=== PATIENT | male | born 1955 | race American Indian/Alaskan Native ===

== ENCOUNTER 2019-05-25 10:49 | Inpatient (IN) | payer MEDICARE ==
[2019-05-25] MEDS ORDERED: SODIUM CHLORIDE 0.9% 500 ML 500 ML IV ONE ×2 (11:37→13:24)
[2019-05-25] MEDS ORDERED: MORPHINE 2 MG/1 ML INJ IV ONE (11:40)
[2019-05-25] MEDS ORDERED: ONDANSETRON 4 MG/2 ML INJ IV ONE (11:40)
--- NOTE | 2019-05-25 12:06 | XRay Report ---
CHEST 1 VIEW INDICATION / CLINICAL INFORMATION: hypertension. COMPARISON: None available. FINDINGS: SUPPORT DEVICES: None. HEART / MEDIASTINUM: No significant abnormality. LUNGS / PLEURA: No significant pulmonary or pleural abnormality. No pneumothorax. ADDITIONAL FINDINGS: No significant additional findings. IMPRESSION: 1. No acute findings. Signer Name: Garland Akins MD Signed: 05/25/2019 12:01 PM Workstation Name: [id number]
[2019-05-25 12:38] LABS: Basophils % (Auto) 0.3 % (0.0-1.8); Eosinophils % (Auto) 0.1 % (0.0-4.3); Hematocrit 31.5 % (35.5-45.6); Hemoglobin 10.2 gm/dl (11.8-15.2); Lymphocytes # (Auto) 1.1 K/mm3 (1.2-5.4); Lymphocytes % (Auto) 8.2 % (13.4-35.0); Mean Corpuscular HGB Conc 33 % (32-34); Mean Corpuscular Volume 88 fl (84-94); Monocytes # (Auto) 1.7 K/mm3 (0.0-0.8); Monocytes % (Auto) 12.4 % (0.0-7.3); Red Blood Count 3.59 M/mm3 (3.65-5.03); Red Cell Distribution Width 17.5 % (13.2-15.2)
[2019-05-25 12:49] LABS: INR 1.22 (0.87-1.13)
[2019-05-25 12:50] LABS: Partial Thromboplastin Time 38.9 Sec. (24.2-36.6)
[2019-05-25 13:04] LABS: Creatine Kinase MB 1.4 ng/mL (0.0-4.0)
[2019-05-25 13:05] LABS: Platelet Count 98 K/mm3 (140-440)
[2019-05-25 13:09] LABS: Albumin 3.5 g/dL (3.9-5); Bilirubin,Direct 0.4 mg/dL (0-0.2); Calcium 10.6 mg/dL (8.4-10.2)
[2019-05-25] MEDS ORDERED: DEXTROSE 50% IN WATER (25GM) 50 ML SYRINGE IV ONE (13:25)
[2019-05-25] MEDS ORDERED: INSULIN REGULAR, HUMAN 100 UNITS/1 ML IV ONE (13:25)
[2019-05-25] MEDS ORDERED: SODIUM BICARB 8.4% 50 MEQ/50 ML SYRINGE IV ONE (13:25)
--- NOTE | 2019-05-25 13:44 | Emergency Department Report ---
ED General Adult HPI - General Chief complaint: Pain General Stated complaint: FALL/BODY PAIN Time Seen by Provider: 05/25/19 11:22 Source: patient, EMS Mode of arrival: Stretcher Limitations: Physical Limitation - History of Present Illness Initial comments: This is a 64-year-old man who is giving a confusing history. According to the triage note he was brought in by EMS when he was found on the floor reportedly down for "4 days". However the patient states he lives with his brother and he has not been immobile. He is remarkably coherent and can list all his medicines with accuracy. He states he has a history of osteoarthritis and hypertension. He is on multiple blood pressure medicines for his hypertension. However he is not taking anything specific for his arthritis. He does complain of severe generalized pain mostly involving his joints. He has noted swelling of his hands. He is not incoherent. However either he has some degree of retrograde amnesia or he is just not providing an accurate history. No family member is currently available to provide additional history. -: Gradual Severity scale (0 -10): 0 - Related Data Allergies Allergy/AdvReac Type Severity Reaction Status Date / Time acetaminophen Allergy Unknown Verified 05/25/19 11:33 [From Tylenol-Codeine #3] codeine Allergy Unknown Verified 05/25/19 11:33 [From Tylenol-Codeine #3] tramadol Allergy Unknown Verified 05/25/19 11:33 ED Review of Systems ROS: Stated complaint: FALL/BODY PAIN Other details as noted in HPI Comment: Unobtainable due to pts medical conditions (There is a question about this patient's reliability) Constitutional: denies: chills, fever Eyes: eye discharge. denies: eye pain, vision change ENT: denies: ear pain, throat pain Respiratory: denies: cough, shortness of breath, wheezing Cardiovascular: denies: chest pain, palpitations Endocrine: no symptoms reported Gastrointestinal: diarrhea. denies: abdominal pain, nausea Genitourinary: denies: urgency, dysuria Musculoskeletal: joint swelling, arthralgia. denies: back pain Skin: denies: rash, lesions Neurological: denies: headache, weakness (No focal weakness), paresthesias Psychiatric: denies: anxiety, depression Hematological/Lymphatic: denies: easy bleeding, easy bruising ED Past Medical Hx - Past Medical History Previous Medical History?: Yes Hx Hypertension: Yes Hx Heart Attack/AMI: Yes (2014) Hx Congestive Heart Failure: Yes Hx Renal Disease: Yes - Surgical History Past Surgical History?: Yes Additional Surgical History: R hip replacement 2015, kidney transplant 1983 - Social History Smoking Status: Never Smoker Substance Use Type: None ED Physical Exam - General Limitations: Physical Limitation General appearance: alert, in no apparent distress - Head Head exam: Present: atraumatic, normocephalic - Eye Eye exam: Present: normal appearance. Absent: scleral icterus - ENT ENT exam: Present: mucous membranes dry - Neck Neck exam: Present: normal inspection. Absent: tenderness, meningismus - Respiratory Respiratory exam: Present: normal lung sounds bilaterally. Absent: respiratory distress - Cardiovascular Cardiovascular Exam: Present: regular rate, normal rhythm. Absent: systolic murmur, diastolic murmur, rubs, gallop - GI/Abdominal GI/Abdominal exam: Present: soft, normal bowel sounds. Absent: distended, tenderness, guarding, rebound - Rectal Rectal exam: Present: deferred - Extremities Exam Extremities exam: Present: other (Patient appears to have multiple active joints. L knee has small effusion, ROM painful diffusely) - Back Exam Back exam: Present: other (unable to examine) - Neurological Exam Neurological exam: Present: alert, oriented X3, CN II-XII intact, motor sensory deficit (limited secondary) - Psychiatric Psychiatric exam: Present: normal affect, normal mood - Skin Skin exam: Present: warm, dry, intact, normal color. Absent: rash ED Course Vital Signs 05/25/19 05/25/19 11:08 11:45 Temperature 99.0 F 99.8 F H Pulse Rate 98 H Respiratory 18 Rate Blood Pressure 181/97 O2 Sat by Pulse 96 Oximetry - Reevaluation(s) Reevaluation #1: Patient has been given to 500 cc fluid boluses. Rectal temperature was less magaly n 100. He was somewhat suspected of sepsis. However his lactic acid level was normal. He was suspected of having rhabdomyolysis. However, his CK was normal. I have still awaiting a urinalysis report. The patient was found to be in acute renal failure. He has metabolic acidosis as well as hyperkalemia. He was given a hyperkalemia cocktail. Nephrology was consulted. I have ordered a repeat CK and BMP. He is given 1 dose of ceftriaxone empirically. He is also pending CT of the head abdomen and pelvis for indications of questionable mental status and acute renal failure. 05/25/19 15:01 Reevaluation #2: Case discussed with Dr. Lainez. Patient admitted to the hospital service for further care and evaluation. 05/25/19 15:03 ED Medical Decision Making - Lab Data Result diagrams: 05/25/19 11:59 05/25/19 11:59 Laboratory Results - last 24 hr 05/25/19 05/25/19 05/25/19 11:59 11:59 11:59 WBC 14.0 H RBC 3.59 L Hgb 10.2 L Hct 31.5 L MCV 88 MCH 29 MCHC 33 RDW 17.5 H Plt Count 98 L Lymph % (Auto) 8.2 L [place] % (Auto) 12.4 H Eos % (Auto) 0.1 Baso % (Auto) 0.3 Lymph # 1.1 L [place] # 1.7 H Eos # 0.0 Baso # 0.0 Seg Neutrophils % 79.0 H Seg Neutrophils # 11.1 H PT 15.6 H INR 1.22 H APTT 38.9 H VBG pH Sodium Potassium Chloride Carbon Dioxide Anion Gap BUN Creatinine Estimated GFR BUN/Creatinine Ratio Glucose Lactic Acid 1.40 Calcium Magnesium Total Bilirubin Direct Bilirubin Indirect Bilirubin AST ALT Alkaline Phosphatase Ammonia CK-MB (CK-2) Troponin T NT-Pro-B Natriuret Pep Total Protein Albumin Albumin/Globulin Ratio 05/25/19 05/25/19 05/25/19 11:59 11:59 11:59 WBC RBC Hgb Hct MCV MCH MCHC RDW Plt Count Lymph % (Auto) [place] % (Auto) Eos % (Auto) Baso % (Auto) Lymph # [place] # Eos # Baso # Seg Neutrophils % Seg Neutrophils # PT INR APTT VBG pH 7.407 Sodium 140 Potassium 5.6 H Chloride 106.5 Carbon Dioxide 17 L Anion Gap 22 BUN 52 H Creatinine 2.4 H Estimated GFR 33 BUN/Creatinine Ratio 22 Glucose 226 H Lactic Acid Calcium 10.6 H Magnesium 2.40 H Total Bilirubin 1.10 Direct Bilirubin 0.4 H Indirect Bilirubin 0.7 AST 22 ALT 17 Alkaline Phosphatase 76 Ammonia 29.0 CK-MB (CK-2) 1.4 Troponin T NT-Pro-B Natriuret Pep 5533 H Total Protein 7.6 Albumin 3.5 L Albumin/Globulin Ratio 0.9 05/25/19 11:59 WBC RBC Hgb Hct MCV MCH MCHC RDW Plt Count Lymph % (Auto) [place] % (Auto) Eos % (Auto) Baso % (Auto) Lymph # [place] # Eos # Baso # Seg Neutrophils % Seg Neutrophils # PT INR APTT VBG pH Sodium Potassium Chloride Carbon Dioxide Anion Gap BUN Creatinine Estimated GFR BUN/Creatinine Ratio Glucose Lactic Acid Calcium Magnesium Total Bilirubin Direct Bilirubin Indirect Bilirubin AST ALT Alkaline Phosphatase Ammonia CK-MB (CK-2) Troponin T 0.047 H NT-Pro-B Natriuret Pep Total Protein Albumin Albumin/Globulin Ratio Laboratory Results - last 24 hr 05/25/19 05/25/19 05/25/19 11:59 11:59 11:59 WBC 14.0 H RBC 3.59 L Hgb 10.2 L Hct 31.5 L MCV 88 MCH 29 MCHC 33 RDW 17.5 H Plt Count 98 L Lymph % (Auto) 8.2 L [place] % (Auto) 12.4 H Eos % (Auto) 0.1 Baso % (Auto) 0.3 Lymph # 1.1 L [place] # 1.7 H Eos # 0.0 Baso # 0.0 Seg Neutrophils % 79.0 H Seg Neutrophils # 11.1 H PT 15.6 H INR 1.22 H APTT 38.9 H VBG pH Sodium Potassium Chloride Carbon Dioxide Anion Gap BUN Creatinine Estimated GFR BUN/Creatinine Ratio Glucose Lactic Acid 1.40 Calcium Magnesium Total Bilirubin Direct Bilirubin Indirect Bilirubin AST ALT Alkaline Phosphatase Ammonia CK-MB (CK-2) Troponin T NT-Pro-B Natriuret Pep Total Protein Albumin Albumin/Globulin Ratio 05/25/19 05/25/19 05/25/19 11:59 11:59 11:59 WBC RBC Hgb Hct MCV MCH MCHC RDW Plt Count Lymph % (Auto) [place] % (Auto) Eos % (Auto) Baso % (Auto) Lymph # [place] # Eos # Baso # Seg Neutrophils % Seg Neutrophils # PT INR APTT VBG pH 7.407 Sodium 140 Potassium 5.6 H Chloride 106.5 Carbon Dioxide 17 L Anion Gap 22 BUN 52 H Creatinine 2.4 H Estimated GFR 33 BUN/Creatinine Ratio 22 Glucose 226 H Lactic Acid Calcium 10.6 H Magnesium 2.40 H Total Bilirubin 1.10 Direct Bilirubin 0.4 H Indirect Bilirubin 0.7 AST 22 ALT 17 Alkaline Phosphatase 76 Ammonia 29.0 CK-MB (CK-2) 1.4 Troponin T NT-Pro-B Natriuret Pep 5533 H Total Protein 7.6 Albumin 3.5 L Albumin/Globulin Ratio 0.9 05/25/19 11:59 WBC RBC Hgb Hct MCV MCH MCHC RDW Plt Count Lymph % (Auto) [place] % (Auto) Eos % (Auto) Baso % (Auto) Lymph # [place] # Eos # Baso # Seg Neutrophils % Seg Neutrophils # PT INR APTT VBG pH Sodium Potassium Chloride Carbon Dioxide Anion Gap BUN Creatinine Estimated GFR BUN/Creatinine Ratio Glucose Lactic Acid Calcium Magnesium Total Bilirubin Direct Bilirubin Indirect Bilirubin AST ALT Alkaline Phosphatase Ammonia CK-MB (CK-2) Troponin T 0.047 H NT-Pro-B Natriuret Pep Total Protein Albumin Albumin/Globulin Ratio Laboratory Results - last 24 hr 05/25/19 05/25/19 05/25/19 11:59 11:59 11:59 WBC 14.0 H RBC 3.59 L Hgb 10.2 L Hct 31.5 L MCV 88 MCH 29 MCHC 33 RDW 17.5 H Plt Count 98 L Lymph % (Auto) 8.2 L [place] % (Auto) 12.4 H Eos % (Auto) 0.1 Baso % (Auto) 0.3 Lymph # 1.1 L [place] # 1.7 H Eos # 0.0 Baso # 0.0 Seg Neutrophils % 79.0 H Seg Neutrophils # 11.1 H PT 15.6 H INR 1.22 H APTT 38.9 H VBG pH Sodium Potassium Chloride Carbon Dioxide Anion Gap BUN Creatinine Estimated GFR BUN/Creatinine Ratio Glucose Lactic Acid 1.40 Calcium Magnesium Total Bilirubin Direct Bilirubin Indirect Bilirubin AST ALT Alkaline Phosphatase Ammonia Total Creatine Kinase CK-MB (CK-2) CK-MB (CK-2) Rel Index Troponin T NT-Pro-B Natriuret Pep Total Protein Albumin Albumin/Globulin Ratio 05/25/19 05/25/19 05/25/19 11:59 11:59 11:59 WBC RBC Hgb Hct MCV MCH MCHC RDW Plt Count Lymph % (Auto) [place] % (Auto) Eos % (Auto) Baso % (Auto) Lymph # [place] # Eos # Baso # Seg Neutrophils % Seg Neutrophils # PT INR APTT VBG pH 7.407 Sodium 140 Potassium 5.6 H Chloride 106.5 Carbon Dioxide 17 L Anion Gap 22 BUN 52 H Creatinine 2.4 H Estimated GFR 33 BUN/Creatinine Ratio 22 Glucose 226 H Lactic Acid Calcium 10.6 H Magnesium 2.40 H Total Bilirubin 1.10 Direct Bilirubin 0.4 H Indirect Bilirubin 0.7 AST 22 ALT 17 Alkaline Phosphatase 76 Ammonia 29.0 Total Creatine Kinase 185 H CK-MB (CK-2) 1.4 CK-MB (CK-2) Rel Index 0.7 Troponin T NT-Pro-B Natriuret Pep 5533 H Total Protein 7.6 Albumin 3.5 L Albumin/Globulin Ratio 0.9 05/25/19 11:59 WBC RBC Hgb Hct MCV MCH MCHC RDW Plt Count Lymph % (Auto) [place] % (Auto) Eos % (Auto) Baso % (Auto) Lymph # [place] # Eos # Baso # Seg Neutrophils % Seg Neutrophils # PT INR APTT VBG pH Sodium Potassium Chloride Carbon Dioxide Anion Gap BUN Creatinine Estimated GFR BUN/Creatinine Ratio Glucose Lactic Acid Calcium Magnesium Total Bilirubin Direct Bilirubin Indirect Bilirubin AST ALT Alkaline Phosphatase Ammonia Total Creatine Kinase CK-MB (CK-2) CK-MB (CK-2) Rel Index Troponin T 0.047 H NT-Pro-B Natriuret Pep Total Protein Albumin Albumin/Globulin Ratio Laboratory Results - last 24 hr 05/25/19 05/25/19 05/25/19 11:59 11:59 11:59 WBC 14.0 H RBC 3.59 L Hgb 10.2 L Hct 31.5 L MCV 88 MCH 29 MCHC 33 RDW 17.5 H Plt Count 98 L Lymph % (Auto) 8.2 L [place] % (Auto) 12.4 H Eos % (Auto) 0.1 Baso % (Auto) 0.3 Lymph # 1.1 L [place] # 1.7 H Eos # 0.0 Baso # 0.0 Seg Neutrophils % 79.0 H Seg Neutrophils # 11.1 H PT 15.6 H INR 1.22 H APTT 38.9 H VBG pH Sodium Potassium Chloride Carbon Dioxide Anion Gap BUN Creatinine Estimated GFR BUN/Creatinine Ratio Glucose Lactic Acid 1.40 Calcium Magnesium Total Bilirubin Direct Bilirubin Indirect Bilirubin AST ALT Alkaline Phosphatase Ammonia Total Creatine Kinase CK-MB (CK-2) CK-MB (CK-2) Rel Index Troponin T NT-Pro-B Natriuret Pep Total Protein Albumin Albumin/Globulin Ratio 05/25/19 05/25/19 05/25/19 11:59 11:59 11:59 WBC RBC Hgb Hct MCV MCH MCHC RDW Plt Count Lymph % (Auto) [place] % (Auto) Eos % (Auto) Baso % (Auto) Lymph # [place] # Eos # Baso # Seg Neutrophils % Seg Neutrophils # PT INR APTT VBG pH 7.407 Sodium 140 Potassium 5.6 H Chloride 106.5 Carbon Dioxide 17 L Anion Gap 22 BUN 52 H Creatinine 2.4 H Estimated GFR 33 BUN/Creatinine Ratio 22 Glucose 226 H Lactic Acid Calcium 10.6 H Magnesium 2.40 H Total Bilirubin 1.10 Direct Bilirubin 0.4 H Indirect Bilirubin 0.7 AST 22 ALT 17 Alkaline Phosphatase 76 Ammonia 29.0 Total Creatine Kinase 185 H CK-MB (CK-2) 1.4 CK-MB (CK-2) Rel Index 0.7 Troponin T NT-Pro-B Natriuret Pep 5533 H Total Protein 7.6 Albumin 3.5 L Albumin/Globulin Ratio 0.9 05/25/19 11:59 WBC RBC Hgb Hct MCV MCH MCHC RDW Plt Count Lymph % (Auto) [place] % (Auto) Eos % (Auto) Baso % (Auto) Lymph # [place] # Eos # Baso # Seg Neutrophils % Seg Neutrophils # PT INR APTT VBG pH Sodium Potassium Chloride Carbon Dioxide Anion Gap BUN Creatinine Estimated GFR BUN/Creatinine Ratio Glucose Lactic Acid Calcium Magnesium Total Bilirubin Direct Bilirubin Indirect Bilirubin AST ALT Alkaline Phosphatase Ammonia Total Creatine Kinase CK-MB (CK-2) CK-MB (CK-2) Rel Index Troponin T 0.047 H NT-Pro-B Natriuret Pep Total Protein Albumin Albumin/Globulin Ratio - EKG Data -: EKG Interpreted by Il EKG shows normal: sinus rhythm (96) Rate: normal - EKG Data Interpretation: LVH, other (QS 3 and aVF. No acute ischemic changes. Essentially normal repolarization. Consistent with LVH) - Radiology Data Radiology results: report reviewed (No acute process), image reviewed Critical Care Time: Yes Critical care time in (mins) excluding proc time.: 90 Critical care attestation.: If time is entered above; I have spent that time in minutes in the direct care of this critically ill patient, excluding procedure time. ED Disposition Clinical Impression: Hyperkalemia, Metabolic acidosis, Acute arthritis Acute renal failure Qualifiers: Acute renal failure type: unspecified Qualified Code(s): N17.9 - Acute kidney failure, unspecified Disposition: 09 OP ADMIT IP TO THIS HOSP Is pt being admited?: Yes Does the pt Need Aspirin: Yes Condition: Stable Referrals: PRIMARY CARE, [Primary Care Provider] - 3-5 Days Time of Disposition: 15:04
[2019-05-25] MEDS ORDERED: cefTRIAXone/NS 1 GM/50 ML 1 GM/50 ML BAG IV ONE (14:59)
[2019-05-25] MEDS ORDERED: ASPIRIN 81 MG TAB CHEW PO ONE (15:05)
[2019-05-25 15:26] LABS: Chol/HDL Ratio 3.25 %
--- NOTE | 2019-05-25 15:32 | Cat Scan Report ---
CT HEAD WITHOUT CONTRAST INDICATION / CLINICAL INFORMATION: Altered mental status. TECHNIQUE: Axial imaging performed from the skull apex through the skull base without the use of cont rast. Sagittal and coronal reformatted images. All CT scans at this location are performed using CT dose reduction for ALARA by means of automated exposure control. COMPARISON: None available. FINDINGS: CEREBRAL PARENCHYMA: No significant abnormality. No acute territorial infarct. Minimal nonspecific ch ronic white matter changes are noted. No chronic infarct. HEMORRHAGE: None. EXTRA-AXIAL SPACES: Normal in size and morphology for the patient's age. VENTRICULAR SYSTEM: Normal in size and morphology for the patient's age. MIDLINE SHIFT OR HERNIATION: None. CEREBELLUM / BRAINSTEM: No significant abnormality. CALVARIUM: No significant abnormality. ORBITS: Normal as visualized. PARANASAL SINUSES / MASTOID AIR CELLS: The frontal sinuses are occluded. There is partial opacificati on of the ethmoid air cells. Mucosal thickening and moderate fluid level are noted in the left maxill serjio sinus. Mild mucosal thickening in the right maxillary sinus. The sphenoid sinuses are clear. SOFT TISSUES of HEAD: No significant abnormality. ADDITIONAL FINDINGS: None. IMPRESSION: No acute intracranial abnormality. Minimal nonspecific chronic white matter changes. Pansinusitis as described above. Correlate for acute symptoms. Signer Name: Patel Torres Jr, MD Signed: 05/25/2019 3:28 PM Workstation Name: [id number]
[2019-05-25 15:34] LABS: Bilirubin,Urine NEG (Negative); Blood,Urine SM (Negative); Color,Urine Yellow (Yellow); WBC,Urine < 1.0 /HPF (0.0-6.0)
--- NOTE | 2019-05-25 15:55 | Cat Scan Report ---
CT ABDOMEN AND PELVIS WITHOUT CONTRAST HISTORY: Acute renal failure. Altered mental status. COMPARISON: No relevant comparison imaging. TECHNIQUE: Routine abdominal and pelvic CT exam performed without contrast. Lack of intravenous cont rast limits evaluation of the vascular and solid organs.. All CT scans at this location are performed using CT dose reduction for ALARA by means of automated exposure control. FINDINGS: CT ABDOMEN: Lung Bases: Clear. Liver: Small but otherwise normal. No liver mass. Biliary: Gallbladder is normally distended with a questionable single irregular tiny gallstone in the dependent portion of the gallbladder. Normal bile ducts. No pericholecystic fluid or gallbladder wal l thickening. Spleen: No significant abnormality. Unenlarged. Pancreas: No significant abnormality. Adrenals: No significant abnormality. Kidneys: Atrophic [place] kidneys with nondilated renal collecting systems and ureters. Lymphatics: No lymphadenopathy. Vasculature: Moderate calcification of the abdominal aorta and iliac arteries. Bowel/Peritoneum: Nonobstructive bowel pattern. Diverticulosis without mesocolonic fat stranding. No free air. No free fluid. Normal appendix. CT PELVIC: : A right transplant kidney measures approximately 12 cm in length. Moderate dilatation of the uday l collecting system and proximal ureter. There appears to be a stricture in the ureter on the coronal reformats but the ureter distal to the stricture cannot be followed to the urinary bladder. Urinary bladder is moderately distended and unremarkable. Normal prostate and seminal vesicles. Lymphatics: No lymphadenopathy. Osseous Structures: No aggressive appearing osseous lesions. Additional Findings: A small fat-containing umbilical hernia. IMPRESSION: 1. Right transplant kidney with moderate hydronephrosis and a possible stricture of the ureter just d istal to the UPJ. No urinary calculus or mass identified. 2. A possible single tiny gallstone. 3. Small liver but no other signs to suggest cirrhosis. 4. Mild diverticulosis but no signs of diverticulitis. 5. A small fat-containing umbilical hernia. Signer Name: Best Oliveira MD Signed: 05/25/2019 3:51 PM Workstation Name: [id number]
[2019-05-25 16:02] LABS: Creatine Kinase MB 1.3 ng/mL (0.0-4.0)
[2019-05-25 16:03] LABS: Calcium 10.2 mg/dL (8.4-10.2)
[2019-05-25] MEDS ORDERED: ONDANSETRON 4 MG/2 ML INJ IV PRN ×2 (16:56→21:33)
[2019-05-25] MEDS: HYDROmorphone 1 MG/1 ML INJ IV PRN ×2 (17:09→21:56)
--- NOTE | 2019-05-25 17:18 | Consultation ---
History of Present Illness - Reason for Consult Consult date: 05/25/19 chronic renal failure - History of Present Illness This is a 64-year-old male who presents to the E.R who complains of pain to his back. At present patient can barely speak due to being in pain. Patient reports that he has a kidney doctor name Jose Cortez that is off [facility] and states he has last seen him 2 months ago and has been under his care for 30 plus years per patient. Patient is unable to state what his baseline renal function is as he does not know. Patient's serum creatinine noted to e levated at 2.4. Baseline unknown. Patient has history of renal transplant in 1983 and hypertension. We are being consulted for management of this patient's Chronic kidney disease. Past History Past Medical History: hypertension, other (CKD) Past Surgical History: total hip replacement, Other (renal transplant in 1983) Social history: no significant social history Family history: no significant family history Medications and Allergies Allergies Allergy/AdvReac Type Severity Reaction Status Date / Time acetaminophen Allergy Unknown Verified 05/25/19 11:33 [From Tylenol-Codeine #3] codeine Allergy Unknown Verified 05/25/19 11:33 [From Tylenol-Codeine #3] tramadol Allergy Unknown Verified 05/25/19 11:33 Active Meds: Active Medications Hydromorphone HCl (Dilaudid) 0.5 mg IV Q3H PRN PRN Reason: Pain , Severe (7-10) Last Admin: 05/25/19 17:09 Dose: 0.5 mg Documented by: Ondansetron HCl (Zofran) 4 mg IV Q3H PRN PRN Reason: Nausea Last Admin: 05/25/19 17:09 Dose: 4 mg Documented by: Review of Systems Constitutional: fatigue, no weight loss, no weight gain, no fever, no chills, no sweats Ears, nose, mouth and throat: no ear pain, no ear discharge, no tinnitis, no decreased hearing Cardiovascular: no chest pain, no orthopnea, no palpitations, no rapid/irregular heart beat, no edema Respiratory: no cough, no cough with sputum, no excessive sputum, no hemoptysis, no shortness of breath Gastrointestinal: no abdominal pain, no nausea, no vomiting Genitourinary Male: no dysuria, no hematuria, no flank pain, no discharge, no urinary frequency, no urinary hesitancy Musculoskeletal: arthritis, other (c/o of back pain and hand swelling), no neck stiffness, no neck pain, no shooting arm pain, no arm numbness/tingling, no low back pain Integumentary: no rash, no pruritis, no redness, no sores, no wounds Neurological: no head injury, no transient paralysis, no paralysis, no weakness, no parathesias, no numbness, no tingling, no seizures Psychiatric: no anxiety, no memory loss, no change in sleep habits, no sleep disturbances, no insomnia, no hypersomnia Endocrine: no cold intolerance, no heat intolerance, no polyphagia, no excessive thirst, no polydipsia, no polyuria Exam - Vital Signs Vital signs: Vital Signs Pulse Resp 99 H 10 L 05/25/19 11:03 05/25/19 11:03 - General Appearance General appearance: fatigue, other (in distress from back pain) EENT: ATNC, PERRL, hearing intact, vision intact Neck: Present: neck supple, trachea midline Respiratory: Clear to Ascultation Heart: regular, S1S2 Gastrointestinal: Present: normoactive bowel sounds Integumentary: warm and dry Neurologic: alert and oriented x3 Musculoskeletal: Present: other (No edema to BLE) Results - Lab Results 05/25/19 11:59 05/25/19 15:23 Most recent lab results Calcium 10.2 mg/dL (8.4-10.2) 05/25/19 15:23 Magnesium 2.40 mg/dL (1.7-2.3) H 05/25/19 11:59 Assessment and Plan Chronic Kidney Disease likely secondary to Hypertensive Nephrosclerosis: -Renal labs reviewed. Serum creatinine 2.4. Baseline unknown. -However patient reports being under the care of a Printing Press Operator named Jose Mcneill, likely has CKD -Will obtain renal ultrasound -Will obtain urine lytes -Start hydration with NS@ 50 ml/hr -Renally dose medications -Avoid nephrotoxic agents -Monitor I/O's -Will monitor renal function closely Hypertension: -Resume/reconcile home anti-hypertensive agents -Monitor blood pressures Hyperkalemia: -Received insulin/bicarb/D50 -Monitor potassium levels -BMP in a.m Back Pain: -As per primary
--- NOTE | 2019-05-25 21:28 | History and Physical Report ---
History of Present Illness Date of examination: 05/25/19 Date of admission: 05/25/2019 Chief complaint: Back pain---4 days History of present illness: 64-year-old man was found on the floor reportedly down for "4 days". However the patient states he lives with his brother and he has not been immobile. Complains of pain to his back. At present patient can barely speak due to being in pain. Patient reports that he has a kidney doctor name Jose Cortez that is off [facility] and states he has last seen him 2 months ago and has been under his care for 30 plus years. Patient is unable to state what his baseline renal function is as he does not know. Patient's serum creatinine noted to elevated at 2.4. Baseline unknown. Patient has history of renal transplant in 1983 and hypertension. Patient has high K level ,cr of 2.8 and high BNPhence admission. No specific complaints other than back pain. Past Medical History Previous Medical History?: Yes Hypertension: Yes Heart Attack/AMI: Yes (2013) Congestive Heart Failure: Yes Renal Disease: Yes -Surgical History Past Surgical History?: Yes Additional Surgical History: R hip replacement 2015, kidney transplant 1983 Social History Smoking Status: Never Smoker Substance Use Type: None FH Htn Review of Systems ROS: Stated complaint: FALL/BODY PAIN Other details as noted in HPI Comment: Unobtainable due to pts medical conditions (There is a question about this patient's reliability) Constitutional: denies: chills, fever Eyes: eye discharge. denies: eye pain, vision change ENT: denies: ear pain, throat pain Respiratory: denies: cough, shortness of breath, wheezing Cardiovascular: denies: chest pain, palpitations Endocrine: no symptoms reported Gastrointestinal: diarrhea. denies: abdominal pain, nausea Genitourinary: denies: urgency, dysuria Musculoskeletal: joint swelling, arthralgia. denies: back pain Skin: denies: rash, lesions Neurological: denies: headache, weakness (No focal weakness), paresthesias Psychiatric: denies: anxiety, depression Hematological/Lymphatic: denies: easy bleeding, easy bruising Past History Past Medical History: hypertension, other (CKD) Past Surgical History: total hip replacement, Other (renal transplant in 1983) Social history: no significant social history Family history: no significant family history Medications and Allergies Allergies Allergy/AdvReac Type Severity Reaction Status Date / Time codeine Allergy Unknown Verified 05/25/19 11:33 [From Tylenol-Codeine #3] tramadol Allergy Unknown Verified 05/25/19 11:33 Home Medications Medication Instructions Recorded Confirmed Last Taken Type Furosemide [Lasix TAB] 40 mg PO QDAY 05/25/19 05/25/19 Unknown History Gabapentin [Neurontin] 100 mg PO Q8HR 05/25/19 05/25/19 Unknown History NIFEdipine [Nifedipine ER] 30 mg PO QDAY 05/25/19 05/25/19 Unknown History Prednisone [predniSONE (Marie) ER 5 mg PO QDAY 05/25/19 05/25/19 Unknown History TAB] Rosuvastatin Calcium 20 mg PO QHS 05/25/19 05/25/19 Unknown History Ticagrelor (Nf) [Brilinta (Nf)] 60 mg PO DAILY 05/25/19 05/25/19 Unknown History carvediloL [Coreg] 25 mg PO BID 05/25/19 05/25/19 Unknown History lisinopriL [Zestril TAB] 10 mg PO QDAY 05/25/19 05/25/19 Unknown History Active Meds: Active Medications Hydromorphone HCl (Dilaudid) 0.5 mg IV Q3H PRN PRN Reason: Pain , Severe (7-10) Last Admin: 05/25/19 17:09 Dose: 0.5 mg Documented by: Ondansetron HCl (Zofran) 4 mg IV Q3H PRN PRN Reason: Nausea Last Admin: 05/25/19 17:09 Dose: 4 mg Documented by: Exam - Constitutional Vitals: Temp Pulse Resp BP Pulse Ox 99.8 F H 114 H 14 181/96 93 05/25/19 11:45 05/25/19 19:00 05/25/19 19:00 05/25/19 19:00 05/25/19 19:00 General appearance: Present: no acute distress, well-nourished - EENT Eyes: Present: PERRL ENT: hearing intact, clear oral mucosa - Neck Neck: Present: supple, normal ROM - Respiratory Respiratory effort: normal Respiratory: bilateral: CTA - Cardiovascular Heart rate: 78 Rhythm: regular Heart Sounds: Present: S1 & S2. Absent: rub, click - Extremities Extremities: pulses symmetrical, No edema Peripheral Pulses: within normal limits - Abdominal General gastrointestinal: Present: soft, non-tender, non-distended, normal bowel sounds Male genitourinary: Present: normal - Integumentary Integumentary: Present: clear, warm, dry - Musculoskeletal Musculoskeletal: gait normal, strength equal bilaterally - Psychiatric Psychiatric: appropriate mood/affect, intact judgment & insight - Neurologic Neurologic: CNII-XII intact, moves all extremities Results - Labs CBC & Chem 7: 05/26/19 05:34 05/26/19 05:34 Labs: Laboratory Last Values WBC 14.0 K/mm3 (4.5-11.0) H 05/25/19 11:59 RBC 3.59 M/mm3 (3.65-5.03) L 05/25/19 11:59 Hgb 10.2 gm/dl (11.8-15.2) L 05/25/19 11:59 Hct 31.5 % (35.5-45.6) L 05/25/19 11:59 MCV 88 fl (84-94) 05/25/19 11:59 MCH 29 pg (28-32) 05/25/19 11:59 MCHC 33 % (32-34) 05/25/19 11:59 RDW 17.5 % (13.2-15.2) H 05/25/19 11:59 Plt Count 98 K/mm3 (140-440) L 05/25/19 11:59 Lymph % (Auto) 8.2 % (13.4-35.0) L 05/25/19 11:59 [place] % (Auto) 12.4 % (0.0-7.3) H 05/25/19 11:59 Eos % (Auto) 0.1 % (0.0-4.3) 05/25/19 11:59 Baso % (Auto) 0.3 % (0.0-1.8) 05/25/19 11:59 Lymph # 1.1 K/mm3 (1.2-5.4) L 05/25/19 11:59 [place] # 1.7 K/mm3 (0.0-0.8) H 05/25/19 11:59 Eos # 0.0 K/mm3 (0.0-0.4) 05/25/19 11:59 Baso # 0.0 K/mm3 (0.0-0.1) 05/25/19 11:59 Seg Neutrophils % 79.0 % (40.0-70.0) H 05/25/19 11:59 Seg Neutrophils # 11.1 K/mm3 (1.8-7.7) H 05/25/19 11:59 PT 15.6 Sec. (12.2-14.9) H 05/25/19 11:59 INR 1.22 (0.87-1.13) H 05/25/19 11:59 APTT 38.9 Sec. (24.2-36.6) H 05/25/19 11:59 VBG pH 7.407 (7.320-7.420) 05/25/19 11:59 Sodium 143 mmol/L (137-145) 05/25/19 15:23 Potassium 5.3 mmol/L (3.6-5.0) H 05/25/19 15:23 Chloride 107.6 mmol/L (98-107) H 05/25/19 15:23 Carbon Dioxide 22 mmol/L (22-30) 05/25/19 15:23 Anion Gap 19 mmol/L 05/25/19 15:23 BUN 50 mg/dL (9-20) H 05/25/19 15:23 Creatinine 2.4 mg/dL (0.8-1.5) H 05/25/19 15:23 Estimated GFR 33 ml/min 05/25/19 15:23 BUN/Creatinine Ratio 21 % 05/25/19 15:23 Glucose 167 mg/dL (75-100) H 05/25/19 15:23 Lactic Acid 1.90 mmol/L (0.7-2.0) 05/25/19 15:23 Calcium 10.2 mg/dL (8.4-10.2) 05/25/19 15:23 Magnesium 2.40 mg/dL (1.7-2.3) H 05/25/19 11:59 Total Bilirubin 1.10 mg/dL (0.1-1.2) 05/25/19 11:59 Direct Bilirubin 0.4 mg/dL (0-0.2) H 05/25/19 11:59 Indirect Bilirubin 0.7 mg/dL 05/25/19 11:59 AST 22 units/L (5-40) 05/25/19 11:59 ALT 17 units/L (7-56) 05/25/19 11:59 Alkaline Phosphatase 76 units/L (35-129) 05/25/19 11:59 Ammonia 29.0 umol/L (25-60) 05/25/19 11:59 Total Creatine Kinase 160 units/L (55-170) 05/25/19 15:23 CK-MB (CK-2) 1.3 ng/mL (0.0-4.0) 05/25/19 15:23 CK-MB (CK-2) Rel Index 0.8 (0-4) 05/25/19 15:23 Troponin T 0.047 ng/mL (0.00-0.029) H 05/25/19 11:59 NT-Pro-B Natriuret Pep 5533 pg/mL (0-900) H 05/25/19 11:59 Total Protein 7.6 g/dL (6.3-8.2) 05/25/19 11:59 Albumin 3.5 g/dL (3.9-5) L 05/25/19 11:59 Albumin/Globulin Ratio 0.9 % 05/25/19 11:59 Triglycerides 96 mg/dL (2-149) 05/25/19 11:59 Cholesterol 166 mg/dL (50-199) 05/25/19 11:59 LDL Cholesterol Direct 106 mg/dL (50-130) 05/25/19 11:59 HDL Cholesterol 51 mg/dL (40-59) 05/25/19 11:59 Cholesterol/HDL Ratio 3.25 % 05/25/19 11:59 Urine Color Yellow (Yellow) 05/25/19 15:07 Urine Turbidity Clear (Clear) 05/25/19 15:07 Urine pH 6.0 (5.0-7.0) 05/25/19 15:07 Ur Specific [place] 1.013 (1.003-1.030) 05/25/19 15:07 Urine Protein 100 mg/dl mg/dL (Negative) 05/25/19 15:07 Urine Glucose (UA) 50 mg/dL (Negative) 05/25/19 15:07 Urine Ketones Neg mg/dL (Negative) 05/25/19 15:07 Urine Blood Sm (Negative) 05/25/19 15:07 Urine Nitrite Neg (Negative) 05/25/19 15:07 Urine Bilirubin Neg (Negative) 05/25/19 15:07 Urine Urobilinogen 2.0 mg/dL (<2.0) 05/25/19 15:07 Ur Leukocyte Esterase Neg (Negative) 05/25/19 15:07 Urine WBC (Auto) < 1.0 /HPF (0.0-6.0) 05/25/19 15:07 Urine RBC (Auto) 5.0 /HPF (0.0-6.0) 05/25/19 15:07 U Epithel Cells (Auto) < 1.0 /HPF (0-13.0) 05/25/19 15:07 Short CBC 05/25/19 05/26/19 Range/Units 11:59 05:34 WBC 14.0 H 14.3 H (4.5-11.0) K/mm3 Hgb 10.2 L 10.2 L (11.8-15.2) gm/dl Hct 31.5 L 31.4 L (35.5-45.6) % Plt Count 98 L 103 L (140-440) K/mm3 BMP 05/25/19 05/25/19 05/26/19 11:59 15:23 05:34 Sodium 140 143 144 Potassium 5.6 H 5.3 H 6.0 H Chloride 106.5 107.6 H 107.8 H Carbon Dioxide 17 L 22 21 L BUN 52 H 50 H 49 H Creatinine 2.4 H 2.4 H 2.7 H Glucose 226 H 167 H 172 H Calcium 10.6 H 10.2 10.3 H Cardiac Enzymes 05/25/19 05/25/19 05/25/19 Range/Units 11:59 11:59 15:23 Total Creatine Kinase 185 H 160 (55-170) units/L CK-MB (CK-2) 1.4 1.3 (0.0-4.0) ng/mL Troponin T 0.047 H (0.00-0.029) ng/mL Liver Function 05/25/19 Range/Units 11:59 Total Bilirubin 1.10 (0.1-1.2) mg/dL Direct Bilirubin 0.4 H (0-0.2) mg/dL AST 22 (5-40) units/L ALT 17 (7-56) units/L Alkaline Phosphatase 76 (35-129) units/L Albumin 3.5 L (3.9-5) g/dL Urine 05/25/19 Range/Units 15:07 Urine Color Yellow (Yellow) Urine pH 6.0 (5.0-7.0) Ur Specific [place] 1.013 (1.003-1.030) Urine Protein 100 mg/dl (Negative) mg/dL Urine Glucose (UA) 50 (Negative) mg/dL Assessment and Plan Advance Directives: Yes (Fc) VTE prophylaxis?: Chemical Plan of care discussed with patient/family: Yes - Patient Problems (1) Hyperkalemia Current Visit: Yes Status: Acute Plan to address problem: Treated in ED Recheck K level (2) CONSTANTINO (acute kidney injury) Current Visit: Yes Status: Acute Plan to address problem: Gentle hydration given his chf May have underlying CKD Hx of renal transplant in 1983 (3) CHF (congestive heart failure) Current Visit: Yes Status: Chronic Qualifiers: Heart failure type: combined systolic and diastolic Plan to address problem: Check ECHO for EF Cardiology consult (4) T2DM (type 2 diabetes mellitus) Current Visit: Yes Status: Chronic Qualifiers: Diabetes mellitus ad terminal makeup operator insulin use: unspecified halfway insulin use status Plan to address problem: Cverage forr now Check A1c (5) DVT prophylaxis Current Visit: Yes Status: Acute Plan to address problem: On Heparin and GI prophylaxis
[2019-05-25] MEDS ORDERED: TICAGRELOR 60 MG PO SCH (21:30)
[2019-05-25] MEDS ORDERED: oxyCODONE /ACETAMINOPHEN 5-325MG TAB PO PRN (21:33)
[2019-05-25] MEDS ORDERED: hydrALAZINE 20 MG/1 ML INJ IV PRN ×2 (22:14→22:20)
[2019-05-25] MEDS ORDERED: SODIUM POLYSTYRENE 15 GM/60 ML ORAL LIQD PO ONE (22:15)
[2019-05-25] MEDS: carvediloL 25 MG TAB PO SCH (22:47)
[2019-05-25] MEDS: HEPARIN 5,000 UNIT/1 ML VIAL SUB-Q SCH (22:48)
[2019-05-25] MEDS: GABAPENTIN 100 MG CAP PO SCH (22:48)
[2019-05-25] MEDS: SODIUM CHLORIDE 0.45% 1000 ML 1,000 ML IV SCH (22:57)
[2019-05-25] MEDS ORDERED: SODIUM POLYSTYRENE 15 GM/60 ML ORAL LIQD ONE (23:06)
[2019-05-26 06:02] LABS: Basophils % (Auto) 0.2 % (0.0-1.8); Eosinophils % (Auto) 0.1 % (0.0-4.3); Hematocrit 31.4 % (35.5-45.6); Hemoglobin 10.2 gm/dl (11.8-15.2); Lymphocytes # (Auto) 1.2 K/mm3 (1.2-5.4); Lymphocytes % (Auto) 8.3 % (13.4-35.0); Mean Corpuscular HGB Conc 33 % (32-34); Mean Corpuscular Volume 88 fl (84-94); Monocytes # (Auto) 1.6 K/mm3 (0.0-0.8); Monocytes % (Auto) 11.1 % (0.0-7.3); Platelet Count 103 K/mm3 (140-440); Red Blood Count 3.56 M/mm3 (3.65-5.03); Red Cell Distribution Width 17.6 % (13.2-15.2)
[2019-05-26 06:23] LABS: Calcium 10.3 mg/dL (8.4-10.2)
[2019-05-26] MEDS ORDERED: CALCIUM CHLORIDE 1,000 MG/10 ML SYRINGE IV ONE (06:34)
[2019-05-26] MEDS ORDERED: SODIUM POLYSTYRENE 15 GM/60 ML ORAL LIQD PO ONE (06:37)
[2019-05-26] MEDS ORDERED: CALCIUM CHLORIDE 1,000 MG in SODIUM CHLORIDE 0.9% 100 ML IV ONE (07:00)
[2019-05-26] MEDS ORDERED: SODIUM BICARB 8.4% 50 MEQ/50 ML SYRINGE IV ONE (07:00)
--- NOTE | 2019-05-26 10:41 | Progress Note ---
Assessment and Plan Assessment and plan: -- Hyperkalemia Current Visit: Yes Status: Acute Received calcium chloride, Kayexalate Recheck K level, Nephrology following --CONSTANTINO (acute kidney injury) Current Visit: Yes Status: Acute Gentle hydration given his chf May have underlying CKD Hx of renal transplant in 1983 -- CHF (congestive heart failure) Current Visit: Yes Status: Chronic Check ECHO for EF,Cardiology consult if needed --Left upper extremity swelling: Patient has IV access on that arm Elevate the limb, pain medications Venous Doppler to rule out DVT -- T2DM (type 2 diabetes mellitus) Current Visit: Yes Status: Chronic Accu-Chek sliding scale coverage ADA diet Insulin as needed, Hb A1c 6.5 --DVT prophylaxis Current Visit: Yes Status: Acute On Heparin and GI prophylaxis Consults and recommendations noted and appreciated Monitor closely and adjust management as indicated Plan of care reviewed with the patient and his nurse History Interval history: I have seen and evaluated the patient at bedside this morning Patient's chart medications and other records reviewed Admitted with acute on chronic kidney disease, hyper kalemia Patient's potassium is 6 today Received calcium chloride Kayexalate Evaluated by nephrology Vital signs reviewed Hospitalist Physical - Constitutional Vitals: Temp Pulse Resp BP Pulse Ox 99.3 F 113 H 18 162/99 94 05/26/19 07:53 05/26/19 07:53 05/26/19 07:53 05/26/19 07:53 05/26/19 07:53 General appearance: Present: no acute distress, well-nourished - EENT Eyes: Present: PERRL, EOM intact - Neck Neck: Present: supple, normal ROM - Respiratory Respiratory effort: normal Respiratory: bilateral: diminished, negative: rales, rhonchi, wheezing - Cardiovascular Rhythm: regular Heart Sounds: Present: S1 & S2 - Extremities Extremities: no ischemia, No edema - Abdominal General gastrointestinal: soft, non-tender, non-distended, normal bowel sounds - Integumentary Integumentary: Present: clear, warm - Psychiatric Psychiatric: appropriate mood/affect, cooperative - Neurologic Neurologic: CNII-XII intact, moves all extremities Results - Labs CBC & Chem 7: 05/26/19 05:34 05/26/19 05:34 Labs: Laboratory Last Values WBC 14.3 K/mm3 (4.5-11.0) H 05/26/19 05:34 RBC 3.56 M/mm3 (3.65-5.03) L 05/26/19 05:34 Hgb 10.2 gm/dl (11.8-15.2) L 05/26/19 05:34 Hct 31.4 % (35.5-45.6) L 05/26/19 05:34 MCV 88 fl (84-94) 05/26/19 05:34 MCH 29 pg (28-32) 05/26/19 05:34 MCHC 33 % (32-34) 05/26/19 05:34 RDW 17.6 % (13.2-15.2) H 05/26/19 05:34 Plt Count 103 K/mm3 (140-440) L 05/26/19 05:34 Lymph % (Auto) 8.3 % (13.4-35.0) L 05/26/19 05:34 [place] % (Auto) 11.1 % (0.0-7.3) H 05/26/19 05:34 Eos % (Auto) 0.1 % (0.0-4.3) 05/26/19 05:34 Baso % (Auto) 0.2 % (0.0-1.8) 05/26/19 05:34 Lymph # 1.2 K/mm3 (1.2-5.4) 05/26/19 05:34 [place] # 1.6 K/mm3 (0.0-0.8) H 05/26/19 05:34 Eos # 0.0 K/mm3 (0.0-0.4) 05/26/19 05:34 Baso # 0.0 K/mm3 (0.0-0.1) 05/26/19 05:34 Seg Neutrophils % 80.3 % (40.0-70.0) H 05/26/19 05:34 Seg Neutrophils # 11.4 K/mm3 (1.8-7.7) H 05/26/19 05:34 PT 15.6 Sec. (12.2-14.9) H 05/25/19 11:59 INR 1.22 (0.87-1.13) H 05/25/19 11:59 APTT 38.9 Sec. (24.2-36.6) H 05/25/19 11:59 VBG pH 7.407 (7.320-7.420) 05/25/19 11:59 Sodium 144 mmol/L (137-145) 05/26/19 05:34 Potassium 6.0 mmol/L (3.6-5.0) H 05/26/19 05:34 Chloride 107.8 mmol/L (98-107) H 05/26/19 05:34 Carbon Dioxide 21 mmol/L (22-30) L 05/26/19 05:34 Anion Gap 21 mmol/L 05/26/19 05:34 BUN 49 mg/dL (9-20) H 05/26/19 05:34 Creatinine 2.7 mg/dL (0.8-1.5) H 05/26/19 05:34 Estimated GFR 29 ml/min 05/26/19 05:34 BUN/Creatinine Ratio 18 % 05/26/19 05:34 Glucose 172 mg/dL (75-100) H 05/26/19 05:34 Hemoglobin A1c 6.5 % (4-6) H 05/25/19 11:59 Lactic Acid 1.90 mmol/L (0.7-2.0) 05/25/19 15:23 Calcium 10.3 mg/dL (8.4-10.2) H 05/26/19 05:34 Phosphorus 4.30 mg/dL (2.5-4.5) 05/26/19 05:34 Magnesium 2.40 mg/dL (1.7-2.3) H 05/25/19 11:59 Total Bilirubin 1.10 mg/dL (0.1-1.2) 05/25/19 11:59 Direct Bilirubin 0.4 mg/dL (0-0.2) H 05/25/19 11:59 Indirect Bilirubin 0.7 mg/dL 05/25/19 11:59 AST 22 units/L (5-40) 05/25/19 11:59 ALT 17 units/L (7-56) 05/25/19 11:59 Alkaline Phosphatase 76 units/L (35-129) 05/25/19 11:59 Ammonia 29.0 umol/L (25-60) 05/25/19 11:59 Total Creatine Kinase 160 units/L (55-170) 05/25/19 15:23 CK-MB (CK-2) 1.3 ng/mL (0.0-4.0) 05/25/19 15:23 CK-MB (CK-2) Rel Index 0.8 (0-4) 05/25/19 15:23 Troponin T 0.047 ng/mL (0.00-0.029) H 05/25/19 11:59 NT-Pro-B Natriuret Pep 5533 pg/mL (0-900) H 05/25/19 11:59 Total Protein 7.6 g/dL (6.3-8.2) 05/25/19 11:59 Albumin 3.5 g/dL (3.9-5) L 05/25/19 11:59 Albumin/Globulin Ratio 0.9 % 05/25/19 11:59 Triglycerides 96 mg/dL (2-149) 05/25/19 11:59 Cholesterol 166 mg/dL (50-199) 05/25/19 11:59 LDL Cholesterol Direct 106 mg/dL (50-130) 05/25/19 11:59 HDL Cholesterol 51 mg/dL (40-59) 05/25/19 11:59 Cholesterol/HDL Ratio 3.25 % 05/25/19 11:59 Urine Color Yellow (Yellow) 05/25/19 15:07 Urine Turbidity Clear (Clear) 05/25/19 15:07 Urine pH 6.0 (5.0-7.0) 05/25/19 15:07 Ur Specific [place] 1.013 (1.003-1.030) 05/25/19 15:07 Urine Protein 100 mg/dl mg/dL (Negative) 05/25/19 15:07 Urine Glucose (UA) 50 mg/dL (Negative) 05/25/19 15:07 Urine Ketones Neg mg/dL (Negative) 05/25/19 15:07 Urine Blood Sm (Negative) 05/25/19 15:07 Urine Nitrite Neg (Negative) 05/25/19 15:07 Urine Bilirubin Neg (Negative) 05/25/19 15:07 Urine Urobilinogen 2.0 mg/dL (<2.0) 05/25/19 15:07 Ur Leukocyte Esterase Neg (Negative) 05/25/19 15:07 Urine WBC (Auto) < 1.0 /HPF (0.0-6.0) 05/25/19 15:07 Urine RBC (Auto) 5.0 /HPF (0.0-6.0) 05/25/19 15:07 U Epithel Cells (Auto) < 1.0 /HPF (0-13.0) 05/25/19 15:07 Active Medications - Current Medications Current Medications: Generic Name Dose Route Start Last Admin Trade Name Freq PRN Reason Stop Dose Admin Acetaminophen 650 mg 05/25/19 21:33 Tylenol PO Q4H PRN Pain MILD(1-3)/Fever >100.5/SKINNER Atorvastatin Calcium 40 mg 05/25/19 22:00 05/25/19 22:48 Lipitor PO 40 mg QHS SHEBA Administration Carvedilol 25 mg 05/25/19 22:00 05/25/19 22:47 Coreg PO 25 mg BID SHEBA Administration Gabapentin 100 mg 05/25/19 22:00 05/25/19 22:48 Gabapentin PO 100 mg Q8HR SHEBA Administration Heparin Sodium (Porcine) 5,000 unit 05/25/19 22:00 05/25/19 22:48 Heparin SUB-Q 5,000 unit Q12HR SHEBA Administration Hydralazine HCl 5 mg 05/25/19 22:20 05/25/19 22:58 Apresoline IV 5 mg Q6H PRN Administration Hypertension Hydromorphone HCl 0.5 mg 05/25/19 16:55 05/25/19 21:56 Dilaudid IV 0.5 mg Q3H PRN Administration Pain , Severe (7-10) Sodium Chloride 1,000 mls @ 100 mls/hr 05/25/19 22:00 05/25/19 22:57 Nacl 0.45% 1000 Ml IV 100 mls/hr DIRECT SHEBA Administration Miscellaneous Medication 60 mg 05/25/19 21:30 Ticagrelor (Nf) PO DAILY [facility] Nifedipine 60 mg 05/26/19 08:00 Procardia Xl PO QDAY@0800 [facility] Ondansetron HCl 4 mg 05/25/19 21:33 Zofran IV Q8H PRN Nausea And Vomiting Oxycodone/Acetaminophen 1 tab 05/25/19 21:33 Percocet 5/325 PO Q6H PRN Pain, Moderate (4-6) Sodium Chloride 10 ml 05/25/19 22:00 03/11/20 09:32 Sodium Chloride Flush Syringe 10 Ml IV Not Given BID SHEBA Sodium Chloride 10 ml 05/25/19 21:33 Sodium Chloride Flush Syringe 10 Ml IV PRN PRN LINE FLUSH
--- NOTE | 2019-05-26 11:25 | Consultation ---
History of Present Illness Consult date: 05/26/19 Consult reason: congestive heart failure History of present illness: This is a 64-year old male who was brought in by EMS after he was found on the floor with reports of being down for 4 days. Patient denies loss of consciousness. He denies chest pain, palpitations and unusual shortness of breath. Patient states he laid on the floor due to back pain. He has noted swelling and of his right upper extremity with limited ROM. Extremity is also p ainful and hot to touch. Patient was febrile overnight. Labs shows multiple metabolic abnormalities including a WBC of 14.3. Potassium at 6.0 with a creatinine of 2.7. There was also a BNP of 5533. Chest x-ray documents no evidence of interstitial edema. Head CT scan reports no acute intracranial ab normalities. 12 lead EKG is sinus rhythm with LVH. A cardiac consultation has been requested for CHF evaluation. Patient is a poor historian. Home medications list he is taking Brilinta but reasons are unclear. Patient denies recent ischemic cardiac evaluation and workup. Past History Past Medical History: hypertension, other (CKD) Past Surgical History: total hip replacement, Other (renal transplant in 1983) Social history: no significant social history Family history: no significant family history Medications and Allergies Allergies Allergy/AdvReac Type Severity Reaction Status Date / Time codeine Allergy Unknown Verified 05/25/19 11:33 [From Tylenol-Codeine #3] tramadol Allergy Unknown Verified 05/25/19 11:33 Home Medications Medication Instructions Recorded Confirmed Last Taken Type Furosemide [Lasix TAB] 40 mg PO QDAY 05/25/19 05/25/19 Unknown History Gabapentin [Neurontin] 100 mg PO Q8HR 05/25/19 05/25/19 Unknown History NIFEdipine [Nifedipine ER] 30 mg PO QDAY 05/25/19 05/25/19 Unknown History Prednisone [predniSONE (Marie) ER 5 mg PO QDAY 05/25/19 05/25/19 Unknown History TAB] Rosuvastatin Calcium 20 mg PO QHS 05/25/19 05/25/19 Unknown History Ticagrelor (Nf) [Brilinta (Nf)] 60 mg PO DAILY 05/25/19 05/25/19 Unknown History carvediloL [Coreg] 25 mg PO BID 05/25/19 05/25/19 Unknown History lisinopriL [Zestril TAB] 10 mg PO QDAY 05/25/19 05/25/19 Unknown History Active Meds: Active Medications Acetaminophen (Tylenol) 650 mg PO Q4H PRN PRN Reason: Pain MILD(1-3)/Fever >100.5/SKINNER Atorvastatin Calcium (Lipitor) 40 mg PO QHS [facility] Last Admin: 05/25/19 22:48 Dose: 40 mg Documented by: Carvedilol (Coreg) 25 mg PO BID [facility] Last Admin: 05/25/19 22:47 Dose: 25 mg Documented by: Gabapentin (Gabapentin) 100 mg PO Q8HR [facility] Last Admin: 05/25/19 22:48 Dose: 100 mg Documented by: Heparin Sodium (Porcine) (Heparin) 5,000 unit SUB-Q Q12HR [facility] Last Admin: 05/25/19 22:48 Dose: 5,000 unit Documented by: Hydralazine HCl (Apresoline) 5 mg IV Q6H PRN PRN Reason: Hypertension Last Admin: 05/25/19 22:58 Dose: 5 mg Documented by: Hydromorphone HCl (Dilaudid) 0.5 mg IV Q3H PRN PRN Reason: Pain , Severe (7-10) Last Admin: 05/25/19 21:56 Dose: 0.5 mg Documented by: Sodium Chloride (Nacl 0.45% 1000 Ml) 1,000 mls @ 100 mls/hr IV DIRECT [facility] Last Admin: 05/25/19 22:57 Dose: 100 mls/hr Documented by: Miscellaneous Medication (Ticagrelor (Nf)) 60 mg PO DAILY [facility] Nifedipine (Procardia Xl) 60 mg PO QDAY@0800 [facility] Ondansetron HCl (Zofran) 4 mg IV Q8H PRN PRN Reason: Nausea And Vomiting Oxycodone/Acetaminophen (Percocet 5/325) 1 tab PO Q6H PRN PRN Reason: Pain, Moderate (4-6) Sodium Chloride (Sodium Chloride Flush Syringe 10 Ml) 10 ml IV BID [facility] Last Admin: 05/26/19 09:32 Dose: Not Given Documented by: Sodium Chloride (Sodium Chloride Flush Syringe 10 Ml) 10 ml IV PRN PRN PRN Reason: LINE FLUSH Physical Examination Vital Signs Pulse Resp 99 H 10 L 05/25/19 11:03 05/25/19 11:03 General appearance: no acute distress HEENT: Positive: PERRL Neck: Positive: trachea midline Cardiac: Positive: Reg Rate and Rhythm Lungs: Positive: Decreased Breath Sounds Extremities: Absent: edema Results 05/26/19 05:34 05/26/19 05:34 Cardiac Enzymes 05/25/19 05/25/19 Range/Units 11:59 15:23 AST 22 (5-40) units/L CK-MB (CK-2) 1.4 1.3 (0.0-4.0) ng/mL Coagulation 05/25/19 Range/Units 11:59 PT 15.6 H (12.2-14.9) Sec. INR 1.22 H (0.87-1.13) APTT 38.9 H (24.2-36.6) Sec. Lipids 05/25/19 Range/Units 11:59 Triglycerides 96 (2-149) mg/dL Cholesterol 166 (50-199) mg/dL HDL Cholesterol 51 (40-59) mg/dL Cholesterol/HDL Ratio 3.25 % CBC 05/25/19 05/26/19 Range/Units 11:59 05:34 WBC 14.0 H 14.3 H (4.5-11.0) K/mm3 RBC 3.59 L 3.56 L (3.65-5.03) M/mm3 Hgb 10.2 L 10.2 L (11.8-15.2) gm/dl Hct 31.5 L 31.4 L (35.5-45.6) % Plt Count 98 L 103 L (140-440) K/mm3 Lymph # 1.1 L 1.2 (1.2-5.4) K/mm3 [place] # 1.7 H 1.6 H (0.0-0.8) K/mm3 Eos # 0.0 0.0 (0.0-0.4) K/mm3 Baso # 0.0 0.0 (0.0-0.1) K/mm3 Comprehensive Metabolic Panel 05/25/19 05/25/19 05/26/19 Range/Units 11:59 15:23 05:34 Sodium 140 143 144 (137-145) mmol/L Potassium 5.6 H 5.3 H 6.0 H (3.6-5.0) mmol/L Chloride 106.5 107.6 H 107.8 H (98-107) mmol/L Carbon Dioxide 17 L 22 21 L (22-30) mmol/L BUN 52 H 50 H 49 H (9-20) mg/dL Creatinine 2.4 H 2.4 H 2.7 H (0.8-1.5) mg/dL Glucose 226 H 167 H 172 H (75-100) mg/dL Calcium 10.6 H 10.2 10.3 H (8.4-10.2) mg/dL Direct Bilirubin 0.4 H (0-0.2) mg/dL Indirect Bilirubin 0.7 mg/dL AST 22 (5-40) units/L ALT 17 (7-56) units/L Alkaline Phosphatase 76 (35-129) units/L Total Protein 7.6 (6.3-8.2) g/dL Albumin 3.5 L (3.9-5) g/dL Assessment and Plan Sepsis RUE pain, edema and limited ROM Acute renal failure with hyperkalemia Thrombocytopenia Hypertension We will get an echocardiogram for LVEF assessment.
[2019-05-26] MEDS: GABAPENTIN 100 MG CAP PO SCH ×3 (11:55→21:38)
[2019-05-26] MEDS: HYDROmorphone 1 MG/1 ML INJ IV PRN ×2 (11:59→15:34)
[2019-05-26] MEDS: carvediloL 25 MG TAB PO SCH ×2 (11:59→21:38)
[2019-05-26] MEDS: NIFEdipine XL 60 MG TAB PO SCH (11:59)
[2019-05-26] MEDS: HEPARIN 5,000 UNIT/1 ML VIAL SUB-Q SCH ×2 (11:59→21:38)
--- NOTE | 2019-05-26 13:52 | Ultrasound Report ---
ULTRASOUND RENAL INDICATION / CLINICAL INFORMATION: renal failure. Patient with right lower quadrant renal transplant COMPARISON: CT abdomen/pelvis from yesterday FINDINGS: RIGHT KIDNEY: Length = 5.2 cm. [normal > 9 cm] - Parenchymal Thickness = 0.7 cm. [normal > 1.5 cm] - Echogenicity: Increased - Hydronephrosis: None. - Cyst or mass: No significant abnormality. - Stones: None seen. LEFT KIDNEY: Not well seen on this exam. RENAL TRANSPLANT: Right lower quadrant transplant measuring 12.5 cm in length with cortical thickness of 1.7 cm. There is mild hydronephrosis and a couple simple cysts, the largest of which measures 1.6 cm in the upper pole. URINARY BLADDER: Mildly distended with apparent diverticulum right of midline. FREE FLUID: None. ADDITIONAL FINDINGS: None. IMPRESSION: 1. Right lower quadrant renal transplant with mild hydronephrosis. 2. Simple renal cysts and the transplant. 3. Atrophic appearance of the right kidney which is also diffusely echogenic. Left kidney not well se en on this exam but appeared similarly atrophic on the previous CT exam. Signer Name: Art Bales MD Signed: 05/26/2019 1:48 PM Workstation Name: [id number]
--- NOTE | 2019-05-26 15:32 | Progress Note ---
Assessment and Plan Acute Kidney Injury possibly due to prerenal/ATN on underlying Chronic Kidney Disease likely secondary to Hypertensive Nephrosclerosis: -Renal labs reviewed, SCr level increased to 2.7 today, yesterday's SCr level was 2.4 -On 0.45% NS infusion at 100 ml/hr -Pt followed by Dr Garcia (men's swim coach) as outpatient for CKD -Urine studies pending -Holding home lisinopril and lasix for now -Renally dose medications -Esquivel Catheter: No -Renal plan d/w Dr Elias Hypertension: -Adjusting BP regimen, added nifedipine -Monitor blood pressures Hyperkalemia: -S/p kayexalate, sodium bicarbonate, calcium gluconate -Repeat K+ level at 1700 -Adjusted cardiac diet to also reflect renal diet with low potassium Back Pain: -As per primary Subjective Date of service: 05/26/19 Interval history: Pt seen in bed, c/o left arm pain, tech at bedside performing venous doppler, no acute distress, no family at bedside Objective - Vital Signs Vital signs: Vital Signs - 12hr 05/26/19 05/26/19 05/26/19 04:30 07:53 11:00 Temperature 98.4 F 99.3 F Pulse Rate 115 H 113 H 113 H Respiratory 18 18 Rate Blood Pressure 108/77 162/99 O2 Sat by Pulse 96 94 Oximetry - General Appearance General appearance: well-developed EENT: ATNC Neck: no JVD Respiratory: Present: Decreased Breath Sounds Cardiology: tachycardia, S1S2 Gastrointestinal: normoactive bowel sounds, no tenderness Integumentary: warm and dry Neurologic: alert and oriented x3 Musculoskeletal: other (no edema to BLE) Psychiatric: cooperative - Lab 05/26/19 05:34 05/26/19 05:34 Most recent lab results Calcium 10.3 mg/dL (8.4-10.2) H 05/26/19 05:34 Phosphorus 4.30 mg/dL (2.5-4.5) 05/26/19 05:34 Magnesium 2.40 mg/dL (1.7-2.3) H 05/25/19 11:59 Medications & Allergies - Medications Allergies/Adverse Reactions: Allergies codeine [From Tylenol-Codeine #3] Allergy (Verified 05/25/19 11:33) Unknown tramadol Allergy (Verified 05/25/19 11:33) Unknown Home Medications: Home Medications Medication Instructions Recorded Confirmed Last Taken Type Furosemide [Lasix TAB] 40 mg PO QDAY 05/25/19 05/25/19 Unknown History Gabapentin [Neurontin] 100 mg PO Q8HR 05/25/19 05/25/19 Unknown History NIFEdipine [Nifedipine ER] 30 mg PO QDAY 05/25/19 05/25/19 Unknown History Prednisone [predniSONE (Marie) ER 5 mg PO QDAY 05/25/19 05/25/19 Unknown History TAB] Rosuvastatin Calcium 20 mg PO QHS 05/25/19 05/25/19 Unknown History Ticagrelor (Nf) [Brilinta (Nf)] 60 mg PO DAILY 05/25/19 05/25/19 Unknown History carvediloL [Coreg] 25 mg PO BID 05/25/19 05/25/19 Unknown History lisinopriL [Zestril TAB] 10 mg PO QDAY 05/25/19 05/25/19 Unknown History Active Medications: Generic Name Dose Route Start Last Admin Trade Name Freq PRN Reason Stop Dose Admin Acetaminophen 650 mg 05/25/19 21:33 Tylenol PO Q4H PRN Pain MILD(1-3)/Fever >100.5/SKINNER Atorvastatin Calcium 40 mg 05/25/19 22:00 05/25/19 22:48 Lipitor PO 40 mg QHS SHEBA Administration Carvedilol 25 mg 05/25/19 22:00 05/26/19 11:59 Coreg PO 25 mg BID SHEBA Administration Doxazosin Mesylate 2 mg 05/26/19 14:00 Cardura PO BID SHEBA Gabapentin 100 mg 05/25/19 22:00 05/26/19 11:55 Gabapentin PO Not Given Q8HR [facility] Heparin Sodium (Porcine) 5,000 unit 05/25/19 22:00 05/26/19 11:59 Heparin SUB-Q 5,000 unit Q12HR SHEBA Administration Hydralazine HCl 5 mg 05/25/19 22:20 05/25/19 22:58 Apresoline IV 5 mg Q6H PRN Administration Hypertension Hydromorphone HCl 0.5 mg 05/25/19 16:55 05/26/19 11:59 Dilaudid IV 0.5 mg Q3H PRN Administration Pain , Severe (7-10) Sodium Chloride 1,000 mls @ 100 mls/hr 05/25/19 22:00 05/25/19 22:57 Nacl 0.45% 1000 Ml IV 100 mls/hr DIRECT SHEBA Administration Miscellaneous Medication 60 mg 05/25/19 21:30 Ticagrelor (Nf) PO DAILY [facility] Nifedipine 60 mg 05/26/19 08:00 05/26/19 11:59 Procardia Xl PO 60 mg QDAY@0800 SHEBA Administration Ondansetron HCl 4 mg 05/25/19 21:33 Zofran IV Q8H PRN Nausea And Vomiting Oxycodone/Acetaminophen 1 tab 05/25/19 21:33 Percocet 5/325 PO Q6H PRN Pain, Moderate (4-6) Sodium Chloride 10 ml 05/25/19 22:00 05/26/19 09:32 Sodium Chloride Flush Syringe 10 Ml IV Not Given BID SHEBA Sodium Chloride 10 ml 05/25/19 21:33 Sodium Chloride Flush Syringe 10 Ml IV PRN PRN LINE FLUSH
--- NOTE | 2019-05-26 17:16 | Vascular Lab Report ---
VL venous duplex UE LT INDICATION / CLINICAL INFORMATION: swelling and pain r/o DVT. COMPARISON: None available. FINDINGS: No evidence of deep vein thrombosis IMPRESSION: 1. Negative exam. Signer Name: Mo Abel MD Signed: 05/26/2019 5:12 PM Workstation Name: [id number]
[2019-05-26] MEDS: ACETAMINOPHEN 325 MG TAB PO PRN (19:30)
[2019-05-26] MEDS: SODIUM CHLORIDE 0.45% 1000 ML 1,000 ML IV SCH (19:31)
[2019-05-26 20:07] LABS: Creatinine,Urine 103.7 mg/dL (0.1-20.0)
[2019-05-26 20:22] LABS: Protein/Creatinine Ratio,Urine 2.05
[2019-05-26] MEDS: DOXAZOSIN 1 MG TAB PO SCH (21:38)
[2019-05-27 06:45] LABS: Hemoglobin 8.6 gm/dl (11.8-15.2); Mean Corpuscular HGB Conc 32 % (32-34); Mean Corpuscular Volume 88 fl (84-94); Red Blood Count 3.06 M/mm3 (3.65-5.03); Red Cell Distribution Width 17.8 % (13.2-15.2)
[2019-05-27 06:48] LABS: Platelet Count 95 K/mm3 (140-440)
[2019-05-27 07:00] LABS: Calcium 9.9 mg/dL (8.4-10.2)
[2019-05-27] MEDS: GABAPENTIN 100 MG CAP PO SCH ×3 (07:32→21:31)
[2019-05-27] MEDS: ACETAMINOPHEN 325 MG TAB PO PRN (07:32)
[2019-05-27] MEDS: NIFEdipine XL 60 MG TAB PO SCH (07:32)
[2019-05-27] MEDS: DOXAZOSIN 1 MG TAB PO SCH ×3 (07:35→21:31)
[2019-05-27] MEDS: SODIUM CHLORIDE 0.45% 1000 ML 1,000 ML IV SCH (10:09)
--- NOTE | 2019-05-27 10:12 | Progress Note ---
Assessment and Plan Assessment and plan: --Febrile illness: T-max 103 F Patient has history of renal transplant Follow cultures, empiric antibiotics Vanco/cefepime ID consult if needed -- Hyperkalemia Current Visit: Yes Status: Acute Corrected, closely monitor electrolytes. nephrology following --History of renal transplant; Many years ago, management per nephrology --CONSTANTINO (acute kidney injury) Current Visit: Yes Status: Acute Worsening renal function , continue gentle hydration . Management per nephrology Hx of renal transplant in 1983 --Acute on chronic systolic CHF (congestive heart failure) Current Visit: Yes Status: Chronic EF 15 to 20%, diuretics, beta-blockers, hold JAREK inhibitors Due to acute kidney injury, Cardiology following --Left upper extremity swelling: Patient has IV access on that arm Elevate the limb, pain medications Venous Doppler negative for DVT --History of total hip replacement: Physical therapy occupational therapy -- T2DM (type 2 diabetes mellitus) Current Visit: Yes Status: Chronic Accu-Chek sliding scale coverage ADA diet. Insulin as needed, Hb A1c 6.5 --DVT prophylaxis Current Visit: Yes Status: Acute On Heparin and GI prophylaxis Consults and recommendations noted and appreciated Monitor closely and adjust management as indicated Plan of care reviewed with the patient and his nurse We will try to contact family and get more medical history History Interval history: I have seen the patient at the bedside and examined Patient's chart, medications and medical records reviewed Patient's left upper extremity swelling significantly improved Complains of generalized body pains Febrile with T-max of 103 F Alert awake oriented Vital signs reviewed Hospitalist Physical - Constitutional Vitals: Temp Pulse Resp BP Pulse Ox 98.6 F 89 24 94/57 93 05/27/19 04:21 05/27/19 08:51 05/27/19 08:51 05/27/19 08:51 05/27/19 08:51 General appearance: Present: no acute distress, well-nourished - EENT Eyes: Present: PERRL, EOM intact - Neck Neck: Present: supple, normal ROM - Respiratory Respiratory effort: normal Respiratory: bilateral: diminished, negative: rales, rhonchi, wheezing - Cardiovascular Rhythm: regular Heart Sounds: Present: S1 & S2 - Extremities Extremities: no ischemia, No edema - Abdominal General gastrointestinal: soft, non-tender, non-distended, normal bowel sounds - Integumentary Integumentary: Present: clear, warm - Psychiatric Psychiatric: appropriate mood/affect, cooperative - Neurologic Neurologic: moves all extremities Results - Labs CBC & Chem 7: 05/27/19 05:35 05/27/19 05:35 Labs: Laboratory Last Values WBC 12.0 K/mm3 (4.5-11.0) H 05/27/19 05:35 RBC 3.06 M/mm3 (3.65-5.03) L 05/27/19 05:35 Hgb 8.6 gm/dl (11.8-15.2) L 05/27/19 05:35 Hct 27.0 % (35.5-45.6) L 05/27/19 05:35 MCV 88 fl (84-94) 05/27/19 05:35 MCH 28 pg (28-32) 05/27/19 05:35 MCHC 32 % (32-34) 05/27/19 05:35 RDW 17.8 % (13.2-15.2) H 05/27/19 05:35 Plt Count 95 K/mm3 (140-440) L 05/27/19 05:35 Lymph % (Auto) 8.3 % (13.4-35.0) L 05/26/19 05:34 [place] % (Auto) 11.1 % (0.0-7.3) H 05/26/19 05:34 Eos % (Auto) 0.1 % (0.0-4.3) 05/26/19 05:34 Baso % (Auto) 0.2 % (0.0-1.8) 05/26/19 05:34 Lymph # 1.2 K/mm3 (1.2-5.4) 05/26/19 05:34 [place] # 1.6 K/mm3 (0.0-0.8) H 05/26/19 05:34 Eos # 0.0 K/mm3 (0.0-0.4) 05/26/19 05:34 Baso # 0.0 K/mm3 (0.0-0.1) 05/26/19 05:34 Seg Neutrophils % 80.3 % (40.0-70.0) H 05/26/19 05:34 Seg Neutrophils # 11.4 K/mm3 (1.8-7.7) H 05/26/19 05:34 PT 15.6 Sec. (12.2-14.9) H 05/25/19 11:59 INR 1.22 (0.87-1.13) H 05/25/19 11:59 APTT 38.9 Sec. (24.2-36.6) H 05/25/19 11:59 VBG pH 7.407 (7.320-7.420) 05/25/19 11:59 Sodium 143 mmol/L (137-145) 05/27/19 05:35 Potassium 4.6 mmol/L (3.6-5.0) 05/27/19 05:35 Chloride 106.2 mmol/L (98-107) 05/27/19 05:35 Carbon Dioxide 22 mmol/L (22-30) 05/27/19 05:35 Anion Gap 19 mmol/L 05/27/19 05:35 BUN 54 mg/dL (9-20) H 05/27/19 05:35 Creatinine 3.4 mg/dL (0.8-1.5) H 05/27/19 05:35 Estimated GFR 22 ml/min 05/27/19 05:35 BUN/Creatinine Ratio 16 % 05/27/19 05:35 Glucose 179 mg/dL (75-100) H 05/27/19 05:35 Hemoglobin A1c 6.5 % (4-6) H 05/25/19 11:59 Lactic Acid 1.90 mmol/L (0.7-2.0) 05/25/19 15:23 Calcium 9.9 mg/dL (8.4-10.2) 05/27/19 05:35 Phosphorus 4.30 mg/dL (2.5-4.5) 05/27/19 05:35 Magnesium 2.30 mg/dL (1.7-2.3) 05/27/19 05:35 Total Bilirubin 1.10 mg/dL (0.1-1.2) 05/25/19 11:59 Direct Bilirubin 0.4 mg/dL (0-0.2) H 05/25/19 11:59 Indirect Bilirubin 0.7 mg/dL 05/25/19 11:59 AST 22 units/L (5-40) 05/25/19 11:59 ALT 17 units/L (7-56) 05/25/19 11:59 Alkaline Phosphatase 76 units/L (35-129) 05/25/19 11:59 Ammonia 29.0 umol/L (25-60) 05/25/19 11:59 Total Creatine Kinase 160 units/L (55-170) 05/25/19 15:23 CK-MB (CK-2) 1.3 ng/mL (0.0-4.0) 05/25/19 15:23 CK-MB (CK-2) Rel Index 0.8 (0-4) 05/25/19 15:23 Troponin T 0.047 ng/mL (0.00-0.029) H 05/25/19 11:59 NT-Pro-B Natriuret Pep 5533 pg/mL (0-900) H 05/25/19 11:59 Total Protein 7.6 g/dL (6.3-8.2) 05/25/19 11:59 Albumin 3.5 g/dL (3.9-5) L 05/25/19 11:59 Albumin/Globulin Ratio 0.9 % 05/25/19 11:59 Triglycerides 96 mg/dL (2-149) 05/25/19 11:59 Cholesterol 166 mg/dL (50-199) 05/25/19 11:59 LDL Cholesterol Direct 106 mg/dL (50-130) 05/25/19 11:59 HDL Cholesterol 51 mg/dL (40-59) 05/25/19 11:59 Cholesterol/HDL Ratio 3.25 % 05/25/19 11:59 Urine Color Yellow (Yellow) 05/25/19 15:07 Urine Turbidity Clear (Clear) 05/25/19 15:07 Urine pH 6.0 (5.0-7.0) 05/25/19 15:07 Ur Specific [place] 1.013 (1.003-1.030) 05/25/19 15:07 Urine Protein 100 mg/dl mg/dL (Negative) 05/25/19 15:07 Urine Glucose (UA) 50 mg/dL (Negative) 05/25/19 15:07 Urine Ketones Neg mg/dL (Negative) 05/25/19 15:07 Urine Blood Sm (Negative) 05/25/19 15:07 Urine Nitrite Neg (Negative) 05/25/19 15:07 Urine Bilirubin Neg (Negative) 05/25/19 15:07 Urine Urobilinogen 2.0 mg/dL (<2.0) 05/25/19 15:07 Ur Leukocyte Esterase Neg (Negative) 05/25/19 15:07 Urine WBC (Auto) < 1.0 /HPF (0.0-6.0) 05/25/19 15:07 Urine RBC (Auto) 5.0 /HPF (0.0-6.0) 05/25/19 15:07 U Epithel Cells (Auto) < 1.0 /HPF (0-13.0) 05/25/19 15:07 Urine Creatinine 103.7 mg/dL (0.1-20.0) H 05/26/19 Unknown Protein/Creatinin Ratio 2.05 05/26/19 Unknown Urine Sodium 73 mmol/L 05/26/19 Unknown Urine Total Protein 213 mg/dL (5-11.8) H 05/26/19 Unknown Esquivel/IV: Voiding Method Condom Catheter IV Catheter Type [Left Forearm INT / Saline Lock ] Active Medications - Current Medications Current Medications: Generic Name Dose Route Start Last Admin Trade Name Freq PRN Reason Stop Dose Admin Acetaminophen 650 mg 05/25/19 21:33 05/27/19 07:32 Tylenol PO 650 mg Q4H PRN Administration Pain MILD(1-3)/Fever >100.5/SKINNER Atorvastatin Calcium 40 mg 05/25/19 22:00 05/26/19 21:38 Lipitor PO 40 mg QHS SHEBA Administration Carvedilol 25 mg 05/25/19 22:00 05/26/19 21:38 Coreg PO 25 mg BID SHEBA Administration Doxazosin Mesylate 2 mg 05/26/19 17:00 05/27/19 07:35 Cardura PO Not Given BID SHEBA Gabapentin 100 mg 05/25/19 22:00 05/27/19 07:32 Gabapentin PO 100 mg Q8HR SHEBA Administration Heparin Sodium (Porcine) 5,000 unit 05/25/19 22:00 05/26/19 21:38 Heparin SUB-Q 5,000 unit Q12HR SHEBA Administration Hydralazine HCl 5 mg 05/25/19 22:20 05/25/19 22:58 Apresoline IV 5 mg Q6H PRN Administration Hypertension Hydromorphone HCl 0.5 mg 05/25/19 16:55 05/26/19 15:34 Dilaudid IV 0.5 mg Q3H PRN Administration Pain , Severe (7-10) Sodium Chloride 1,000 mls @ 100 mls/hr 05/25/19 22:00 05/27/19 10:09 Nacl 0.45% 1000 Ml IV 100 mls/hr DIRECT SHEBA Administration Miscellaneous Medication 60 mg 05/25/19 21:30 Ticagrelor (Nf) PO DAILY SHEBA Nifedipine 60 mg 05/26/19 08:00 05/27/19 07:32 Procardia Xl PO 60 mg QDAY@0800 SHEBA Administration Ondansetron HCl 4 mg 05/25/19 21:33 Zofran IV Q8H PRN Nausea And Vomiting Oxycodone/Acetaminophen 1 tab 05/25/19 21:33 05/26/19 19:31 Percocet 5/325 PO 1 tab Q6H PRN Administration Pain, Moderate (4-6) Sodium Chloride 10 ml 05/25/19 22:00 05/27/19 10:10 Sodium Chloride Flush Syringe 10 Ml IV 10 ml BID SHEBA Administration Sodium Chloride 10 ml 05/25/19 21:33 Sodium Chloride Flush Syringe 10 Ml IV PRN PRN LINE FLUSH
[2019-05-27] MEDS: HEPARIN 5,000 UNIT/1 ML VIAL SUB-Q SCH ×2 (10:15→21:31)
[2019-05-27] MEDS: carvediloL 25 MG TAB PO SCH ×2 (10:16→21:31)
--- NOTE | 2019-05-27 10:44 | Progress Note ---
Assessment and Plan Chronic Kidney Disease likely secondary to Hypertensive Nephrosclerosis: -Renal labs reviewed. Serum creatinine 3.4 today, yesterday's was 2.7. Baseline unknown. -He is a renal transplant patient. Had renal transplant at [place] in 1983. Has not followed-up with [facility] in several years. -Patient reports being under the care of a Instructional Services Librarian named Dr. Garcia, plans to f/u with him outpatiently -On 0.45% NS infusion at 100 ml/hr, EF is 15-20%, will decrease fluids to 50 ml/hr and monitor volume status -Renal ultrasound-Right renal transplant with mild hydronephrosis -Urine lytes reviewed -Renally dose medications -Avoid nephrotoxic agents -Monitor I/O's -Patient can be discharged from nephrology standpoint to f/u with his outpatient damage adjuster Dr. Garcia and patient will likely need to re-establish care with [facility] transplant center which his outpatient damage adjuster can arrange. Hypertension: -Controlled -Monitor blood pressures Hyperkalemia, Resolved: -S/P insulin/bicarb/D50 -Monitor potassium levels -BMP in a.m Back Pain: -As per primary Subjective Date of service: 05/27/19 Principal diagnosis: CKD Interval history: Patient seen lying in bed. Patient is very sleepy. Wakes up briefly then drifts off to sleep. Advised patient that his renal function has worsened. Asked patient where he received his renal transplant and he said at [facility] but that he has not gone to [facility] in years. States he will f/u with his outpatient Instructional Services Librarian Dr. Garcia when he gets discharged. Objective - Vital Signs Vital signs: Vital Signs - 12hr 05/26/19 05/27/19 05/27/19 23:37 04:21 04:25 Temperature 99.7 F H 98.6 F Pulse Rate 108 H 98 H 97 H Respiratory 16 18 Rate Blood Pressure 100/65 118/58 O2 Sat by Pulse 92 94 91 Oximetry 05/27/19 05/27/19 05/27/19 08:32 08:51 10:13 Temperature Pulse Rate 89 88 Respiratory 20 24 Rate Blood Pressure 94/57 94/58 O2 Sat by Pulse 93 Oximetry 05/27/19 10:16 Temperature Pulse Rate 88 Respiratory Rate Blood Pressure 94/58 O2 Sat by Pulse Oximetry - General Appearance General appearance: well-developed, fatigue EENT: ATNC, PERRL, hearing intact Neck: no JVD, supple Respiratory: Present: Decreased Breath Sounds Cardiology: S1S2 Gastrointestinal: normoactive bowel sounds Integumentary: warm and dry Neurologic: other (Sleepy) Musculoskeletal: other (No edema) - Lab 05/27/19 05:35 05/27/19 05:35 Most recent lab results Calcium 9.9 mg/dL (8.4-10.2) 05/27/19 05:35 Phosphorus 4.30 mg/dL (2.5-4.5) 05/27/19 05:35 Magnesium 2.30 mg/dL (1.7-2.3) 05/27/19 05:35 Urine Creatinine 103.7 mg/dL (0.1-20.0) H 05/26/19 Unknown Urine Sodium 73 mmol/L 05/26/19 Unknown Urine Total Protein 213 mg/dL (5-11.8) H 05/26/19 Unknown Medications & Allergies - Medications Allergies/Adverse Reactions: Allergies codeine [From Tylenol-Codeine #3] Allergy (Verified 05/25/19 11:33) Unknown tramadol Allergy (Verified 05/25/19 11:33) Unknown Home Medications: Home Medications Medication Instructions Recorded Confirmed Last Taken Type Furosemide [Lasix TAB] 40 mg PO QDAY 05/25/19 05/25/19 Unknown History Gabapentin [Neurontin] 100 mg PO Q8HR 05/25/19 05/25/19 Unknown History NIFEdipine [Nifedipine ER] 30 mg PO QDAY 05/25/19 05/25/19 Unknown History Prednisone [predniSONE (Marie) ER 5 mg PO QDAY 05/25/19 05/25/19 Unknown History TAB] Rosuvastatin Calcium 20 mg PO QHS 05/25/19 05/25/19 Unknown History Ticagrelor (Nf) [Brilinta (Nf)] 60 mg PO DAILY 05/25/19 05/25/19 Unknown History carvediloL [Coreg] 25 mg PO BID 05/25/19 05/25/19 Unknown History lisinopriL [Zestril TAB] 10 mg PO QDAY 05/25/19 05/25/19 Unknown History Active Medications: Generic Name Dose Route Start Last Admin Trade Name Freq PRN Reason Stop Dose Admin Acetaminophen 650 mg 05/25/19 21:33 05/27/19 07:32 Tylenol PO 650 mg Q4H PRN Administration Pain MILD(1-3)/Fever >100.5/SKINNER Atorvastatin Calcium 40 mg 05/25/19 22:00 05/26/19 21:38 Lipitor PO 40 mg QHS SHEBA Administration Carvedilol 25 mg 05/25/19 22:00 05/27/19 10:16 Coreg PO Not Given BID [facility] Doxazosin Mesylate 2 mg 05/26/19 17:00 05/27/19 10:13 Cardura PO Not Given BID [facility] Gabapentin 100 mg 05/25/19 22:00 05/27/19 07:32 Gabapentin PO 100 mg Q8HR SHEBA Administration Heparin Sodium (Porcine) 5,000 unit 05/25/19 22:00 05/27/19 10:15 Heparin SUB-Q 5,000 unit Q12HR SHEBA Administration Hydralazine HCl 5 mg 05/25/19 22:20 05/25/19 22:58 Apresoline IV 5 mg Q6H PRN Administration Hypertension Hydromorphone HCl 0.5 mg 05/25/19 16:55 05/26/19 15:34 Dilaudid IV 0.5 mg Q3H PRN Administration Pain , Severe (7-10) Sodium Chloride 1,000 mls @ 100 mls/hr 05/25/19 22:00 05/27/19 10:09 Nacl 0.45% 1000 Ml IV 100 mls/hr DIRECT SHEBA Administration Miscellaneous Medication 60 mg 05/25/19 21:30 Ticagrelor (Nf) PO DAILY [facility] Nifedipine 60 mg 05/26/19 08:00 05/27/19 07:32 Procardia Xl PO 60 mg QDAY@0800 SHEBA Administration Ondansetron HCl 4 mg 05/25/19 21:33 Zofran IV Q8H PRN Nausea And Vomiting Oxycodone/Acetaminophen 1 tab 05/25/19 21:33 05/26/19 19:31 Percocet 5/325 PO 1 tab Q6H PRN Administration Pain, Moderate (4-6) Sodium Chloride 10 ml 05/25/19 22:00 05/27/19 10:10 Sodium Chloride Flush Syringe 10 Ml IV 10 ml BID SHEBA Administration Sodium Chloride 10 ml 03/10/20 21:33 Sodium Chloride Flush Syringe 10 Ml IV PRN PRN LINE FLUSH
--- NOTE | 2019-05-27 10:48 | Progress Note ---
Assessment and Plan Dilated cardiomyopathy, uncertain duration an echo this admission reveals 4 chamber dilated cardiomyopathy with a decrease systolic function, EF 15-20%. no evidence of decompensation Sepsis Altered mental status RUE pain and edema RUE doppler negative for DVT Acute on chronic renal failure Anemia Thrombocytopenia Hypertension On Brilinta for unclear reasons Recommendations: Obtain patient's medical records to confirm the indication for Brilinta and review of prior cardiac workup. Subjective Date of service: 05/27/19 Interval history: Patient is resting in bed comfortably. Complains of generalized pain, requesting pain medications. He denies chest pain and shortness of breath. Blood pressure 94/58. Objective Vital Signs Temp Pulse Resp BP Pulse Ox 05/27/19 10:16 88 94/58 05/27/19 10:13 88 94/58 05/27/19 08:51 89 24 94/57 93 05/27/19 08:32 20 05/27/19 04:25 97 H 91 05/27/19 04:21 98.6 F 98 H 18 118/58 94 05/26/19 23:37 99.7 F H 108 H 16 100/65 92 05/26/19 22:00 106 H 05/26/19 21:02 99.8 F H 05/26/19 19:23 103.1 F H 120 H 18 131/76 86 05/26/19 17:25 124 H 05/26/19 11:00 113 H - Physical Examination General: No Apparent Distress HEENT: Positive: PERRL Neck: Positive: trachea midline Cardiac: Positive: Reg Rate and Rhythm Lungs: Positive: Decreased Breath Sounds Extremities: Absent: edema - Labs and Meds CBC 05/27/19 Range/Units 05:35 WBC 12.0 H (4.5-11.0) K/mm3 RBC 3.06 L (3.65-5.03) M/mm3 Hgb 8.6 L (11.8-15.2) gm/dl Hct 27.0 L (35.5-45.6) % Plt Count 95 L (140-440) K/mm3 Comprehensive Metabolic Panel 05/26/19 05/27/19 Range/Units 17:36 05:35 Sodium 143 (137-145) mmol/L Potassium 4.6 D 4.6 (3.6-5.0) mmol/L Chloride 106.2 (98-107) mmol/L Carbon Dioxide 22 (22-30) mmol/L BUN 54 H (9-20) mg/dL Creatinine 3.4 H (0.8-1.5) mg/dL Glucose 179 H (75-100) mg/dL Calcium 9.9 (8.4-10.2) mg/dL
[2019-05-27] MEDS ORDERED: VANCOMYCIN/NS 1 GM/250 ML 1 GM/250 ML BAG IV ONE (13:55)
[2019-05-27] MEDS: CEFEPIME/NS 2 GM/100 ML 2 GM/100 ML BAG IV SCH ×2 (15:00→21:30)
[2019-05-28] MEDS: CEFEPIME/NS 2 GM/100 ML 2 GM/100 ML BAG IV SCH (05:49)
[2019-05-28] MEDS: GABAPENTIN 100 MG CAP PO SCH ×3 (05:49→23:45)
[2019-05-28] MEDS: SODIUM CHLORIDE 0.45% 1000 ML 1,000 ML IV SCH (05:54)
[2019-05-28 07:16] LABS: Hemoglobin 7.8 gm/dl (11.8-15.2); Mean Corpuscular HGB Conc 32 % (32-34); Mean Corpuscular Volume 88 fl (84-94); Platelet Count 101 K/mm3 (140-440); Red Blood Count 2.74 M/mm3 (3.65-5.03); Red Cell Distribution Width 17.2 % (13.2-15.2)
[2019-05-28 07:31] LABS: Calcium 9.3 mg/dL (8.4-10.2)
--- NOTE | 2019-05-28 09:00 | Progress Note ---
Assessment and Plan Dilated cardiomyopathy, uncertain duration an echo this admission reveals 4 chamber dilated cardiomyopathy with a decrease systolic function, EF 15-20%. no evidence of decompensation family reports that he has had a long history of "heart problems". On Brilinta for unclear reasons Sepsis Altered mental status RUE pain and inflammation RUE doppler negative for DVT Acute on chronic renal failure Anemia Thrombocytopenia Hypertension Recommendations: Obtain patient's medical records to confirm the indication for Brilinta and revi ew of prior cardiac workup Medical therapy for systolic dysfunction. Subjective Date of service: 05/28/19 Principal diagnosis: CKD Interval history: Patient is resting in bed comfortably. No cardiac complaints. No events on telemetry. Awaiting cardiac records for review. Objective Vital Signs Temp Pulse Pulse Resp Resp BP Pulse Ox 05/28/19 04:15 98.3 F 94 H 18 105/63 94 05/27/19 23:24 98.4 F 95 H 18 107/65 86 05/27/19 22:20 95 H 20 92 05/27/19 21:31 102 H 125/72 05/27/19 21:10 101 H 05/27/19 21:00 18 05/27/19 20:01 98.2 F 102 H 18 125/72 87 05/27/19 17:25 101 H 18 110/66 96 05/27/19 11:00 98.5 F 87 20 106/67 98 05/27/19 10:16 88 94/58 05/27/19 10:13 88 94/58 05/27/19 10:00 102 H - Physical Examination General: No Apparent Distress HEENT: Positive: PERRL Neck: Positive: trachea midline Cardiac: Positive: Reg Rate and Rhythm Lungs: Positive: Decreased Breath Sounds Extremities: Absent: edema - Labs and Meds CBC 05/28/19 Range/Units 06:42 WBC 11.4 H (4.5-11.0) K/mm3 RBC 2.74 L (3.65-5.03) M/mm3 Hgb 7.8 L (11.8-15.2) gm/dl Hct 24.0 L (35.5-45.6) % Plt Count 101 L (140-440) K/mm3 Comprehensive Metabolic Panel 05/28/19 Range/Units 06:42 Sodium 140 (137-145) mmol/L Potassium 4.4 (3.6-5.0) mmol/L Chloride 106.6 (98-107) mmol/L Carbon Dioxide 16 L (22-30) mmol/L BUN 73 H (9-20) mg/dL Creatinine 4.8 H (0.8-1.5) mg/dL Glucose 153 H (75-100) mg/dL Calcium 9.3 (8.4-10.2) mg/dL
[2019-05-28] MEDS: carvediloL 25 MG TAB PO SCH ×2 (09:48→22:15)
[2019-05-28] MEDS: NIFEdipine XL 60 MG TAB PO SCH (09:48)
[2019-05-28] MEDS: DOXAZOSIN 1 MG TAB PO SCH (09:48)
[2019-05-28] MEDS: ACETAMINOPHEN 325 MG TAB PO PRN (09:54)
[2019-05-28] MEDS: HEPARIN 5,000 UNIT/1 ML VIAL SUB-Q SCH ×2 (09:54→23:46)
--- NOTE | 2019-05-28 10:34 | Progress Note ---
Assessment and Plan Assessment and plan: --Febrile illness: Immunocompromised patient Current Visit: Yes Status: Acute T-max 101 F, Patient already started on cefepime, received 1 dose of Vanco yesterday Patient has history of renal transplant Follow cultures, ID consulted --Acute pansinusitis; on's CT head: Continue current antibiotics, ID following. Consider MRI brain, follow cultures -- Hyperkalemia Current Visit: Yes Status: Acute . Corrected, closely monitor electrolytes. nephrology following --History of renal transplant; Current Visit: Yes Status: Chronic Many years ago, management per nephrology Worsening renal function, nephrology planning To transfer the patient to transplant /tertiary center --CONSTANTINO (acute kidney injury) Current Visit: Yes Status: Acute Vasomotor nephropathy ,worsening renal function , Management per nephrology Hx of renal transplant in 1983 --Acute on chronic systolic CHF (congestive heart failure) Current Visit: Yes Status: Chronic EF 15 to 20%, diuretics, beta-blockers, hold JAREK inhibitors. Due to acute kidney injury, Cardiology following, --Severe cardiomyopathy; EF 15 to 20% on dobutamine drip, management per cardiology --Left upper extremity swelling: Resolved Patient has IV access on that arm Elevate the limb, pain medications Venous Doppler negative for DVT --History of total hip replacement: Physical therapy occupational therapy -- T2DM (type 2 diabetes mellitus) Current Visit: Yes Status: Chronic Accu-Chek sliding scale coverage ADA diet. Insulin as needed, Hb A1c 6.5 --DVT prophylaxis Current Visit: Yes Status: Acute On Heparin and GI prophylaxis Monitor closely and adjust management as needed Plan of care reviewed with the patient and his nurse Patient is critically ill, nephrology planning to transfer to transplant/ tertiary care center We will try to contact family and get more medical history History Interval history: Patient spiked fever again today 101 F Already on cefepime received 1 dose of Vanco Cultures negative to date We will send new set of cultures Patient is in mild distress, febrile Vital signs noted Hospitalist Physical - Constitutional Vitals: Temp Pulse Resp BP Pulse Ox 101.8 F H 94 H 18 97/55 100 05/28/19 08:38 05/28/19 09:48 05/28/19 08:38 05/28/19 09:48 05/28/19 08:38 General appearance: Present: no acute distress, well-nourished - EENT Eyes: Present: PERRL, EOM intact - Neck Neck: Present: supple, normal ROM - Respiratory Respiratory effort: normal Respiratory: bilateral: diminished, rales, rhonchi, wheezing - Cardiovascular Rhythm: regular Heart Sounds: Present: S1 & S2 - Extremities Extremities: no ischemia, pulses intact - Abdominal General gastrointestinal: soft, non-tender, non-distended, normal bowel sounds - Integumentary Integumentary: Present: clear, warm - Psychiatric Psychiatric: appropriate mood/affect, other (Confused) - Neurologic Neurologic: moves all extremities, other (Altered) Results - Labs CBC & Chem 7: 05/29/19 05:30 05/29/19 05:30 Labs: Laboratory Last Values WBC 11.4 K/mm3 (4.5-11.0) H 05/28/19 06:42 RBC 2.74 M/mm3 (3.65-5.03) L 05/28/19 06:42 Hgb 7.8 gm/dl (11.8-15.2) L 05/28/19 06:42 Hct 24.0 % (35.5-45.6) L 05/28/19 06:42 MCV 88 fl (84-94) 05/28/19 06:42 MCH 28 pg (28-32) 05/28/19 06:42 MCHC 32 % (32-34) 05/28/19 06:42 RDW 17.2 % (13.2-15.2) H 05/28/19 06:42 Plt Count 101 K/mm3 (140-440) L 05/28/19 06:42 Lymph % (Auto) 8.3 % (13.4-35.0) L 05/26/19 05:34 [place] % (Auto) 11.1 % (0.0-7.3) H 05/26/19 05:34 Eos % (Auto) 0.1 % (0.0-4.3) 05/26/19 05:34 Baso % (Auto) 0.2 % (0.0-1.8) 05/26/19 05:34 Lymph # 1.2 K/mm3 (1.2-5.4) 05/26/19 05:34 [place] # 1.6 K/mm3 (0.0-0.8) H 05/26/19 05:34 Eos # 0.0 K/mm3 (0.0-0.4) 05/26/19 05:34 Baso # 0.0 K/mm3 (0.0-0.1) 05/26/19 05:34 Seg Neutrophils % 80.3 % (40.0-70.0) H 05/26/19 05:34 Seg Neutrophils # 11.4 K/mm3 (1.8-7.7) H 05/26/19 05:34 PT 15.6 Sec. (12.2-14.9) H 05/25/19 11:59 INR 1.22 (0.87-1.13) H 05/25/19 11:59 APTT 38.9 Sec. (24.2-36.6) H 05/25/19 11:59 VBG pH 7.407 (7.320-7.420) 05/25/19 11:59 Sodium 140 mmol/L (137-145) 05/28/19 06:42 Potassium 4.4 mmol/L (3.6-5.0) 05/28/19 06:42 Chloride 106.6 mmol/L (98-107) 05/28/19 06:42 Carbon Dioxide 16 mmol/L (22-30) L 05/28/19 06:42 Anion Gap 22 mmol/L 05/28/19 06:42 BUN 73 mg/dL (9-20) H 05/28/19 06:42 Creatinine 4.8 mg/dL (0.8-1.5) H 05/28/19 06:42 Estimated GFR 15 ml/min 05/28/19 06:42 BUN/Creatinine Ratio 15 % 05/28/19 06:42 Glucose 153 mg/dL (75-100) H 05/28/19 06:42 Hemoglobin A1c 6.5 % (4-6) H 05/25/19 11:59 Lactic Acid 1.90 mmol/L (0.7-2.0) 05/25/19 15:23 Calcium 9.3 mg/dL (8.4-10.2) 05/28/19 06:42 Phosphorus 4.60 mg/dL (2.5-4.5) H 05/28/19 06:42 Magnesium 2.30 mg/dL (1.7-2.3) 05/27/19 05:35 Total Bilirubin 1.10 mg/dL (0.1-1.2) 05/25/19 11:59 Direct Bilirubin 0.4 mg/dL (0-0.2) H 05/25/19 11:59 Indirect Bilirubin 0.7 mg/dL 05/25/19 11:59 AST 22 units/L (5-40) 05/25/19 11:59 ALT 17 units/L (7-56) 05/25/19 11:59 Alkaline Phosphatase 76 units/L (35-129) 05/25/19 11:59 Ammonia 29.0 umol/L (25-60) 05/25/19 11:59 Total Creatine Kinase 160 units/L (55-170) 05/25/19 15:23 CK-MB (CK-2) 1.3 ng/mL (0.0-4.0) 05/25/19 15:23 CK-MB (CK-2) Rel Index 0.8 (0-4) 05/25/19 15:23 Troponin T 0.047 ng/mL (0.00-0.029) H 05/25/19 11:59 NT-Pro-B Natriuret Pep 5533 pg/mL (0-900) H 05/25/19 11:59 Total Protein 7.6 g/dL (6.3-8.2) 05/25/19 11:59 Albumin 3.5 g/dL (3.9-5) L 05/25/19 11:59 Albumin/Globulin Ratio 0.9 % 05/25/19 11:59 Triglycerides 96 mg/dL (2-149) 05/25/19 11:59 Cholesterol 166 mg/dL (50-199) 05/25/19 11:59 LDL Cholesterol Direct 106 mg/dL (50-130) 05/25/19 11:59 HDL Cholesterol 51 mg/dL (40-59) 05/25/19 11:59 Cholesterol/HDL Ratio 3.25 % 05/25/19 11:59 Urine Color Yellow (Yellow) 05/25/19 15:07 Urine Turbidity Clear (Clear) 05/25/19 15:07 Urine pH 6.0 (5.0-7.0) 05/25/19 15:07 Ur Specific [place] 1.013 (1.003-1.030) 05/25/19 15:07 Urine Protein 100 mg/dl mg/dL (Negative) 05/25/19 15:07 Urine Glucose (UA) 50 mg/dL (Negative) 05/25/19 15:07 Urine Ketones Neg mg/dL (Negative) 05/25/19 15:07 Urine Blood Sm (Negative) 05/25/19 15:07 Urine Nitrite Neg (Negative) 05/25/19 15:07 Urine Bilirubin Neg (Negative) 05/25/19 15:07 Urine Urobilinogen 2.0 mg/dL (<2.0) 05/25/19 15:07 Ur Leukocyte Esterase Neg (Negative) 05/25/19 15:07 Urine WBC (Auto) < 1.0 /HPF (0.0-6.0) 05/25/19 15:07 Urine RBC (Auto) 5.0 /HPF (0.0-6.0) 05/25/19 15:07 U Epithel Cells (Auto) < 1.0 /HPF (0-13.0) 05/25/19 15:07 Urine Creatinine 103.7 mg/dL (0.1-20.0) H 05/26/19 Unknown Protein/Creatinin Ratio 2.05 05/26/19 Unknown Urine Sodium 73 mmol/L 05/26/19 Unknown Urine Total Protein 213 mg/dL (5-11.8) H 05/26/19 Unknown Esquivel/IV: Voiding Method Condom Catheter IV Catheter Type [Left Forearm INT / Saline Lock ] Active Medications - Current Medications Current Medications: Generic Name Dose Route Start Last Admin Trade Name Freq PRN Reason Stop Dose Admin Acetaminophen 650 mg 05/25/19 21:33 05/28/19 09:54 Tylenol PO 650 mg Q4H PRN Administration Pain MILD(1-3)/Fever >100.5/SKINNER Atorvastatin Calcium 40 mg 05/25/19 22:00 05/27/19 21:31 Lipitor PO 40 mg QHS SHEBA Administration Carvedilol 25 mg 05/25/19 22:00 05/28/19 09:48 Coreg PO Not Given BID SHEBA Doxazosin Mesylate 1 mg 05/27/19 22:00 05/28/19 09:48 Cardura PO Not Given BID SHEBA Gabapentin 100 mg 05/25/19 22:00 05/28/19 05:49 Gabapentin PO 100 mg Q8HR SHEBA Administration Heparin Sodium (Porcine) 5,000 unit 05/25/19 22:00 05/28/19 09:54 Heparin SUB-Q 5,000 unit Q12HR SHEBA Administration Hydralazine HCl 5 mg 05/25/19 22:20 05/25/19 22:58 Apresoline IV 5 mg Q6H PRN Administration Hypertension Hydromorphone HCl 0.5 mg 05/25/19 16:55 05/26/19 15:34 Dilaudid IV 0.5 mg Q3H PRN Administration Pain , Severe (7-10) Sodium Chloride 1,000 mls @ 50 mls/hr 05/25/19 22:00 05/28/19 05:54 Nacl 0.45% 1000 Ml IV 100 mls/hr DIRECT SHEBA Administration Cefepime HCl 2 gm in 100 mls @ 200 mls/hr 05/29/19 10:00 Cefepime/Ns 2 Gm/100 Ml IV Q24HR [facility] Protocol Miscellaneous Medication 60 mg 05/25/19 21:30 Ticagrelor (Nf) PO DAILY [facility] Nifedipine 60 mg 05/26/19 08:00 05/28/19 09:48 Procardia Xl PO Not Given QDAY@0800 [facility] Ondansetron HCl 4 mg 05/25/19 21:33 Zofran IV Q8H PRN Nausea And Vomiting Oxycodone/Acetaminophen 1 tab 05/25/19 21:33 05/26/19 19:31 Percocet 5/325 PO 1 tab Q6H PRN Administration Pain, Moderate (4-6) Sodium Chloride 10 ml 05/25/19 22:00 05/27/19 21:32 Sodium Chloride Flush Syringe 10 Ml IV 10 ml BID SHEBA Administration Sodium Chloride 10 ml 05/25/19 21:33 Sodium Chloride Flush Syringe 10 Ml IV PRN PRN LINE FLUSH
--- NOTE | 2019-05-28 12:20 | XRay Report ---
CHEST 1 VIEW 05/28/2019 10:51 AM INDICATION / CLINICAL INFORMATION: fever. COMPARISON: One view of the chest from 05/25/2019. FINDINGS: SUPPORT DEVICES: None. HEART / MEDIASTINUM: Stable. LUNGS / PLEURA: The right hemidiaphragm is elevated with probable right basilar atelectasis. A retroc ardiac opacity of uncertain significance is noted. The upper lungs are clear. No significant pleural effusion. No pneumothorax. ADDITIONAL FINDINGS: No significant additional findings. IMPRESSION: 1. Retrocardiac opacity could represent atelectasis or pneumonia. 2. Mild right basilar atelectasis. Signer Name: Arias Balderas MD Signed: 05/28/2019 12:15 PM Workstation Name: [id number]
[2019-05-28] MEDS: DOBUTamine/D5W 500 MG/250 ML 500 MG/250 ML BAG IV SCH (14:00)
--- NOTE | 2019-05-28 14:07 | Discharge Summary ---
Providers - Providers Date of Admission: 05/25/19 21:33 Date of discharge: 05/28/19 Attending physician: YUMI GALINDO 05/25/19 14:56 Consult to Physician [CONS] Stat Comment: Consulting Provider: TEODORA CAMPOS Physician Instructions: Reason For Exam: ARF hyperkalemia 05/25/19 21:44 Consult to Physician [CONS] Routine Comment: Consulting Provider: TEODORA CAMPOS Physician Instructions: Reason For Exam: CONSTANTINO 05/25/19 21:46 Consult to Physician [CONS] Routine Comment: Consulting Provider: VERONIQUE GARCIA Physician Instructions: Reason For Exam: chf 05/27/19 13:35 Occupational Therapy Evaluate and Treat [CONS] Routine Comment: Reason For Exam: History of hip surgery/unable to walk 05/28/19 10:17 Consult to Physician [CONS] Routine Comment: Consulting Provider: LAKSHMI BURNETT Physician Instructions: Reason For Exam: Febrile illness/history of renal transplant 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
--- NOTE | 2019-05-28 16:08 | Progress Note ---
Assessment and Plan Acute on Chronic Kidney Disease likely secondary to Hypertensive Nephrosclerosis: Renal transplant: -Renal labs reviewed. Serum creatinine 4.8 today, yesterday's was 3.4. Baseline unknown. -Patient had renal transplant at [facility] in 1983. Has not followed-up with [facility] in several years. -Patient reports being under the care of a Lining Repairer named Dr. Diego Garcia -Renal ultrasound-Right renal transplant with mild hydronephrosis- Consulted Urology Dr. Reynaga -Given worsening renal function, discussed with patient and niece that patient may need to be transferred to [facility] transplant as if he is undergoing rejection he will need to treated there, we have consulted Urology for their input on this patient's mild hydronephrosis shown on renal ultrasound and we will await there evaluation and proceed from there -Spoke to Dr. Gonzalez who states Urology contacted him regarding this patient and Dr. Gonzalez has recommended for this patient to be transferred to [facility] -Contact Dr. Garcia's office at [phone] and obtained medical records, review of records showed patient's BUN was 63 and serum creatinine was 2.43 on 01/11/2019. Records also show that patient was on Lasix 40 mg daily for edema and was on Ibuprofen 800 mg po daily and Prednisone 5 mg po daily -On 0.45% NS infusion at 50 ml/hr, monitor volume status -LVEF is 15-20%. On Dobutamine drip. Cardiology onboard. -Urine lytes reviewed -Renally dose medications -Avoid nephrotoxic agents -Monitor I/O's -Monitor renal function closely Hypertension: -Controlled -Monitor blood pressures Hyperkalemia, Resolved: -S/P insulin/bicarb/D50 -Monitor potassium levels -BMP in a.m Back Pain: -As per primary Anemia: -Check iron levels -May need Epogen Subjective Date of service: 05/28/19 Principal diagnosis: CKD Interval history: Patient on droplet precautions. Has fever of 101. Spoke with patient's niece who states she is the next of kin. Updated her on plan of care. Objective - Vital Signs Vital signs: Vital Signs - 12hr 05/28/19 05/28/19 05/28/19 04:15 08:38 09:48 Temperature 98.3 F 101.8 F H Pulse Rate 94 H 94 H 94 H Pulse Rate [ From Monitor] Respiratory 18 18 Rate Blood Pressure 105/63 97/55 97/55 O2 Sat by Pulse 94 100 Oximetry 05/28/19 10:00 Temperature Pulse Rate 95 H Pulse Rate [ 94 H From Monitor] Respiratory 18 Rate Blood Pressure O2 Sat by Pulse 100 Oximetry - General Appearance General appearance: chronically ill, fatigue EENT: ATNC, PERRL Neck: no JVD, supple Respiratory: Present: Decreased Breath Sounds Cardiology: S1S2 Gastrointestinal: normoactive bowel sounds Integumentary: warm and dry Neurologic: other (Confused) Musculoskeletal: joint swelling - Lab 05/28/19 06:42 05/28/19 06:42 Most recent lab results Calcium 9.3 mg/dL (8.4-10.2) 05/28/19 06:42 Phosphorus 4.60 mg/dL (2.5-4.5) H 05/28/19 06:42 Magnesium 2.30 mg/dL (1.7-2.3) 05/27/19 05:35 Urine Creatinine 103.7 mg/dL (0.1-20.0) H 05/26/19 Unknown Urine Sodium 73 mmol/L 05/26/19 Unknown Urine Total Protein 213 mg/dL (5-11.8) H 05/26/19 Unknown Medications & Allergies - Medications Allergies/Adverse Reactions: Allergies codeine [From Tylenol-Codeine #3] Allergy (Verified 05/25/19 11:33) Unknown tramadol Allergy (Verified 05/25/19 11:33) Unknown Home Medications: Home Medications Medication Instructions Recorded Confirmed Last Taken Type Furosemide [Lasix TAB] 40 mg PO QDAY 05/25/19 05/25/19 Unknown History Gabapentin [Neurontin] 100 mg PO Q8HR 05/25/19 05/25/19 Unknown History NIFEdipine [Nifedipine ER] 30 mg PO QDAY 05/25/19 05/25/19 Unknown History Prednisone [predniSONE (Marie) ER 5 mg PO QDAY 05/25/19 05/25/19 Unknown History TAB] Rosuvastatin Calcium 20 mg PO QHS 05/25/19 05/25/19 Unknown History Ticagrelor (Nf) [Brilinta (Nf)] 60 mg PO DAILY 05/25/19 05/25/19 Unknown History carvediloL [Coreg] 25 mg PO BID 05/25/19 05/25/19 Unknown History lisinopriL [Zestril TAB] 10 mg PO QDAY 05/25/19 05/25/19 Unknown History Active Medications: Generic Name Dose Route Start Last Admin Trade Name Freq PRN Reason Stop Dose Admin Acetaminophen 650 mg 05/25/19 21:33 05/28/19 09:54 Tylenol PO 650 mg Q4H PRN Administration Pain MILD(1-3)/Fever >100.5/SKINNER Aspirin 81 mg 05/29/19 10:00 Halfprin Ec PO QDAY SHEBA Atorvastatin Calcium 40 mg 05/25/19 22:00 05/27/19 21:31 Lipitor PO 40 mg QHS SHEBA Administration Carvedilol 6.25 mg 05/28/19 11:47 Coreg PO BID SHEBA Gabapentin 100 mg 05/25/19 22:00 05/28/19 14:01 Gabapentin PO 100 mg Q8HR SHEBA Administration Heparin Sodium (Porcine) 5,000 unit 05/25/19 22:00 05/28/19 09:54 Heparin SUB-Q 5,000 unit Q12HR SHEBA Administration Hydralazine HCl 5 mg 05/25/19 22:20 05/25/19 22:58 Apresoline IV 5 mg Q6H PRN Administration Hypertension Hydromorphone HCl 0.5 mg 05/25/19 16:55 05/26/19 15:34 Dilaudid IV 0.5 mg Q3H PRN Administration Pain , Severe (7-10) Sodium Chloride 1,000 mls @ 50 mls/hr 05/25/19 22:00 05/28/19 05:54 Nacl 0.45% 1000 Ml IV 100 mls/hr DIRECT SHEBA Administration Cefepime HCl 2 gm in 100 mls @ 200 mls/hr 05/29/19 10:00 Cefepime/Ns 2 Gm/100 Ml IV Q24HR [facility] Protocol Dobutamine HCl/Dextrose 500 mg in 250 mls @ 8.37 mls/hr 05/28/19 12:00 05/28/19 14:00 Dobutrex Drip 500mg/D5w 250ml IV 3 mcg/kg/min DIRECT SHEBA 8.37 mls/hr Administration Protocol 3 MCG/KG/MIN Nifedipine 60 mg 05/26/19 08:00 05/28/19 09:48 Procardia Xl PO Not Given QDAY@0800 [facility] Ondansetron HCl 4 mg 05/25/19 21:33 Zofran IV Q8H PRN Nausea And Vomiting Oxycodone/Acetaminophen 1 tab 05/25/19 21:33 05/26/19 19:31 Percocet 5/325 PO 1 tab Q6H PRN Administration Pain, Moderate (4-6) Pantoprazole Sodium 40 mg 05/29/19 10:00 Protonix PO QDAY SHEBA Sodium Chloride 10 ml 05/25/19 22:00 05/28/19 10:00 Sodium Chloride Flush Syringe 10 Ml IV 10 ml BID SHEBA Administration Sodium Chloride 10 ml 05/25/19 21:33 Sodium Chloride Flush Syringe 10 Ml IV PRN PRN LINE FLUSH
--- NOTE | 2019-05-28 16:26 | Event Note ---
Date: 05/28/19 Contacted about patient with fever, hydronephrosis and low EF with transplant kidney. Recommend transfer to transplant center ([facility]) to be evaluated for transplant kidney percutaneous nephrostomy tube. This should be done in a tertiary care center. This was discussed with Dr. Reynaga, Dr. Finn and Dr. Elias who all agree with the plan of tertiary care transfer.
--- NOTE | 2019-05-28 17:38 | Consultation ---
History of Present Illness - Reason for Consult Consult date: 05/28/19 Fever, renal transplant patient Requesting physician: YUMI GALINDO - History of Present Illness The patient is a 64-year-old male with hypertension, renal transplant, CKD, current immunosuppression is unclear, patient is a poor historian, states he takes prednisone. He was admitted to the hospital on 05/25/2019 after he was found down on the floor. Upon admission, he was found to have CONSTANTINO, hyperkalemia. He also had some low-grade temperatures. Then on 05/26/2019, had a fever spike of 103.1 F, and another 1 this morning, hence infectious diseases was consulted. Patient has had confusion along with progressive renal failure. CT abdomen and pelvis without contrast showed right transplanted kidney with evidence of moderate hydronephrosis. There was mild diverticulosis with no evidence of diverticulitis. Lower lung bases without any evidence of pneumonia. Review of Systems: Limited due to altered mental status. Past History Past Medical History: hypertension, other (CKD) Past Surgical History: total hip replacement, Other (renal transplant in 1983) Social history: no significant social history Family history: no significant family history Medications and Allergies Allergies Allergy/AdvReac Type Severity Reaction Status Date / Time codeine Allergy Unknown Verified 05/25/19 11:33 [From Tylenol-Codeine #3] tramadol Allergy Unknown Verified 05/25/19 11:33 Home Medications Medication Instructions Recorded Confirmed Last Taken Type Furosemide [Lasix TAB] 40 mg PO QDAY 05/25/19 05/25/19 Unknown History Gabapentin [Neurontin] 100 mg PO Q8HR 05/25/19 05/25/19 Unknown History NIFEdipine [Nifedipine ER] 30 mg PO QDAY 05/25/19 05/25/19 Unknown History Prednisone [predniSONE (Marie) ER 5 mg PO QDAY 05/25/19 05/25/19 Unknown History TAB] Rosuvastatin Calcium 20 mg PO QHS 05/25/19 05/25/19 Unknown History Ticagrelor (Nf) [Brilinta (Nf)] 60 mg PO DAILY 05/25/19 05/25/19 Unknown History carvediloL [Coreg] 25 mg PO BID 05/25/19 05/25/19 Unknown History lisinopriL [Zestril TAB] 10 mg PO QDAY 05/25/19 05/25/19 Unknown History Active Meds: Active Medications Acetaminophen (Tylenol) 650 mg PO Q4H PRN PRN Reason: Pain MILD(1-3)/Fever >100.5/SKINNER Last Admin: 05/28/19 09:54 Dose: 650 mg Documented by: Aspirin (Halfprin Ec) 81 mg PO QDAY [facility] Atorvastatin Calcium (Lipitor) 40 mg PO QHS [facility] Last Admin: 05/27/19 21:31 Dose: 40 mg Documented by: Carvedilol (Coreg) 6.25 mg PO BID [facility] Gabapentin (Gabapentin) 100 mg PO Q8HR [facility] Last Admin: 05/28/19 14:01 Dose: 100 mg Documented by: Heparin Sodium (Porcine) (Heparin) 5,000 unit SUB-Q Q12HR [facility] Last Admin: 05/28/19 09:54 Dose: 5,000 unit Documented by: Hydralazine HCl (Apresoline) 5 mg IV Q6H PRN PRN Reason: Hypertension Last Admin: 05/25/19 22:58 Dose: 5 mg Documented by: Hydromorphone HCl (Dilaudid) 0.5 mg IV Q3H PRN PRN Reason: Pain , Severe (7-10) Last Admin: 05/26/19 15:34 Dose: 0.5 mg Documented by: Sodium Chloride (Nacl 0.45% 1000 Ml) 1,000 mls @ 50 mls/hr IV DIRECT SHEBA Last Admin: 05/28/19 05:54 Dose: 100 mls/hr Documented by: Dobutamine HCl/Dextrose (Dobutrex Drip 500mg/D5w 250ml) 500 mg in 250 mls @ 8.37 mls/hr IV DIRECT SHEBA; Protocol Last Admin: 05/28/19 14:00 Dose: 3 mcg/kg/min, 8.37 mls/hr Documented by: Cefepime HCl (Cefepime/Ns 1 Gm/100 Ml) 1 gm in 100 mls @ 200 mls/hr IV Q24H [facility]; Protocol Nifedipine (Procardia Xl) 60 mg PO QDAY@0800 [facility] Last Admin: 05/28/19 09:48 Dose: Not Given Documented by: Ondansetron HCl (Zofran) 4 mg IV Q8H PRN PRN Reason: Nausea And Vomiting Oxycodone/Acetaminophen (Percocet 5/325) 1 tab PO Q6H PRN PRN Reason: Pain, Moderate (4-6) Last Admin: 05/26/19 19:31 Dose: 1 tab Documented by: Pantoprazole Sodium (Protonix) 40 mg PO QDAY [facility] Sodium Chloride (Sodium Chloride Flush Syringe 10 Ml) 10 ml IV BID [facility] Last Admin: 05/28/19 10:00 Dose: 10 ml Documented by: Sodium Chloride (Sodium Chloride Flush Syringe 10 Ml) 10 ml IV PRN PRN PRN Reason: LINE FLUSH Physical Examination - Physical Exam Narrative exam: Physical Exam: Constitutional: Drowsy, easily awakened, cooperative. No acute distress Head, Ears, Nose: Normocephalic, atraumatic. External ears, nose normal Eyes: Conjunctivae/corneas clear. No icterus. No ptosis. Neck: Supple, no meningeal signs Cardiovascular: S1, S2 normal. Respiratory: Good air entry, clear to auscultation bilaterally GI: Soft, non-tender; bowel sounds normal. No peritoneal signs Musculoskeletal: No pedal edema, no cyanosis. Skin: No rash or abscess Hem/Lymphatic: No palpable cervical or supraclavicular nodes. No lymphangitis Psych: No agitation Neurological: Drowsy, easily awakened but examination limited - Constitutional Vitals: Vital Signs Temp Pulse Resp BP Pulse Ox 101.8 F H 94 H 18 97/55 100 05/28/19 08:38 05/28/19 10:00 05/28/19 10:00 05/28/19 09:48 05/28/19 10:00 Temperature -Last 24 Hours Temperature 101.8 F Temperature 98.3 F Temperature 98.4 F Temperature 98.2 F Results - Labs CBC & Chem 7: 05/28/19 06:42 05/28/19 06:42 Labs: Abnormal lab results 05/28/19 05/28/19 Range/Units 06:42 06:42 WBC 11.4 H (4.5-11.0) K/mm3 RBC 2.74 L (3.65-5.03) M/mm3 Hgb 7.8 L (11.8-15.2) gm/dl Hct 24.0 L (35.5-45.6) % RDW 17.2 H (13.2-15.2) % Plt Count 101 L (140-440) K/mm3 Carbon Dioxide 16 L (22-30) mmol/L BUN 73 H (9-20) mg/dL Creatinine 4.8 H (0.8-1.5) mg/dL Glucose 153 H (75-100) mg/dL Phosphorus 4.60 H (2.5-4.5) mg/dL - Imaging and Cardiology Chest x-ray: report reviewed, image reviewed (no pneumonia) CT Scan - head: report reviewed, image reviewed (pansinusitis) Assessment and Plan Cultures: 05/25/2019 blood culture: No growth 05/28/2019 blood culture: In process A/P: 64-year-old male with hypertension, renal transplant, CKD, current immunosuppression is unclear, patient is a poor historian, states he takes prednisone admitted on 05/25/2019 after he was found lying down: #Possible sepsis: Leucocytosis on admission. Etiology unclear. UA benign. Chest x-ray on admission did not reveal pneumonia. CT abdomen pelvis showed moderate hydronephrosis of the transplant graft. Lower lung cuts did not reveal evidence of pneumonia. CT head did show evidence of pansinusitis. #Acute renal failure on CKD: Renally dose antibiotics. creatinine worsening. #Immunocompromised host, renal transplant: Current immunosuppression unclear, it appears patient is only on prednisone. #Acute encephalopathy: Multifactorial. Has evidence of pansinusitis on CT, recommend MRI brain without contrast. Recs: Decreased cefepime dose to 1 g every 24 hours (can cause neurotoxicity) added Flagyl Urgent MRI brain ordered Follow-up blood cultures No evidence of pneumonia, droplet and contact isolation and not needed Patient awaiting possible transfer to tertiary care center d/w Dr. Aakash Alonso MD, FACP [facility] C: [phone] O: [phone] F: [phone]
[2019-05-29] MEDS: metroNIDAZOLE/NS 500 MG/100 ML 500 MG/100 ML BAG IV SCH ×4 (00:11→18:34)
[2019-05-29] MEDS: CEFEPIME/NS 1 GM/100 ML 1 GM/100 ML BAG IV SCH ×2 (06:05→06:06)
[2019-05-29] MEDS: GABAPENTIN 100 MG CAP PO SCH ×3 (06:05→22:00)
[2019-05-29 06:30] LABS: Hematocrit 25.3 % (35.5-45.6); Hemoglobin 8.2 gm/dl (11.8-15.2); Mean Corpuscular HGB Conc 32 % (32-34); Mean Corpuscular Volume 88 fl (84-94); Platelet Count 133 K/mm3 (140-440); Red Blood Count 2.86 M/mm3 (3.65-5.03); Red Cell Distribution Width 17.1 % (13.2-15.2)
[2019-05-29 06:50] LABS: Iron 12 ug/dL (49-181); Total Iron Binding Capacity 120 mcg/dL (250-450)
[2019-05-29] MEDS: NIFEdipine XL 60 MG TAB PO SCH (08:58)
[2019-05-29] MEDS ORDERED: SODIUM BICARBONATE 150 MEQ in DEXTROSE 5% IN WATER 1,000 ML IV SCH (09:00)
--- NOTE | 2019-05-29 09:06 | Progress Note ---
Assessment and Plan Acute on Chronic Kidney Disease likely secondary to Hypertensive Nephrosclerosis: Renal transplant: -Cr cint to rise with rising BUN and worsening metabolic acidosis -Patient had renal transplant at [place] in 1983. Has not followed-up with [facility] in several years. -urology and IR service are unable to correct kidney graft hydronephrosis and recommended transfer to a transplant center - I contacted [facility] transfer center and provided my and the patient info, according to transfer person she will call the hospital floor and collect necessary info and then call me back - vascular surgery consult was placed for vascath placement, will likely need dialysis in the next 24 hours but can be held if transfer to [place] can be done soon, I discussed the case with Dr Villalba, likely will plan for vascath soon - will switch IVF to sodium bicarb gtt -Renally dose medications -Avoid nephrotoxic agents -Monitor I/O's -Monitor renal function closely Hyperkalemia, Resolved: -S/P insulin/bicarb/D50 -Monitor potassium levels -BMP in a.m Back Pain: -As per primary Lucio Garcia MD [phone] Subjective Date of service: 05/29/19 Principal diagnosis: CKD Interval history: patient only answers simple questions, no family at bedside Objective - Vital Signs Vital signs: Vital Signs - 12hr 05/28/19 05/28/19 05/28/19 21:31 22:00 22:15 Temperature Pulse Rate 91 H 89 Pulse Rate [ Apical] Respiratory Rate Respiratory 18 Rate [ Generalized] Blood Pressure 84/55 O2 Sat by Pulse Oximetry 05/28/19 05/29/19 05/29/19 22:25 00:22 01:13 Temperature 122.0 F H 97.8 F Pulse Rate 85 Pulse Rate [ 89 Apical] Respiratory 20 32 H Rate Respiratory Rate [ Generalized] Blood Pressure 93/56 O2 Sat by Pulse 92 86 Oximetry 05/29/19 05/29/19 05/29/19 05:10 07:32 08:29 Temperature 97.4 F L 98.2 F Pulse Rate 77 Pulse Rate [ 89 Apical] Respiratory 18 18 20 Rate Respiratory Rate [ Generalized] Blood Pressure 95/55 88/53 O2 Sat by Pulse 83 L 92 Oximetry - General Appearance General appearance: well-developed, well-nourished, obese EENT: ATNC, PERRL, mucous membranes moist Neck: no JVD, no carotid bruit Respiratory: Present: Clear to Ascultation Cardiology: regular, S1S2 Gastrointestinal: normoactive bowel sounds, no tenderness, no distended Integumentary: no rash, warm and dry Neurologic: other (follows simple commands) Musculoskeletal: other (answers simple questions) - Lab 05/29/19 05:30 05/29/19 05:30 Most recent lab results Calcium 10.0 mg/dL (8.4-10.2) 05/29/19 05:30 Phosphorus 4.60 mg/dL (2.5-4.5) H 05/28/19 06:42 Magnesium 2.30 mg/dL (1.7-2.3) 05/27/19 05:35 Urine Creatinine 103.7 mg/dL (0.1-20.0) H 05/26/19 Unknown Urine Sodium 73 mmol/L 05/26/19 Unknown Urine Total Protein 213 mg/dL (5-11.8) H 05/26/19 Unknown Medications & Allergies - Medications Allergies/Adverse Reactions: Allergies codeine [From Tylenol-Codeine #3] Allergy (Verified 05/25/19 11:33) Unknown tramadol Allergy (Verified 05/25/19 11:33) Unknown Home Medications: Home Medications Medication Instructions Recorded Confirmed Last Taken Type Furosemide [Lasix TAB] 40 mg PO QDAY 05/25/19 05/25/19 Unknown History Gabapentin [Neurontin] 100 mg PO Q8HR 05/25/19 05/25/19 Unknown History NIFEdipine [Nifedipine ER] 30 mg PO QDAY 05/25/19 05/25/19 Unknown History Prednisone [predniSONE (Marie) ER 5 mg PO QDAY 05/25/19 05/25/19 Unknown History TAB] Rosuvastatin Calcium 20 mg PO QHS 05/25/19 05/25/19 Unknown History Ticagrelor (Nf) [Brilinta (Nf)] 60 mg PO DAILY 05/25/19 05/25/19 Unknown History carvediloL [Coreg] 25 mg PO BID 05/25/19 05/25/19 Unknown History lisinopriL [Zestril TAB] 10 mg PO QDAY 05/25/19 05/25/19 Unknown History Active Medications: Generic Name Dose Route Start Last Admin Trade Name Freq PRN Reason Stop Dose Admin Acetaminophen 650 mg 05/25/19 21:33 05/28/19 09:54 Tylenol PO 650 mg Q4H PRN Administration Pain MILD(1-3)/Fever >100.5/SKINNER Aspirin 81 mg 05/29/19 10:00 Halfprin Ec PO QDAY [facility] Atorvastatin Calcium 40 mg 05/25/19 22:00 05/28/19 23:45 Lipitor PO 40 mg QHS SHEBA Administration Carvedilol 6.25 mg 05/28/19 11:47 05/28/19 22:15 Coreg PO Not Given BID SHEBA Gabapentin 100 mg 05/25/19 22:00 05/29/19 06:05 Gabapentin PO 100 mg Q8HR SHEBA Administration Heparin Sodium (Porcine) 5,000 unit 05/25/19 22:00 05/28/19 23:46 Heparin SUB-Q 5,000 unit Q12HR SHE[facility] Administration Hydralazine HCl 5 mg 05/25/19 22:20 05/25/19 22:58 Apresoline IV 5 mg Q6H PRN Administration Hypertension Hydromorphone HCl 0.5 mg 05/25/19 16:55 05/26/19 15:34 Dilaudid IV 0.5 mg Q3H PRN Administration Pain , Severe (7-10) Dobutamine HCl/Dextrose 500 mg in 250 mls @ 8.37 mls/hr 05/28/19 12:00 05/28/19 14:00 Dobutrex Drip 500mg/D5w 250ml IV 3 mcg/kg/min DIRECT SHEBA 8.37 mls/hr Administration Protocol 3 MCG/KG/MIN Cefepime HCl 1 gm in 100 mls @ 200 mls/hr 05/28/19 06:00 05/29/19 06:06 Cefepime/Ns 1 Gm/100 Ml IV 200 mls/hr Q24H [facility] Administration Protocol Metronidazole 500 mg in 100 mls @ 100 mls/hr 05/28/19 18:00 05/29/19 06:05 Flagyl 500 Mg/100 Ml IV 100 mls/hr Q8H [facility] Administration Protocol Sodium Bicarbonate 150 meq/ 1,150 mls @ 75 mls/hr 05/29/19 09:00 Dextrose IV DIRECT SHEBA Nifedipine 60 mg 05/26/19 08:00 05/29/19 08:58 Procardia Xl PO Not Given QDAY@0800 [facility] Ondansetron HCl 4 mg 05/25/19 21:33 Zofran IV Q8H PRN Nausea And Vomiting Oxycodone/Acetaminophen 1 tab 05/25/19 21:33 05/26/19 19:31 Percocet 5/325 PO 1 tab Q6H PRN Administration Pain, Moderate (4-6) Pantoprazole Sodium 40 mg 05/29/19 10:00 Protonix PO QDAY SHE[facility] Sodium Chloride 10 ml 05/25/19 22:00 05/29/19 00:12 Sodium Chloride Flush Syringe 10 Ml IV 10 ml BID SHE[facility] Administration Sodium Chloride 10 ml 05/25/19 21:33 Sodium Chloride Flush Syringe 10 Ml IV PRN PRN LINE FLUSH
[2019-05-29] MEDS: carvediloL 25 MG TAB PO SCH ×2 (09:22→22:00)
[2019-05-29] MEDS: PANTOPRAZOLE 40 MG TAB PO SCH (09:23)
[2019-05-29] MEDS: HEPARIN 5,000 UNIT/1 ML VIAL SUB-Q SCH ×2 (09:23→21:28)
[2019-05-29] MEDS: ASPIRIN EC 81 MG TAB PO SCH (09:23)
[2019-05-29] MEDS ORDERED: CEFEPIME/NS 2 GM/100 ML 2 GM/100 ML BAG IV SCH (10:00)
[2019-05-29] MEDS ORDERED: MIDAZOLAM 2 MG/2 ML INJ ONE (10:10)
[2019-05-29] MEDS ORDERED: fentaNYL 100 MCG/2 ML INJ ONE (10:10)
[2019-05-29] MEDS ORDERED: SODIUM CHLORIDE 0.9% 250ML 250 ML ONE (10:11)
[2019-05-29] MEDS ORDERED: HEPARIN/NS 5000 UNIT/500ML 500 ML IR ONE (10:11)
[2019-05-29] MEDS ORDERED: LIDOCAINE (2%) 20 MG/1 ML VIAL 20 ML MDV INFILTRATI ONE (10:12)
--- NOTE | 2019-05-29 10:29 | Progress Note ---
Assessment and Plan Patient is awaiting transfer to [place] for hydronephrosis and his transplant kidney. His renal function continues to worsen however and now is has resulted and altered mental status as well as electrolyte imbalances. The patient will need to have placement of a Vas-Cath for urgent hemodialysis today. He will be brought to the [facility] for placement of the Vas-Cath. Patient will still need to be transferred to [place] as soon as possible so that the hydronephrosis in his transplant kidney can be corrected in conjunction with transplant surgery so that the kidney function may be preserved. Subjective Date of service: 05/29/19 Principal diagnosis: CKD Interval history: Patient with renal transplant and hydronephrosis with worsening acute renal failure. The patient is alert but not oriented. Objective - Constitutional Vitals: Vital Signs - 12hr 05/29/19 05/29/19 05/29/19 00:22 01:13 05:10 Temperature 122.0 F H 97.8 F 97.4 F L Pulse Rate 85 77 Pulse Rate [ Apical] Respiratory 32 H 18 Rate Blood Pressure 93/56 95/55 O2 Sat by Pulse 86 83 L Oximetry 05/29/19 05/29/19 05/29/19 07:32 08:29 09:22 Temperature 98.2 F Pulse Rate 89 Pulse Rate [ 89 Apical] Respiratory 18 20 Rate Blood Pressure 88/53 88/53 O2 Sat by Pulse 92 Oximetry General appearance: Present: no acute distress - EENT Eyes: EOM intact ENT: hearing intact - Neck Neck: supple, normal ROM - Respiratory Respiratory effort: normal - Gastrointestinal General gastrointestinal: Present: deferred Rectal Exam: deferred - Genitourinary Male genitourinary: deferred - Integumentary Integumentary: clear, warm - Psychiatric Psychiatric: cooperative - Labs CBC & Chem 7: 05/29/19 05:30 05/29/19 05:30 Labs: Abnormal lab results 05/29/19 05/29/19 05/29/19 Range/Units 05:30 05:30 05:30 RBC 2.86 L (3.65-5.03) M/mm3 Hgb 8.2 L (11.8-15.2) gm/dl Hct 25.3 L (35.5-45.6) % RDW 17.1 H (13.2-15.2) % Plt Count 133 L (140-440) K/mm3 Sodium 132 L D (137-145) mmol/L Chloride 96.9 L (98-107) mmol/L Carbon Dioxide 15 L (22-30) mmol/L BUN 91 H (9-20) mg/dL Creatinine 6.8 H (0.8-1.5) mg/dL Glucose 176 H (75-100) mg/dL Iron 12 L (49-181) ug/dL TIBC 120 L (250-450) mcg/dL Ferritin (13.0-400.0) ng/mL 05/29/19 Range/Units 05:30 RBC (3.65-5.03) M/mm3 Hgb (11.8-15.2) gm/dl Hct (35.5-45.6) % RDW (13.2-15.2) % Plt Count (140-440) K/mm3 Sodium (137-145) mmol/L Chloride (98-107) mmol/L Carbon Dioxide (22-30) mmol/L BUN (9-20) mg/dL Creatinine (0.8-1.5) mg/dL Glucose (75-100) mg/dL Iron (49-181) ug/dL TIBC (250-450) mcg/dL Ferritin 1177.0 H (13.0-400.0) ng/mL Medications & Allergies - Medications Allergies/Adverse Reactions: Allergies codeine [From Tylenol-Codeine #3] Allergy (Verified 05/25/19 11:33) Unknown tramadol Allergy (Verified 05/25/19 11:33) Unknown Home Medications: Home Medications Medication Instructions Recorded Confirmed Last Taken Type Furosemide [Lasix TAB] 40 mg PO QDAY 05/25/19 05/25/19 Unknown History Gabapentin [Neurontin] 100 mg PO Q8HR 05/25/19 05/25/19 Unknown History NIFEdipine [Nifedipine ER] 30 mg PO QDAY 05/25/19 05/25/19 Unknown History Prednisone [predniSONE (Marie) ER 5 mg PO QDAY 05/25/19 05/25/19 Unknown History TAB] Rosuvastatin Calcium 20 mg PO QHS 05/25/19 05/25/19 Unknown History Ticagrelor (Nf) [Brilinta (Nf)] 60 mg PO DAILY 05/25/19 05/25/19 Unknown History carvediloL [Coreg] 25 mg PO BID 05/25/19 05/25/19 Unknown History lisinopriL [Zestril TAB] 10 mg PO QDAY 05/25/19 05/25/19 Unknown History Active Medications: Generic Name Dose Route Start Last Admin Trade Name Freq PRN Reason Stop Dose Admin Acetaminophen 650 mg 05/25/19 21:33 05/28/19 09:54 Tylenol PO 650 mg Q4H PRN Administration Pain MILD(1-3)/Fever >100.5/SKINNER Aspirin 81 mg 05/29/19 10:00 05/29/19 09:23 Halfprin Ec PO 81 mg QDAY [facility] Administration Atorvastatin Calcium 40 mg 05/25/19 22:00 05/28/19 23:45 Lipitor PO 40 mg QHS [facility] Administration Carvedilol 6.25 mg 05/28/19 11:47 05/29/19 09:22 Coreg PO Not Given BID SHEBA Gabapentin 100 mg 05/25/19 22:00 05/29/19 06:05 Gabapentin PO 100 mg Q8HR [facility] Administration Heparin Sodium (Porcine) 5,000 unit 05/25/19 22:00 05/29/19 09:23 Heparin SUB-Q 5,000 unit Q12HR [facility] Administration Hydralazine HCl 5 mg 05/25/19 22:20 05/25/19 22:58 Apresoline IV 5 mg Q6H PRN Administration Hypertension Hydromorphone HCl 0.5 mg 05/25/19 16:55 05/26/19 15:34 Dilaudid IV 0.5 mg Q3H PRN Administration Pain , Severe (7-10) Dobutamine HCl/Dextrose 500 mg in 250 mls @ 8.37 mls/hr 05/28/19 12:00 05/28/19 14:00 Dobutrex Drip 500mg/D5w 250ml IV 3 mcg/kg/min DIRECT SHE[facility] 8.37 mls/hr Administration Protocol 3 MCG/KG/MIN Cefepime HCl 1 gm in 100 mls @ 200 mls/hr 05/28/19 06:00 05/29/19 06:06 Cefepime/Ns 1 Gm/100 Ml IV 200 mls/hr Q24H [facility] Administration Protocol Metronidazole 500 mg in 100 mls @ 100 mls/hr 05/28/19 18:00 05/29/19 09:22 Flagyl 500 Mg/100 Ml IV 100 mls/hr Q8H [facility] Administration Protocol Sodium Bicarbonate 150 meq/ 1,150 mls @ 75 mls/hr 05/29/19 09:00 Dextrose IV DIRECT SHE[facility] Nifedipine 60 mg 05/26/19 08:00 05/29/19 08:58 Procardia Xl PO Not Given QDAY@0800 [facility] Ondansetron HCl 4 mg 05/25/19 21:33 Zofran IV Q8H PRN Nausea And Vomiting Oxycodone/Acetaminophen 1 tab 05/25/19 21:33 05/26/19 19:31 Percocet 5/325 PO 1 tab Q6H PRN Administration Pain, Moderate (4-6) Pantoprazole Sodium 40 mg 05/29/19 10:00 05/29/19 09:23 Protonix PO 40 mg QDAY [facility] Administration Sodium Chloride 10 ml 05/25/19 22:00 05/29/19 09:23 Sodium Chloride Flush Syringe 10 Ml IV 10 ml BID SHE[facility] Administration Sodium Chloride 10 ml 05/25/19 21:33 Sodium Chloride Flush Syringe 10 Ml IV PRN PRN LINE FLUSH
[2019-05-29] MEDS ORDERED: SODIUM CHLORIDE 0.9% 100 ML IV PRN (10:38)
[2019-05-29] MEDS: HEPARIN 10,000 UNITS/10 ML VIAL ONE ×2 (11:04→11:05)
--- NOTE | 2019-05-29 11:19 | Progress Note ---
Assessment and Plan Assessment and plan: --CONSTANTINO (acute kidney injury)/worsening renal function Current Visit: Yes Status: Acute Vasomotor nephropathy ,worsening renal function , Creatinine 6.8, bicarb 15 Nephrology recommend Vas-Cath placement Followed by hemodialysis today --History of renal transplant; 1983 Current Visit: Yes Status: Chronic Many years ago, management per nephrology Worsening renal function, nephrology planning To transfer the patient to [place] [facility] [place] Transfer process initiated --Hydronephrosis on CT Urology and IR consulted As patient is immunocompromised, renal transplant patient Recommend transfer to tertiary care center, [facility] Transfer initiated, awaiting callback --Febrile illness: Immunocompromised patient Current Visit: Yes Status: Acute On IV antibiotics cefepime, Follow cultures, ID following, --Pneumonia; on chest x-ray continue current antibiotics, follow cultures. --Acute pansinusitis; on's CT head: Continue current antibiotics, ID following. Consider MRI brain, follow cultures -- Hyperkalemia Current Visit: Yes Status: Acute . Corrected, closely monitor electrolytes. --Acute on chronic systolic CHF (congestive heart failure) Current Visit: Yes Status: Chronic EF 15 to 20%, diuretics, beta-blockers, hold JAREK inhibitors. Due to acute kidney injury, Cardiology following, --Severe cardiomyopathy; EF 15 to 20%/hypotension on dobutamine drip, management per cardiology --Left upper extremity swelling: Resolved Patient had IV access on that arm Venous Doppler negative for DVT --History of total hip replacement: Physical therapy occupational therapy -- T2DM (type 2 diabetes mellitus) Current Visit: Yes Status: Chronic Accu-Chek sliding scale coverage ADA diet. Insulin as needed, Hb A1c 6.5 --DVT prophylaxis Current Visit: Yes Status: Acute On Heparin Patient is critically ill Monitor closely and adjust management as needed Plan of care reviewed with the patient's nurse Patient is critically ill, nephrology planning to transfer to transplant/ tertiary care center We will try to contact family and get more medical history Critical care time 35 minutes History Interval history: Transfer process initiated, waiting for callback from transfer center [place]. Patient seen and examined at bedside this morning Patient's chart, medications and consultants recommendations reviewed Patient looks chronically and critically ill Responding to simple questions Hypotensive on dobutamine drip Vital signs reviewed Nephrology scheduled for Vas-Cath placement And hemodialysis today Hospitalist Physical - Constitutional Vitals: Temp Pulse Resp BP Pulse Ox 98.2 F 89 20 88/53 92 05/29/19 07:32 05/29/19 09:22 05/29/19 08:29 05/29/19 09:22 05/29/19 08:29 General appearance: Present: mild distress, well-nourished, other (Responding to simple questions, ) - EENT Eyes: Present: PERRL, EOM intact - Neck Neck: Present: supple, normal ROM - Respiratory Respiratory effort: normal Respiratory: bilateral: diminished, rhonchi, negative: rales, wheezing - Cardiovascular Rhythm: regular Heart Sounds: Present: S1 & S2 - Extremities Extremities: no ischemia, No edema - Abdominal General gastrointestinal: soft, non-tender, non-distended, normal bowel sounds - Integumentary Integumentary: Present: clear, warm - Psychiatric Psychiatric: cooperative, other (Minimally communicative) - Neurologic Neurologic: other (Lethargy, responds to simple questions) Results - Labs CBC & Chem 7: 05/29/19 05:30 05/29/19 05:30 Labs: Laboratory Last Values WBC 7.0 K/mm3 (4.5-11.0) 05/29/19 05:30 RBC 2.86 M/mm3 (3.65-5.03) L 05/29/19 05:30 Hgb 8.2 gm/dl (11.8-15.2) L 05/29/19 05:30 Hct 25.3 % (35.5-45.6) L 05/29/19 05:30 MCV 88 fl (84-94) 05/29/19 05:30 MCH 29 pg (28-32) 05/29/19 05:30 MCHC 32 % (32-34) 05/29/19 05:30 RDW 17.1 % (13.2-15.2) H 05/29/19 05:30 Plt Count 133 K/mm3 (140-440) L 05/29/19 05:30 Lymph % (Auto) 8.3 % (13.4-35.0) L 05/26/19 05:34 Casey % (Auto) 11.1 % (0.0-7.3) H 05/26/19 05:34 Eos % (Auto) 0.1 % (0.0-4.3) 05/26/19 05:34 Baso % (Auto) 0.2 % (0.0-1.8) 05/26/19 05:34 Lymph # 1.2 K/mm3 (1.2-5.4) 05/26/19 05:34 Casey # 1.6 K/mm3 (0.0-0.8) H 05/26/19 05:34 Eos # 0.0 K/mm3 (0.0-0.4) 05/26/19 05:34 Baso # 0.0 K/mm3 (0.0-0.1) 05/26/19 05:34 Seg Neutrophils % 80.3 % (40.0-70.0) H 05/26/19 05:34 Seg Neutrophils # 11.4 K/mm3 (1.8-7.7) H 05/26/19 05:34 PT 15.6 Sec. (12.2-14.9) H 05/25/19 11:59 INR 1.22 (0.87-1.13) H 05/25/19 11:59 APTT 38.9 Sec. (24.2-36.6) H 05/25/19 11:59 VBG pH 7.407 (7.320-7.420) 05/25/19 11:59 Sodium 132 mmol/L (137-145) L D 05/29/19 05:30 Potassium 4.6 mmol/L (3.6-5.0) 05/29/19 05:30 Chloride 96.9 mmol/L (98-107) L 05/29/19 05:30 Carbon Dioxide 15 mmol/L (22-30) L 05/29/19 05:30 Anion Gap 25 mmol/L 05/29/19 05:30 BUN 91 mg/dL (9-20) H 05/29/19 05:30 Creatinine 6.8 mg/dL (0.8-1.5) H 05/29/19 05:30 Estimated GFR 10 ml/min 05/29/19 05:30 BUN/Creatinine Ratio 13 % 05/29/19 05:30 Glucose 176 mg/dL (75-100) H 05/29/19 05:30 Hemoglobin A1c 6.5 % (4-6) H 05/25/19 11:59 Lactic Acid 1.90 mmol/L (0.7-2.0) 05/25/19 15:23 Calcium 10.0 mg/dL (8.4-10.2) 05/29/19 05:30 Phosphorus 4.60 mg/dL (2.5-4.5) H 05/28/19 06:42 Magnesium 2.30 mg/dL (1.7-2.3) 05/27/19 05:35 Iron 12 ug/dL (49-181) L 05/29/19 05:30 TIBC 120 mcg/dL (250-450) L 05/29/19 05:30 Ferritin 1177.0 ng/mL (13.0-400.0) H 05/29/19 05:30 Total Bilirubin 1.10 mg/dL (0.1-1.2) 05/25/19 11:59 Direct Bilirubin 0.4 mg/dL (0-0.2) H 05/25/19 11:59 Indirect Bilirubin 0.7 mg/dL 05/25/19 11:59 AST 22 units/L (5-40) 05/25/19 11:59 ALT 17 units/L (7-56) 05/25/19 11:59 Alkaline Phosphatase 76 units/L (35-129) 05/25/19 11:59 Ammonia 29.0 umol/L (25-60) 05/25/19 11:59 Total Creatine Kinase 160 units/L (55-170) 05/25/19 15:23 CK-MB (CK-2) 1.3 ng/mL (0.0-4.0) 05/25/19 15:23 CK-MB (CK-2) Rel Index 0.8 (0-4) 05/25/19 15:23 Troponin T 0.047 ng/mL (0.00-0.029) H 05/25/19 11:59 NT-Pro-B Natriuret Pep 5533 pg/mL (0-900) H 05/25/19 11:59 Total Protein 7.6 g/dL (6.3-8.2) 05/25/19 11:59 Albumin 3.5 g/dL (3.9-5) L 05/25/19 11:59 Albumin/Globulin Ratio 0.9 % 05/25/19 11:59 Triglycerides 96 mg/dL (2-149) 05/25/19 11:59 Cholesterol 166 mg/dL (50-199) 05/25/19 11:59 LDL Cholesterol Direct 106 mg/dL (50-130) 05/25/19 11:59 HDL Cholesterol 51 mg/dL (40-59) 05/25/19 11:59 Cholesterol/HDL Ratio 3.25 % 05/25/19 11:59 Urine Color Yellow (Yellow) 05/25/19 15:07 Urine Turbidity Clear (Clear) 05/25/19 15:07 Urine pH 6.0 (5.0-7.0) 05/25/19 15:07 Ur Specific Rush 1.013 (1.003-1.030) 05/25/19 15:07 Urine Protein 100 mg/dl mg/dL (Negative) 05/25/19 15:07 Urine Glucose (UA) 50 mg/dL (Negative) 05/25/19 15:07 Urine Ketones Neg mg/dL (Negative) 05/25/19 15:07 Urine Blood Sm (Negative) 05/25/19 15:07 Urine Nitrite Neg (Negative) 05/25/19 15:07 Urine Bilirubin Neg (Negative) 05/25/19 15:07 Urine Urobilinogen 2.0 mg/dL (<2.0) 05/25/19 15:07 Ur Leukocyte Esterase Neg (Negative) 05/25/19 15:07 Urine WBC (Auto) < 1.0 /HPF (0.0-6.0) 05/25/19 15:07 Urine RBC (Auto) 5.0 /HPF (0.0-6.0) 05/25/19 15:07 U Epithel Cells (Auto) < 1.0 /HPF (0-13.0) 05/25/19 15:07 Urine Creatinine 103.7 mg/dL (0.1-20.0) H 05/26/19 Unknown Protein/Creatinin Ratio 2.05 05/26/19 Unknown Urine Sodium 73 mmol/L 05/26/19 Unknown Urine Total Protein 213 mg/dL (5-11.8) H 05/26/19 Unknown Esquivel/IV: Voiding Method Condom Catheter IV Catheter Type [Left Forearm INT / Saline Lock ] Active Medications - Current Medications Current Medications: Generic Name Dose Route Start Last Admin Trade Name Freq PRN Reason Stop Dose Admin Acetaminophen 650 mg 05/25/19 21:33 05/28/19 09:54 Tylenol PO 650 mg Q4H PRN Administration Pain MILD(1-3)/Fever >100.5/SKINNER Aspirin 81 mg 05/29/19 10:00 05/29/19 09:23 Halfprin Ec PO 81 mg QDAY SHEBA Administration Atorvastatin Calcium 40 mg 05/25/19 22:00 05/28/19 23:45 Lipitor PO 40 mg QHS SHEBA Administration Carvedilol 6.25 mg 05/28/19 11:47 05/29/19 09:22 Coreg PO Not Given BID SHEBA Gabapentin 100 mg 05/25/19 22:00 05/29/19 06:05 Gabapentin PO 100 mg Q8HR SHEBA Administration Heparin Sodium (Porcine) 5,000 unit 05/25/19 22:00 05/29/19 09:23 Heparin SUB-Q 5,000 unit Q12HR SHEBA Administration Hydralazine HCl 5 mg 05/25/19 22:20 05/25/19 22:58 Apresoline IV 5 mg Q6H PRN Administration Hypertension Hydromorphone HCl 0.5 mg 05/25/19 16:55 05/26/19 15:34 Dilaudid IV 0.5 mg Q3H PRN Administration Pain , Severe (7-10) Dobutamine HCl/Dextrose 500 mg in 250 mls @ 8.37 mls/hr 05/28/19 12:00 05/28/19 14:00 Dobutrex Drip 500mg/D5w 250ml IV 3 mcg/kg/min DIRECT SHEBA 8.37 mls/hr Administration Protocol 3 MCG/KG/MIN Cefepime HCl 1 gm in 100 mls @ 200 mls/hr 05/28/19 06:00 05/29/19 06:06 Cefepime/Ns 1 Gm/100 Ml IV 200 mls/hr Q24H SHEBA Administration Protocol Metronidazole 500 mg in 100 mls @ 100 mls/hr 05/28/19 18:00 05/29/19 09:22 Flagyl 500 Mg/100 Ml IV 100 mls/hr Q8H SHEBA Administration Protocol Sodium Bicarbonate 150 meq/ 1,150 mls @ 75 mls/hr 05/29/19 09:00 Dextrose IV DIRECT SHEBA Sodium Chloride 100 mls @ 999 mls/hr 05/29/19 10:38 Nacl 0.9% IV THOMPSON PRN Hypotension Nifedipine 60 mg 05/26/19 08:00 05/29/19 08:58 Procardia Xl PO Not Given QDAY@0800 SHEBA Ondansetron HCl 4 mg 05/25/19 21:33 Zofran IV Q8H PRN Nausea And Vomiting Oxycodone/Acetaminophen 1 tab 05/25/19 21:33 05/26/19 19:31 Percocet 5/325 PO 1 tab Q6H PRN Administration Pain, Moderate (4-6) Pantoprazole Sodium 40 mg 05/29/19 10:00 05/29/19 09:23 Protonix PO 40 mg QDAY SHEBA Administration Sodium Chloride 10 ml 05/25/19 22:00 05/29/19 09:23 Sodium Chloride Flush Syringe 10 Ml IV 10 ml BID SHEBA Administration Sodium Chloride 10 ml 05/25/19 21:33 Sodium Chloride Flush Syringe 10 Ml IV PRN PRN LINE FLUSH
--- NOTE | 2019-05-29 11:20 | Event Note ---
Date: 05/29/19 Nephrology, IR and urology recommended to transfer the patient to [facility] Transfer process initiated, waiting for call back from the transfer center and the supervisor polishing For possible admission to [place] ICU .
--- NOTE | 2019-05-29 11:20 | Operative Report ---
Operative Report Operative Report: Exam: Ultrasound of fluoroscopic guided placement of Vas-Cath Clinical indication: Patient with a history of a transplanted kidney on the right, worsening renal function secondary to hydronephrosis. Patient awaiting transfer to a tertiary care facility. Need for emergent dialysis Date: 05/29/2019 Procedure: Following an explanation of the risks, benefits and alternatives; written informed consent was obtained from the patient's next of kin. The patient was brought to the angiographic suite and placed in supine position on the examination table. Initial evaluation of his left groin demonstrated a patent left common femoral vein. The patient's left groin was prepped and draped in the usual sterile fashion. 1% lidocaine was used for anesthesia. Under ultrasound guidance, the left common femoral vein was cannulated with a 7 cm 18-gauge needle. A 0.035 guidewire was advanced centrally. The needle was removed and with the aid of a 4 [place] Island[place] vertebral catheter, the guidewire was manipulated into the IVC just proximal to the right atrium. The vertebral catheter was removed. Following serial dilation over the guidewire under fluoroscopy, a 30 cm dialysis catheter was advanced over the guidewire under fluoroscopy into the mid IVC. All ports returned nonpulsatile blood. The dialysis ports were flushed and locked with appropriate volumes of heparin. The pigtail port was flushed and locked with sterile saline. The catheter was securely fastened to the skin surface using 2-0 Ethilon suture and a sterile dressing applied. The patient tolerated the procedure well. There were no immediate postprocedure complications. Sedation was not utilized secondary to patient's altered mental status. Continuous cardiopulmonary monitoring was utilized. Impression: Ultrasound of fluoroscopic guided placement of Vas-Cath via the left common femoral vein.
--- NOTE | 2019-05-29 12:00 | Progress Note ---
Assessment and Plan - Patient Problems (1) Acute on chronic systolic (congestive) heart failure Current Visit: Yes Status: Acute Plan to address problem: Continue GDMT, and dobutamine infusion. Subjective Date of service: 05/29/19 Principal diagnosis: CKD Interval history: Patient underwent vascath placement, and is now in hemodialysis. No cardiac complaints, otherwise looks comfortable. Objective Vital Signs Temp Pulse Pulse Resp Resp BP Pulse Ox 05/29/19 09:22 89 88/53 05/29/19 08:29 89 20 92 05/29/19 07:32 98.2 F 18 88/53 05/29/19 05:10 97.4 F L 77 18 95/55 83 L 05/29/19 01:13 97.8 F 05/29/19 00:22 122.0 F H 85 32 H 93/56 86 05/28/19 22:25 89 20 92 05/28/19 22:15 89 84/55 05/28/19 22:00 18 05/28/19 21:31 91 H 05/28/19 20:22 98.1 F 89 24 84/55 87 05/28/19 17:42 98.2 F 85 18 82/54 100 - Physical Examination General: No Apparent Distress HEENT: Positive: PERRL Neck: Positive: trachea midline Cardiac: Positive: Reg Rate and Rhythm Lungs: Positive: Decreased Breath Sounds Neuro: Positive: Weakness Abdomen: Positive: Soft Skin: Positive: Clear Extremities: Absent: edema - Labs and Meds CBC 05/29/19 Range/Units 05:30 WBC 7.0 (4.5-11.0) K/mm3 RBC 2.86 L (3.65-5.03) M/mm3 Hgb 8.2 L (11.8-15.2) gm/dl Hct 25.3 L (35.5-45.6) % Plt Count 133 L (140-440) K/mm3 Comprehensive Metabolic Panel 05/29/19 Range/Units 05:30 Sodium 132 L D (137-145) mmol/L Potassium 4.6 (3.6-5.0) mmol/L Chloride 96.9 L (98-107) mmol/L Carbon Dioxide 15 L (22-30) mmol/L BUN 91 H (9-20) mg/dL Creatinine 6.8 H (0.8-1.5) mg/dL Glucose 176 H (75-100) mg/dL Calcium 10.0 (8.4-10.2) mg/dL
--- NOTE | 2019-05-29 12:30 | Event Note ---
Date: 05/29/[address] Pederson transplant liquor gallery operator in [place], he stated the patient needs to be accepted in the ICU because he was on Dobutamine drip and ICU team needs to accpet him and he will follow as a analysis consultant, I called hospitalist and update her with my conversation with Dr Pederson, transfer center nurse stated credit operations processor will be calling hospitalist to accept the patient
--- NOTE | 2019-05-29 12:44 | Event Note ---
Date: 05/29/19 [place] transfer center called back, I discussed patient's case and reasons for transfer in detail With the transfer center nurse Ms. Field and casino host Dr. Carrero. The casino host recommended Admission to ICU and right now no ICU beds available Patient is accepted for transfer pending availability of [place] ICU beds. The above information was conveyed to the nurse, lining parts sewer and IR
[2019-05-29 13:00] LABS: Hepatitis B Surface Antigen Non-Reactive (Negative); Hepatitis C Virus Antibody Non-Reactive (NonReactive)
[2019-05-29] MEDS: DOBUTamine/D5W 500 MG/250 ML 500 MG/250 ML BAG IV SCH (17:15)
[2019-05-29] MEDS ORDERED: ALBUTEROL 2.5 MG/3 ML NEBU IH ONE (17:15)
--- NOTE | 2019-05-29 17:41 | Event Note ---
Date: 05/29/19 Patient is lethargic, hypotensive on dobutamine drip Has labored breathing, O2 sats within normal limits Stat ABG, discussed with critical care Dr. Chapa For transfer to ICU for close observation I discussed with patient's nurse, ICU charge nurse [Earlier this morning patient was accepted for [place] ICU transfer pending availability of [place] ICU beds]
[2019-05-29 19:33] LABS: ABG Base Excess 2.6 mmol/L (-2.0-3.0); ABG HCO3 24.6 mmol/L (20.0-26.0); ABG Methemoglobin 0.5 % (0.0-1.5); ABG Oxygen Saturation 95.1 % (95.0-99.0); ABG PCO2 29.6 mm Hg; ABG PH 7.538 pH Units (7.350-7.450); ABG PO2 70.1 mm Hg (80.0-90.0)
[2019-05-29] MEDS: INSULIN LISPRO 100 UNIT/ML SUB-Q SCH (19:49)
[2019-05-29] MEDS ORDERED: niCARdipine 50 MG in SODIUM CHLORIDE 0.9% 250ML 230 ML IV SCH (20:10)
[2019-05-29] MEDS: hydrALAZINE 20 MG/1 ML INJ IV PRN ×2 (20:20→21:20)
[2019-05-30] MEDS: HYDROmorphone 1 MG/1 ML INJ IV PRN ×2 (00:22→18:08)
[2019-05-30] MEDS: INSULIN LISPRO 100 UNIT/ML SUB-Q SCH ×4 (00:23→17:57)
[2019-05-30] MEDS: metroNIDAZOLE/NS 500 MG/100 ML 500 MG/100 ML BAG IV SCH ×3 (01:47→17:37)
[2019-05-30] MEDS ORDERED: AMIODARONE 900 MG in DEXTROSE 5% IN WATER 482 ML IV SCH (04:48)
[2019-05-30] MEDS: CEFEPIME/NS 1 GM/100 ML 1 GM/100 ML BAG IV SCH (05:05)
[2019-05-30] MEDS: GABAPENTIN 100 MG CAP PO SCH ×3 (05:23→21:21)
[2019-05-30 06:38] LABS: Basophils % (Auto) 0.2 % (0.0-1.8); Eosinophils # (Auto) 0.1 K/mm3 (0.0-0.4); Eosinophils % (Auto) 2.1 % (0.0-4.3); Hematocrit 23.2 % (35.5-45.6); Hemoglobin 7.8 gm/dl (11.8-15.2); Lymphocytes # (Auto) 0.6 K/mm3 (1.2-5.4); Lymphocytes % (Auto) 8.4 % (13.4-35.0); Mean Corpuscular HGB Conc 34 % (32-34); Mean Corpuscular Volume 86 fl (84-94); Monocytes # (Auto) 0.9 K/mm3 (0.0-0.8); Monocytes % (Auto) 13.8 % (0.0-7.3); Platelet Count 155 K/mm3 (140-440); Red Blood Count 2.69 M/mm3 (3.65-5.03); Red Cell Distribution Width 17.2 % (13.2-15.2)
[2019-05-30 06:53] LABS: Calcium 9.3 mg/dL (8.4-10.2)
[2019-05-30 06:54] LABS: Albumin 2.2 g/dL (3.9-5); Bilirubin,Direct 0.3 mg/dL (0-0.2)
--- NOTE | 2019-05-30 08:44 | Progress Note ---
Assessment and Plan Assessment and plan: --Acute hypoxic respiratory failure; requiring BiPAP, symptoms slightly improved Duo nebs, supportive care --Hypotension; patient on dobutamine, Levophed as needed --CONSTANTINO (acute kidney injury)/worsening renal function Current Visit: Yes Status: Acute Nephrology initiated hemodialysis yesterday HD as needed --History of renal transplant; 1983 Current Visit: Yes Status: Chronic Many years ago, management per nephrology Nephrology, IR, urology recommended transfer to [facility] has accepted transfer to ICU 05/29/19 pending availability of [facility] ICU beds We will continue to follow --Hydronephrosis on CT Urology and IR consulted As patient is immunocompromised, with h/o renal transplant patient Recommend transfer to tertiary care center, [facility] Accepted transfer, pending availability of [facility] ICU beds --Sepsis/ immunocompromised patient Current Visit: Yes Status: Acute Fever , leukocytosis , tachycardia , worsening renal function pneumonia , on IV antibiotics cefepime, cultures negative to date, ID following, --Pneumonia; on chest x-ray continue current antibiotics, follow cultures. --Acute pansinusitis; on's CT head: Continue current antibiotics, ID following. Consider MRI brain, follow cultures -- Hyperkalemia Current Visit: Yes Status: Acute . Resolved, on hemodialysis --Acute on chronic systolic CHF (congestive heart failure) Current Visit: Yes Status: Chronic EF 15 to 20%, diuretics, beta-blockers, hold JAREK inhibitors due to CONSTANTINO Dobutamine, Cardiology following, --Severe cardiomyopathy; EF 15 to 20%/hypotension on dobutamine drip, management per cardiology --Left upper extremity swelling: Resolved Venous Doppler negative for DVT --History of total hip replacement: Physical therapy occupational therapy -- T2DM (type 2 diabetes mellitus) Current Visit: Yes Status: Chronic Accu-Chek sliding scale coverage ADA diet. Insulin as needed, Hb A1c 6.5 --DVT prophylaxis Current Visit: Yes Status: Acute On Heparin Patient is critically ill, prognosis Monitor closely and adjust management as needed Plan of care reviewed with the patient's nurse Transfer to [facility] initiated, was accepted for ICU admission pending ICU bed availability Critical care time 40 minutes History Interval history: I examined the patient at bedside in ICU this morning Overnight events, patient's chart, medications reviewed Patient was in severe respiratory distress and tachypnea last night Requiring BiPAP, patient is on dobutamine drip Blood pressures in the lower range Patient is alert and awake responding appropriately Vital signs noted Hospitalist Physical - Constitutional Vitals: Temp Pulse Resp BP Pulse Ox 97.4 F L 95 H 25 H 86/55 96 05/30/19 04:01 05/30/19 06:00 05/30/19 06:00 05/30/19 06:00 05/30/19 06:00 General appearance: Present: mild distress, well-nourished, other (Responding to simple questions, ) - EENT Eyes: Present: PERRL. Absent: scleral icterus - Neck Neck: Present: supple, normal ROM - Respiratory Respiratory effort: normal Respiratory: bilateral: diminished, rales, negative: rhonchi, wheezing - Cardiovascular Rhythm: regular Heart Sounds: Present: S1 & S2 - Extremities Extremities: no ischemia, No edema - Abdominal General gastrointestinal: soft, non-tender, non-distended - Integumentary Integumentary: Present: clear, warm - Psychiatric Psychiatric: appropriate mood/affect, cooperative - Neurologic Neurologic: CNII-XII intact, focal deficits Results - Labs CBC & Chem 7: 05/30/19 05:24 05/30/19 05:24 Labs: Laboratory Last Values WBC 6.9 K/mm3 (4.5-11.0) 05/30/19 05:24 RBC 2.69 M/mm3 (3.65-5.03) L 05/30/19 05:24 Hgb 7.8 gm/dl (11.8-15.2) L 05/30/19 05:24 Hct 23.2 % (35.5-45.6) L 05/30/19 05:24 MCV 86 fl (84-94) 05/30/19 05:24 MCH 29 pg (28-32) 05/30/19 05:24 MCHC 34 % (32-34) 05/30/19 05:24 RDW 17.2 % (13.2-15.2) H 05/30/19 05:24 Plt Count 155 K/mm3 (140-440) 05/30/19 05:24 Lymph % (Auto) 8.4 % (13.4-35.0) L 05/30/19 05:24 [place] % (Auto) 13.8 % (0.0-7.3) H 05/30/19 05:24 Eos % (Auto) 2.1 % (0.0-4.3) 05/30/19 05:24 Baso % (Auto) 0.2 % (0.0-1.8) 05/30/19 05:24 Lymph # 0.6 K/mm3 (1.2-5.4) L 05/30/19 05:24 [place] # 0.9 K/mm3 (0.0-0.8) H 05/30/19 05:24 Eos # 0.1 K/mm3 (0.0-0.4) 05/30/19 05:24 Baso # 0.0 K/mm3 (0.0-0.1) 05/30/19 05:24 Seg Neutrophils % 75.5 % (40.0-70.0) H 05/30/19 05:24 Seg Neutrophils # 5.2 K/mm3 (1.8-7.7) 05/30/19 05:24 PT 15.6 Sec. (12.2-14.9) H 05/25/19 11:59 INR 1.22 (0.87-1.13) H 05/25/19 11:59 APTT 38.9 Sec. (24.2-36.6) H 05/25/19 11:59 ABG pH 7.538 pH Units (7.350-7.450) H 05/29/19 19:14 ABG pCO2 29.6 mm Hg 05/29/19 19:14 ABG pO2 70.1 mm Hg (80.0-90.0) L 05/29/19 19:14 ABG HCO3 24.6 mmol/L (20.0-26.0) 05/29/19 19:14 ABG O2 Saturation 95.1 % (95.0-99.0) 05/29/19 19:14 ABG O2 Content 15.7 (0.0-44) 05/29/19 19:14 ABG Base Excess 2.6 mmol/L (-2.0-3.0) 05/29/19 19:14 ABG Hemoglobin 11.8 gm/dl (14.0-18.0) L 05/29/19 19:14 ABG Carboxyhemoglobin 0.5 % (0.0-5.0) 05/29/19 19:14 ABG Methemoglobin 0.5 % (0.0-1.5) 05/29/19 19:14 VBG pH 7.407 (7.320-7.420) 05/25/19 11:59 Oxyhemoglobin 94.1 % (95.0-99.0) L 05/29/19 19:14 FiO2 60 % 05/29/19 19:14 Sodium 134 mmol/L (137-145) L 05/30/19 05:24 Potassium 3.9 mmol/L (3.6-5.0) 05/30/19 05:24 Chloride 91.4 mmol/L (98-107) L 05/30/19 05:24 Carbon Dioxide 25 mmol/L (22-30) D 05/30/19 05:24 Anion Gap 22 mmol/L 05/30/19 05:24 BUN 51 mg/dL (9-20) H 05/30/19 05:24 Creatinine 4.3 mg/dL (0.8-1.5) H 05/30/19 05:24 Estimated GFR 17 ml/min 05/30/19 05:24 BUN/Creatinine Ratio 12 % 05/30/19 05:24 Glucose 180 mg/dL (75-100) H 05/30/19 05:24 POC Glucose 203 (70-105) H 05/30/19 05:24 Hemoglobin A1c 6.5 % (4-6) H 05/25/19 11:59 Lactic Acid 1.90 mmol/L (0.7-2.0) 05/25/19 15:23 Calcium 9.3 mg/dL (8.4-10.2) 05/30/19 05:24 Phosphorus 4.60 mg/dL (2.5-4.5) H 05/28/19 06:42 Magnesium 1.80 mg/dL (1.7-2.3) 05/30/19 05:24 Iron 12 ug/dL (49-181) L 05/29/19 05:30 TIBC 120 mcg/dL (250-450) L 05/29/19 05:30 Ferritin 1177.0 ng/mL (13.0-400.0) H 05/29/19 05:30 Total Bilirubin 0.50 mg/dL (0.1-1.2) 05/30/19 05:24 Direct Bilirubin 0.3 mg/dL (0-0.2) H 05/30/19 05:24 Indirect Bilirubin 0.2 mg/dL 05/30/19 05:24 AST 42 units/L (5-40) H 05/30/19 05:24 ALT 22 units/L (7-56) 05/30/19 05:24 Alkaline Phosphatase 96 units/L (35-129) 05/30/19 05:24 Ammonia 29.0 umol/L (25-60) 05/25/19 11:59 Total Creatine Kinase 160 units/L (55-170) 05/25/19 15:23 CK-MB (CK-2) 1.3 ng/mL (0.0-4.0) 05/25/19 15:23 CK-MB (CK-2) Rel Index 0.8 (0-4) 05/25/19 15:23 Troponin T 0.047 ng/mL (0.00-0.029) H 05/25/19 11:59 NT-Pro-B Natriuret Pep 5533 pg/mL (0-900) H 05/25/19 11:59 Total Protein 6.1 g/dL (6.3-8.2) L 05/30/19 05:24 Albumin 2.2 g/dL (3.9-5) L 05/30/19 05:24 Albumin/Globulin Ratio 0.6 % 05/30/19 05:24 Triglycerides 96 mg/dL (2-149) 05/25/19 11:59 Cholesterol 166 mg/dL (50-199) 05/25/19 11:59 LDL Cholesterol Direct 106 mg/dL (50-130) 05/25/19 11:59 HDL Cholesterol 51 mg/dL (40-59) 05/25/19 11:59 Cholesterol/HDL Ratio 3.25 % 05/25/19 11:59 Urine Color Yellow (Yellow) 05/25/19 15:07 Urine Turbidity Clear (Clear) 05/25/19 15:07 Urine pH 6.0 (5.0-7.0) 05/25/19 15:07 Ur Specific [place] 1.013 (1.003-1.030) 05/25/19 15:07 Urine Protein 100 mg/dl mg/dL (Negative) 05/25/19 15:07 Urine Glucose (UA) 50 mg/dL (Negative) 05/25/19 15:07 Urine Ketones Neg mg/dL (Negative) 05/25/19 15:07 Urine Blood Sm (Negative) 05/25/19 15:07 Urine Nitrite Neg (Negative) 05/25/19 15:07 Urine Bilirubin Neg (Negative) 05/25/19 15:07 Urine Urobilinogen 2.0 mg/dL (<2.0) 05/25/19 15:07 Ur Leukocyte Esterase Neg (Negative) 05/25/19 15:07 Urine WBC (Auto) < 1.0 /HPF (0.0-6.0) 05/25/19 15:07 Urine RBC (Auto) 5.0 /HPF (0.0-6.0) 05/25/19 15:07 U Epithel Cells (Auto) < 1.0 /HPF (0-13.0) 05/25/19 15:07 Urine Creatinine 103.7 mg/dL (0.1-20.0) H 05/26/19 Unknown Protein/Creatinin Ratio 2.05 05/26/19 Unknown Urine Sodium 73 mmol/L 05/26/19 Unknown Urine Total Protein 213 mg/dL (5-11.8) H 05/26/19 Unknown Hepatitis A IgM Ab Non-reactive (NonReactive) 05/29/19 05:58 Hep Bs Antigen Non-reactive (Negative) 05/29/19 05:58 Hep B Core IgM Ab Non-reactive (NonReactive) 05/29/19 05:58 Hepatitis C Antibody Non-reactive (NonReactive) 05/29/19 05:58 Influenza A (Rapid) Negative (Negative) 05/29/19 18:30 Influenza B (Rapid) Negative (Negative) 05/29/19 18:30 Esquivel/IV: Voiding Method Condom Catheter IV Catheter Type [Left Femoral INT / Saline Lock ] IV Catheter Type [Left Forearm INT / Saline Lock ] Active Medications - Current Medications Current Medications: Generic Name Dose Route Start Last Admin Trade Name Freq PRN Reason Stop Dose Admin Acetaminophen 650 mg 05/25/19 21:33 05/28/19 09:54 Tylenol PO 650 mg Q4H PRN Administration Pain MILD(1-3)/Fever >100.5/SKINNER Aspirin 81 mg 05/29/19 10:00 05/29/19 09:23 Halfprin Ec PO 81 mg QDAY SHEBA Administration Atorvastatin Calcium 40 mg 05/25/19 22:00 05/29/19 22:00 Lipitor PO Not Given QHS SHEBA Carvedilol 6.25 mg 05/28/19 11:47 05/29/19 22:00 Coreg PO Not Given BID SHEBA Gabapentin 100 mg 05/25/19 22:00 05/30/19 05:23 Gabapentin PO Not Given Q8HR SHEBA Heparin Sodium (Porcine) 5,000 unit 05/25/19 22:00 05/29/19 21:28 Heparin SUB-Q 5,000 unit Q12HR SHEBA Administration Hydralazine HCl 5 mg 05/25/19 22:20 05/25/19 22:58 Apresoline IV 5 mg Q6H PRN Administration Hypertension Hydromorphone HCl 0.5 mg 05/25/19 16:55 05/30/19 00:22 Dilaudid IV 0.5 mg Q3H PRN Administration Pain , Severe (7-10) Dobutamine HCl/Dextrose 500 mg in 250 mls @ 8.37 mls/hr 05/28/19 12:00 17:15 Dobutrex Drip 500mg/D5w 250ml IV 3 mcg/kg/min DIRECT SHEBA 8.37 mls/hr Administration Protocol 3 MCG/KG/MIN Cefepime HCl 1 gm in 100 mls @ 200 mls/hr 05/28/19 06:00 05/30/19 05:05 Cefepime/Ns 1 Gm/100 Ml IV 200 mls/hr Q24H SHEBA Administration Protocol Metronidazole 500 mg in 100 mls @ 100 mls/hr 05/28/19 18:00 05/30/19 01:47 Flagyl 500 Mg/100 Ml IV 100 mls/hr Q8H SHEBA Administration Protocol Sodium Bicarbonate 150 meq/ 1,150 mls @ 75 mls/hr 05/29/19 09:00 05/29/19 19:39 Dextrose IV 75 mls/hr DIRECT SHEBA Administration Sodium Chloride 100 mls @ 999 mls/hr 05/29/19 10:38 Nacl 0.9% IV THOMPSON PRN Hypotension Norepinephrine 4 mg in 250 mls @ 7.5 mls/hr 05/29/19 20:00 Levophed Drip 4 Mg/Ns 250 Ml IV TITR SHEBA Protocol 2 MCG/MIN Nicardipine HCl 50 mg/ Sodium 250 mls @ 25 mls/hr 05/29/19 20:10 05/30/19 00:50 Chloride IV 0 mg/hr TITR SHEBA 0 mls/hr Titration Protocol 5 MG/HR Amiodarone HCl 900 mg/ 500 mls @ 16.667 mls/hr 05/30/19 04:48 05/30/19 05:21 Dextrose IV 0.5 mg/min DIRECT SHEBA 16.667 mls/hr Administration Protocol 0.5 MG/MIN Insulin Human Lispro 0 unit 05/29/19 18:30 05/30/19 00:23 Humalog SUB-Q 2 unit Q6HR SHEBA Administration Protocol Nifedipine 60 mg 05/26/19 08:00 05/29/19 08:58 Procardia Xl PO Not Given QDAY@0800 SHEBA Ondansetron HCl 4 mg 05/25/19 21:33 Zofran IV Q8H PRN Nausea And Vomiting Oxycodone/Acetaminophen 1 tab 05/25/19 21:33 05/26/19 19:31 Percocet 5/325 PO 1 tab Q6H PRN Administration Pain, Moderate (4-6) Pantoprazole Sodium 40 mg 05/29/19 10:00 05/29/19 09:23 Protonix PO 40 mg QDAY SHEBA Administration Sodium Chloride 10 ml 05/25/19 22:00 05/29/19 21:26 Sodium Chloride Flush Syringe 10 Ml IV 10 ml BID SHEBA Administration Sodium Chloride 10 ml 05/25/19 21:33 05/30/19 00:24 Sodium Chloride Flush Syringe 10 Ml IV 10 ml PRN PRN Administration LINE FLUSH
[2019-05-30] MEDS: NIFEdipine XL 60 MG TAB PO SCH (08:55)
--- NOTE | 2019-05-30 09:17 | Progress Note ---
Assessment and Plan Acute on Chronic Kidney Disease likely secondary to Hypertensive Nephrosclerosis: Renal transplant: -s/p vascath placement and first HD yesterday - HD again today for clearance and gentle volume remova with sodium modeling, high Ca bath decreased temp to improve hemodynamic stability -Patient had renal transplant at [facility] in 1983. Has not followed-up with [facility] in several years. -urology and IR service are unable to correct kidney graft hydronephrosis and recommended transfer to a transplant center, he is accepted in [facility] ICU but awaiting bed availability - will d/c bicsarb drip - will d/c nifedipine -Renally dose medications -Avoid nephrotoxic agents -Monitor I/O's -Monitor renal function closely Heart Failure - cardiology following - on dobutamine drip Hyperkalemia, Resolved: -S/P insulin/bicarb/D50 -Monitor potassium levels -BMP in a.m Back Pain: -As per primary Lucio Garcia MD [phone] Subjective Date of service: 05/30/19 Principal diagnosis: CKD Interval history: patient was transferred to ICU for worsening SOB and hypotension, no family at bedside Objective - Vital Signs Vital signs: Vital Signs - 12hr 05/29/19 05/29/19 05/29/19 21:20 21:30 21:40 Temperature Pulse Rate 104 H 103 H 103 H Pulse Rate [ Apical] Pulse Rate [ From Monitor] Respiratory 35 H 36 H 34 H Rate Respiratory Rate [ Generalized] Blood Pressure 225/199 225/199 169/143 O2 Sat by Pulse 99 99 99 Oximetry 05/29/19 05/29/19 05/29/19 21:50 21:54 21:58 Temperature Pulse Rate 105 H 103 H 106 H Pulse Rate [ Apical] Pulse Rate [ From Monitor] Respiratory 35 H 33 H 33 H Rate Respiratory Rate [ Generalized] Blood Pressure 83/51 126/104 81/59 O2 Sat by Pulse 99 99 98 Oximetry 05/29/19 05/29/19 05/29/19 22:00 22:10 22:20 Temperature Pulse Rate 103 H 107 H 104 H Pulse Rate [ 108 H 108 H Apical] Pulse Rate [ 108 H 108 H From Monitor] Respiratory 33 H 32 H 31 H Rate Respiratory 34 H Rate [ Generalized] Blood Pressure 131/106 81/59 94/44 O2 Sat by Pulse 99 98 99 Oximetry 05/29/19 05/29/19 05/29/19 22:30 22:40 22:50 Temperature Pulse Rate 106 H 106 H 106 H Pulse Rate [ Apical] Pulse Rate [ From Monitor] Respiratory 33 H 32 H 32 H Rate Respiratory Rate [ Generalized] Blood Pressure 88/44 88/58 93/57 O2 Sat by Pulse 99 99 99 Oximetry 05/29/19 05/29/19 05/29/19 23:00 23:10 23:20 Temperature Pulse Rate 103 H 98 H 101 H Pulse Rate [ 104 H Apical] Pulse Rate [ 104 H From Monitor] Respiratory 19 26 H 30 H Rate Respiratory Rate [ Generalized] Blood Pressure 74/55 86/48 86/48 O2 Sat by Pulse 100 99 99 Oximetry 05/29/19 05/29/19 05/29/19 23:26 23:30 23:40 Temperature 99.6 F Pulse Rate 104 H 101 H Pulse Rate [ Apical] Pulse Rate [ From Monitor] Respiratory 31 H 27 H Rate Respiratory Rate [ Generalized] Blood Pressure 86/48 166/148 O2 Sat by Pulse 98 100 Oximetry 05/29/19 05/30/19 05/30/19 23:50 00:00 00:10 Temperature Pulse Rate 101 H 99 H 100 H Pulse Rate [ Apical] Pulse Rate [ From Monitor] Respiratory 28 H 25 H 26 H Rate Respiratory Rate [ Generalized] Blood Pressure 166/148 166/148 166/148 O2 Sat by Pulse 99 97 97 Oximetry 05/30/19 05/30/19 05/30/19 00:20 00:30 00:40 Temperature Pulse Rate 100 H 98 H 96 H Pulse Rate [ Apical] Pulse Rate [ From Monitor] Respiratory 27 H 22 20 Rate Respiratory Rate [ Generalized] Blood Pressure 108/68 72/43 72/43 O2 Sat by Pulse 97 97 97 Oximetry 05/30/19 05/30/19 05/30/19 00:50 00:52 01:00 Temperature Pulse Rate 99 H 99 H Pulse Rate [ Apical] Pulse Rate [ From Monitor] Respiratory 25 H 20 21 Rate Respiratory Rate [ Generalized] Blood Pressure 67/29 119/56 O2 Sat by Pulse 96 100 Oximetry 05/30/19 05/30/19 05/30/19 01:10 01:15 01:20 Temperature Pulse Rate 93 H 104 H 96 H Pulse Rate [ 108 H Apical] Pulse Rate [ 108 H From Monitor] Respiratory 20 21 20 Rate Respiratory Rate [ Generalized] Blood Pressure 119/56 119/56 O2 Sat by Pulse 100 99 99 Oximetry 05/30/19 05/30/19 05/30/19 01:28 01:30 01:40 Temperature Pulse Rate 92 H 89 100 H Pulse Rate [ Apical] Pulse Rate [ From Monitor] Respiratory 22 19 19 Rate Respiratory Rate [ Generalized] Blood Pressure 119/56 86/47 86/47 O2 Sat by Pulse 100 100 100 Oximetry 05/30/19 05/30/19 05/30/19 01:50 02:00 02:10 Temperature Pulse Rate 75 86 94 H Pulse Rate [ Apical] Pulse Rate [ From Monitor] Respiratory 18 19 25 H Rate Respiratory Rate [ Generalized] Blood Pressure 86/47 82/45 86/57 O2 Sat by Pulse 100 100 98 Oximetry 05/30/19 05/30/19 05/30/19 02:20 02:30 02:40 Temperature Pulse Rate 98 H 98 H 86 Pulse Rate [ Apical] Pulse Rate [ From Monitor] Respiratory 18 30 H 17 Rate Respiratory Rate [ Generalized] Blood Pressure 86/47 87/60 87/60 O2 Sat by Pulse 99 98 99 Oximetry 05/30/19 05/30/19 05/30/19 02:50 03:00 03:10 Temperature Pulse Rate 91 H 101 H 98 H Pulse Rate [ Apical] Pulse Rate [ From Monitor] Respiratory 18 22 25 H Rate Respiratory Rate [ Generalized] Blood Pressure 87/60 78/53 78/53 O2 Sat by Pulse 98 99 99 Oximetry 05/30/19 05/30/19 05/30/19 03:20 03:30 03:40 Temperature Pulse Rate 98 H 87 91 H Pulse Rate [ Apical] Pulse Rate [ From Monitor] Respiratory 20 24 19 Rate Respiratory Rate [ Generalized] Blood Pressure 85/61 85/61 86/45 O2 Sat by Pulse 99 98 98 Oximetry 05/30/19 05/30/19 05/30/19 03:50 04:00 04:01 Temperature 97.4 F L Pulse Rate 90 85 Pulse Rate [ Apical] Pulse Rate [ From Monitor] Respiratory 25 H 25 H Rate Respiratory Rate [ Generalized] Blood Pressure 86/45 84/57 O2 Sat by Pulse 98 98 Oximetry 05/30/19 05/30/19 05/30/19 04:10 04:20 04:30 Temperature Pulse Rate 97 H 91 H 85 Pulse Rate [ Apical] Pulse Rate [ From Monitor] Respiratory 25 H 24 18 Rate Respiratory Rate [ Generalized] Blood Pressure 84/57 86/45 90/55 O2 Sat by Pulse 98 98 99 Oximetry 05/30/19 05/30/19 05/30/19 04:40 04:50 05:00 Temperature Pulse Rate 99 H 93 H 110 H Pulse Rate [ Apical] Pulse Rate [ From Monitor] Respiratory 22 22 24 Rate Respiratory Rate [ Generalized] Blood Pressure 90/55 90/55 86/62 O2 Sat by Pulse 98 98 98 Oximetry 05/30/19 05/30/19 05/30/19 05:05 05:10 05:20 Temperature Pulse Rate 105 H 90 101 H Pulse Rate [ Apical] Pulse Rate [ From Monitor] Respiratory 24 22 26 H Rate Respiratory Rate [ Generalized] Blood Pressure 86/62 86/62 90/55 O2 Sat by Pulse 98 98 98 Oximetry 05/30/19 05/30/19 05/30/19 05:30 05:40 05:50 Temperature Pulse Rate 101 H 96 H 90 Pulse Rate [ Apical] Pulse Rate [ From Monitor] Respiratory 23 24 26 H Rate Respiratory Rate [ Generalized] Blood Pressure 92/54 92/54 101/51 O2 Sat by Pulse 98 97 97 Oximetry 05/30/19 05/30/19 05/30/19 06:00 06:10 06:20 Temperature Pulse Rate 95 H 108 H 102 H Pulse Rate [ Apical] Pulse Rate [ From Monitor] Respiratory 25 H 24 24 Rate Respiratory Rate [ Generalized] Blood Pressure 86/55 86/55 88/57 O2 Sat by Pulse 96 96 97 Oximetry 05/30/19 05/30/19 05/30/19 06:30 06:40 06:50 Temperature Pulse Rate 105 H 96 H 96 H Pulse Rate [ Apical] Pulse Rate [ From Monitor] Respiratory 22 21 22 Rate Respiratory Rate [ Generalized] Blood Pressure 102/51 102/51 99/54 O2 Sat by Pulse 97 98 97 Oximetry 05/30/19 05/30/19 05/30/19 07:00 07:10 07:20 Temperature Pulse Rate 99 H 86 104 H Pulse Rate [ Apical] Pulse Rate [ From Monitor] Respiratory 21 23 23 Rate Respiratory Rate [ Generalized] Blood Pressure 96/45 96/45 79/52 O2 Sat by Pulse 96 96 97 Oximetry 05/30/19 05/30/19 05/30/19 07:30 07:40 07:50 Temperature Pulse Rate 86 98 H 95 H Pulse Rate [ Apical] Pulse Rate [ From Monitor] Respiratory 22 22 20 Rate Respiratory Rate [ Generalized] Blood Pressure 87/55 87/55 87/55 O2 Sat by Pulse 97 98 96 Oximetry 05/30/19 05/30/19 05/30/19 08:00 08:10 08:20 Temperature Pulse Rate 80 90 79 Pulse Rate [ Apical] Pulse Rate [ From Monitor] Respiratory 20 21 20 Rate Respiratory Rate [ Generalized] Blood Pressure 91/54 91/54 91/54 O2 Sat by Pulse 97 96 98 Oximetry 05/30/19 05/30/19 05/30/19 08:30 08:40 08:41 Temperature Pulse Rate 85 86 97 H Pulse Rate [ Apical] Pulse Rate [ From Monitor] Respiratory 21 26 H 20 Rate Respiratory Rate [ Generalized] Blood Pressure 91/56 91/56 88/51 O2 Sat by Pulse 97 98 97 Oximetry 05/30/19 08:50 Temperature Pulse Rate 93 H Pulse Rate [ Apical] Pulse Rate [ From Monitor] Respiratory 21 Rate Respiratory Rate [ Generalized] Blood Pressure 88/51 O2 Sat by Pulse 97 Oximetry - General Appearance General appearance: well-developed, well-nourished, moderate distress EENT: ATNC, PERRL, mucous membranes moist Neck: no JVD, no carotid bruit Respiratory: Present: Decreased Breath Sounds Cardiology: regular, S1S2 Gastrointestinal: normoactive bowel sounds, no absent bowel sounds, no tenderness Integumentary: no rash, warm and dry Neurologic: other (follows simple commands) Musculoskeletal: other (trace edema in BLE) Psychiatric: other (answers simple questions) - Lab 05/30/19 05:24 05/30/19 05:24 Most recent lab results ABG pH 7.538 pH Units (7.350-7.450) H 05/29/19 19:14 ABG pCO2 29.6 mm Hg 05/29/19 19:14 ABG pO2 70.1 mm Hg (80.0-90.0) L 05/29/19 19:14 ABG HCO3 24.6 mmol/L (20.0-26.0) 05/29/19 19:14 ABG O2 Saturation 95.1 % (95.0-99.0) 05/29/19 19:14 Calcium 9.3 mg/dL (8.4-10.2) 05/30/19 05:24 Phosphorus 4.60 mg/dL (2.5-4.5) H 05/28/19 06:42 Magnesium 1.80 mg/dL (1.7-2.3) 05/30/19 05:24 Urine Creatinine 103.7 mg/dL (0.1-20.0) H 05/26/19 Unknown Urine Sodium 73 mmol/L 05/26/19 Unknown Urine Total Protein 213 mg/dL (5-11.8) H 05/26/19 Unknown Medications & Allergies - Medications Allergies/Adverse Reactions: Allergies codeine [From Tylenol-Codeine #3] Allergy (Verified 05/25/19 11:33) Unknown tramadol Allergy (Verified 05/25/19 11:33) Unknown Home Medications: Home Medications Medication Instructions Recorded Confirmed Last Taken Type Furosemide [Lasix TAB] 40 mg PO QDAY 05/25/19 05/25/19 Unknown History Gabapentin [Neurontin] 100 mg PO Q8HR 05/25/19 05/25/19 Unknown History NIFEdipine [Nifedipine ER] 30 mg PO QDAY 05/25/19 05/25/19 Unknown History Prednisone [predniSONE (Marie) ER 5 mg PO QDAY 05/25/19 05/25/19 Unknown History TAB] Rosuvastatin Calcium 20 mg PO QHS 05/25/19 05/25/19 Unknown History Ticagrelor (Nf) [Brilinta (Nf)] 60 mg PO DAILY 05/25/19 05/25/19 Unknown History carvediloL [Coreg] 25 mg PO BID 05/25/19 05/25/19 Unknown History lisinopriL [Zestril TAB] 10 mg PO QDAY 05/25/19 05/25/19 Unknown History Active Medications: Generic Name Dose Route Start Last Admin Trade Name Freq PRN Reason Stop Dose Admin Acetaminophen 650 mg 05/25/19 21:33 05/28/19 09:54 Tylenol PO 650 mg Q4H PRN Administration Pain MILD(1-3)/Fever >100.5/SKINNER Aspirin 81 mg 05/29/19 10:00 05/29/19 09:23 Halfprin Ec PO 81 mg QDAY SHEBA Administration Atorvastatin Calcium 40 mg 05/25/19 22:00 05/29/19 22:00 Lipitor PO Not Given QHS SHEBA Carvedilol 6.25 mg 05/28/19 11:47 05/29/19 22:00 Coreg PO Not Given BID [facility] Gabapentin 100 mg 05/25/19 22:00 05/30/19 05:23 Gabapentin PO Not Given Q8HR [facility] Heparin Sodium (Porcine) 5,000 unit 05/25/19 22:00 05/29/19 21:28 Heparin SUB-Q 5,000 unit Q12HR SHEBA Administration Hydralazine HCl 5 mg 05/25/19 22:20 05/25/19 22:58 Apresoline IV 5 mg Q6H PRN Administration Hypertension Hydromorphone HCl 0.5 mg 05/25/19 16:55 05/30/19 00:22 Dilaudid IV 0.5 mg Q3H PRN Administration Pain , Severe (7-10) Dobutamine HCl/Dextrose 500 mg in 250 mls @ 8.37 mls/hr 05/28/19 12:00 05/29/19 17:15 Dobutrex Drip 500mg/D5w 250ml IV 3 mcg/kg/min DIRECT SHEBA 8.37 mls/hr Administration Protocol 3 MCG/KG/MIN Cefepime HCl 1 gm in 100 mls @ 200 mls/hr 05/28/19 06:00 05/30/19 05:05 Cefepime/Ns 1 Gm/100 Ml IV 200 mls/hr Q24H SHEBA Administration Protocol Metronidazole 500 mg in 100 mls @ 100 mls/hr 05/28/19 18:00 05/30/19 01:47 Flagyl 500 Mg/100 Ml IV 100 mls/hr Q8H SHEBA Administration Protocol Sodium Bicarbonate 150 meq/ 1,150 mls @ 75 mls/hr 05/29/19 09:00 05/29/19 19:39 Dextrose IV 75 mls/hr DIRECT SHEBA Administration Sodium Chloride 100 mls @ 999 mls/hr 05/29/19 10:38 Nacl 0.9% IV THOMPSON PRN Hypotension Norepinephrine 4 mg in 250 mls @ 7.5 mls/hr 05/29/19 20:00 Levophed Drip 4 Mg/Ns 250 Ml IV TITR SHEBA Protocol 2 MCG/MIN Nicardipine HCl 50 mg/ Sodium 250 mls @ 25 mls/hr 05/29/19 20:10 05/30/19 00:50 Chloride IV 0 mg/hr TITR SHEBA 0 mls/hr Titration Protocol 5 MG/HR Amiodarone HCl 900 mg/ 500 mls @ 16.667 mls/hr 05/30/19 04:48 05/30/19 05:21 Dextrose IV 0.5 mg/min DIRECT SHEBA 16.667 mls/hr Administration Protocol 0.5 MG/MIN Insulin Human Lispro 0 unit 05/29/19 18:30 05/30/19 08:55 Humalog SUB-Q Not Given Q6HR [facility] Protocol Nifedipine 60 mg 05/26/19 08:00 05/30/19 08:55 Procardia Xl PO Not Given QDAY@0800 [facility] Ondansetron HCl 4 mg 05/25/19 21:33 Zofran IV Q8H PRN Nausea And Vomiting Oxycodone/Acetaminophen 1 tab 05/25/19 21:33 05/26/19 19:31 Percocet 5/325 PO 1 tab Q6H PRN Administration Pain, Moderate (4-6) Pantoprazole Sodium 40 mg 05/29/19 10:00 05/29/19 09:23 Protonix PO 40 mg QDAY SHEBA Administration Sodium Chloride 10 ml 05/25/19 22:00 05/29/19 21:26 Sodium Chloride Flush Syringe 10 Ml IV 10 ml BID SHEBA Administration Sodium Chloride 10 ml 05/25/19 21:33 05/30/19 00:24 Sodium Chloride Flush Syringe 10 Ml IV 10 ml PRN PRN Administration LINE FLUSH
[2019-05-30] MEDS: ASPIRIN EC 81 MG TAB PO SCH (10:12)
[2019-05-30] MEDS: ALBUTEROL 2.5 MG/3 ML NEBU IH SCH ×4 (10:12→19:30)
[2019-05-30] MEDS: HEPARIN 5,000 UNIT/1 ML VIAL SUB-Q SCH ×2 (10:12→21:23)
[2019-05-30] MEDS: PANTOPRAZOLE 40 MG TAB PO SCH (10:12)
[2019-05-30] MEDS: carvediloL 25 MG TAB PO SCH ×3 (10:27→21:23)
--- NOTE | 2019-05-30 11:01 | Consultation ---
History of Present Illness Consult date: 05/30/19 Requesting physician: YUMI GALINDO Reason for consult: other (respiratory distress) History of present illness: 64 y/o male with prior history of renal transplant admitted to the ICU from the floor with tachypnea and respiratory distress. Patient has been in the hospital for several days now. He has a history of renal transplant and CHF. Was on the tele floor on dobutamine and was being transferred to [facility]. They have no beds currently. Patient developed respiratory distress that required bipap therapy briefly. Patient has now been transferred to the ICU for further monitoring. Past History Past Medical History: hypertension, other (CKD, CHF, Afib) Past Surgical History: total hip replacement, Other (renal transplant in 1983) Social history: no significant social history Family history: no significant family history Medications and Allergies Allergies Allergy/AdvReac Type Severity Reaction Status Date / Time codeine Allergy Unknown Verified 05/25/19 11:33 [From Tylenol-Codeine #3] tramadol Allergy Unknown Verified 05/25/19 11:33 Home Medications Medication Instructions Recorded Confirmed Last Taken Type Furosemide [Lasix TAB] 40 mg PO QDAY 05/25/19 05/25/19 Unknown History Gabapentin [Neurontin] 100 mg PO Q8HR 05/25/19 05/25/19 Unknown History NIFEdipine [Nifedipine ER] 30 mg PO QDAY 05/25/19 05/25/19 Unknown History Prednisone [predniSONE (Marie) ER 5 mg PO QDAY 05/25/19 05/25/19 Unknown History TAB] Rosuvastatin Calcium 20 mg PO QHS 05/25/19 05/25/19 Unknown History Ticagrelor (Nf) [Brilinta (Nf)] 60 mg PO DAILY 05/25/19 05/25/19 Unknown History carvediloL [Coreg] 25 mg PO BID 05/25/19 05/25/19 Unknown History lisinopriL [Zestril TAB] 10 mg PO QDAY 05/25/19 05/25/19 Unknown History Active Meds: Active Medications Acetaminophen (Tylenol) 650 mg PO Q4H PRN PRN Reason: Pain MILD(1-3)/Fever >100.5/SKINNER Last Admin: 05/28/19 09:54 Dose: 650 mg Documented by: Albuterol (Proventil) 2.5 mg IH TIDRT [facility] Last Admin: 05/30/19 10:12 Dose: 2.5 mg Documented by: Aspirin (Halfprin Ec) 81 mg PO QDAY [facility] Last Admin: 05/30/19 10:12 Dose: 81 mg Documented by: Atorvastatin Calcium (Lipitor) 40 mg PO QHS [facility] Last Admin: 05/29/19 22:00 Dose: Not Given Documented by: Carvedilol (Coreg) 6.25 mg PO BID [facility] Last Admin: 05/29/19 22:00 Dose: Not Given Documented by: Gabapentin (Gabapentin) 100 mg PO Q8HR [facility] Last Admin: 05/30/19 05:23 Dose: Not Given Documented by: Heparin Sodium (Porcine) (Heparin) 5,000 unit SUB-Q Q12HR [facility] Last Admin: 05/30/19 10:12 Dose: 5,000 unit Documented by: Hydralazine HCl (Apresoline) 5 mg IV Q6H PRN PRN Reason: Hypertension Last Admin: 05/25/19 22:58 Dose: 5 mg Documented by: Hydromorphone HCl (Dilaudid) 0.5 mg IV Q3H PRN PRN Reason: Pain , Severe (7-10) Last Admin: 05/30/19 00:22 Dose: 0.5 mg Documented by: Dobutamine HCl/Dextrose (Dobutrex Drip 500mg/D5w 250ml) 500 mg in 250 mls @ 8.37 mls/hr IV DIRECT SHEBA; Protocol Last Admin: 05/29/19 17:15 Dose: 3 mcg/kg/min, 8.37 mls/hr Documented by: Cefepime HCl (Cefepime/Ns 1 Gm/100 Ml) 1 gm in 100 mls @ 200 mls/hr IV Q24H SHEBA; Protocol Last Admin: 05/30/19 05:05 Dose: 200 mls/hr Documented by: Metronidazole (Flagyl 500 Mg/100 Ml) 500 mg in 100 mls @ 100 mls/hr IV Q8H SHEBA; Protocol Last Admin: 05/30/19 10:46 Dose: 100 mls/hr Documented by: Sodium Chloride (Nacl 0.9%) 100 mls @ 999 mls/hr IV THOMPSON PRN PRN Reason: Hypotension Norepinephrine (Levophed Drip 4 Mg/Ns 250 Ml) 4 mg in 250 mls @ 7.5 mls/hr IV TITR SHEBA; Protocol Nicardipine HCl 50 mg/ Sodium (Chloride) 250 mls @ 25 mls/hr IV TITR SHEBA; Protocol Last Titration: 05/30/19 00:50 Dose: 0 mg/hr, 0 mls/hr Documented by: Amiodarone HCl 900 mg/ (Dextrose) 500 mls @ 16.667 mls/hr IV DIRECT SHEBA; Protocol Last Admin: 05/30/19 05:21 Dose: 0.5 mg/min, 16.667 mls/hr Documented by: Insulin Human Lispro (Humalog) 0 unit SUB-Q Q6HR SHEBA; Protocol Last Admin: 05/30/19 08:55 Dose: Not Given Documented by: Ondansetron HCl (Zofran) 4 mg IV Q8H PRN PRN Reason: Nausea And Vomiting Oxycodone/Acetaminophen (Percocet 5/325) 1 tab PO Q6H PRN PRN Reason: Pain, Moderate (4-6) Last Admin: 05/26/19 19:31 Dose: 1 tab Documented by: Pantoprazole Sodium (Protonix) 40 mg PO QDAY [facility] Last Admin: 05/30/19 10:12 Dose: 40 mg Documented by: Sodium Chloride (Sodium Chloride Flush Syringe 10 Ml) 10 ml IV BID [facility] Last Admin: 05/30/19 10:46 Dose: 10 ml Documented by: Sodium Chloride (Sodium Chloride Flush Syringe 10 Ml) 10 ml IV PRN PRN PRN Reason: LINE FLUSH Last Admin: 05/30/19 00:24 Dose: 10 ml Documented by: Review of Systems All systems: negative Physical Examination Vital signs: Vital Signs Pulse Resp 99 H 10 L 05/25/19 11:03 05/25/19 11:03 Results - Laboratory Findings CBC and BMP: 05/30/19 05:24 05/30/19 05:24 ABG ABG pH 7.538 pH Units (7.350-7.450) H 05/29/19 19:14 ABG pCO2 29.6 mm Hg 05/29/19 19:14 ABG pO2 70.1 mm Hg (80.0-90.0) L 05/29/19 19:14 ABG O2 Saturation 95.1 % (95.0-99.0) 05/29/19 19:14 PT/INR, D-dimer PT 15.6 Sec. (12.2-14.9) H 05/25/19 11:59 INR 1.22 (0.87-1.13) H 05/25/19 11:59 Abnormal lab findings: Abnormal Labs 05/25/19 05/25/19 05/25/19 11:59 11:59 11:59 WBC 14.0 H RBC 3.59 L Hgb 10.2 L Hct 31.5 L RDW 17.5 H Plt Count 98 L Lymph % (Auto) 8.2 L [place] % (Auto) 12.4 H Lymph # 1.1 L [place] # 1.7 H Seg Neutrophils % 79.0 H Seg Neutrophils # 11.1 H PT 15.6 H INR 1.22 H APTT 38.9 H ABG pH ABG pO2 ABG Hemoglobin Oxyhemoglobin Sodium Potassium 5.6 H Chloride Carbon Dioxide 17 L BUN 52 H Creatinine 2.4 H Glucose 226 H POC Glucose Hemoglobin A1c Calcium 10.6 H Phosphorus Magnesium 2.40 H Iron TIBC Ferritin Direct Bilirubin 0.4 H AST Total Creatine Kinase 185 H Troponin T NT-Pro-B Natriuret Pep 5533 H Total Protein Albumin 3.5 L Urine Creatinine Urine Total Protein 05/25/19 05/25/19 05/25/19 11:59 11:59 15:23 WBC RBC Hgb Hct RDW Plt Count Lymph % (Auto) [place] % (Auto) Lymph # [place] # Seg Neutrophils % Seg Neutrophils # PT INR APTT ABG pH ABG pO2 ABG Hemoglobin Oxyhemoglobin Sodium Potassium 5.3 H Chloride 107.6 H Carbon Dioxide BUN 50 H Creatinine 2.4 H Glucose 167 H POC Glucose Hemoglobin A1c 6.5 H Calcium Phosphorus Magnesium Iron TIBC Ferritin Direct Bilirubin AST Total Creatine Kinase Troponin T 0.047 H NT-Pro-B Natriuret Pep Total Protein Albumin Urine Creatinine Urine Total Protein 05/26/19 05/26/19 05/26/19 05:34 05:34 Unknown WBC 14.3 H RBC 3.56 L Hgb 10.2 L Hct 31.4 L RDW 17.6 H Plt Count 103 L Lymph % (Auto) 8.3 L [place] % (Auto) 11.1 H Lymph # [place] # 1.6 H Seg Neutrophils % 80.3 H Seg Neutrophils # 11.4 H PT INR APTT ABG pH ABG pO2 ABG Hemoglobin Oxyhemoglobin Sodium Potassium 6.0 H Chloride 107.8 H Carbon Dioxide 21 L BUN 49 H Creatinine 2.7 H Glucose 172 H POC Glucose Hemoglobin A1c Calcium 10.3 H Phosphorus Magnesium Iron TIBC Ferritin Direct Bilirubin AST Total Creatine Kinase Troponin T NT-Pro-B Natriuret Pep Total Protein Albumin Urine Creatinine 103.7 H Urine Total Protein 213 H 05/27/19 05/27/19 05/28/19 05:35 05:35 06:42 WBC 12.0 H 11.4 H RBC 3.06 L 2.74 L Hgb 8.6 L 7.8 L Hct 27.0 L 24.0 L RDW 17.8 H 17.2 H Plt Count 95 L 101 L Lymph % (Auto) [place] % (Auto) Lymph # [place] # Seg Neutrophils % Seg Neutrophils # PT INR APTT ABG pH ABG pO2 ABG Hemoglobin Oxyhemoglobin Sodium Potassium Chloride Carbon Dioxide BUN 54 H Creatinine 3.4 H Glucose 179 H POC Glucose Hemoglobin A1c Calcium Phosphorus Magnesium Iron TIBC Ferritin Direct Bilirubin AST Total Creatine Kinase Troponin T NT-Pro-B Natriuret Pep Total Protein Albumin Urine Creatinine Urine Total Protein 05/28/19 05/29/19 05/29/19 06:42 05:30 05:30 WBC RBC 2.86 L Hgb 8.2 L Hct 25.3 L RDW 17.1 H Plt Count 133 L Lymph % (Auto) [place] % (Auto) Lymph # [place] # Seg Neutrophils % Seg Neutrophils # PT INR APTT ABG pH ABG pO2 ABG Hemoglobin Oxyhemoglobin Sodium 132 L D Potassium Chloride 96.9 L Carbon Dioxide 16 L 15 L BUN 73 H 91 H Creatinine 4.8 H 6.8 H Glucose 153 H 176 H POC Glucose Hemoglobin A1c Calcium Phosphorus 4.60 H Magnesium Iron TIBC Ferritin Direct Bilirubin AST Total Creatine Kinase Troponin T NT-Pro-B Natriuret Pep Total Protein Albumin Urine Creatinine Urine Total Protein 05/29/19 05/29/19 05/29/19 05:30 05:30 17:24 WBC RBC Hgb Hct RDW Plt Count Lymph % (Auto) [place] % (Auto) Lymph # [place] # Seg Neutrophils % Seg Neutrophils # PT INR APTT ABG pH ABG pO2 ABG Hemoglobin Oxyhemoglobin Sodium Potassium Chloride Carbon Dioxide BUN Creatinine Glucose POC Glucose 219 H Hemoglobin A1c Calcium Phosphorus Magnesium Iron 12 L TIBC 120 L Ferritin 1177.0 H Direct Bilirubin AST Total Creatine Kinase Troponin T NT-Pro-B Natriuret Pep Total Protein Albumin Urine Creatinine Urine Total Protein 05/29/19 05/29/19 05/30/19 18:56 19:14 00:03 WBC RBC Hgb Hct RDW Plt Count Lymph % (Auto) [place] % (Auto) Lymph # [place] # Seg Neutrophils % Seg Neutrophils # PT INR APTT ABG pH 7.538 H ABG pO2 70.1 L ABG Hemoglobin 11.8 L Oxyhemoglobin 94.1 L Sodium Potassium Chloride Carbon Dioxide BUN Creatinine Glucose POC Glucose 176 H 199 H Hemoglobin A1c Calcium Phosphorus Magnesium Iron TIBC Ferritin Direct Bilirubin AST Total Creatine Kinase Troponin T NT-Pro-B Natriuret Pep Total Protein Albumin Urine Creatinine Urine Total Protein 05/30/19 05/30/19 05/30/19 05:24 05:24 05:24 WBC RBC 2.69 L Hgb 7.8 L Hct 23.2 L RDW 17.2 H Plt Count Lymph % (Auto) 8.4 L [place] % (Auto) 13.8 H Lymph # 0.6 L [place] # 0.9 H Seg Neutrophils % 75.5 H Seg Neutrophils # PT INR APTT ABG pH ABG pO2 ABG Hemoglobin Oxyhemoglobin Sodium 134 L Potassium Chloride 91.4 L Carbon Dioxide BUN 51 H Creatinine 4.3 H Glucose 180 H POC Glucose Hemoglobin A1c Calcium Phosphorus Magnesium Iron TIBC Ferritin Direct Bilirubin 0.3 H AST 42 H Total Creatine Kinase Troponin T NT-Pro-B Natriuret Pep Total Protein 6.1 L Albumin 2.2 L Urine Creatinine Urine Total Protein 05/30/19 05:24 WBC RBC Hgb Hct RDW Plt Count Lymph % (Auto) [place] % (Auto) Lymph # [place] # Seg Neutrophils % Seg Neutrophils # PT INR APTT ABG pH ABG pO2 ABG Hemoglobin Oxyhemoglobin Sodium Potassium Chloride Carbon Dioxide BUN Creatinine Glucose POC Glucose 203 H Hemoglobin A1c Calcium Phosphorus Magnesium Iron TIBC Ferritin Direct Bilirubin AST Total Creatine Kinase Troponin T NT-Pro-B Natriuret Pep Total Protein Albumin Urine Creatinine Urine Total Protein Assessment and Plan 64 y/o male with acute respiratory failure secondary to CHF and worsening renal failure. 1. Follow up cards recs, continue dobutamine and amio 2. Follow up renal recs, currently off bicarb and not restarting 3. Pulm escamilla, will use BIPAP therapy PRN 4. Await transfer to [facility] 5. Guarded prognosis. CCT 31 minutes.
[2019-05-30] MEDS: NORepinephrine/NS 4 MG-250 ML 4 MG/250 ML BAG IV SCH (11:41)
[2019-05-30] MEDS ORDERED: SODIUM CHLORIDE 0.9% 1000 ML 2,000 ML ONE (13:12)
--- NOTE | 2019-05-30 14:00 | Progress Note ---
Assessment and Plan - Patient Problems (1) Acute on chronic systolic (congestive) heart failure Current Visit: Yes Status: Acute Plan to address problem: Discontinue dobutamine infusion due to persistent low blood pressures. Continue supportive therapies including dialysis. Subjective Date of service: 05/30/19 Principal diagnosis: CKD Interval history: Patient is comfortable, in the ICU, currently undergoing his second dialysis session. Notably, his blood pressure has been, necessitating the use of low dose levo fed. He is still maintained on intravenous dobutamine at 3 mcg. Objective Vital Signs Temp Pulse Pulse Pulse Pulse Resp Resp 05/30/19 13:30 109 H 26 H 05/30/19 13:20 116 H 31 H 05/30/19 13:15 111 H 05/30/19 13:10 104 H 21 05/30/19 13:00 119 H 33 H 05/30/19 12:50 120 H 29 H 05/30/19 12:40 105 H 33 H 05/30/19 12:30 123 H 29 H 05/30/19 12:20 104 H 22 05/30/19 12:15 106 H 05/30/19 12:10 111 H 25 H 05/30/19 12:00 98.5 F 84 105 H 105 H 27 H 05/30/19 11:50 105 H 25 H 05/30/19 11:45 110 H 05/30/19 11:40 106 H 23 05/30/19 11:30 98 H 24 05/30/19 11:20 89 21 05/30/19 11:15 94 H 05/30/19 11:10 100 H 19 05/30/19 11:00 97.7 F 102 H 23 05/30/19 10:50 93 H 20 05/30/19 10:40 98 H 28 H 05/30/19 10:30 96 H 29 H 05/30/19 10:27 104 H 05/30/19 10:20 92 H 24 05/30/19 10:12 100 H 22 05/30/19 10:10 94 H 15 05/30/19 10:06 05/30/19 10:00 109 H 19 05/30/19 09:50 97 H 26 H 05/30/19 09:40 84 19 05/30/19 09:30 82 22 05/30/19 09:20 88 25 H 05/30/19 09:10 85 18 05/30/19 09:00 94 H 20 05/30/19 08:50 93 H 21 05/30/19 08:41 97 H 20 05/30/19 08:40 86 26 H 05/30/19 08:30 85 21 05/30/19 08:25 88 05/30/19 08:20 79 20 05/30/19 08:10 90 21 05/30/19 08:00 80 88 88 20 05/30/19 07:50 95 H 20 05/30/19 07:40 98 H 22 05/30/19 07:30 86 22 05/30/19 07:20 104 H 23 05/30/19 07:10 86 23 05/30/19 07:00 99 H 21 05/30/19 06:50 96 H 22 05/30/19 06:40 96 H 21 05/30/19 06:30 105 H 22 05/30/19 06:20 102 H 24 05/30/19 06:10 108 H 24 05/30/19 06:00 95 H 25 H 05/30/19 05:50 90 26 H 05/30/19 05:40 96 H 24 05/30/19 05:30 101 H 23 05/30/19 05:20 101 H 26 H 05/30/19 05:10 90 22 05/30/19 05:05 105 H 24 05/30/19 05:00 110 H 24 05/30/19 04:50 93 H 22 05/30/19 04:40 99 H 22 05/30/19 04:30 85 18 05/30/19 04:20 91 H 24 05/30/19 04:10 97 H 25 H 05/30/19 04:01 97.4 F L 05/30/19 04:00 85 25 H 05/30/19 03:50 90 25 H 05/30/19 03:40 91 H 19 05/30/19 03:30 87 24 05/30/19 03:20 98 H 20 05/30/19 03:10 98 H 25 H 05/30/19 03:00 101 H 22 05/30/19 02:50 91 H 18 05/30/19 02:40 86 17 05/30/19 02:30 98 H 30 H 05/30/19 02:20 98 H 18 05/30/19 02:10 94 H 25 H 05/30/19 02:00 86 19 05/30/19 01:50 75 18 05/30/19 01:40 100 H 19 05/30/19 01:30 89 19 05/30/19 01:28 92 H 22 05/30/19 01:20 96 H 20 05/30/19 01:15 104 H 108 H 108 H 21 05/30/19 01:10 93 H 20 05/30/19 01:00 99 H 21 05/30/19 00:52 20 05/30/19 00:50 99 H 25 H 05/30/19 00:40 96 H 20 05/30/19 00:30 98 H 22 05/30/19 00:20 100 H 27 H 05/30/19 00:10 100 H 26 H 05/30/19 00:00 99 H 25 H 05/29/19 23:50 101 H 28 H 05/29/19 23:40 101 H 27 H 05/29/19 23:30 104 H 31 H 05/29/19 23:26 99.6 F 05/29/19 23:20 101 H 104 H 104 H 30 H 05/29/19 23:10 98 H 26 H 05/29/19 23:00 103 H 19 05/29/19 22:50 106 H 32 H 05/29/19 22:40 106 H 32 H 05/29/19 22:30 106 H 33 H 05/29/19 22:20 104 H 108 H 108 H 31 H 05/29/19 22:10 107 H 108 H 108 H 32 H 05/29/19 22:00 103 H 33 H 05/29/19 21:58 106 H 33 H 05/29/19 21:54 103 H 33 H 05/29/19 21:50 105 H 35 H 05/29/19 21:40 103 H 34 H 05/29/19 21:30 103 H 36 H 05/29/19 21:20 104 H 35 H 05/29/19 21:10 104 H 33 H 05/29/19 21:00 103 H 35 H 05/29/19 20:50 104 H 34 H 05/29/19 20:40 99 H 29 H 05/29/19 20:30 97 H 28 H 05/29/19 20:20 94 H 31 H 05/29/19 20:10 98 H 31 H 05/29/19 20:00 99 F 126 H 26 H 05/29/19 19:50 96 H 18 05/29/19 19:45 109 H 109 H 35 H 05/29/19 19:40 97 H 19 05/29/19 19:30 108 H 36 H 05/29/19 19:20 99 H 25 H 05/29/19 19:10 97 H 22 05/29/19 19:00 103 H 32 H 05/29/19 18:50 101 H 33 H 05/29/19 18:42 90 27 H 05/29/19 18:40 98 H 35 H 05/29/19 18:30 101 H 37 H 05/29/19 18:20 103 H 42 H 05/29/19 18:10 104 H 41 H 05/29/19 18:04 109 H 39 H 05/29/19 17:16 102 H 05/29/19 15:15 97.8 F 65 16 05/29/19 15:00 100 H 05/29/19 14:45 79 05/29/19 14:30 98 H 05/29/19 14:15 55 L 05/29/19 14:00 69 Resp BP Pulse Ox Pulse Ox Pulse Ox 05/30/19 13:30 82/47 92 05/30/19 13:20 89/56 91 05/30/19 13:15 89/56 05/30/19 13:10 83/61 91 05/30/19 13:00 83/61 89 05/30/19 12:50 83/55 90 05/30/19 12:40 93/49 92 05/30/19 12:30 93/49 93 05/30/19 12:20 95/56 95 05/30/19 12:15 95/56 05/30/19 12:10 86/47 96 05/30/19 12:00 86/47 94 05/30/19 11:50 77/46 96 05/30/19 11:45 77/46 05/30/19 11:40 83/48 94 05/30/19 11:30 93/48 95 05/30/19 11:20 74/47 94 05/30/19 11:15 74/47 05/30/19 11:10 86/48 94 05/30/19 11:00 77/61 94 05/30/19 10:50 87/43 95 05/30/19 10:40 86/48 95 05/30/19 10:30 96/56 93 05/30/19 10:27 96/56 05/30/19 10:20 96/56 94 05/30/19 10:12 05/30/19 10:10 96/54 92 05/30/19 10:06 92 05/30/19 10:00 80/59 90 05/30/19 09:50 80/59 92 05/30/19 09:40 87/51 96 05/30/19 09:30 89/53 95 05/30/19 09:20 89/53 95 05/30/19 09:10 97/52 95 05/30/19 09:00 97/52 96 05/30/19 08:50 88/51 97 05/30/19 08:41 88/51 97 05/30/19 08:40 91/56 98 05/30/19 08:30 91/56 97 05/30/19 08:25 05/30/19 08:20 91/54 98 05/30/19 08:10 91/54 96 05/30/19 08:00 91/54 97 05/30/19 07:50 87/55 96 05/30/19 07:40 87/55 98 05/30/19 07:30 87/55 97 05/30/19 07:20 79/52 97 05/30/19 07:10 96/45 96 05/30/19 07:00 96/45 96 05/30/19 06:50 99/54 97 05/30/19 06:40 102/51 98 05/30/19 06:30 102/51 97 05/30/19 06:20 88/57 97 05/30/19 06:10 86/55 96 05/30/19 06:00 86/55 96 05/30/19 05:50 101/51 97 05/30/19 05:40 92/54 97 05/30/19 05:30 92/54 98 05/30/19 05:20 90/55 98 05/30/19 05:10 86/62 98 05/30/19 05:05 86/62 98 05/30/19 05:00 86/62 98 05/30/19 04:50 90/55 98 05/30/19 04:40 90/55 98 05/30/19 04:30 90/55 99 05/30/19 04:20 86/45 98 05/30/19 04:10 84/57 98 05/30/19 04:01 05/30/19 04:00 84/57 98 05/30/19 03:50 86/45 98 05/30/19 03:40 86/45 98 05/30/19 03:30 85/61 98 05/30/19 03:20 85/61 99 05/30/19 03:10 78/53 99 05/30/19 03:00 78/53 99 05/30/19 02:50 87/60 98 05/30/19 02:40 87/60 99 05/30/19 02:30 87/60 98 05/30/19 02:20 86/47 99 05/30/19 02:10 86/57 98 05/30/19 02:00 82/45 100 05/30/19 01:50 86/47 100 05/30/19 01:40 86/47 100 05/30/19 01:30 86/47 100 05/30/19 01:28 119/56 100 05/30/19 01:20 119/56 99 05/30/19 01:15 99 05/30/19 01:10 119/56 100 05/30/19 01:00 119/56 100 05/30/19 00:52 05/30/19 00:50 67/29 96 05/30/19 00:40 72/43 97 05/30/19 00:30 72/43 97 05/30/19 00:20 108/68 97 05/30/19 00:10 166/148 97 05/30/19 00:00 166/148 97 05/29/19 23:50 166/148 99 05/29/19 23:40 166/148 100 05/29/19 23:30 86/48 98 05/29/19 23:26 05/29/19 23:20 86/48 99 05/29/19 23:10 86/48 99 05/29/19 23:00 74/55 100 05/29/19 22:50 93/57 99 05/29/19 22:40 88/58 99 05/29/19 22:30 88/44 99 05/29/19 22:20 94/44 99 05/29/19 22:10 34 H 81/59 98 05/29/19 22:00 131/106 99 05/29/19 21:58 81/59 98 05/29/19 21:54 126/104 99 05/29/19 21:50 83/51 99 05/29/19 21:40 169/143 99 05/29/19 21:30 225/199 99 05/29/19 21:20 225/199 99 05/29/19 21:10 223/197 99 05/29/19 21:00 99 05/29/19 20:50 99 05/29/19 20:40 246/191 100 05/29/19 20:30 245/200 97 05/29/19 20:20 245/200 96 05/29/19 20:10 155/133 05/29/19 20:00 155/133 91 05/29/19 19:50 155/133 91 05/29/19 19:45 79 L 05/29/19 19:40 155/133 75 L 05/29/19 19:30 163/126 77 L 05/29/19 19:20 227/192 05/29/19 19:10 227/192 93 05/29/19 19:00 112/74 93 05/29/19 18:50 112/74 99 05/29/19 18:42 94 05/29/19 18:40 112/74 92 05/29/19 18:30 112/74 86 05/29/19 18:20 112/74 88 05/29/19 18:10 112/74 93 05/29/19 18:04 05/29/19 17:16 112/63 83 L 05/29/19 15:15 94/64 93 93 05/29/19 15:00 101/67 05/29/19 14:45 113/60 05/29/19 14:30 109/90 05/29/19 14:15 85/81 05/29/19 14:00 82/58 - Physical Examination General: No Apparent Distress HEENT: Positive: PERRL Neck: Positive: trachea midline Cardiac: Positive: Reg Rate and Rhythm Lungs: Positive: Decreased Breath Sounds Neuro: Positive: Weakness Abdomen: Positive: Soft Skin: Positive: Clear Extremities: Absent: edema - Labs and Meds Cardiac Enzymes 05/30/19 Range/Units 05:24 AST 42 H (5-40) units/L CBC 05/30/19 Range/Units 05:24 WBC 6.9 (4.5-11.0) K/mm3 RBC 2.69 L (3.65-5.03) M/mm3 Hgb 7.8 L (11.8-15.2) gm/dl Hct 23.2 L (35.5-45.6) % Plt Count 155 (140-440) K/mm3 Lymph # 0.6 L (1.2-5.4) K/mm3 [place] # 0.9 H (0.0-0.8) K/mm3 Eos # 0.1 (0.0-0.4) K/mm3 Baso # 0.0 (0.0-0.1) K/mm3 Comprehensive Metabolic Panel 05/30/19 05/30/19 Range/Units 05:24 05:24 Sodium 134 L (137-145) mmol/L Potassium 3.9 (3.6-5.0) mmol/L Chloride 91.4 L (98-107) mmol/L Carbon Dioxide 25 D (22-30) mmol/L BUN 51 H (9-20) mg/dL Creatinine 4.3 H (0.8-1.5) mg/dL Glucose 180 H (75-100) mg/dL Calcium 9.3 (8.4-10.2) mg/dL Direct Bilirubin 0.3 H (0-0.2) mg/dL Indirect Bilirubin 0.2 mg/dL AST 42 H (5-40) units/L ALT 22 (7-56) units/L Alkaline Phosphatase 96 (35-129) units/L Total Protein 6.1 L (6.3-8.2) g/dL Albumin 2.2 L (3.9-5) g/dL
[2019-05-31] MEDS: INSULIN LISPRO 100 UNIT/ML SUB-Q SCH ×4 (00:01→19:19)
[2019-05-31] MEDS: metroNIDAZOLE/NS 500 MG/100 ML 500 MG/100 ML BAG IV SCH ×3 (01:33→19:20)
[2019-05-31] MEDS: HYDROmorphone 1 MG/1 ML INJ IV PRN (03:40)
[2019-05-31] MEDS ORDERED: ACETAMINOPHEN 650 MG RECT SUPP PR PRN (04:40)
[2019-05-31] MEDS: GABAPENTIN 100 MG CAP PO SCH ×3 (05:05→21:41)
[2019-05-31] MEDS: CEFEPIME/NS 1 GM/100 ML 1 GM/100 ML BAG IV SCH (05:23)
[2019-05-31 05:55] LABS: Hematocrit 24.6 % (35.5-45.6); Hemoglobin 8.1 gm/dl (11.8-15.2); Mean Corpuscular HGB Conc 33 % (32-34); Mean Corpuscular Volume 87 fl (84-94); Platelet Count 228 K/mm3 (140-440); Red Blood Count 2.84 M/mm3 (3.65-5.03); Red Cell Distribution Width 17.4 % (13.2-15.2)
[2019-05-31 06:18] LABS: Calcium 9.6 mg/dL (8.4-10.2)
[2019-05-31] MEDS: NORepinephrine/NS 4 MG-250 ML 4 MG/250 ML BAG IV SCH ×4 (07:25→19:35)
[2019-05-31] MEDS: ALBUTEROL 2.5 MG/3 ML NEBU IH SCH ×3 (09:50→20:45)
--- NOTE | 2019-05-31 10:05 | Progress Note ---
Assessment and Plan 64 y/o male with acute respiratory failure secondary to CHF and worsening renal failure. 1. Follow up cards recs. They have discontinued quite a bit of therapy. 2. Follow up renal recs, currently off bicarb and not restarting. Had some HD yesterday unsure if they will do again today. 3. Pulm escamilla, will use BIPAP therapy PRN 4. Await transfer to [facility] 5. Guarded prognosis. CCT 31 minutes. Subjective Date of service: 05/31/19 Principal diagnosis: CKD Interval history: No acute events. Cardiology has stopped dobutamine. patient now on levophed alone with maps in the high 50's low 60's. Objective Vital Signs - 12hr 05/30/19 05/30/19 05/30/19 22:10 22:20 22:30 Temperature Pulse Rate 107 H 105 H 107 H Pulse Rate [ Apical] Pulse Rate [ From Monitor] Pulse Rate [ Right Dorsalis Pedis] Respiratory 34 H 36 H 33 H Rate Blood Pressure 76/47 79/49 87/54 O2 Sat by Pulse Oximetry 05/30/19 05/30/19 05/30/19 22:40 22:50 23:00 Temperature Pulse Rate 105 H 107 H 104 H Pulse Rate [ Apical] Pulse Rate [ From Monitor] Pulse Rate [ Right Dorsalis Pedis] Respiratory 34 H 41 H 34 H Rate Blood Pressure 87/54 83/51 86/53 O2 Sat by Pulse Oximetry 05/30/19 05/30/19 05/30/19 23:10 23:20 23:30 Temperature Pulse Rate 102 H 105 H 107 H Pulse Rate [ Apical] Pulse Rate [ From Monitor] Pulse Rate [ Right Dorsalis Pedis] Respiratory 29 H 43 H 34 H Rate Blood Pressure 86/53 88/61 84/54 O2 Sat by Pulse Oximetry 05/30/19 05/30/19 05/30/19 23:40 23:50 23:58 Temperature Pulse Rate 107 H 109 H 107 H Pulse Rate [ Apical] Pulse Rate [ From Monitor] Pulse Rate [ Right Dorsalis Pedis] Respiratory 36 H 36 H 35 H Rate Blood Pressure 84/54 86/53 86/53 O2 Sat by Pulse 96 97 Oximetry 05/31/19 05/31/19 05/31/19 00:00 00:02 00:10 Temperature 99.8 F H 99.6 F Pulse Rate 108 H 113 H Pulse Rate [ 103 H Apical] Pulse Rate [ 103 H From Monitor] Pulse Rate [ 103 H Right Dorsalis Pedis] Respiratory 42 H 33 H Rate Blood Pressure 88/55 76/48 O2 Sat by Pulse 96 95 Oximetry 05/31/19 05/31/19 05/31/19 00:20 00:30 00:40 Temperature Pulse Rate 108 H 115 H 111 H Pulse Rate [ Apical] Pulse Rate [ From Monitor] Pulse Rate [ Right Dorsalis Pedis] Respiratory 34 H 41 H 34 H Rate Blood Pressure 76/48 76/48 78/45 O2 Sat by Pulse 93 96 96 Oximetry 05/31/19 05/31/19 05/31/19 00:50 01:00 01:10 Temperature Pulse Rate 106 H 107 H 105 H Pulse Rate [ Apical] Pulse Rate [ From Monitor] Pulse Rate [ Right Dorsalis Pedis] Respiratory 38 H 33 H 43 H Rate Blood Pressure 76/44 79/49 79/49 O2 Sat by Pulse 96 96 97 Oximetry 05/31/19 05/31/19 05/31/19 01:20 01:30 01:40 Temperature Pulse Rate 103 H 103 H 105 H Pulse Rate [ Apical] Pulse Rate [ From Monitor] Pulse Rate [ Right Dorsalis Pedis] Respiratory 33 H 36 H 36 H Rate Blood Pressure 79/52 85/52 85/52 O2 Sat by Pulse 98 98 98 Oximetry 05/31/19 05/31/19 05/31/19 01:50 02:00 02:10 Temperature Pulse Rate 106 H 104 H 105 H Pulse Rate [ Apical] Pulse Rate [ From Monitor] Pulse Rate [ Right Dorsalis Pedis] Respiratory 36 H 34 H 36 H Rate Blood Pressure 94/52 79/52 79/52 O2 Sat by Pulse 97 98 97 Oximetry 05/31/19 05/31/19 05/31/19 02:20 02:30 02:40 Temperature Pulse Rate 107 H 105 H 106 H Pulse Rate [ Apical] Pulse Rate [ From Monitor] Pulse Rate [ Right Dorsalis Pedis] Respiratory 39 H 32 H 36 H Rate Blood Pressure 85/52 83/49 83/49 O2 Sat by Pulse 99 99 96 Oximetry 05/31/19 05/31/19 05/31/19 02:50 03:00 03:10 Temperature Pulse Rate 106 H 108 H 105 H Pulse Rate [ Apical] Pulse Rate [ From Monitor] Pulse Rate [ Right Dorsalis Pedis] Respiratory 34 H 39 H 35 H Rate Blood Pressure 90/56 88/52 88/52 O2 Sat by Pulse 99 97 98 Oximetry 05/31/19 05/31/19 05/31/19 03:20 03:30 03:40 Temperature Pulse Rate 107 H 107 H 109 H Pulse Rate [ Apical] Pulse Rate [ From Monitor] Pulse Rate [ Right Dorsalis Pedis] Respiratory 40 H 40 H 37 H Rate Blood Pressure 89/50 84/53 84/53 O2 Sat by Pulse 98 97 95 Oximetry 05/31/19 05/31/19 05/31/19 03:50 04:00 04:10 Temperature 101.8 F H Pulse Rate 107 H 107 H 113 H Pulse Rate [ 103 H Apical] Pulse Rate [ 103 H From Monitor] Pulse Rate [ 104 H Right Dorsalis Pedis] Respiratory 35 H 31 H 40 H Rate Blood Pressure 78/54 85/46 85/46 O2 Sat by Pulse 94 98 90 Oximetry 05/31/19 05/31/19 05/31/19 04:20 04:30 04:40 Temperature Pulse Rate 109 H 107 H 111 H Pulse Rate [ Apical] Pulse Rate [ From Monitor] Pulse Rate [ Right Dorsalis Pedis] Respiratory 40 H 30 H 34 H Rate Blood Pressure 90/50 83/51 83/51 O2 Sat by Pulse 94 97 92 Oximetry 05/31/19 05/31/19 05/31/19 04:50 05:00 05:10 Temperature 102.0 F H Pulse Rate 110 H 109 H 109 H Pulse Rate [ Apical] Pulse Rate [ From Monitor] Pulse Rate [ Right Dorsalis Pedis] Respiratory 39 H 34 H 37 H Rate Blood Pressure 83/51 88/60 88/60 O2 Sat by Pulse 93 92 96 Oximetry 05/31/19 05/31/19 05/31/19 05:20 05:30 05:40 Temperature Pulse Rate 99 H 107 H 108 H Pulse Rate [ Apical] Pulse Rate [ From Monitor] Pulse Rate [ Right Dorsalis Pedis] Respiratory 36 H 36 H 38 H Rate Blood Pressure 85/52 84/54 84/54 O2 Sat by Pulse 98 96 96 Oximetry 05/31/19 05/31/19 05/31/19 05:50 06:00 06:10 Temperature Pulse Rate 106 H 107 H 105 H Pulse Rate [ Apical] Pulse Rate [ From Monitor] Pulse Rate [ Right Dorsalis Pedis] Respiratory 35 H 38 H 37 H Rate Blood Pressure 78/52 93/51 93/51 O2 Sat by Pulse 97 95 96 Oximetry 05/31/19 05/31/19 05/31/19 06:20 06:30 06:40 Temperature Pulse Rate 107 H 109 H 106 H Pulse Rate [ Apical] Pulse Rate [ From Monitor] Pulse Rate [ Right Dorsalis Pedis] Respiratory 37 H 42 H 34 H Rate Blood Pressure 90/50 75/48 75/48 O2 Sat by Pulse 96 94 98 Oximetry 05/31/19 05/31/19 05/31/19 06:50 07:00 07:10 Temperature Pulse Rate 106 H 105 H 101 H Pulse Rate [ Apical] Pulse Rate [ From Monitor] Pulse Rate [ Right Dorsalis Pedis] Respiratory 36 H 38 H 25 H Rate Blood Pressure 75/45 84/50 84/50 O2 Sat by Pulse 98 96 96 Oximetry 05/31/19 05/31/19 05/31/19 07:20 07:30 07:40 Temperature Pulse Rate 104 H 103 H 99 H Pulse Rate [ Apical] Pulse Rate [ From Monitor] Pulse Rate [ Right Dorsalis Pedis] Respiratory 36 H 31 H 29 H Rate Blood Pressure 75/46 75/46 85/50 O2 Sat by Pulse 96 95 95 Oximetry 05/31/19 05/31/19 05/31/19 07:50 08:00 08:10 Temperature Pulse Rate 101 H 99 H 101 H Pulse Rate [ Apical] Pulse Rate [ From Monitor] Pulse Rate [ Right Dorsalis Pedis] Respiratory 31 H 29 H 32 H Rate Blood Pressure 83/52 81/48 81/48 O2 Sat by Pulse 94 96 96 Oximetry 05/31/19 05/31/19 05/31/19 08:20 08:30 08:40 Temperature Pulse Rate 103 H 101 H 100 H Pulse Rate [ Apical] Pulse Rate [ From Monitor] Pulse Rate [ Right Dorsalis Pedis] Respiratory 27 H 14 20 Rate Blood Pressure 83/52 79/49 79/49 O2 Sat by Pulse 96 97 96 Oximetry 05/31/19 05/31/19 05/31/19 08:50 09:00 09:10 Temperature Pulse Rate 101 H 101 H 102 H Pulse Rate [ Apical] Pulse Rate [ From Monitor] Pulse Rate [ Right Dorsalis Pedis] Respiratory 17 13 19 Rate Blood Pressure 90/54 80/54 80/54 O2 Sat by Pulse 95 95 96 Oximetry 05/31/19 09:20 Temperature Pulse Rate 105 H Pulse Rate [ Apical] Pulse Rate [ From Monitor] Pulse Rate [ Right Dorsalis Pedis] Respiratory 13 Rate Blood Pressure 88/54 O2 Sat by Pulse 95 Oximetry CBC and BMP: 05/31/19 05:00 05/31/19 05:00 ABG, PT/INR, D-dimer: ABG ABG pH 7.538 pH Units (7.350-7.450) H 05/29/19 19:14 ABG pCO2 29.6 mm Hg 05/29/19 19:14 ABG pO2 70.1 mm Hg (80.0-90.0) L 05/29/19 19:14 ABG O2 Saturation 95.1 % (95.0-99.0) 05/29/19 19:14 PT/INR, D-dimer PT 15.6 Sec. (12.2-14.9) H 05/25/19 11:59 INR 1.22 (0.87-1.13) H 05/25/19 11:59 Abnormal lab findings: Abnormal Labs 05/25/19 05/25/19 05/25/19 11:59 11:59 11:59 WBC 14.0 H RBC 3.59 L Hgb 10.2 L Hct 31.5 L RDW 17.5 H Plt Count 98 L Lymph % (Auto) 8.2 L Turner % (Auto) 12.4 H Lymph # 1.1 L Turner # 1.7 H Seg Neutrophils % 79.0 H Seg Neutrophils # 11.1 H PT 15.6 H INR 1.22 H APTT 38.9 H ABG pH ABG pO2 ABG Hemoglobin Oxyhemoglobin Sodium Potassium 5.6 H Chloride Carbon Dioxide 17 L BUN 52 H Creatinine 2.4 H Glucose 226 H POC Glucose Hemoglobin A1c Calcium 10.6 H Phosphorus Magnesium 2.40 H Iron TIBC Ferritin Direct Bilirubin 0.4 H AST Total Creatine Kinase 185 H Troponin T NT-Pro-B Natriuret Pep 5533 H Total Protein Albumin 3.5 L Urine Creatinine Urine Total Protein 05/25/19 05/25/19 05/25/19 11:59 11:59 15:23 WBC RBC Hgb Hct RDW Plt Count Lymph % (Auto) Turner % (Auto) Lymph # Turner # Seg Neutrophils % Seg Neutrophils # PT INR APTT ABG pH ABG pO2 ABG Hemoglobin Oxyhemoglobin Sodium Potassium 5.3 H Chloride 107.6 H Carbon Dioxide BUN 50 H Creatinine 2.4 H Glucose 167 H POC Glucose Hemoglobin A1c 6.5 H Calcium Phosphorus Magnesium Iron TIBC Ferritin Direct Bilirubin AST Total Creatine Kinase Troponin T 0.047 H NT-Pro-B Natriuret Pep Total Protein Albumin Urine Creatinine Urine Total Protein 05/26/19 05/26/19 05/26/19 05:34 05:34 Unknown WBC 14.3 H RBC 3.56 L Hgb 10.2 L Hct 31.4 L RDW 17.6 H Plt Count 103 L Lymph % (Auto) 8.3 L Turner % (Auto) 11.1 H Lymph # Turner # 1.6 H Seg Neutrophils % 80.3 H Seg Neutrophils # 11.4 H PT INR APTT ABG pH ABG pO2 ABG Hemoglobin Oxyhemoglobin Sodium Potassium 6.0 H Chloride 107.8 H Carbon Dioxide 21 L BUN 49 H Creatinine 2.7 H Glucose 172 H POC Glucose Hemoglobin A1c Calcium 10.3 H Phosphorus Magnesium Iron TIBC Ferritin Direct Bilirubin AST Total Creatine Kinase Troponin T NT-Pro-B Natriuret Pep Total Protein Albumin Urine Creatinine 103.7 H Urine Total Protein 213 H 05/27/19 05/27/19 05/28/19 05:35 05:35 06:42 WBC 12.0 H 11.4 H RBC 3.06 L 2.74 L Hgb 8.6 L 7.8 L Hct 27.0 L 24.0 L RDW 17.8 H 17.2 H Plt Count 95 L 101 L Lymph % (Auto) Turner % (Auto) Lymph # Turner # Seg Neutrophils % Seg Neutrophils # PT INR APTT ABG pH ABG pO2 ABG Hemoglobin Oxyhemoglobin Sodium Potassium Chloride Carbon Dioxide BUN 54 H Creatinine 3.4 H Glucose 179 H POC Glucose Hemoglobin A1c Calcium Phosphorus Magnesium Iron TIBC Ferritin Direct Bilirubin AST Total Creatine Kinase Troponin T NT-Pro-B Natriuret Pep Total Protein Albumin Urine Creatinine Urine Total Protein 05/28/19 05/29/19 05/29/19 06:42 05:30 05:30 WBC RBC 2.86 L Hgb 8.2 L Hct 25.3 L RDW 17.1 H Plt Count 133 L Lymph % (Auto) Turner % (Auto) Lymph # Turner # Seg Neutrophils % Seg Neutrophils # PT INR APTT ABG pH ABG pO2 ABG Hemoglobin Oxyhemoglobin Sodium 132 L D Potassium Chloride 96.9 L Carbon Dioxide 16 L 15 L BUN 73 H 91 H Creatinine 4.8 H 6.8 H Glucose 153 H 176 H POC Glucose Hemoglobin A1c Calcium Phosphorus 4.60 H Magnesium Iron TIBC Ferritin Direct Bilirubin AST Total Creatine Kinase Troponin T NT-Pro-B Natriuret Pep Total Protein Albumin Urine Creatinine Urine Total Protein 05/29/19 05/29/19 05/29/19 05:30 05:30 17:24 WBC RBC Hgb Hct RDW Plt Count Lymph % (Auto) Turner % (Auto) Lymph # Turner # Seg Neutrophils % Seg Neutrophils # PT INR APTT ABG pH ABG pO2 ABG Hemoglobin Oxyhemoglobin Sodium Potassium Chloride Carbon Dioxide BUN Creatinine Glucose POC Glucose 219 H Hemoglobin A1c Calcium Phosphorus Magnesium Iron 12 L TIBC 120 L Ferritin 1177.0 H Direct Bilirubin AST Total Creatine Kinase Troponin T NT-Pro-B Natriuret Pep Total Protein Albumin Urine Creatinine Urine Total Protein 05/29/19 05/29/19 05/30/19 18:56 19:14 00:03 WBC RBC Hgb Hct RDW Plt Count Lymph % (Auto) Turner % (Auto) Lymph # Turner # Seg Neutrophils % Seg Neutrophils # PT INR APTT ABG pH 7.538 H ABG pO2 70.1 L ABG Hemoglobin 11.8 L Oxyhemoglobin 94.1 L Sodium Potassium Chloride Carbon Dioxide BUN Creatinine Glucose POC Glucose 176 H 199 H Hemoglobin A1c Calcium Phosphorus Magnesium Iron TIBC Ferritin Direct Bilirubin AST Total Creatine Kinase Troponin T NT-Pro-B Natriuret Pep Total Protein Albumin Urine Creatinine Urine Total Protein 05/30/19 05/30/19 05/30/19 05:24 05:24 05:24 WBC RBC 2.69 L Hgb 7.8 L Hct 23.2 L RDW 17.2 H Plt Count Lymph % (Auto) 8.4 L Turner % (Auto) 13.8 H Lymph # 0.6 L Turner # 0.9 H Seg Neutrophils % 75.5 H Seg Neutrophils # PT INR APTT ABG pH ABG pO2 ABG Hemoglobin Oxyhemoglobin Sodium 134 L Potassium Chloride 91.4 L Carbon Dioxide BUN 51 H Creatinine 4.3 H Glucose 180 H POC Glucose Hemoglobin A1c Calcium Phosphorus Magnesium Iron TIBC Ferritin Direct Bilirubin 0.3 H AST 42 H Total Creatine Kinase Troponin T NT-Pro-B Natriuret Pep Total Protein 6.1 L Albumin 2.2 L Urine Creatinine Urine Total Protein 05/30/19 05/30/19 05/30/19 05:24 12:41 18:04 WBC RBC Hgb Hct RDW Plt Count Lymph % (Auto) Turner % (Auto) Lymph # Turner # Seg Neutrophils % Seg Neutrophils # PT INR APTT ABG pH ABG pO2 ABG Hemoglobin Oxyhemoglobin Sodium Potassium Chloride Carbon Dioxide BUN Creatinine Glucose POC Glucose 203 H 187 H 173 H Hemoglobin A1c Calcium Phosphorus Magnesium Iron TIBC Ferritin Direct Bilirubin AST Total Creatine Kinase Troponin T NT-Pro-B Natriuret Pep Total Protein Albumin Urine Creatinine Urine Total Protein 05/30/19 05/31/19 05/31/19 23:58 05:00 05:00 WBC 12.3 H RBC 2.84 L Hgb 8.1 L Hct 24.6 L RDW 17.4 H Plt Count Lymph % (Auto) Turner % (Auto) Lymph # Turner # Seg Neutrophils % Seg Neutrophils # PT INR APTT ABG pH ABG pO2 ABG Hemoglobin Oxyhemoglobin Sodium Potassium Chloride 94.0 L Carbon Dioxide BUN 33 H Creatinine 3.8 H Glucose 112 H POC Glucose 185 H Hemoglobin A1c Calcium Phosphorus Magnesium Iron TIBC Ferritin Direct Bilirubin AST Total Creatine Kinase Troponin T NT-Pro-B Natriuret Pep Total Protein Albumin Urine Creatinine Urine Total Protein 05/31/19 06:13 WBC RBC Hgb Hct RDW Plt Count Lymph % (Auto) Turner % (Auto) Lymph # Turner # Seg Neutrophils % Seg Neutrophils # PT INR APTT ABG pH ABG pO2 ABG Hemoglobin Oxyhemoglobin Sodium Potassium Chloride Carbon Dioxide BUN Creatinine Glucose POC Glucose 115 H Hemoglobin A1c Calcium Phosphorus Magnesium Iron TIBC Ferritin Direct Bilirubin AST Total Creatine Kinase Troponin T NT-Pro-B Natriuret Pep Total Protein Albumin Urine Creatinine Urine Total Protein
--- NOTE | 2019-05-31 11:42 | Progress Note ---
Assessment and Plan Hx Ischemic cardiomyopathy an echo this admission reveals 4 chamber dilated cardiomyopathy with a decrease systolic function, EF 15-20%. no evidence of decompensation follows with [facility] in [place] Hx of RI/CAD s/p PCI of the first obtuse marginal in 2013 brilinta discontinued no evidence of ischemia by MPI 06/2015 Sepsis Altered mental status RUE pain and inflammation RUE doppler negative for DVT Chronic renal failure s/p remote renal transplant -initiated on dialysis Anemia Thrombocytopenia Hypertension Supportive cardiac management. Subjective Date of service: 05/31/19 Principal diagnosis: CKD Interval history: Awaits transfer to [place]. On pressors for support. Objective Vital Signs Temp Pulse Pulse Pulse Pulse Pulse Resp 05/31/19 09:20 105 H 13 05/31/19 09:10 102 H 19 05/31/19 09:00 101 H 13 05/31/19 08:50 101 H 17 05/31/19 08:40 100 H 20 05/31/19 08:30 101 H 14 05/31/19 08:20 103 H 27 H 05/31/19 08:10 101 H 32 H 05/31/19 08:00 99.7 F H 99 H 29 H 05/31/19 07:50 101 H 31 H 05/31/19 07:40 99 H 29 H 05/31/19 07:30 103 H 31 H 05/31/19 07:20 104 H 36 H 05/31/19 07:10 101 H 25 H 05/31/19 07:00 105 H 38 H 05/31/19 06:50 106 H 36 H 05/31/19 06:40 106 H 34 H 05/31/19 06:30 109 H 42 H 05/31/19 06:20 107 H 37 H 05/31/19 06:10 105 H 37 H 05/31/19 06:00 107 H 38 H 05/31/19 05:50 106 H 35 H 05/31/19 05:40 108 H 38 H 05/31/19 05:30 107 H 36 H 05/31/19 05:20 99 H 36 H 05/31/19 05:10 109 H 37 H 05/31/19 05:00 109 H 34 H 05/31/19 04:50 102.0 F H 110 H 39 H 05/31/19 04:40 111 H 34 H 05/31/19 04:30 107 H 30 H 05/31/19 04:20 109 H 40 H 05/31/19 04:10 113 H 40 H 05/31/19 04:00 101.8 F H 107 H 103 H 103 H 104 H 31 H 05/31/19 03:50 107 H 35 H 05/31/19 03:40 109 H 37 H 05/31/19 03:30 107 H 40 H 05/31/19 03:20 107 H 40 H 05/31/19 03:10 105 H 35 H 05/31/19 03:00 108 H 39 H 05/31/19 02:50 106 H 34 H 05/31/19 02:40 106 H 36 H 05/31/19 02:30 105 H 32 H 05/31/19 02:20 107 H 39 H 05/31/19 02:10 105 H 36 H 05/31/19 02:00 104 H 34 H 05/31/19 01:50 106 H 36 H 05/31/19 01:40 105 H 36 H 05/31/19 01:30 103 H 36 H 05/31/19 01:20 103 H 33 H 05/31/19 01:10 105 H 43 H 05/31/19 01:00 107 H 33 H 05/31/19 00:50 106 H 38 H 05/31/19 00:40 111 H 34 H 05/31/19 00:30 115 H 41 H 05/31/19 00:20 108 H 34 H 05/31/19 00:10 113 H 33 H 05/31/19 00:02 99.6 F 05/31/19 00:00 99.8 F H 108 H 103 H 103 H 103 H 42 H 05/30/19 23:58 107 H 35 H 05/30/19 23:50 109 H 36 H 05/30/19 23:40 107 H 36 H 05/30/19 23:30 107 H 34 H 05/30/19 23:20 105 H 43 H 05/30/19 23:10 102 H 29 H 05/30/19 23:00 104 H 34 H 05/30/19 22:50 107 H 41 H 05/30/19 22:40 105 H 34 H 05/30/19 22:30 107 H 33 H 05/30/19 22:20 105 H 36 H 05/30/19 22:10 107 H 34 H 05/30/19 22:00 105 H 37 H 05/30/19 21:50 115 H 41 H 05/30/19 21:40 110 H 32 H 05/30/19 21:30 108 H 26 H 05/30/19 21:23 109 H 05/30/19 21:20 112 H 29 H 05/30/19 21:10 103 H 29 H 05/30/19 21:00 107 H 33 H 05/30/19 20:50 111 H 38 H 05/30/19 20:40 107 H 28 H 05/30/19 20:30 107 H 33 H 05/30/19 20:20 112 H 31 H 05/30/19 20:10 112 H 35 H 05/30/19 20:00 99.4 F 108 H 108 H 108 H 108 H 33 H 05/30/19 19:50 111 H 28 H 05/30/19 19:47 99.4 F 05/30/19 19:40 108 H 41 H 05/30/19 19:30 108 H 105 H 31 H 05/30/19 19:28 05/30/19 19:20 110 H 39 H 05/30/19 19:10 105 H 24 05/30/19 19:00 106 H 26 H 05/30/19 18:50 106 H 30 H 05/30/19 18:40 106 H 34 H 05/30/19 18:30 105 H 26 H 05/30/19 18:20 103 H 33 H 05/30/19 18:10 106 H 35 H 05/30/19 18:08 33 H 05/30/19 18:00 107 H 33 H 05/30/19 17:50 105 H 32 H 05/30/19 17:40 102 H 34 H 05/30/19 17:30 107 H 34 H 05/30/19 17:20 106 H 26 H 05/30/19 17:10 92 H 30 H 05/30/19 17:00 117 H 30 H 05/30/19 16:50 109 H 22 05/30/19 16:40 108 H 28 H 05/30/19 16:30 109 H 30 H 05/30/19 16:20 110 H 39 H 05/30/19 16:10 100 H 31 H 05/30/19 16:00 98 F 110 H 93 H 93 H 23 05/30/19 15:50 101 H 28 H 05/30/19 15:40 110 H 20 05/30/19 15:30 123 H 27 H 05/30/19 15:20 124 H 21 05/30/19 15:10 115 H 28 H 05/30/19 15:00 106 H 35 H 05/30/19 14:50 113 H 21 05/30/19 14:40 113 H 22 05/30/19 14:30 101 H 29 H 05/30/19 14:20 100 H 27 H 05/30/19 14:19 98.2 F 109 H 33 H 05/30/19 14:10 115 H 25 H 05/30/19 14:02 113 H 05/30/19 14:00 117 H 36 H 05/30/19 13:50 110 H 30 H 05/30/19 13:45 105 H 05/30/19 13:40 117 H 33 H 05/30/19 13:30 109 H 26 H 05/30/19 13:20 116 H 31 H 05/30/19 13:15 111 H 05/30/19 13:10 104 H 21 05/30/19 13:00 119 H 33 H 05/30/19 12:50 120 H 29 H 05/30/19 12:40 105 H 33 H 05/30/19 12:30 123 H 29 H 05/30/19 12:20 104 H 22 05/30/19 12:15 106 H 05/30/19 12:10 111 H 25 H 05/30/19 12:00 98.5 F 84 105 H 105 H 27 H 05/30/19 11:50 105 H 25 H 05/30/19 11:45 110 H 05/30/19 11:40 106 H 23 Resp BP Pulse Ox 05/31/19 09:20 88/54 95 05/31/19 09:10 80/54 96 05/31/19 09:00 80/54 95 05/31/19 08:50 90/54 95 05/31/19 08:40 79/49 96 05/31/19 08:30 79/49 97 05/31/19 08:20 83/52 96 05/31/19 08:10 81/48 96 05/31/19 08:00 81/48 96 05/31/19 07:50 83/52 94 05/31/19 07:40 85/50 95 05/31/19 07:30 75/46 95 05/31/19 07:20 75/46 96 05/31/19 07:10 84/50 96 05/31/19 07:00 84/50 96 05/31/19 06:50 75/45 98 05/31/19 06:40 75/48 98 05/31/19 06:30 75/48 94 05/31/19 06:20 90/50 96 05/31/19 06:10 93/51 96 05/31/19 06:00 93/51 95 05/31/19 05:50 78/52 97 05/31/19 05:40 84/54 96 05/31/19 05:30 84/54 96 05/31/19 05:20 85/52 98 05/31/19 05:10 88/60 96 05/31/19 05:00 88/60 92 05/31/19 04:50 83/51 93 05/31/19 04:40 83/51 92 05/31/19 04:30 83/51 97 05/31/19 04:20 90/50 94 05/31/19 04:10 85/46 90 05/31/19 04:00 85/46 98 05/31/19 03:50 78/54 94 05/31/19 03:40 84/53 95 05/31/19 03:30 84/53 97 05/31/19 03:20 89/50 98 05/31/19 03:10 88/52 98 05/31/19 03:00 88/52 97 05/31/19 02:50 90/56 99 05/31/19 02:40 83/49 96 05/31/19 02:30 83/49 99 05/31/19 02:20 85/52 99 05/31/19 02:10 79/52 97 05/31/19 02:00 79/52 98 05/31/19 01:50 94/52 97 05/31/19 01:40 85/52 98 05/31/19 01:30 85/52 98 05/31/19 01:20 79/52 98 05/31/19 01:10 79/49 97 05/31/19 01:00 79/49 96 05/31/19 00:50 76/44 96 05/31/19 00:40 78/45 96 05/31/19 00:30 76/48 96 05/31/19 00:20 76/48 93 05/31/19 00:10 76/48 95 05/31/19 00:02 05/31/19 00:00 88/55 96 05/30/19 23:58 86/53 97 05/30/19 23:50 86/53 96 05/30/19 23:40 84/54 05/30/19 23:30 84/54 05/30/19 23:20 88/61 05/30/19 23:10 86/53 05/30/19 23:00 86/53 05/30/19 22:50 83/51 05/30/19 22:40 87/54 05/30/19 22:30 87/54 05/30/19 22:20 79/49 05/30/19 22:10 76/47 05/30/19 22:00 76/47 05/30/19 21:50 88/53 05/30/19 21:40 87/57 96 05/30/19 21:30 89/55 94 05/30/19 21:23 91/55 05/30/19 21:20 91/55 93 05/30/19 21:10 87/57 95 05/30/19 21:00 87/57 94 05/30/19 20:50 94/57 87 05/30/19 20:40 90/60 96 05/30/19 20:30 84/58 94 05/30/19 20:20 90/60 90 05/30/19 20:10 95/55 95 05/30/19 20:00 95/55 97 05/30/19 19:50 96/57 96 05/30/19 19:47 05/30/19 19:40 98/56 97 05/30/19 19:30 20 98/56 95 05/30/19 19:28 95 05/30/19 19:20 108/61 95 05/30/19 19:10 100/62 96 05/30/19 19:00 100/62 95 05/30/19 18:50 92/57 96 05/30/19 18:40 105/56 95 03/15/20 18:30 96/56 95 1520 18:20 96/56 95 20 18:10 108/83 93 05/30/19 18:08 05/30/19 18:00 110/57 94 20 17:50 110/57 94 1520 17:40 112/62 95 1520 17:30 112/62 96 1520 17:20 100/52 94 05/30/19 17:10 79/52 95 05/30/19 17:00 89/62 95 1520 16:50 95/50 95 20 16:40 79/52 96 20 16:30 79/52 95 05/30/19 16:20 104/55 91 05/30/19 16:10 94/50 96 20 16:00 94/50 94 20 15:50 92/58 91 20 15:40 87/58 93 20 15:30 87/58 94 05/30/19 15:20 90/59 92 20 15:10 85/54 92 05/30/19 15:00 100/46 94 05/30/19 14:50 100/46 94 05/30/19 14:40 95/55 94 05/30/19 14:30 95/55 93 20 14:20 97/54 95 05/30/19 14:19 97/54 20 14:10 94/54 97 05/30/19 14:02 20 05/30/19 14:00 94/54 92 05/30/19 13:50 86/53 93 20 13:45 86/53 20 13:40 82/47 93 1520 13:30 82/47 92 20 13:20 89/56 91 20 13:15 89/56 20 13:10 83/61 91 1520 13:00 83/61 89 1520 12:50 83/55 90 1520 12:40 93/49 92 20 12:30 93/49 93 05/30/19 12:20 95/56 95 05/30/19 12:15 05/30/19 12:10 86/47 96 05/30/19 12:00 86/47 94 05/30/19 11:50 77/46 96 05/30/19 11:45 77/46 05/30/19 11:40 83/48 94 - Physical Examination General: No Apparent Distress HEENT: Positive: PERRL Neck: Positive: trachea midline Cardiac: Positive: irregularly irregular Lungs: Positive: Decreased Breath Sounds Extremities: Absent: edema - Labs and Meds CBC 05/31/19 Range/Units 05:00 WBC 12.3 H (4.5-11.0) K/mm3 RBC 2.84 L (3.65-5.03) M/mm3 Hgb 8.1 L (11.8-15.2) gm/dl Hct 24.6 L (35.5-45.6) % Plt Count 228 (140-440) K/mm3 Comprehensive Metabolic Panel 05/31/19 Range/Units 05:00 Sodium 139 (137-145) mmol/L Potassium 3.6 (3.6-5.0) mmol/L Chloride 94.0 L (98-107) mmol/L Carbon Dioxide 26 (22-30) mmol/L BUN 33 H (9-20) mg/dL Creatinine 3.8 H (0.8-1.5) mg/dL Glucose 112 H (75-100) mg/dL Calcium 9.6 (8.4-10.2) mg/dL
[2019-05-31] MEDS: PANTOPRAZOLE 40 MG TAB PO SCH (11:51)
[2019-05-31] MEDS: HEPARIN 5,000 UNIT/1 ML VIAL SUB-Q SCH ×2 (11:51→21:41)
[2019-05-31] MEDS: ASPIRIN EC 81 MG TAB PO SCH (12:04)
[2019-05-31] MEDS: carvediloL 6.25 MG TAB PO SCH ×2 (12:04→22:05)
--- NOTE | 2019-05-31 16:29 | Progress Note ---
Assessment and Plan Acute on Chronic Kidney Disease likely secondary to Hypertensive Nephrosclerosis: Renal transplant: -Patient was initiated on hemodialysis on 05/29/19 for worsening renal failure -Patient was also dialyzed on 05/30/19 and is scheduled to be dialyzed today -Patient had renal transplant at [facility] in 1983. Has not followed-up with [facility] in several years. -Renal ultrasound-Right renal transplant with mild hydronephrosis- Consulted Urology Dr. Reynaga -We have consulted Urology for their input on this patient's hydronephrosis shown on renal ultrasound, both Urology and IR are unable to correct kidney graft hydronephrosis and recommended transfer to [facility] transplant center -Patient accepted to be transferred to [facility] but no bed is currently available -Transfer to [facility] once a bed becomes available -Will ocntinue to monitor renal function and assess dialysis needs daily Hx Hypertension: Now Hypotensive -On Levophed -Monitor blood pressures Hyperkalemia, Resolved: -S/P insulin/bicarb/D50 -Monitor potassium levels -BMP in a.m Back Pain: -As per primary Anemia: -May need Epogen Heart Failure: -S/P dobutamine drip -Cardiology onboard Subjective Date of service: 05/31/19 Principal diagnosis: CKD Interval history: Patient seen lying in bed. Completed HD. Nurse at bedside. Objective - Vital Signs Vital signs: Vital Signs - 12hr 05/31/19 05/31/19 05/31/19 04:30 04:40 04:50 Temperature 102.0 F H Pulse Rate 107 H 111 H 110 H Pulse Rate [ Apical] Pulse Rate [ From Monitor] Pulse Rate [ Right Dorsalis Pedis] Respiratory 30 H 34 H 39 H Rate Blood Pressure 83/51 83/51 83/51 O2 Sat by Pulse 97 92 93 Oximetry O2 Sat by Pulse Oximetry [ Anterior Bilateral] O2 Sat by Pulse Oximetry [ Bilateral Throughout] 05/31/19 05/31/19 05/31/19 05:00 05:10 05:20 Temperature Pulse Rate 109 H 109 H 99 H Pulse Rate [ Apical] Pulse Rate [ From Monitor] Pulse Rate [ Right Dorsalis Pedis] Respiratory 34 H 37 H 36 H Rate Blood Pressure 88/60 88/60 85/52 O2 Sat by Pulse 92 96 98 Oximetry O2 Sat by Pulse Oximetry [ Anterior Bilateral] O2 Sat by Pulse Oximetry [ Bilateral Throughout] 05/31/19 05/31/19 05/31/19 05:30 05:40 05:50 Temperature Pulse Rate 107 H 108 H 106 H Pulse Rate [ Apical] Pulse Rate [ From Monitor] Pulse Rate [ Right Dorsalis Pedis] Respiratory 36 H 38 H 35 H Rate Blood Pressure 84/54 84/54 78/52 O2 Sat by Pulse 96 96 97 Oximetry O2 Sat by Pulse Oximetry [ Anterior Bilateral] O2 Sat by Pulse Oximetry [ Bilateral Throughout] 05/31/19 05/31/19 05/31/19 06:00 06:10 06:20 Temperature Pulse Rate 107 H 105 H 107 H Pulse Rate [ Apical] Pulse Rate [ From Monitor] Pulse Rate [ Right Dorsalis Pedis] Respiratory 38 H 37 H 37 H Rate Blood Pressure 93/51 93/51 90/50 O2 Sat by Pulse 95 96 96 Oximetry O2 Sat by Pulse Oximetry [ Anterior Bilateral] O2 Sat by Pulse Oximetry [ Bilateral Throughout] 05/31/19 05/31/19 05/31/19 06:30 06:40 06:50 Temperature Pulse Rate 109 H 106 H 106 H Pulse Rate [ Apical] Pulse Rate [ From Monitor] Pulse Rate [ Right Dorsalis Pedis] Respiratory 42 H 34 H 36 H Rate Blood Pressure 75/48 75/48 75/45 O2 Sat by Pulse 94 98 98 Oximetry O2 Sat by Pulse Oximetry [ Anterior Bilateral] O2 Sat by Pulse Oximetry [ Bilateral Throughout] 05/31/19 05/31/19 05/31/19 07:00 07:10 07:20 Temperature Pulse Rate 105 H 101 H 104 H Pulse Rate [ Apical] Pulse Rate [ From Monitor] Pulse Rate [ Right Dorsalis Pedis] Respiratory 38 H 25 H 36 H Rate Blood Pressure 84/50 84/50 75/46 O2 Sat by Pulse 96 96 96 Oximetry O2 Sat by Pulse Oximetry [ Anterior Bilateral] O2 Sat by Pulse Oximetry [ Bilateral Throughout] 05/31/19 05/31/19 05/31/19 07:30 07:40 07:50 Temperature Pulse Rate 103 H 99 H 101 H Pulse Rate [ Apical] Pulse Rate [ From Monitor] Pulse Rate [ Right Dorsalis Pedis] Respiratory 31 H 29 H 31 H Rate Blood Pressure 75/46 85/50 83/52 O2 Sat by Pulse 95 95 94 Oximetry O2 Sat by Pulse Oximetry [ Anterior Bilateral] O2 Sat by Pulse Oximetry [ Bilateral Throughout] 05/31/19 05/31/19 05/31/19 08:00 08:10 08:20 Temperature 99.7 F H Pulse Rate 99 H 101 H 103 H Pulse Rate [ 99 H Apical] Pulse Rate [ 99 H From Monitor] Pulse Rate [ 99 H Right Dorsalis Pedis] Respiratory 29 H 32 H 27 H Rate Blood Pressure 81/48 81/48 83/52 O2 Sat by Pulse 96 96 96 Oximetry O2 Sat by Pulse Oximetry [ Anterior Bilateral] O2 Sat by Pulse Oximetry [ Bilateral Throughout] 05/31/19 05/31/19 05/31/19 08:30 08:40 08:50 Temperature Pulse Rate 101 H 100 H 101 H Pulse Rate [ Apical] Pulse Rate [ From Monitor] Pulse Rate [ Right Dorsalis Pedis] Respiratory 14 20 17 Rate Blood Pressure 79/49 79/49 90/54 O2 Sat by Pulse 97 96 95 Oximetry O2 Sat by Pulse Oximetry [ Anterior Bilateral] O2 Sat by Pulse Oximetry [ Bilateral Throughout] 05/31/19 05/31/19 05/31/19 09:00 09:10 09:20 Temperature Pulse Rate 101 H 102 H 105 H Pulse Rate [ Apical] Pulse Rate [ From Monitor] Pulse Rate [ Right Dorsalis Pedis] Respiratory 13 19 13 Rate Blood Pressure 80/54 80/54 88/54 O2 Sat by Pulse 95 96 95 Oximetry O2 Sat by Pulse Oximetry [ Anterior Bilateral] O2 Sat by Pulse Oximetry [ Bilateral Throughout] 05/31/19 05/31/19 05/31/19 09:30 09:40 09:50 Temperature Pulse Rate 101 H 100 H 100 H Pulse Rate [ Apical] Pulse Rate [ From Monitor] Pulse Rate [ Right Dorsalis Pedis] Respiratory 29 H 35 H 19 Rate Blood Pressure 83/47 83/47 78/45 O2 Sat by Pulse 94 94 94 Oximetry O2 Sat by Pulse Oximetry [ Anterior Bilateral] O2 Sat by Pulse Oximetry [ Bilateral Throughout] 05/31/19 05/31/19 05/31/19 10:00 10:10 10:20 Temperature Pulse Rate 102 H 102 H 105 H Pulse Rate [ Apical] Pulse Rate [ From Monitor] Pulse Rate [ Right Dorsalis Pedis] Respiratory 21 25 H 26 H Rate Blood Pressure 87/51 87/51 87/53 O2 Sat by Pulse 95 96 95 Oximetry O2 Sat by Pulse Oximetry [ Anterior Bilateral] O2 Sat by Pulse Oximetry [ Bilateral Throughout] 05/31/19 05/31/19 05/31/19 10:30 10:40 10:50 Temperature Pulse Rate 100 H 99 H 108 H Pulse Rate [ Apical] Pulse Rate [ From Monitor] Pulse Rate [ Right Dorsalis Pedis] Respiratory 20 20 31 H Rate Blood Pressure 79/49 79/49 92/53 O2 Sat by Pulse 95 95 97 Oximetry O2 Sat by Pulse Oximetry [ Anterior Bilateral] O2 Sat by Pulse Oximetry [ Bilateral Throughout] 05/31/19 05/31/19 05/31/19 11:00 11:10 11:20 Temperature Pulse Rate 120 H 121 H Pulse Rate [ Apical] Pulse Rate [ From Monitor] Pulse Rate [ Right Dorsalis Pedis] Respiratory 29 H 25 H Rate Blood Pressure 79/49 121/69 117/69 O2 Sat by Pulse 95 95 96 Oximetry O2 Sat by Pulse Oximetry [ Anterior Bilateral] O2 Sat by Pulse Oximetry [ Bilateral Throughout] 05/31/19 05/31/19 05/31/19 11:30 11:40 11:50 Temperature Pulse Rate 120 H 118 H 117 H Pulse Rate [ Apical] Pulse Rate [ From Monitor] Pulse Rate [ Right Dorsalis Pedis] Respiratory 32 H 27 H 30 H Rate Blood Pressure 117/69 128/57 118/69 O2 Sat by Pulse 86 94 95 Oximetry O2 Sat by Pulse Oximetry [ Anterior Bilateral] O2 Sat by Pulse Oximetry [ Bilateral Throughout] 05/31/19 05/31/19 05/31/19 12:00 12:04 12:10 Temperature 98.3 F Pulse Rate 122 H 117 H 114 H Pulse Rate [ 99 H Apical] Pulse Rate [ 95 H From Monitor] Pulse Rate [ 95 H Right Dorsalis Pedis] Respiratory 25 H 28 H Rate Blood Pressure 118/82 118/82 118/82 O2 Sat by Pulse 95 91 Oximetry O2 Sat by Pulse Oximetry [ Anterior Bilateral] O2 Sat by Pulse Oximetry [ Bilateral Throughout] 05/31/19 05/31/19 05/31/19 12:20 12:30 12:40 Temperature Pulse Rate 116 H 112 H 111 H Pulse Rate [ Apical] Pulse Rate [ From Monitor] Pulse Rate [ Right Dorsalis Pedis] Respiratory 30 H 34 H 29 H Rate Blood Pressure 108/71 102/71 102/71 O2 Sat by Pulse 94 94 93 Oximetry O2 Sat by Pulse Oximetry [ Anterior Bilateral] O2 Sat by Pulse Oximetry [ Bilateral Throughout] 05/31/19 05/31/19 05/31/19 12:50 13:00 13:10 Temperature 98.3 F Pulse Rate 108 H 106 H 114 H Pulse Rate [ Apical] Pulse Rate [ From Monitor] Pulse Rate [ Right Dorsalis Pedis] Respiratory 29 H 25 H 30 H Rate Blood Pressure 98/67 105/58 105/66 O2 Sat by Pulse 93 93 90 Oximetry O2 Sat by Pulse 92 Oximetry [ Anterior Bilateral] O2 Sat by Pulse 92 Oximetry [ Bilateral Throughout] 05/31/19 05/31/19 05/31/19 13:15 13:20 13:30 Temperature Pulse Rate 106 H 106 H 111 H Pulse Rate [ Apical] Pulse Rate [ From Monitor] Pulse Rate [ Right Dorsalis Pedis] Respiratory 30 H 24 Rate Blood Pressure 105/58 105/58 89/48 O2 Sat by Pulse 91 90 Oximetry O2 Sat by Pulse Oximetry [ Anterior Bilateral] O2 Sat by Pulse Oximetry [ Bilateral Throughout] 05/31/19 05/31/19 05/31/19 13:40 13:45 14:00 Temperature Pulse Rate 111 H 111 H 111 H Pulse Rate [ Apical] Pulse Rate [ From Monitor] Pulse Rate [ Right Dorsalis Pedis] Respiratory 25 H 24 Rate Blood Pressure 105/66 105/66 95/60 O2 Sat by Pulse 93 93 Oximetry O2 Sat by Pulse Oximetry [ Anterior Bilateral] O2 Sat by Pulse Oximetry [ Bilateral Throughout] 05/31/19 05/31/19 05/31/19 14:15 14:30 14:45 Temperature Pulse Rate 108 H 108 H 107 H Pulse Rate [ Apical] Pulse Rate [ From Monitor] Pulse Rate [ Right Dorsalis Pedis] Respiratory 27 H 29 H Rate Blood Pressure 99/70 99/70 100/54 O2 Sat by Pulse 96 96 Oximetry O2 Sat by Pulse Oximetry [ Anterior Bilateral] O2 Sat by Pulse Oximetry [ Bilateral Throughout] 05/31/19 05/31/19 05/31/19 14:46 15:00 15:15 Temperature Pulse Rate 104 H 104 H 117 H Pulse Rate [ Apical] Pulse Rate [ From Monitor] Pulse Rate [ Right Dorsalis Pedis] Respiratory 30 H 30 H 26 H Rate Blood Pressure 106/58 106/58 99/60 O2 Sat by Pulse 94 95 94 Oximetry O2 Sat by Pulse Oximetry [ Anterior Bilateral] O2 Sat by Pulse Oximetry [ Bilateral Throughout] 05/31/19 05/31/19 05/31/19 15:30 15:45 15:46 Temperature Pulse Rate 105 H 105 H 109 H Pulse Rate [ Apical] Pulse Rate [ From Monitor] Pulse Rate [ Right Dorsalis Pedis] Respiratory 28 H 26 H Rate Blood Pressure 93/61 91/51 91/61 O2 Sat by Pulse 96 97 Oximetry O2 Sat by Pulse Oximetry [ Anterior Bilateral] O2 Sat by Pulse Oximetry [ Bilateral Throughout] 05/31/19 05/31/19 16:00 16:15 Temperature Pulse Rate 107 H 109 H Pulse Rate [ 99 H Apical] Pulse Rate [ 113 H From Monitor] Pulse Rate [ 113 H Right Dorsalis Pedis] Respiratory 30 H Rate Blood Pressure 81/51 110/68 O2 Sat by Pulse 96 Oximetry O2 Sat by Pulse Oximetry [ Anterior Bilateral] O2 Sat by Pulse Oximetry [ Bilateral Throughout] - General Appearance General appearance: well-developed, fatigue EENT: ATNC, PERRL, hearing intact Neck: no JVD, supple Respiratory: Present: Decreased Breath Sounds Cardiology: regular, S1S2 Gastrointestinal: normoactive bowel sounds Integumentary: warm and dry Neurologic: other (Awake and alert) Musculoskeletal: other (positive edema) - Lab 05/31/19 05:00 05/31/19 05:00 Most recent lab results ABG pH 7.538 pH Units (7.350-7.450) H 05/29/19 19:14 ABG pCO2 29.6 mm Hg 05/29/19 19:14 ABG pO2 70.1 mm Hg (80.0-90.0) L 05/29/19 19:14 ABG HCO3 24.6 mmol/L (20.0-26.0) 05/29/19 19:14 ABG O2 Saturation 95.1 % (95.0-99.0) 05/29/19 19:14 Calcium 9.6 mg/dL (8.4-10.2) 05/31/19 05:00 Phosphorus 4.60 mg/dL (2.5-4.5) H 05/28/19 06:42 Magnesium 1.80 mg/dL (1.7-2.3) 05/30/19 05:24 Urine Creatinine 103.7 mg/dL (0.1-20.0) H 05/26/19 Unknown Urine Sodium 73 mmol/L 05/26/19 Unknown Urine Total Protein 213 mg/dL (5-11.8) H 05/26/19 Unknown Medications & Allergies - Medications Allergies/Adverse Reactions: Allergies codeine [From Tylenol-Codeine #3] Allergy (Verified 05/25/19 11:33) Unknown tramadol Allergy (Verified 05/25/19 11:33) Unknown Home Medications: Home Medications Medication Instructions Recorded Confirmed Last Taken Type Furosemide [Lasix TAB] 40 mg PO QDAY 05/25/19 05/25/19 Unknown History Gabapentin [Neurontin] 100 mg PO Q8HR 05/25/19 05/25/19 Unknown History NIFEdipine [Nifedipine ER] 30 mg PO QDAY 05/25/19 05/25/19 Unknown History Prednisone [predniSONE (Marie) ER 5 mg PO QDAY 05/25/19 05/25/19 Unknown History TAB] Rosuvastatin Calcium 20 mg PO QHS 05/25/19 05/25/19 Unknown History Ticagrelor (Nf) [Brilinta (Nf)] 60 mg PO DAILY 05/25/19 05/25/19 Unknown History carvediloL [Coreg] 25 mg PO BID 05/25/19 05/25/19 Unknown History lisinopriL [Zestril TAB] 10 mg PO QDAY 05/25/19 05/25/19 Unknown History Active Medications: Generic Name Dose Route Start Last Admin Trade Name Freq PRN Reason Stop Dose Admin Acetaminophen 650 mg 05/25/19 21:33 05/28/19 09:54 Tylenol PO 650 mg Q4H PRN Administration Pain MILD(1-3)/Fever >100.5/SKINNER Acetaminophen 650 mg 05/31/19 04:40 05/31/19 04:55 Tylenol VA 650 mg Q4H PRN Administration Pain, Mild (1-3) Albuterol 2.5 mg 05/30/19 10:04 05/31/19 13:40 Proventil IH 2.5 mg TIDRT SHEBA Administration Aspirin 81 mg 05/29/19 10:00 05/31/19 12:04 Halfprin Ec PO 81 mg QDAY SHEBA Administration Atorvastatin Calcium 40 mg 05/25/19 22:00 03/15/20 21:21 Lipitor PO 40 mg QHS SHEBA Administration Carvedilol 6.25 mg 05/31/19 12:00 05/31/19 12:04 Coreg PO 6.25 mg BID SHEBA Administration Gabapentin 100 mg 05/25/19 22:00 05/31/19 05:05 Gabapentin PO Not Given Q8HR SHEBA Heparin Sodium (Porcine) 5,000 unit 05/25/19 22:00 05/31/19 11:51 Heparin SUB-Q 5,000 unit Q12HR SHEBA Administration Hydralazine HCl 5 mg 05/25/19 22:20 05/25/19 22:58 Apresoline IV 5 mg Q6H PRN Administration Hypertension Hydromorphone HCl 0.5 mg 05/25/19 16:55 05/31/19 03:40 Dilaudid IV 0.5 mg Q3H PRN Administration Pain , Severe (7-10) Cefepime HCl 1 gm in 100 mls @ 200 mls/hr 05/28/19 06:00 05/31/19 05:23 Cefepime/Ns 1 Gm/100 Ml IV 200 mls/hr Q24H [facility] Administration Protocol Metronidazole 500 mg in 100 mls @ 100 mls/hr 05/28/19 18:00 05/31/19 11:51 Flagyl 500 Mg/100 Ml IV 100 mls/hr Q8H [facility] Administration Protocol Sodium Chloride 100 mls @ 999 mls/hr 05/29/19 10:38 Nacl 0.9% IV THOMPSON PRN Hypotension Norepinephrine 4 mg in 250 mls @ 7.5 mls/hr 05/29/19 20:00 05/31/19 13:39 Levophed Drip 4 Mg/Ns 250 Ml IV 10 mcg/min TITR SHEBA 37.5 mls/hr Administration Protocol 2 MCG/MIN Insulin Human Lispro 0 unit 05/29/19 18:30 05/31/19 13:07 Humalog SUB-Q 2 unit Q6HR [facility] Administration Protocol Ondansetron HCl 4 mg 05/25/19 21:33 Zofran IV Q8H PRN Nausea And Vomiting Oxycodone/Acetaminophen 1 tab 05/25/19 21:33 05/26/19 19:31 Percocet 5/325 PO 1 tab Q6H PRN Administration Pain, Moderate (4-6) Pantoprazole Sodium 40 mg 05/29/19 10:00 05/31/19 11:51 Protonix PO 40 mg QDAY SHEBA Administration Sodium Chloride 10 ml 05/25/19 22:00 05/31/19 10:00 Sodium Chloride Flush Syringe 10 Ml IV 10 ml BID SHEBA Administration Sodium Chloride 10 ml 05/25/19 21:33 05/30/19 00:24 Sodium Chloride Flush Syringe 10 Ml IV 10 ml PRN PRN Administration LINE FLUSH
--- NOTE | 2019-05-31 18:00 | Progress Note ---
Assessment and Plan Assessment and plan: --Sepsis/ immunocompromised patient Current Visit: Yes Status: Acute Fever , leukocytosis , tachycardia , worsening renal function pneumonia , on IV antibiotics cefepime, cultures negative to date, ID following, --CONSTANTINO (acute kidney injury)/worsening renal function Current Visit: Yes Status: Acute Nephrology initiated hemodialysis yesterday HD as needed --History of renal transplant; 1983 Current Visit: Yes Status: Chronic Many years ago, management per nephrology Nephrology, IR, urology recommended transfer to [facility] has accepted transfer to ICU 05/29/19 pending availability of [place] ICU beds We will continue to follow --Acute hypoxic respiratory failure; requiring BiPAP, symptoms slightly improved Duo nebs, supportive care --Hypotension; patient on dobutamine, Levophed as needed --Hydronephrosis on CT Urology and IR consulted As patient is immunocompromised, with h/o renal transplant patient Recommend transfer to tertiary care center, [facility] Accepted transfer, pending availability of [place] ICU beds --Pneumonia; on chest x-ray continue current antibiotics, follow cultures. --Acute pansinusitis; on's CT head: Continue current antibiotics, ID following. Consider MRI brain, follow cultures -- Hyperkalemia Current Visit: Yes Status: Acute . Resolved, on hemodialysis --Acute on chronic systolic CHF (congestive heart failure) Current Visit: Yes Status: Chronic EF 15 to 20%, diuretics, beta-blockers, hold JAREK inhibitors due to CONSTANTINO Dobutamine, Cardiology following, --Severe cardiomyopathy; EF 15 to 20%/hypotension s/p dobutamine drip, management per cardiology --Left upper extremity swelling: Resolved Venous Doppler negative for DVT --History of total hip replacement: Physical therapy occupational therapy -- T2DM (type 2 diabetes mellitus) Current Visit: Yes Status: Chronic Accu-Chek sliding scale coverage ADA diet. Insulin as needed, Hb A1c 6.5 --DVT prophylaxis Current Visit: Yes Status: Acute On Heparin --Severe protein calorie malnutrition; hypoalbuminemia Nutrition supplement, nutrition consult, supportive care Patient is critically ill, prognosis Monitor closely and adjust management as needed Plan of care reviewed with the patient's nurse Transfer to [place] processed, patient was accepted for [place] ICU admission pending ICU bed availability Critical care time 35 minutes History Interval history: I have seen the patient at the bedside in ICU this morning Last 24 hours events noted, patient's chart medications other documentations reviewed Patient looks chronically and critically ill looking Responding to simple questions, in acute distress Vital signs noted Hospitalist Physical - Constitutional Vitals: Temp Pulse Resp BP Pulse Ox 98.3 F 107 H 23 118/74 97 05/31/19 16:37 05/31/19 16:37 05/31/19 16:37 05/31/19 16:37 05/31/19 16:00 General appearance: Present: mild distress, well-nourished, other (Responding to simple questions, ) - EENT Eyes: Present: PERRL, EOM intact - Neck Neck: Present: supple, normal ROM - Respiratory Respiratory effort: normal Respiratory: bilateral: diminished, rhonchi, negative: rales, wheezing - Cardiovascular Rhythm: regular Heart Sounds: Present: S1 & S2 - Extremities Extremities: no ischemia Extremity abnormal: edema - Abdominal General gastrointestinal: soft, non-tender, non-distended, normal bowel sounds - Integumentary Integumentary: Present: clear, warm - Psychiatric Psychiatric: other (Minimally communicative) - Neurologic Neurologic: moves all extremities Results - Labs CBC & Chem 7: 05/31/19 05:00 05/31/19 05:00 Labs: Laboratory Last Values WBC 12.3 K/mm3 (4.5-11.0) H 05/31/19 05:00 RBC 2.84 M/mm3 (3.65-5.03) L 05/31/19 05:00 Hgb 8.1 gm/dl (11.8-15.2) L 05/31/19 05:00 Hct 24.6 % (35.5-45.6) L 05/31/19 05:00 MCV 87 fl (84-94) 05/31/19 05:00 MCH 29 pg (28-32) 05/31/19 05:00 MCHC 33 % (32-34) 05/31/19 05:00 RDW 17.4 % (13.2-15.2) H 05/31/19 05:00 Plt Count 228 K/mm3 (140-440) 05/31/19 05:00 Lymph % (Auto) 8.4 % (13.4-35.0) L 05/30/19 05:24 Jones % (Auto) 13.8 % (0.0-7.3) H 05/30/19 05:24 Eos % (Auto) 2.1 % (0.0-4.3) 05/30/19 05:24 Baso % (Auto) 0.2 % (0.0-1.8) 05/30/19 05:24 Lymph # 0.6 K/mm3 (1.2-5.4) L 05/30/19 05:24 Jones # 0.9 K/mm3 (0.0-0.8) H 05/30/19 05:24 Eos # 0.1 K/mm3 (0.0-0.4) 05/30/19 05:24 Baso # 0.0 K/mm3 (0.0-0.1) 05/30/19 05:24 Seg Neutrophils % 75.5 % (40.0-70.0) H 05/30/19 05:24 Seg Neutrophils # 5.2 K/mm3 (1.8-7.7) 05/30/19 05:24 PT 15.6 Sec. (12.2-14.9) H 05/25/19 11:59 INR 1.22 (0.87-1.13) H 05/25/19 11:59 APTT 38.9 Sec. (24.2-36.6) H 05/25/19 11:59 ABG pH 7.538 pH Units (7.350-7.450) H 05/29/19 19:14 ABG pCO2 29.6 mm Hg 05/29/19 19:14 ABG pO2 70.1 mm Hg (80.0-90.0) L 05/29/19 19:14 ABG HCO3 24.6 mmol/L (20.0-26.0) 05/29/19 19:14 ABG O2 Saturation 95.1 % (95.0-99.0) 05/29/19 19:14 ABG O2 Content 15.7 (0.0-44) 05/29/19 19:14 ABG Base Excess 2.6 mmol/L (-2.0-3.0) 05/29/19 19:14 ABG Hemoglobin 11.8 gm/dl (14.0-18.0) L 05/29/19 19:14 ABG Carboxyhemoglobin 0.5 % (0.0-5.0) 05/29/19 19:14 ABG Methemoglobin 0.5 % (0.0-1.5) 05/29/19 19:14 VBG pH 7.407 (7.320-7.420) 05/25/19 11:59 Oxyhemoglobin 94.1 % (95.0-99.0) L 05/29/19 19:14 FiO2 60 % 05/29/19 19:14 Sodium 139 mmol/L (137-145) 05/31/19 05:00 Potassium 3.6 mmol/L (3.6-5.0) 05/31/19 05:00 Chloride 94.0 mmol/L (98-107) L 05/31/19 05:00 Carbon Dioxide 26 mmol/L (22-30) 05/31/19 05:00 Anion Gap 23 mmol/L 05/31/19 05:00 BUN 33 mg/dL (9-20) H 05/31/19 05:00 Creatinine 3.8 mg/dL (0.8-1.5) H 05/31/19 05:00 Estimated GFR 19 ml/min 05/31/19 05:00 BUN/Creatinine Ratio 9 % 05/31/19 05:00 Glucose 112 mg/dL (75-100) H 05/31/19 05:00 POC Glucose 169 (70-105) H 05/31/19 13:10 Hemoglobin A1c 6.5 % (4-6) H 05/25/19 11:59 Lactic Acid 1.90 mmol/L (0.7-2.0) 05/25/19 15:23 Calcium 9.6 mg/dL (8.4-10.2) 05/31/19 05:00 Phosphorus 4.60 mg/dL (2.5-4.5) H 05/28/19 06:42 Magnesium 1.80 mg/dL (1.7-2.3) 05/30/19 05:24 Iron 12 ug/dL (49-181) L 05/29/19 05:30 TIBC 120 mcg/dL (250-450) L 05/29/19 05:30 Ferritin 1177.0 ng/mL (13.0-400.0) H 05/29/19 05:30 Total Bilirubin 0.50 mg/dL (0.1-1.2) 05/30/19 05:24 Direct Bilirubin 0.3 mg/dL (0-0.2) H 05/30/19 05:24 Indirect Bilirubin 0.2 mg/dL 05/30/19 05:24 AST 42 units/L (5-40) H 05/30/19 05:24 ALT 22 units/L (7-56) 05/30/19 05:24 Alkaline Phosphatase 96 units/L (35-129) 05/30/19 05:24 Ammonia 29.0 umol/L (25-60) 05/25/19 11:59 Total Creatine Kinase 160 units/L (55-170) 05/25/19 15:23 CK-MB (CK-2) 1.3 ng/mL (0.0-4.0) 05/25/19 15:23 CK-MB (CK-2) Rel Index 0.8 (0-4) 05/25/19 15:23 Troponin T 0.047 ng/mL (0.00-0.029) H 05/25/19 11:59 NT-Pro-B Natriuret Pep 5533 pg/mL (0-900) H 05/25/19 11:59 Total Protein 6.1 g/dL (6.3-8.2) L 05/30/19 05:24 Albumin 2.2 g/dL (3.9-5) L 05/30/19 05:24 Albumin/Globulin Ratio 0.6 % 05/30/19 05:24 Triglycerides 96 mg/dL (2-149) 05/25/19 11:59 Cholesterol 166 mg/dL (50-199) 05/25/19 11:59 LDL Cholesterol Direct 106 mg/dL (50-130) 05/25/19 11:59 HDL Cholesterol 51 mg/dL (40-59) 05/25/19 11:59 Cholesterol/HDL Ratio 3.25 % 05/25/19 11:59 Urine Color Yellow (Yellow) 05/25/19 15:07 Urine Turbidity Clear (Clear) 05/25/19 15:07 Urine pH 6.0 (5.0-7.0) 05/25/19 15:07 Ur Specific [place] 1.013 (1.003-1.030) 05/25/19 15:07 Urine Protein 100 mg/dl mg/dL (Negative) 05/25/19 15:07 Urine Glucose (UA) 50 mg/dL (Negative) 05/25/19 15:07 Urine Ketones Neg mg/dL (Negative) 05/25/19 15:07 Urine Blood Sm (Negative) 05/25/19 15:07 Urine Nitrite Neg (Negative) 05/25/19 15:07 Urine Bilirubin Neg (Negative) 05/25/19 15:07 Urine Urobilinogen 2.0 mg/dL (<2.0) 05/25/19 15:07 Ur Leukocyte Esterase Neg (Negative) 05/25/19 15:07 Urine WBC (Auto) < 1.0 /HPF (0.0-6.0) 05/25/19 15:07 Urine RBC (Auto) 5.0 /HPF (0.0-6.0) 05/25/19 15:07 U Epithel Cells (Auto) < 1.0 /HPF (0-13.0) 05/25/19 15:07 Urine Creatinine 103.7 mg/dL (0.1-20.0) H 05/26/19 Unknown Protein/Creatinin Ratio 2.05 05/26/19 Unknown Urine Sodium 73 mmol/L 05/26/19 Unknown Urine Total Protein 213 mg/dL (5-11.8) H 05/26/19 Unknown Hepatitis A IgM Ab Non-reactive (NonReactive) 05/29/19 05:58 Hep Bs Antigen Non-reactive (Negative) 05/29/19 05:58 Hep B Core IgM Ab Non-reactive (NonReactive) 05/29/19 05:58 Hepatitis C Antibody Non-reactive (NonReactive) 05/29/19 05:58 Influenza A (Rapid) Negative (Negative) 05/29/19 18:30 Influenza B (Rapid) Negative (Negative) 05/29/19 18:30 Esquivel/IV: Voiding Method Condom Catheter IV Catheter Type [Left Wrist] INT / Saline Lock IV Catheter Type [Left Hand] INT / Saline Lock IV Catheter Type [Left Femoral INT / Saline Lock ] IV Catheter Type [Left Forearm INT / Saline Lock ] Active Medications - Current Medications Current Medications: Generic Name Dose Route Start Last Admin Trade Name Freq PRN Reason Stop Dose Admin Acetaminophen 650 mg 05/25/19 21:33 05/28/19 09:54 Tylenol PO 650 mg Q4H PRN Administration Pain MILD(1-3)/Fever >100.5/SKINNER Acetaminophen 650 mg 05/31/19 04:40 05/31/19 04:55 Tylenol [place] 650 mg Q4H PRN Administration Pain, Mild (1-3) Albuterol 2.5 mg 05/30/19 10:04 05/31/19 13:40 Proventil IH 2.5 mg TIDRT SHEBA Administration Aspirin 81 mg 05/29/19 10:00 05/31/19 12:04 Halfprin Ec PO 81 mg QDAY SHEBA Administration Atorvastatin Calcium 40 mg 05/25/19 22:00 05/30/19 21:21 Lipitor PO 40 mg QHS SHEBA Administration Carvedilol 6.25 mg 05/31/19 12:00 05/31/19 12:04 Coreg PO 6.25 mg BID SHEBA Administration Gabapentin 100 mg 05/25/19 22:00 05/31/19 05:05 Gabapentin PO Not Given Q8HR [facility] Heparin Sodium (Porcine) 5,000 unit 05/25/19 22:00 05/31/19 11:51 Heparin SUB-Q 5,000 unit Q12HR SHEBA Administration Hydralazine HCl 5 mg 05/25/19 22:20 05/25/19 22:58 Apresoline IV 5 mg Q6H PRN Administration Hypertension Hydromorphone HCl 0.5 mg 05/25/19 16:55 05/31/19 03:40 Dilaudid IV 0.5 mg Q3H PRN Administration Pain , Severe (7-10) Cefepime HCl 1 gm in 100 mls @ 200 mls/hr 05/28/19 06:00 05/31/19 05:23 Cefepime/Ns 1 Gm/100 Ml IV 200 mls/hr Q24H [facility] Administration Protocol Metronidazole 500 mg in 100 mls @ 100 mls/hr 05/28/19 18:00 05/31/19 11:51 Flagyl 500 Mg/100 Ml IV 100 mls/hr Q8H [facility] Administration Protocol Sodium Chloride 100 mls @ 999 mls/hr 05/29/19 10:38 Nacl 0.9% IV [place] PRN Hypotension Norepinephrine 4 mg in 250 mls @ 7.5 mls/hr 05/29/19 20:00 05/31/19 13:39 Levophed Drip 4 Mg/Ns 250 Ml IV 10 mcg/min TITR SHEBA 37.5 mls/hr Administration Protocol 2 MCG/MIN Insulin Human Lispro 0 unit 05/29/19 18:30 05/31/19 13:07 Humalog SUB-Q 2 unit Q6HR SHEBA Administration Protocol Ondansetron HCl 4 mg 05/25/19 21:33 Zofran IV Q8H PRN Nausea And Vomiting Oxycodone/Acetaminophen 1 tab 05/25/19 21:33 05/26/19 19:31 Percocet 5/325 PO 1 tab Q6H PRN Administration Pain, Moderate (4-6) Pantoprazole Sodium 40 mg 05/29/19 10:00 05/31/19 11:51 Protonix PO 40 mg QDAY SHEBA Administration Sodium Chloride 10 ml 05/25/19 22:00 05/31/19 10:00 Sodium Chloride Flush Syringe 10 Ml IV 10 ml BID SHEBA Administration Sodium Chloride 10 ml 05/25/19 21:33 05/30/19 00:24 Sodium Chloride Flush Syringe 10 Ml IV 10 ml PRN PRN Administration LINE FLUSH Nutrition/Malnutrition Assess - Dietary Evaluation Nutrition/Malnutrition Findings: Nutrition Notes Start: 05/31/19 11:1 8 Freq: Status: Active Protocol: Document 05/31/19 11:18 LM (Rec: 05/31/19 11:37 LM [id number]) Nutrition Notes Need for Assessment generated from: MD Order,MST Initial or Follow up Assessment Current Diagnosis Acute Kidney Injury,Diabetes, Heart Failure Other Pertinent Diagnosis on HD, hydronephrosis, hx renal transplant Current Diet Renal Labs/Tests BUN 33 Cr 3.8 BG 112 Pertinent Medications Levophed Height 6 ft Weight 93 kg [place] Body Weight (kg) 80.90 BMI 27.8 Weight Status Overweight Subjective/Other Information MD consult for malnurition. Unable to obtain hx from pt. Per RN pt ate well this AM. Weak master at arms and edema documented in chart. Burn Absent Trauma Absent GI Symptoms None Current % PO Good (75-100%) Minimum of two criteria Yes Fluid Accumulation Mild (non-severe) Reduced Table Assembler Strength Measurably Reduced (severe) #1 Nutrition Diagnosis Malnutrition Etiology Chronic illness As Evidenced by Signs and Symptoms pt with weak master at arms strength and fluid accumulation Is patient on ventilator? No Is Patient Ambulatory and/or Out of Bed No REE-([facility]-confined to bed) [phone] Calculation Used for Recommendations [place] Additional Notes Protein: >112g (>1.2g/kg) Fluid: per MD Nutrition Intervention Change Diet Order: Continue renal Goal #1 Meet at least 80% of energy and protein needs Anticipated Discharge Needs: Renal diet Follow-Up By: 06/02/19 Additional Comments F/U for intakes, ONS needs, full assessment
--- NOTE | 2019-05-31 18:52 | Progress Note ---
Assessment and Plan Cultures: 05/25/2019 blood culture: No growth 05/28/2019 blood culture: In process 313 urine culture: Enterococcus faecalis A/P: 64-year-old male with hypertension, renal transplant, CKD, current im munosuppression is unclear, patient is a poor historian, states he takes prednisone admitted on 05/25/2019 after he was found lying down: #Possible sepsis: Leucocytosis on admission. Etiology unclear. UA benign. Chest x-ray on admission did not reveal pneumonia. CT abdomen pelvis showed moderate hydronephrosis of the transplant graft. Lower lung cuts did not reveal evidence of pneumonia. CT head did show evidence of pansinusitis. #Acute renal failure on CKD: Renally dose antibiotics. creatinine worsening. #Immunocompromised host, renal transplant: Current immunosuppression unclear, it appears patient is only on prednisone. #Acute encephalopathy: Multifactorial. Has evidence of pansinusitis on CT, recommend MRI brain without contrast. Recs: Stop cefepime as does not treat enterococcus Started Unasyn renally dosed Stopped Flagyl Urgent MRI brain ordered Follow-up blood cultures No evidence of pneumonia, droplet and contact isolation and not needed Patient awaiting possible transfer to tertiary care center Niesha Roth MD [facility] M: [phone] O: [phone] F: [phone] Subjective Date of service: 05/31/19 Principal diagnosis: CKD Interval history: Remains febrile and white count now elevated again. Objective - Exam Narrative Exam: Constitutional: Drowsy, easily awakened, cooperative. No acute distress Head, Ears, Nose: Normocephalic, atraumatic. External ears, nose normal Eyes: Conjunctivae/corneas clear. No icterus. No ptosis. Neck: Supple, no meningeal signs Cardiovascular: S1, S2 normal. Respiratory: Good air entry, clear to auscultation bilaterally GI: Soft, non-tender; bowel sounds normal. No peritoneal signs Musculoskeletal: No pedal edema, no cyanosis. Skin: No rash or abscess Hem/Lymphatic: No palpable cervical or supraclavicular nodes. No lymphangitis Psych: No agitation Neurological: Drowsy, easily awakened but examination limited - Constitutional Vitals: Vital Signs Temp Pulse Resp BP Pulse Ox 98.3 F 107 H 23 118/74 97 05/31/19 16:37 05/31/19 16:37 05/31/19 16:37 05/31/19 16:37 05/31/19 16:00 Temperature -Last 24 Hours Temperature 98.3 F Temperature 99.4 F Temperature 98.3 F Temperature 98.3 F Temperature 99.7 F Temperature 102.0 F Temperature 101.8 F Temperature 99.6 F Temperature 99.8 F Temperature 99.4 F Temperature 99.4 F - Labs CBC & Chem 7: 05/31/19 05:00 05/31/19 05:00 Labs: Abnormal lab results 05/30/19 05/30/19 05/30/19 Range/Units 12:41 18:04 23:58 WBC (4.5-11.0) K/mm3 RBC (3.65-5.03) M/mm3 Hgb (11.8-15.2) gm/dl Hct (35.5-45.6) % RDW (13.2-15.2) % Chloride (98-107) mmol/L BUN (9-20) mg/dL Creatinine (0.8-1.5) mg/dL Glucose (75-100) mg/dL POC Glucose 187 H 173 H 185 H (70-105) 05/31/19 05/31/19 05/31/19 Range/Units 05:00 05:00 06:13 WBC 12.3 H (4.5-11.0) K/mm3 RBC 2.84 L (3.65-5.03) M/mm3 Hgb 8.1 L (11.8-15.2) gm/dl Hct 24.6 L (35.5-45.6) % RDW 17.4 H (13.2-15.2) % Chloride 94.0 L (98-107) mmol/L BUN 33 H (9-20) mg/dL Creatinine 3.8 H (0.8-1.5) mg/dL Glucose 112 H (75-100) mg/dL POC Glucose 115 H (70-105) 05/31/19 Range/Units 13:10 WBC (4.5-11.0) K/mm3 RBC (3.65-5.03) M/mm3 Hgb (11.8-15.2) gm/dl Hct (35.5-45.6) % RDW (13.2-15.2) % Chloride (98-107) mmol/L BUN (9-20) mg/dL Creatinine (0.8-1.5) mg/dL Glucose (75-100) mg/dL POC Glucose 169 H (70-105)
--- NOTE | 2019-05-31 19:08 | Magnetic Resonance Report ---
NONENHANCED MR SCAN OF THE BRAIN: INDICATION / CLINICAL INFORMATION: AMS, immunocompromised, pansinusitis. TECHNIQUE: Multiplanar, multisequence MR images of the brain were noncontrast MRI brain normal brain MR obtained . COMPARISON: CT scan of the head from 05/25/2019 FINDINGS: BRAIN / INTRACRANIAL CONTENTS: Normal diffusion-weighted images and gradient echo images would exclud e acute/subacute ischemia and hemorrhagic and calcified lesions In the FLAIR and T2-weighted images, no space taking lesion in the brain. Confluent patchy white no er hyperintensities seen above the atria of the lateral ventricles. Deep hemispheric white matter les ions are seen in both cerebral hemispheres. These are probably due to chronic small vessel disease. N o confluent white matter lesions through the entire cerebral hemispheres that would be suggestive of encephalopathy from immunocompromise.. No focal area of vasogenic edema or space taking lesion in the brain. We did not not obtain gadolinium enhanced images. Brainstem and cerebellar hemispheres are normal. Mucosal disease seen in the right sphenoid sinus, both anterior ethmoid air cells and sphenoid and fr ontal sinuses bilaterally. CRANIOCERVICAL JUNCTION: No significant abnormality. VASCULAR FLOW-VOIDS: No significant abnormality. ORBITS: No significant abnormality of visualized orbits. SINUSES / MASTOIDS: No significant abnormality of visualized sinuses and mastoid air cells. ADDITIONAL FINDINGS: None. IMPRESSION: No acute/subacute ischemia or hemorrhagic/calcified lesion Mucosal disease in the right sphenoid sinus, anterior ethmoid air cells bilaterally and frontal sinus bilaterally. No space taking lesion or focal area of vasogenic edema. Signer Name: Jane Jones MD Signed: 05/31/2019 7:04 PM Workstation Name: [id number]
[2019-05-31] MEDS: AMPICILLIN/SULBACTA 3GM/100ML 3 GM/100 ML BAG IV SCH (22:59)
[2019-06-01] MEDS: INSULIN LISPRO 100 UNIT/ML SUB-Q SCH ×5 (00:49→21:44)
[2019-06-01] MEDS: ACETAMINOPHEN 325 MG TAB PO PRN (00:49)
[2019-06-01] MEDS: metroNIDAZOLE/NS 500 MG/100 ML 500 MG/100 ML BAG IV SCH ×2 (01:42→09:29)
[2019-06-01] MEDS: NORepinephrine/NS 4 MG-250 ML 4 MG/250 ML BAG IV SCH ×3 (02:15→23:13)
[2019-06-01 05:11] LABS: Hematocrit 25.3 % (35.5-45.6); Mean Corpuscular HGB Conc 32 % (32-34); Mean Corpuscular Volume 90 fl (84-94); Platelet Count 271 K/mm3 (140-440); Red Blood Count 2.82 M/mm3 (3.65-5.03); Red Cell Distribution Width 17.4 % (13.2-15.2)
[2019-06-01 05:24] LABS: Calcium 10.6 mg/dL (8.4-10.2)
[2019-06-01] MEDS: GABAPENTIN 100 MG CAP PO SCH ×3 (05:42→21:39)
[2019-06-01] MEDS: ALBUTEROL 2.5 MG/3 ML NEBU IH SCH ×3 (07:30→19:53)
--- NOTE | 2019-06-01 08:47 | Progress Note ---
Assessment and Plan Assessment and plan: --Hypotension; shock Continue Levophed , midodrine Closely monitor blood pressures Adjust as needed --Sepsis/ immunocompromised patient Current Visit: Yes Status: Acute Fever , leukocytosis , tachycardia , worsening renal function pneumonia , s/p cefepime, now on Unasyn per ID cultures negative to date, MRI brain; mucosal disease sinuses no other abnormalities noted --CONSTANTINO (acute kidney injury)/worsening renal function Current Visit: Yes Status: Acute Nephrology initiated hemodialysis HD as needed/per schedule --History of renal transplant; 1983 Current Visit: Yes Status: Chronic Nephrology, IR, urology recommended transfer to [facility] has accepted transfer to ICU 05/29/19 pending availability of [place] ICU beds --Acute hypoxic respiratory failure; requiring BiPAP, symptoms slightly improved Duo nebs, supportive care --Hydronephrosis on CT Urology and IR consulted As patient is immunocompromised, with h/o renal transplant patient Recommend transfer to tertiary care center, [facility] Accepted transfer, pending availability of [place] ICU beds --Pneumonia; on chest x-ray continue current antibiotics, follow cultures. --Acute pansinusitis; on's CT head: Continue current antibiotics, ID following. MRI brain, mucosal disease of the sinuses follow cultures -- Hyperkalemia Current Visit: Yes Status: Acute . Resolved, on hemodialysis --Acute on chronic systolic CHF (congestive heart failure) Current Visit: Yes Status: Chronic EF 15 to 20%, diuretics, beta-blockers, hold JAREK inhibitors due to CONSTANTINO Dobutamine, Cardiology following, --Severe cardiomyopathy; EF 15 to 20%/hypotension s/p dobutamine drip, management per cardiology --Left upper extremity swelling: Resolved Venous Doppler negative for DVT --History of total hip replacement: Physical therapy occupational therapy -- T2DM (type 2 diabetes mellitus) Current Visit: Yes Status: Chronic Accu-Chek sliding scale coverage ADA diet. Insulin as needed, Hb A1c 6.5 --DVT prophylaxis. Current Visit: Yes Status: Acute On Heparin --Severe protein calorie malnutrition Current Visit: Yes Status: Acute And hypoalbuminemia, Nutrition supplement, nutrition consult, supportive care Patient is critically ill, prognosis Monitor closely and adjust management as needed Plan of care reviewed with the patient's nurse Transfer to [place] processed, patient was accepted for [place] ICU admission pending ICU bed availability Critical care time 35 minutes History Interval history: I have seen the patient and examined him in the bedside In ICU this morning, patient's chart and medications reviewed Patient remains critically ill febrile, hypotensive on Levophed Critically ill looking, vital signs reviewed Patient responds to simple questions appropriately In mild distress Vital signs reviewed Hospitalist Physical - Constitutional Vitals: Temp Pulse Resp BP Pulse Ox 98.3 F 83 20 94/64 96 06/01/19 08:00 06/01/19 07:31 06/01/19 07:31 06/01/19 06:15 06/01/19 07:30 General appearance: Present: mild distress, well-nourished, other (Responding to simple questions, ) - EENT Eyes: Present: PERRL, EOM intact - Neck Neck: Present: supple, normal ROM - Respiratory Respiratory effort: normal Respiratory: bilateral: diminished, rhonchi, negative: rales, wheezing - Cardiovascular Rhythm: regular Heart Sounds: Present: S1 & S2 - Extremities Extremities: no ischemia, No edema - Abdominal General gastrointestinal: soft, non-tender, non-distended, normal bowel sounds - Integumentary Integumentary: Present: clear, warm - Psychiatric Psychiatric: appropriate mood/affect, cooperative - Neurologic Neurologic: CNII-XII intact, moves all extremities Results - Labs CBC & Chem 7: 06/01/19 04:48 06/01/19 04:48 Labs: Laboratory Last Values WBC 13.4 K/mm3 (4.5-11.0) H 06/01/19 04:48 RBC 2.82 M/mm3 (3.65-5.03) L 06/01/19 04:48 Hgb 8.0 gm/dl (11.8-15.2) L 06/01/19 04:48 Hct 25.3 % (35.5-45.6) L 06/01/19 04:48 MCV 90 fl (84-94) 06/01/19 04:48 MCH 28 pg (28-32) 06/01/19 04:48 MCHC 32 % (32-34) 06/01/19 04:48 RDW 17.4 % (13.2-15.2) H 06/01/19 04:48 Plt Count 271 K/mm3 (140-440) 06/01/19 04:48 Lymph % (Auto) 8.4 % (13.4-35.0) L 05/30/19 05:24 [place] % (Auto) 13.8 % (0.0-7.3) H 05/30/19 05:24 Eos % (Auto) 2.1 % (0.0-4.3) 05/30/19 05:24 Baso % (Auto) 0.2 % (0.0-1.8) 05/30/19 05:24 Lymph # 0.6 K/mm3 (1.2-5.4) L 05/30/19 05:24 [place] # 0.9 K/mm3 (0.0-0.8) H 05/30/19 05:24 Eos # 0.1 K/mm3 (0.0-0.4) 05/30/19 05:24 Baso # 0.0 K/mm3 (0.0-0.1) 05/30/19 05:24 Seg Neutrophils % 75.5 % (40.0-70.0) H 05/30/19 05:24 Seg Neutrophils # 5.2 K/mm3 (1.8-7.7) 05/30/19 05:24 PT 15.6 Sec. (12.2-14.9) H 05/25/19 11:59 INR 1.22 (0.87-1.13) H 05/25/19 11:59 APTT 38.9 Sec. (24.2-36.6) H 05/25/19 11:59 ABG pH 7.538 pH Units (7.350-7.450) H 05/29/19 19:14 ABG pCO2 29.6 mm Hg 05/29/19 19:14 ABG pO2 70.1 mm Hg (80.0-90.0) L 05/29/19 19:14 ABG HCO3 24.6 mmol/L (20.0-26.0) 05/29/19 19:14 ABG O2 Saturation 95.1 % (95.0-99.0) 05/29/19 19:14 ABG O2 Content 15.7 (0.0-44) 05/29/19 19:14 ABG Base Excess 2.6 mmol/L (-2.0-3.0) 05/29/19 19:14 ABG Hemoglobin 11.8 gm/dl (14.0-18.0) L 05/29/19 19:14 ABG Carboxyhemoglobin 0.5 % (0.0-5.0) 05/29/19 19:14 ABG Methemoglobin 0.5 % (0.0-1.5) 05/29/19 19:14 VBG pH 7.407 (7.320-7.420) 05/25/19 11:59 Oxyhemoglobin 94.1 % (95.0-99.0) L 05/29/19 19:14 FiO2 60 % 05/29/19 19:14 Sodium 141 mmol/L (137-145) 06/01/19 04:48 Potassium 3.4 mmol/L (3.6-5.0) L 06/01/19 04:48 Chloride 100.8 mmol/L (98-107) 06/01/19 04:48 Carbon Dioxide 23 mmol/L (22-30) 06/01/19 04:48 Anion Gap 21 mmol/L 06/01/19 04:48 BUN 25 mg/dL (9-20) H 06/01/19 04:48 Creatinine 3.4 mg/dL (0.8-1.5) H 06/01/19 04:48 Estimated GFR 22 ml/min 06/01/19 04:48 BUN/Creatinine Ratio 7 % 06/01/19 04:48 Glucose 178 mg/dL (75-100) H 06/01/19 04:48 POC Glucose 183 (70-105) H 06/01/19 05:26 Hemoglobin A1c 6.5 % (4-6) H 05/25/19 11:59 Lactic Acid 1.90 mmol/L (0.7-2.0) 05/25/19 15:23 Calcium 10.6 mg/dL (8.4-10.2) H 06/01/19 04:48 Phosphorus 4.60 mg/dL (2.5-4.5) H 05/28/19 06:42 Magnesium 1.80 mg/dL (1.7-2.3) 05/30/19 05:24 Iron 12 ug/dL (49-181) L 05/29/19 05:30 TIBC 120 mcg/dL (250-450) L 05/29/19 05:30 Ferritin 1177.0 ng/mL (13.0-400.0) H 05/29/19 05:30 Total Bilirubin 0.50 mg/dL (0.1-1.2) 05/30/19 05:24 Direct Bilirubin 0.3 mg/dL (0-0.2) H 05/30/19 05:24 Indirect Bilirubin 0.2 mg/dL 05/30/19 05:24 AST 42 units/L (5-40) H 05/30/19 05:24 ALT 22 units/L (7-56) 05/30/19 05:24 Alkaline Phosphatase 96 units/L (35-129) 05/30/19 05:24 Ammonia 29.0 umol/L (25-60) 05/25/19 11:59 Total Creatine Kinase 160 units/L (55-170) 05/25/19 15:23 CK-MB (CK-2) 1.3 ng/mL (0.0-4.0) 05/25/19 15:23 CK-MB (CK-2) Rel Index 0.8 (0-4) 05/25/19 15:23 Troponin T 0.047 ng/mL (0.00-0.029) H 05/25/19 11:59 NT-Pro-B Natriuret Pep 5533 pg/mL (0-900) H 05/25/19 11:59 Total Protein 6.1 g/dL (6.3-8.2) L 05/30/19 05:24 Albumin 2.2 g/dL (3.9-5) L 05/30/19 05:24 Albumin/Globulin Ratio 0.6 % 05/30/19 05:24 Triglycerides 96 mg/dL (2-149) 05/25/19 11:59 Cholesterol 166 mg/dL (50-199) 05/25/19 11:59 LDL Cholesterol Direct 106 mg/dL (50-130) 05/25/19 11:59 HDL Cholesterol 51 mg/dL (40-59) 05/25/19 11:59 Cholesterol/HDL Ratio 3.25 % 05/25/19 11:59 Urine Color Yellow (Yellow) 05/25/19 15:07 Urine Turbidity Clear (Clear) 05/25/19 15:07 Urine pH 6.0 (5.0-7.0) 05/25/19 15:07 Ur Specific [place] 1.013 (1.003-1.030) 05/25/19 15:07 Urine Protein 100 mg/dl mg/dL (Negative) 05/25/19 15:07 Urine Glucose (UA) 50 mg/dL (Negative) 05/25/19 15:07 Urine Ketones Neg mg/dL (Negative) 05/25/19 15:07 Urine Blood Sm (Negative) 05/25/19 15:07 Urine Nitrite Neg (Negative) 05/25/19 15:07 Urine Bilirubin Neg (Negative) 05/25/19 15:07 Urine Urobilinogen 2.0 mg/dL (<2.0) 05/25/19 15:07 Ur Leukocyte Esterase Neg (Negative) 05/25/19 15:07 Urine WBC (Auto) < 1.0 /HPF (0.0-6.0) 05/25/19 15:07 Urine RBC (Auto) 5.0 /HPF (0.0-6.0) 05/25/19 15:07 U Epithel Cells (Auto) < 1.0 /HPF (0-13.0) 05/25/19 15:07 Urine Creatinine 103.7 mg/dL (0.1-20.0) H 05/26/19 Unknown Protein/Creatinin Ratio 2.05 05/26/19 Unknown Urine Sodium 73 mmol/L 05/26/19 Unknown Urine Total Protein 213 mg/dL (5-11.8) H 05/26/19 Unknown Hepatitis A IgM Ab Non-reactive (NonReactive) 05/29/19 05:58 Hep Bs Antigen Non-reactive (Negative) 05/29/19 05:58 Hep B Core IgM Ab Non-reactive (NonReactive) 05/29/19 05:58 Hepatitis C Antibody Non-reactive (NonReactive) 05/29/19 05:58 Influenza A (Rapid) Negative (Negative) 05/29/19 18:30 Influenza B (Rapid) Negative (Negative) 05/29/19 18:30 Microbiology: Microbiology 05/31/19 05:30 Peripheral/Arterial Blood Culture - Preliminary NO GROWTH AFTER 24 HOURS 05/31/19 05:30 Peripheral/Venous Blood Culture - Preliminary NO GROWTH AFTER 24 HOURS 05/28/19 Unknown Peripheral/Venous Blood Culture - Preliminary NO GROWTH AFTER 72 HOURS 05/28/19 Unknown Peripheral/Venous Blood Culture - Preliminary NO GROWTH AFTER 72 HOURS 05/28/19 Unknown Urine,Clean Catch Urine Culture - Preliminary Enterococcus Faecalis - Diagnostic Impressions Diagnostic Impressions: Echocardiogram 05/25/19 21:46 Transthoracic Echocardiogram Indication: SOB BP: 108/77 HR: 113 Conclusions *The left ventricular chamber size is moderately dilated. *Mild to moderate concentric left ventricular hypertrophy is observed. *Global left ventricular systolic function is severely decreased. *The estimated ejection fraction is 15-20%. *The right heart chambers are both mildly to moderately dilated. *There is trace of mitral regurgitation. *There is mild aortic regurgitation. *There is mild tricuspid regurgitation. Findings Left Ventricle: The left ventricular chamber size is moderately dilated. Mild to moderate concentric left ventricular hypertrophy is observed. Global left ventricular systolic function is severely decreased. The estimated ejection fraction is 15-20%. Left Atrium: The left atrium is mildly dilated. Right Ventricle: The right ventricle is mild to moderately dilated. The right ventricular global systolic function is mildly reduced. Right Atrium: The right atrium is mildly dilated. Aortic Valve: The aortic valve is trileaflet. There is mild aortic regurgitation. There is no evidence of aortic stenosis. Mitral Valve: The mitral valve leaflets are mildly thickened. There is trace of mitral regurgitation. There is no evidence of mitral stenosis. Tricuspid Valve: There is mild tricuspid regurgitation. The right ventricular systolic pressure is calculated at 26 mmHg. There is evidence of borderline pulmonary hypertension. Pulmonic Valve: There is mild pulmonic regurgitation. Pericardium: There is no pericardial effusion. Aorta: There is no dilatation of the ascending aorta. There is no dilatation of the aortic arch. There is no dilatation of the aortic root. Venous: The inferior vena cava appears normal in size. Measurements Chambers 2D Name Value Normal Range IVSd (2D) 1.34 cm (0.6 - 1.1) LVPWd (2D) 1.31 cm (0.6 - 1.1) LVIDd (2D) 4.36 cm (3.7 - 5.6) LVIDs (2D) 4.1 cm (2 - 3.8) LV FS (2D) 5.95 % - EF Teichholz (2D) 13.5 % - Ao root diameter (2D) 3.86 cm (2 - 3.7) Volumes/Mass Name Value Normal Range LA ESV SP 4CH (A/L) 39.17 ml - LA ESV SP 2CH (A/L) 45.67 ml - LA ESV BP (A/L) 42.54 ml - LA ESV BP (A/L) index 19 ml/m2 - LA ESV SP 4CH (MOD) 37.88 ml - LA ESV SP 2CH (MOD) 45.05 ml - LA ESV BP (MOD) 41.5 ml - LA ESV BP (MOD) index 19.3 ml/m2 - Diastolic/Systolic Function Name Value Normal Range MV E-wave Vmax 0.45 m/sec - MV deceleration time 177.01 msec - MV A-wave Vmax 0.75 m/sec - MV E:A ratio 0.59 ratio - Aortic Valve Name Value Normal Range AV Vmax 1.3 m/sec - AV VTI 17.46 cm - AV peak gradient 6.72 mmHg - AV mean gradient 3.24 mmHg - LVOT diameter 2.09 cm - LVOT Vmax 0.96 m/sec - LVOT VTI 14.5 cm - LVOT peak gradient 3.68 mmHg - LVOT mean gradient 1.89 mmHg - SV LVOT 49.66 ml - ADAM (continuity Vmax) 2.53 cm2 - ADAM (continuity VTI) 2.84 cm2 - AR PHT 778.7 msec - AR peak gradient 48.06 mmHg - Tricuspid Valve Name Value Normal Range TR Vmax 2.42 m/sec - TR peak gradient 23 mmHg - RAP 3 mmHg - RVSP 26 mmHg - Pulmonic Valve/Qp:Qs Name Value Normal Range PV Vmax 1.14 m/sec - PV peak gradient 5.22 mmHg - PV acceleration time 91.34 msec - Esquivel/IV: Voiding Method Condom Catheter IV Catheter Type [Left Wrist] INT / Saline Lock IV Catheter Type [Left Hand] INT / Saline Lock IV Catheter Type [Left Femoral INT / Saline Lock ] IV Catheter Type [Left Forearm INT / Saline Lock ] Active Medications - Current Medications Current Medications: Generic Name Dose Route Start Last Admin Trade Name Freq PRN Reason Stop Dose Admin Acetaminophen 650 mg 05/25/19 21:33 06/01/19 00:49 Tylenol PO 650 mg Q4H PRN Administration Pain MILD(1-3)/Fever >100.5/SKINNER Acetaminophen 650 mg 05/31/19 04:40 05/31/19 04:55 Tylenol [place] 650 mg Q4H PRN Administration Pain, Mild (1-3) Albuterol 2.5 mg 05/30/19 10:04 06/01/19 07:30 Proventil IH 2.5 mg TIDRT SHEBA Administration Aspirin 81 mg 05/29/19 10:00 05/31/19 12:04 Halfprin Ec PO 81 mg QDAY SHEBA Administration Atorvastatin Calcium 40 mg 05/25/19 22:00 05/31/19 21:41 Lipitor PO 40 mg QHS SHEBA Administration Carvedilol 6.25 mg 05/31/19 12:00 05/31/19 22:05 Coreg PO 6.25 mg BID SHEBA Administration Gabapentin 100 mg 05/25/19 22:00 06/01/19 05:42 Gabapentin PO 100 mg Q8HR SHEBA Administration Heparin Sodium (Porcine) 5,000 unit 05/25/19 22:00 05/31/19 21:41 Heparin SUB-Q 5,000 unit Q12HR SHEBA Administration Hydralazine HCl 5 mg 05/25/19 22:20 05/25/19 22:58 Apresoline IV 5 mg Q6H PRN Administration Hypertension Hydromorphone HCl 0.5 mg 05/25/19 16:55 05/31/19 03:40 Dilaudid IV 0.5 mg Q3H PRN Administration Pain , Severe (7-10) Metronidazole 500 mg in 100 mls @ 100 mls/hr 05/28/19 18:00 06/01/19 01:42 Flagyl 500 Mg/100 Ml IV 100 mls/hr Q8H SHEBA Administration Protocol Sodium Chloride 100 mls @ 999 mls/hr 05/29/19 10:38 Nacl 0.9% IV THOMPSON PRN Hypotension Norepinephrine 4 mg in 250 mls @ 7.5 mls/hr 05/29/19 20:00 06/01/19 08:34 Levophed Drip 4 Mg/Ns 250 Ml IV 10 mcg/min TITR SHEBA 37.5 mls/hr Administration Protocol 2 MCG/MIN Ampicillin Sodium/Sulbactam Sodium 3 gm in 100 mls @ 200 mls/hr 05/31/19 22:00 05/31/19 22:59 Unasyn/Ns 3 Gm/100 Ml IV 200 mls/hr Q12HR SHEBA Administration Protocol Insulin Human Lispro 0 unit 05/29/19 18:30 06/01/19 05:42 Humalog SUB-Q 2 unit Q6HR SHEBA Administration Protocol Midodrine 10 mg 06/01/19 12:00 Proamatine PO TID@0800,1200,1600 SHEBA Ondansetron HCl 4 mg 05/25/19 21:33 Zofran IV Q8H PRN Nausea And Vomiting Oxycodone/Acetaminophen 1 tab 05/25/19 21:33 05/26/19 19:31 Percocet 5/325 PO 1 tab Q6H PRN Administration Pain, Moderate (4-6) Pantoprazole Sodium 40 mg 05/29/19 10:00 05/31/19 11:51 Protonix PO 40 mg QDAY SHEBA Administration Sodium Chloride 10 ml 05/25/19 22:00 05/31/19 21:44 Sodium Chloride Flush Syringe 10 Ml IV 10 ml BID SHEBA Administration Sodium Chloride 10 ml 05/25/19 21:33 05/30/19 00:24 Sodium Chloride Flush Syringe 10 Ml IV 10 ml PRN PRN Administration LINE FLUSH Nutrition/Malnutrition Assess - Dietary Evaluation Nutrition/Malnutrition Findings: Nutrition Notes Start: 05/31/19 11:18 Freq: Status: Active Protocol: Document 05/31/19 11:18 LM (Rec: 05/31/19 11:37 LM [id number]) Nutrition Notes Need for Assessment generated from: MD Order,MST Initial or Follow up Assessment Current Diagnosis Acute Kidney Injury,Diabetes, Heart Failure Other Pertinent Diagnosis on HD, hydronephrosis, hx renal transplant Current Diet Renal Labs/Tests BUN 33 Cr 3.8 BG 112 Pertinent Medications Levophed Height 6 ft Weight 93 kg Davin Body Weight (kg) 80.90 BMI 27.8 Weight Status Overweight Subjective/Other Information MD consult for malnurition. Unable to obtain hx from pt. Per RN pt ate well this AM. Weak stemhole borer and topper and edema documented in chart. Burn Absent Trauma Absent GI Symptoms None Current % PO Good (75-100%) Minimum of two criteria Yes Fluid Accumulation Mild (non-severe) Reduced Monotype Machinist Strength Measurably Reduced (severe) #1 Nutrition Diagnosis Malnutrition Etiology Chronic illness As Evidenced by Signs and Symptoms pt with weak stemhole borer and topper strength and fluid accumulation Is patient on ventilator? No Is Patient Ambulatory and/or Out of Bed No REE-(Patton-St. Jeor-confined to bed) [phone] Calculation Used for Recommendations Patton-St or Additional Notes Protein: >112g (>1.2g/kg) Fluid: per MD Nutrition Intervention Change Diet Order: Continue renal Goal #1 Meet at least 80% of energy and protein needs Anticipated Discharge Needs: Renal diet Follow-Up By: 06/02/19 Additional Comments F/U for intakes, ONS needs, full assessment
[2019-06-01] MEDS: ASPIRIN EC 81 MG TAB PO SCH (09:24)
[2019-06-01] MEDS: HEPARIN 5,000 UNIT/1 ML VIAL SUB-Q SCH ×2 (09:24→21:39)
[2019-06-01] MEDS: PANTOPRAZOLE 40 MG TAB PO SCH (09:25)
[2019-06-01] MEDS: AMPICILLIN/SULBACTA 3GM/100ML 3 GM/100 ML BAG IV SCH (09:28)
--- NOTE | 2019-06-01 09:56 | Progress Note ---
Assessment and Plan Hx Ischemic cardiomyopathy an echo this admission reveals 4 chamber dilated cardiomyopathy with a decrease systolic function, EF 15-20%. no evidence of decompensation follows with [facility] in [place] Hx of [place]/CAD s/p PCI of the first obtuse marginal in 2013 brilinta discontinued no evidence of ischemia by MPI 06/2015 Sepsis Altered mental status RUE pain and inflammation RUE doppler negative for DVT Chronic renal failure s/p remote renal transplant -initiated on dialysis Anemia Thrombocytopenia Hypotension -on midodrine Supportive cardiac management. Continue medical therapy as tolerated for chronic systolic left ventricular failure and coronary artery disease. Subjective Date of service: 06/01/19 Principal diagnosis: CKD Interval history: Awaits transfer to [facility]. Objective Vital Signs Temp Pulse Pulse Pulse Pulse Pulse Pulse 06/01/19 08:00 98.3 F 06/01/19 07:31 83 06/01/19 07:30 06/01/19 06:15 89 06/01/19 06:00 83 06/01/19 05:46 83 06/01/19 05:33 82 86 86 06/01/19 05:30 82 06/01/19 05:15 84 06/01/19 05:00 85 06/01/19 04:45 69 06/01/19 04:30 89 06/01/19 04:15 84 06/01/19 04:00 77 06/01/19 03:45 86 06/01/19 03:40 99.3 F 06/01/19 03:30 92 H 06/01/19 03:15 81 06/01/19 03:00 87 06/01/19 02:45 88 06/01/19 02:30 88 06/01/19 02:15 108 H 06/01/19 02:00 91 H 06/01/19 01:49 06/01/19 01:46 103 H 06/01/19 01:33 92 H 06/01/19 01:30 92 H 06/01/19 01:16 85 06/01/19 01:00 108 H 06/01/19 00:49 85 112 H 112 H 06/01/19 00:45 103 H 06/01/19 00:30 119 H 06/01/19 00:15 118 H 06/01/19 00:00 107 H 05/31/19 23:46 103 H 05/31/19 23:30 107 H 03/16/20 23:29 100.6 F H 05/31/19 23:16 122 H 05/31/19 23:00 129 H 05/31/19 22:45 123 H 05/31/19 22:32 104 H 05/31/19 22:30 127 H 05/31/19 22:16 137 H 05/31/19 22:05 138 H 136 H 136 H 05/31/19 22:00 145 H 05/31/19 21:46 138 H 05/31/19 21:30 140 H 05/31/19 21:15 135 H 05/31/19 21:00 99 H 20 20:50 20 20:46 136 H 05/31/19 20:45 115 H 122 H 05/31/19 20:30 109 H 05/31/19 20:15 117 H 05/31/19 20:00 99.4 F 119 H 05/31/19 19:45 129 H 05/31/19 19:30 116 H 05/31/19 19:25 117 H 120 H 120 H 05/31/19 19:15 05/31/19 19:00 05/31/19 18:49 114 H 05/31/19 17:30 108 H 05/31/19 17:15 117 H 05/31/19 17:00 108 H 05/31/19 16:45 95 H 05/31/19 16:37 98.3 F 107 H 05/31/19 16:30 110 H 05/31/19 16:16 104 H 05/31/19 16:15 109 H 05/31/19 16:00 99.4 F 107 H 99 H 113 H 113 H 20 15:46 109 H 05/31/19 15:45 105 H 20 15:30 105 H 20 15:15 117 H 05/31/19 15:00 104 H 05/31/19 14:46 104 H 05/31/19 14:45 107 H 05/31/19 14:30 108 H 05/31/19 14:15 108 H 20 14:00 111 H 05/31/19 13:45 111 H 20 13:40 111 H 102 H 03/16/20 13:30 111 H 05/31/19 13:20 106 H 05/31/19 13:15 106 H 05/31/19 13:10 114 H 05/31/19 13:00 98.3 F 106 H 05/31/19 12:50 108 H 05/31/19 12:40 111 H 05/31/19 12:30 112 H 05/31/19 12:20 116 H 05/31/19 12:10 114 H 05/31/19 12:04 117 H 05/31/19 12:00 98.3 F 122 H 99 H 95 H 95 H 05/31/19 11:50 117 H 05/31/19 11:40 118 H 05/31/19 11:30 120 H 05/31/19 11:20 121 H 05/31/19 11:10 120 H 05/31/19 11:00 05/31/19 10:50 108 H 05/31/19 10:40 99 H 05/31/19 10:30 100 H 05/31/19 10:20 105 H 05/31/19 10:15 05/31/19 10:10 102 H 05/31/19 10:00 102 H Resp Resp Resp BP Pulse Ox Pulse Ox Pulse Ox 06/01/19 08:00 06/01/19 07:31 20 06/01/19 07:30 96 06/01/19 06:15 22 94/64 99 06/01/19 06:00 28 H 98/63 99 06/01/19 05:46 19 98/63 100 06/01/19 05:33 24 100 06/01/19 05:30 18 100/64 100 06/01/19 05:15 19 100/64 99 06/01/19 05:00 21 103/61 100 06/01/19 04:45 20 92/61 100 06/01/19 04:30 38 H 66/41 100 06/01/19 04:15 23 66/41 100 06/01/19 04:00 19 85/51 100 06/01/19 03:45 25 H 82/57 98 06/01/19 03:40 06/01/19 03:30 31 H 89/59 99 06/01/19 03:15 29 H 97/58 99 06/01/19 03:00 26 H 91/50 96 06/01/19 02:45 20 82/46 96 06/01/19 02:30 22 91/48 97 06/01/19 02:15 32 H 78/45 98 06/01/19 02:00 25 H 73/37 96 06/01/19 01:49 21 06/01/19 01:46 20 84/36 97 06/01/19 01:33 24 89/47 98 06/01/19 01:30 21 89/47 96 06/01/19 01:16 20 81/52 97 06/01/19 01:00 18 86/50 95 06/01/19 00:49 32 H 96 06/01/19 00:45 17 92/53 96 06/01/19 00:30 19 110/59 99 06/01/19 00:15 24 110/59 99 06/01/19 00:00 24 101/59 97 05/31/19 23:46 29 H 77/53 97 05/31/19 23:30 24 77/53 97 05/31/19 23:29 05/31/19 23:16 28 H 92/56 95 05/31/19 23:00 32 H 88/50 95 05/31/19 22:45 30 H 90/51 94 05/31/19 22:32 32 H 81/45 95 05/31/19 22:30 22 81/45 98 05/31/19 22:16 28 H 90/52 91 05/31/19 22:05 32 H 119/87 91 05/31/19 22:00 39 H 119/87 89 05/31/19 21:46 31 H 119/87 91 05/31/19 21:30 30 H 102/67 92 05/31/19 21:15 17 102/67 91 05/31/19 21:00 25 H 115/46 95 20 20:50 93 05/31/19 20:46 33 H 115/46 91 05/31/19 20:45 20 20 05/31/19 20:30 24 103/65 91 05/31/19 20:15 32 H 103/65 89 05/31/19 20:00 26 H 104/76 92 05/31/19 19:45 23 104/76 92 05/31/19 19:30 21 96/63 92 05/31/19 19:25 31 H 94 05/31/19 19:15 98/65 90 05/31/19 19:00 109/71 89 05/31/19 18:49 29 H 90/57 95 05/31/19 17:30 22 90/57 95 05/31/19 17:15 25 H 95/50 95 05/31/19 17:00 26 H 105/48 96 05/31/19 16:45 25 H 117/67 96 05/31/19 16:37 23 118/74 05/31/19 16:30 22 118/74 95 05/31/19 16:16 27 H 110/68 98 05/31/19 16:15 110/68 05/31/19 16:00 30 H 81/51 96 05/31/19 15:46 26 H 91/61 97 05/31/19 15:45 91/51 05/31/19 15:30 28 H 93/61 96 05/31/19 15:15 26 H 99/60 94 05/31/19 15:00 30 H 106/58 95 05/31/19 14:46 30 H 106/58 94 05/31/19 14:45 100/54 05/31/19 14:30 29 H 99/70 96 05/31/19 14:15 27 H 99/70 96 05/31/19 14:00 24 95/60 93 05/31/19 13:45 105/66 05/31/19 13:40 25 H 22 105/66 93 05/31/19 13:30 24 89/48 90 05/31/19 13:20 30 H 105/58 91 05/31/19 13:15 105/58 05/31/19 13:10 30 H 105/66 90 05/31/19 13:00 25 H 105/58 93 92 92 05/31/19 12:50 29 H 98/67 93 05/31/19 12:40 29 H 102/71 93 05/31/19 12:30 34 H 102/71 94 05/31/19 12:20 30 H 108/71 94 05/31/19 12:10 28 H 118/82 91 05/31/19 12:04 118/82 05/31/19 12:00 25 H 118/82 95 05/31/19 11:50 30 H 118/69 95 05/31/19 11:40 27 H 128/57 94 03/16/20 11:30 32 H 117/69 86 05/31/19 11:20 25 H 117/69 96 05/31/19 11:10 29 H 121/69 95 05/31/19 11:00 79/49 95 05/31/19 10:50 31 H 92/53 97 05/31/19 10:40 20 79/49 95 05/31/19 10:30 20 79/49 95 05/31/19 10:20 26 H 87/53 95 05/31/19 10:15 92 05/31/19 10:10 25 H 87/51 96 05/31/19 10:00 21 87/51 95 - Physical Examination General: No Apparent Distress HEENT: Positive: PERRL Neck: Positive: trachea midline Cardiac: Positive: irregularly irregular Lungs: Positive: Decreased Breath Sounds Neuro: Positive: Weakness Extremities: Absent: edema - Labs and Meds CBC 06/01/19 Range/Units 04:48 WBC 13.4 H (4.5-11.0) K/mm3 RBC 2.82 L (3.65-5.03) M/mm3 Hgb 8.0 L (11.8-15.2) gm/dl Hct 25.3 L (35.5-45.6) % Plt Count 271 (140-440) K/mm3 Comprehensive Metabolic Panel 06/01/19 Range/Units 04:48 Sodium 141 (137-145) mmol/L Potassium 3.4 L (3.6-5.0) mmol/L Chloride 100.8 (98-107) mmol/L Carbon Dioxide 23 (22-30) mmol/L BUN 25 H (9-20) mg/dL Creatinine 3.4 H (0.8-1.5) mg/dL Glucose 178 H (75-100) mg/dL Calcium 10.6 H (8.4-10.2) mg/dL
--- NOTE | 2019-06-01 10:41 | Progress Note ---
Assessment and Plan Acute on Chronic Kidney Disease likely secondary to Hypertensive Nephrosclerosis: Renal transplant: -Patient was initiated on hemodialysis on 05/29/19 for worsening renal failure -no inidcation for HD today, will monitor dialysis needs daily -Patient had renal transplant at [facility] in 1983. Has not followed-up with [facility] in several years. -Renal ultrasound-Right renal transplant with mild hydronephrosis- Consulted Urology Dr. Reynaga -We have consulted Urology for their input on this patient's hydronephrosis s hown on renal ultrasound, both Urology and IR are unable to correct kidney graft hydronephrosis and recommended transfer to [facility] transplant center -Patient accepted to be transferred to [facility] but no bed is currently available -Transfer to [facility] once a bed becomes available - transplant anti -rejection regimen is unknown, will hold off for now due to active sepsis, will to defer to [facility] transplant team when patient is transferred Hx Hypertension: Now Hypotensive -On Levophed -Monitor blood pressures Hyperkalemia, Resolved: -S/P insulin/bicarb/D50 -Monitor potassium levels -BMP in a.m Back Pain: -As per primary Anemia: -May need Epogen Heart Failure: -S/P dobutamine drip -Cardiology onboard Lucio Garcia MD [phone] Subjective Date of service: 06/01/19 Principal diagnosis: CKD Interval history: no family at bedside, answers simple questions Objective - Vital Signs Vital signs: Vital Signs - 12hr 05/31/19 05/31/19 05/31/19 22:45 23:00 23:16 Temperature Pulse Rate 123 H 129 H 122 H Pulse Rate [ Anterior Bilateral] Pulse Rate [ From Monitor] Pulse Rate [ Right Dorsalis Pedis] Respiratory 30 H 32 H 28 H Rate Respiratory Rate [Anterior Bilateral] Blood Pressure 90/51 88/50 92/56 O2 Sat by Pulse 94 95 95 Oximetry 05/31/19 05/31/19 05/31/19 23:29 23:30 23:46 Temperature 100.6 F H Pulse Rate 107 H 103 H Pulse Rate [ Anterior Bilateral] Pulse Rate [ From Monitor] Pulse Rate [ Right Dorsalis Pedis] Respiratory 24 29 H Rate Respiratory Rate [Anterior Bilateral] Blood Pressure 77/53 77/53 O2 Sat by Pulse 97 97 Oximetry 06/01/19 06/01/19 06/01/19 00:00 00:15 00:30 Temperature Pulse Rate 107 H 118 H 119 H Pulse Rate [ Anterior Bilateral] Pulse Rate [ From Monitor] Pulse Rate [ Right Dorsalis Pedis] Respiratory 24 24 19 Rate Respiratory Rate [Anterior Bilateral] Blood Pressure 101/59 110/59 110/59 O2 Sat by Pulse 97 99 99 Oximetry 06/01/19 06/01/19 06/01/19 00:45 00:49 01:00 Temperature Pulse Rate 103 H 85 108 H Pulse Rate [ Anterior Bilateral] Pulse Rate [ 112 H From Monitor] Pulse Rate [ 112 H Right Dorsalis Pedis] Respiratory 17 32 H 18 Rate Respiratory Rate [Anterior Bilateral] Blood Pressure 92/53 86/50 O2 Sat by Pulse 96 96 95 Oximetry 06/01/19 06/01/19 06/01/19 01:16 01:30 01:33 Temperature Pulse Rate 85 92 H 92 H Pulse Rate [ Anterior Bilateral] Pulse Rate [ From Monitor] Pulse Rate [ Right Dorsalis Pedis] Respiratory 20 21 24 Rate Respiratory Rate [Anterior Bilateral] Blood Pressure 81/52 89/47 89/47 O2 Sat by Pulse 97 96 98 Oximetry 06/01/19 06/01/19 06/01/19 01:46 01:49 02:00 Temperature Pulse Rate 103 H 91 H Pulse Rate [ Anterior Bilateral] Pulse Rate [ From Monitor] Pulse Rate [ Right Dorsalis Pedis] Respiratory 20 21 25 H Rate Respiratory Rate [Anterior Bilateral] Blood Pressure 84/36 73/37 O2 Sat by Pulse 97 96 Oximetry 06/01/19 06/01/19 06/01/19 02:15 02:30 02:45 Temperature Pulse Rate 108 H 88 88 Pulse Rate [ Anterior Bilateral] Pulse Rate [ From Monitor] Pulse Rate [ Right Dorsalis Pedis] Respiratory 32 H 22 20 Rate Respiratory Rate [Anterior Bilateral] Blood Pressure 78/45 91/48 82/46 O2 Sat by Pulse 98 97 96 Oximetry 06/01/19 06/01/19 06/01/19 03:00 03:15 03:30 Temperature Pulse Rate 87 81 92 H Pulse Rate [ Anterior Bilateral] Pulse Rate [ From Monitor] Pulse Rate [ Right Dorsalis Pedis] Respiratory 26 H 29 H 31 H Rate Respiratory Rate [Anterior Bilateral] Blood Pressure 91/50 97/58 89/59 O2 Sat by Pulse 96 99 99 Oximetry 03/06/01/19 06/01/19 03:40 03:45 04:00 Temperature 99.3 F Pulse Rate 86 77 Pulse Rate [ Anterior Bilateral] Pulse Rate [ From Monitor] Pulse Rate [ Right Dorsalis Pedis] Respiratory 25 H 19 Rate Respiratory Rate [Anterior Bilateral] Blood Pressure 82/57 85/51 O2 Sat by Pulse 98 100 Oximetry 06/01/19 06/01/19 06/01/19 04:15 04:30 04:45 Temperature Pulse Rate 84 89 69 Pulse Rate [ Anterior Bilateral] Pulse Rate [ From Monitor] Pulse Rate [ Right Dorsalis Pedis] Respiratory 23 38 H 20 Rate Respiratory Rate [Anterior Bilateral] Blood Pressure 66/41 66/41 92/61 O2 Sat by Pulse 100 100 100 Oximetry 06/01/19 06/01/19 06/01/19 05:00 05:15 05:30 Temperature Pulse Rate 85 84 82 Pulse Rate [ Anterior Bilateral] Pulse Rate [ From Monitor] Pulse Rate [ Right Dorsalis Pedis] Respiratory 21 19 18 Rate Respiratory Rate [Anterior Bilateral] Blood Pressure 103/61 100/64 100/64 O2 Sat by Pulse 100 99 100 Oximetry 06/01/19 06/01/19 06/01/19 05:33 05:46 06:00 Temperature Pulse Rate 82 83 83 Pulse Rate [ Anterior Bilateral] Pulse Rate [ 86 From Monitor] Pulse Rate [ 86 Right Dorsalis Pedis] Respiratory 24 19 28 H Rate Respiratory Rate [Anterior Bilateral] Blood Pressure 98/63 98/63 O2 Sat by Pulse 100 100 99 Oximetry 06/01/19 06/01/19 06/01/19 06:15 07:30 07:31 Temperature Pulse Rate 89 Pulse Rate [ 83 Anterior Bilateral] Pulse Rate [ From Monitor] Pulse Rate [ Right Dorsalis Pedis] Respiratory 22 Rate Respiratory 20 Rate [Anterior Bilateral] Blood Pressure 94/64 O2 Sat by Pulse 99 96 Oximetry 06/01/19 08:00 Temperature 98.3 F Pulse Rate Pulse Rate [ Anterior Bilateral] Pulse Rate [ From Monitor] Pulse Rate [ Right Dorsalis Pedis] Respiratory Rate Respiratory Rate [Anterior Bilateral] Blood Pressure O2 Sat by Pulse Oximetry - General Appearance General appearance: well-developed, well-nourished EENT: ATNC, PERRL Neck: no JVD, no carotid bruit Respiratory: Present: Clear to Ascultation Cardiology: regular, S1S2 Gastrointestinal: normoactive bowel sounds Integumentary: no rash, warm and dry Neurologic: other (follows simple commands) Musculoskeletal: other (trace pitting edema in BLE) Psychiatric: other (answers simple questions) - Lab 06/01/19 04:48 06/01/19 04:48 Most recent lab results ABG pH 7.538 pH Units (7.350-7.450) H 05/29/19 19:14 ABG pCO2 29.6 mm Hg 05/29/19 19:14 ABG pO2 70.1 mm Hg (80.0-90.0) L 05/29/19 19:14 ABG HCO3 24.6 mmol/L (20.0-26.0) 05/29/19 19:14 ABG O2 Saturation 95.1 % (95.0-99.0) 05/29/19 19:14 Calcium 10.6 mg/dL (8.4-10.2) H 06/01/19 04:48 Phosphorus 4.60 mg/dL (2.5-4.5) H 05/28/19 06:42 Magnesium 1.80 mg/dL (1.7-2.3) 05/30/19 05:24 Urine Creatinine 103.7 mg/dL (0.1-20.0) H 05/26/19 Unknown Urine Sodium 73 mmol/L 05/26/19 Unknown Urine Total Protein 213 mg/dL (5-11.8) H 05/26/19 Unknown Medications & Allergies - Medications Allergies/Adverse Reactions: Allergies codeine [From Tylenol-Codeine #3] Allergy (Verified 05/25/19 11:33) Unknown tramadol Allergy (Verified 05/25/19 11:33) Unknown Home Medications: Home Medications Medication Instructions Recorded Confirmed Last Taken Type Furosemide [Lasix TAB] 40 mg PO QDAY 05/25/19 05/25/19 Unknown History Gabapentin [Neurontin] 100 mg PO Q8HR 05/25/19 05/25/19 Unknown History NIFEdipine [Nifedipine ER] 30 mg PO QDAY 05/25/19 05/25/19 Unknown History Prednisone [predniSONE (Marie) ER 5 mg PO QDAY 05/25/19 05/25/19 Unknown History TAB] Rosuvastatin Calcium 20 mg PO QHS 05/25/19 05/25/19 Unknown History Ticagrelor (Nf) [Brilinta (Nf)] 60 mg PO DAILY 05/25/19 05/25/19 Unknown History carvediloL [Coreg] 25 mg PO BID 05/25/19 05/25/19 Unknown History lisinopriL [Zestril TAB] 10 mg PO QDAY 05/25/19 05/25/19 Unknown History Active Medications: Generic Name Dose Route Start Last Admin Trade Name Freq PRN Reason Stop Dose Admin Acetaminophen 650 mg 05/25/19 21:33 06/01/19 00:49 Tylenol PO 650 mg Q4H PRN Administration Fever >100.5/SKINNER Acetaminophen 650 mg 05/31/19 04:40 05/31/19 04:[address] 650 mg Q4H PRN Administration Pain, Mild (1-3) Albuterol 2.5 mg 05/30/19 10:04 06/01/19 07:30 Proventil IH 2.5 mg TIDRT SHEBA Administration Aspirin 81 mg 05/29/19 10:00 06/01/19 09:24 Halfprin Ec PO 81 mg QDAY SHEBA Administration Atorvastatin Calcium 40 mg 05/25/19 22:00 05/31/19 21:41 Lipitor PO 40 mg QHS SHEBA Administration Carvedilol 6.25 mg 05/31/19 12:00 05/31/19 22:05 Coreg PO 6.25 mg BID SHEBA Administration Gabapentin 100 mg 05/25/19 22:00 06/01/19 05:42 Gabapentin PO 100 mg Q8HR SHEBA Administration Heparin Sodium (Porcine) 5,000 unit 05/25/19 22:00 06/01/19 09:24 Heparin SUB-Q 5,000 unit Q12HR SHEBA Administration Hydralazine HCl 5 mg 05/25/19 22:20 05/25/19 22:58 Apresoline IV 5 mg Q6H PRN Administration Hypertension Hydromorphone HCl 0.5 mg 05/25/19 16:55 05/31/19 03:40 Dilaudid IV 0.5 mg Q3H PRN Administration Pain , Severe (7-10) Norepinephrine 4 mg in 250 mls @ 7.5 mls/hr 05/29/19 20:00 06/01/19 10:11 Levophed Drip 4 Mg/Ns 250 Ml IV 6 mcg/min TITR SHEBA 22.5 mls/hr Titration Protocol 2 MCG/MIN Ampicillin Sodium/Sulbactam Sodium 3 gm in 100 mls @ 200 mls/hr 06/02/19 10:00 Unasyn/Ns 3 Gm/100 Ml IV Q24HR [facility] Protocol Insulin Human Lispro 0 unit 06/01/19 11:30 Humalog SUB-Q ACHS [facility] Protocol Midodrine 10 mg 06/01/19 12:00 Proamatine PO TID@0800,1200,1600 [facility] Ondansetron HCl 4 mg 05/25/19 21:33 Zofran IV Q8H PRN Nausea And Vomiting Oxycodone/Acetaminophen 1 tab 05/25/19 21:33 05/26/19 19:31 Percocet 5/325 PO 1 tab Q6H PRN Administration Pain, Moderate (4-6) Pantoprazole Sodium 40 mg 05/29/19 10:00 06/01/19 09:25 Protonix PO 40 mg QDAY SHEBA Administration Sodium Chloride 10 ml 05/25/19 22:00 06/01/19 09:29 Sodium Chloride Flush Syringe 10 Ml IV 10 ml BID SHEBA Administration Sodium Chloride 10 ml 05/25/19 21:33 05/30/19 00:24 Sodium Chloride Flush Syringe 10 Ml IV 10 ml PRN PRN Administration LINE FLUSH
--- NOTE | 2019-06-01 11:13 | Progress Note ---
Assessment and Plan 64 y/o male with acute respiratory failure secondary to CHF and worsening renal failure. 1. Wean vasopressors for MAPS 55 and greater 2. Follow up renal recs. 3. Pulm escamilla, will use BIPAP therapy PRN, continue nasal cannula 4. Await transfer to [place] 5. Guarded prognosis. CCT 31 minutes. Subjective Date of service: 06/01/19 Principal diagnosis: CKD Interval history: No acute events. Still on Levophed. remains on nasal cannula at 3 liters with good sats. Objective Vital Signs - 12hr 05/31/19 05/31/19 05/31/19 23:16 23:29 23:30 Temperature 100.6 F H Pulse Rate 122 H 107 H Pulse Rate [ Anterior Bilateral] Pulse Rate [ From Monitor] Pulse Rate [ Right Dorsalis Pedis] Respiratory 28 H 24 Rate Respiratory Rate [Anterior Bilateral] Blood Pressure 92/56 77/53 O2 Sat by Pulse 95 97 Oximetry 05/31/19 06/01/19 06/01/19 23:46 00:00 00:15 Temperature Pulse Rate 103 H 107 H 118 H Pulse Rate [ Anterior Bilateral] Pulse Rate [ From Monitor] Pulse Rate [ Right Dorsalis Pedis] Respiratory 29 H 24 24 Rate Respiratory Rate [Anterior Bilateral] Blood Pressure 77/53 101/59 110/59 O2 Sat by Pulse 97 97 99 Oximetry 06/01/19 06/01/19 06/01/19 00:30 00:45 00:49 Temperature Pulse Rate 119 H 103 H 85 Pulse Rate [ Anterior Bilateral] Pulse Rate [ 112 H From Monitor] Pulse Rate [ 112 H Right Dorsalis Pedis] Respiratory 19 17 32 H Rate Respiratory Rate [Anterior Bilateral] Blood Pressure 110/59 92/53 O2 Sat by Pulse 99 96 96 Oximetry 06/01/19 06/01/19 06/01/19 01:00 01:16 01:30 Temperature Pulse Rate 108 H 85 92 H Pulse Rate [ Anterior Bilateral] Pulse Rate [ From Monitor] Pulse Rate [ Right Dorsalis Pedis] Respiratory 18 20 21 Rate Respiratory Rate [Anterior Bilateral] Blood Pressure 86/50 81/52 89/47 O2 Sat by Pulse 95 97 96 Oximetry 06/01/19 06/01/19 06/01/19 01:33 01:46 01:49 Temperature Pulse Rate 92 H 103 H Pulse Rate [ Anterior Bilateral] Pulse Rate [ From Monitor] Pulse Rate [ Right Dorsalis Pedis] Respiratory 24 20 21 Rate Respiratory Rate [Anterior Bilateral] Blood Pressure 89/47 84/36 O2 Sat by Pulse 98 97 Oximetry 06/01/19 06/01/19 06/01/19 02:00 02:15 02:30 Temperature Pulse Rate 91 H 108 H 88 Pulse Rate [ Anterior Bilateral] Pulse Rate [ From Monitor] Pulse Rate [ Right Dorsalis Pedis] Respiratory 25 H 32 H 22 Rate Respiratory Rate [Anterior Bilateral] Blood Pressure 73/37 78/45 91/48 O2 Sat by Pulse 96 98 97 Oximetry 06/01/19 06/01/19 06/01/19 02:45 03:00 03:15 Temperature Pulse Rate 88 87 81 Pulse Rate [ Anterior Bilateral] Pulse Rate [ From Monitor] Pulse Rate [ Right Dorsalis Pedis] Respiratory 20 26 H 29 H Rate Respiratory Rate [Anterior Bilateral] Blood Pressure 82/46 91/50 97/58 O2 Sat by Pulse 96 96 99 Oximetry 06/01/19 06/01/19 06/01/19 03:30 03:40 03:45 Temperature 99.3 F Pulse Rate 92 H 86 Pulse Rate [ Anterior Bilateral] Pulse Rate [ From Monitor] Pulse Rate [ Right Dorsalis Pedis] Respiratory 31 H 25 H Rate Respiratory Rate [Anterior Bilateral] Blood Pressure 89/59 82/57 O2 Sat by Pulse 99 98 Oximetry 06/01/19 06/01/19 06/01/19 04:00 04:15 04:30 Temperature Pulse Rate 77 84 89 Pulse Rate [ Anterior Bilateral] Pulse Rate [ From Monitor] Pulse Rate [ Right Dorsalis Pedis] Respiratory 19 23 38 H Rate Respiratory Rate [Anterior Bilateral] Blood Pressure 85/51 66/41 66/41 O2 Sat by Pulse 100 100 100 Oximetry 06/01/19 06/01/19 06/01/19 04:45 05:00 05:15 Temperature Pulse Rate 69 85 84 Pulse Rate [ Anterior Bilateral] Pulse Rate [ From Monitor] Pulse Rate [ Right Dorsalis Pedis] Respiratory 20 21 19 Rate Respiratory Rate [Anterior Bilateral] Blood Pressure 92/61 103/61 100/64 O2 Sat by Pulse 100 100 99 Oximetry 06/01/19 06/01/19 06/01/19 05:30 05:33 05:46 Temperature Pulse Rate 82 82 83 Pulse Rate [ Anterior Bilateral] Pulse Rate [ 86 From Monitor] Pulse Rate [ 86 Right Dorsalis Pedis] Respiratory 18 24 19 Rate Respiratory Rate [Anterior Bilateral] Blood Pressure 100/64 98/63 O2 Sat by Pulse 100 100 100 Oximetry 06/01/19 06/01/19 06/01/19 06:00 06:15 07:30 Temperature Pulse Rate 83 89 Pulse Rate [ Anterior Bilateral] Pulse Rate [ From Monitor] Pulse Rate [ Right Dorsalis Pedis] Respiratory 28 H 22 Rate Respiratory Rate [Anterior Bilateral] Blood Pressure 98/63 94/64 O2 Sat by Pulse 99 99 96 Oximetry 06/01/19 06/01/19 07:31 08:00 Temperature 98.3 F Pulse Rate Pulse Rate [ 83 Anterior Bilateral] Pulse Rate [ From Monitor] Pulse Rate [ Right Dorsalis Pedis] Respiratory Rate Respiratory 20 Rate [Anterior Bilateral] Blood Pressure O2 Sat by Pulse Oximetry CBC and BMP: 06/01/19 04:48 06/01/19 04:48 ABG, PT/INR, D-dimer: ABG ABG pH 7.538 pH Units (7.350-7.450) H 05/29/19 19:14 ABG pCO2 29.6 mm Hg 05/29/19 19:14 ABG pO2 70.1 mm Hg (80.0-90.0) L 05/29/19 19:14 ABG O2 Saturation 95.1 % (95.0-99.0) 05/29/19 19:14 PT/INR, D-dimer PT 15.6 Sec. (12.2-14.9) H 05/25/19 11:59 INR 1.22 (0.87-1.13) H 05/25/19 11:59 Abnormal lab findings: Abnormal Labs 05/25/19 05/25/19 05/25/19 11:59 11:59 11:59 WBC 14.0 H RBC 3.59 L Hgb 10.2 L Hct 31.5 L RDW 17.5 H Plt Count 98 L Lymph % (Auto) 8.2 L [place] % (Auto) 12.4 H Lymph # 1.1 L [place] # 1.7 H Seg Neutrophils % 79.0 H Seg Neutrophils # 11.1 H PT 15.6 H INR 1.22 H APTT 38.9 H ABG pH ABG pO2 ABG Hemoglobin Oxyhemoglobin Sodium Potassium 5.6 H Chloride Carbon Dioxide 17 L BUN 52 H Creatinine 2.4 H Glucose 226 H POC Glucose Hemoglobin A1c Calcium 10.6 H Phosphorus Magnesium 2.40 H Iron TIBC Ferritin Direct Bilirubin 0.4 H AST Total Creatine Kinase 185 H Troponin T NT-Pro-B Natriuret Pep 5533 H Total Protein Albumin 3.5 L Urine Creatinine Urine Total Protein 05/25/19 05/25/19 05/25/19 11:59 11:59 15:23 WBC RBC Hgb Hct RDW Plt Count Lymph % (Auto) [place] % (Auto) Lymph # [place] # Seg Neutrophils % Seg Neutrophils # PT INR APTT ABG pH ABG pO2 ABG Hemoglobin Oxyhemoglobin Sodium Potassium 5.3 H Chloride 107.6 H Carbon Dioxide BUN 50 H Creatinine 2.4 H Glucose 167 H POC Glucose Hemoglobin A1c 6.5 H Calcium Phosphorus Magnesium Iron TIBC Ferritin Direct Bilirubin AST Total Creatine Kinase Troponin T 0.047 H NT-Pro-B Natriuret Pep Total Protein Albumin Urine Creatinine Urine Total Protein 05/26/19 05/26/19 05/26/19 05:34 05:34 Unknown WBC 14.3 H RBC 3.56 L Hgb 10.2 L Hct 31.4 L RDW 17.6 H Plt Count 103 L Lymph % (Auto) 8.3 L [place] % (Auto) 11.1 H Lymph # [place] # 1.6 H Seg Neutrophils % 80.3 H Seg Neutrophils # 11.4 H PT INR APTT ABG pH ABG pO2 ABG Hemoglobin Oxyhemoglobin Sodium Potassium 6.0 H Chloride 107.8 H Carbon Dioxide 21 L BUN 49 H Creatinine 2.7 H Glucose 172 H POC Glucose Hemoglobin A1c Calcium 10.3 H Phosphorus Magnesium Iron TIBC Ferritin Direct Bilirubin AST Total Creatine Kinase Troponin T NT-Pro-B Natriuret Pep Total Protein Albumin Urine Creatinine 103.7 H Urine Total Protein 213 H 05/27/19 05/27/19 05/28/19 05:35 05:35 06:42 WBC 12.0 H 11.4 H RBC 3.06 L 2.74 L Hgb 8.6 L 7.8 L Hct 27.0 L 24.0 L RDW 17.8 H 17.2 H Plt Count 95 L 101 L Lymph % (Auto) [place] % (Auto) Lymph # [place] # Seg Neutrophils % Seg Neutrophils # PT INR APTT ABG pH ABG pO2 ABG Hemoglobin Oxyhemoglobin Sodium Potassium Chloride Carbon Dioxide BUN 54 H Creatinine 3.4 H Glucose 179 H POC Glucose Hemoglobin A1c Calcium Phosphorus Magnesium Iron TIBC Ferritin Direct Bilirubin AST Total Creatine Kinase Troponin T NT-Pro-B Natriuret Pep Total Protein Albumin Urine Creatinine Urine Total Protein 05/28/19 05/29/19 05/29/19 06:42 05:30 05:30 WBC RBC 2.86 L Hgb 8.2 L Hct 25.3 L RDW 17.1 H Plt Count 133 L Lymph % (Auto) [place] % (Auto) Lymph # [place] # Seg Neutrophils % Seg Neutrophils # PT INR APTT ABG pH ABG pO2 ABG Hemoglobin Oxyhemoglobin Sodium 132 L D Potassium Chloride 96.9 L Carbon Dioxide 16 L 15 L BUN 73 H 91 H Creatinine 4.8 H 6.8 H Glucose 153 H 176 H POC Glucose Hemoglobin A1c Calcium Phosphorus 4.60 H Magnesium Iron TIBC Ferritin Direct Bilirubin AST Total Creatine Kinase Troponin T NT-Pro-B Natriuret Pep Total Protein Albumin Urine Creatinine Urine Total Protein 05/29/19 05/29/19 05/29/19 05:30 05:30 17:24 WBC RBC Hgb Hct RDW Plt Count Lymph % (Auto) [place] % (Auto) Lymph # [place] # Seg Neutrophils % Seg Neutrophils # PT INR APTT ABG pH ABG pO2 ABG Hemoglobin Oxyhemoglobin Sodium Potassium Chloride Carbon Dioxide BUN Creatinine Glucose POC Glucose 219 H Hemoglobin A1c Calcium Phosphorus Magnesium Iron 12 L TIBC 120 L Ferritin 1177.0 H Direct Bilirubin AST Total Creatine Kinase Troponin T NT-Pro-B Natriuret Pep Total Protein Albumin Urine Creatinine Urine Total Protein 05/29/19 05/29/19 05/30/19 18:56 19:14 00:03 WBC RBC Hgb Hct RDW Plt Count Lymph % (Auto) [place] % (Auto) Lymph # [place] # Seg Neutrophils % Seg Neutrophils # PT INR APTT ABG pH 7.538 H ABG pO2 70.1 L ABG Hemoglobin 11.8 L Oxyhemoglobin 94.1 L Sodium Potassium Chloride Carbon Dioxide BUN Creatinine Glucose POC Glucose 176 H 199 H Hemoglobin A1c Calcium Phosphorus Magnesium Iron TIBC Ferritin Direct Bilirubin AST Total Creatine Kinase Troponin T NT-Pro-B Natriuret Pep Total Protein Albumin Urine Creatinine Urine Total Protein 05/30/19 05/30/19 05/30/19 05:24 05:24 05:24 WBC RBC 2.69 L Hgb 7.8 L Hct 23.2 L RDW 17.2 H Plt Count Lymph % (Auto) 8.4 L [place] % (Auto) 13.8 H Lymph # 0.6 L [place] # 0.9 H Seg Neutrophils % 75.5 H Seg Neutrophils # PT INR APTT ABG pH ABG pO2 ABG Hemoglobin Oxyhemoglobin Sodium 134 L Potassium Chloride 91.4 L Carbon Dioxide BUN 51 H Creatinine 4.3 H Glucose 180 H POC Glucose Hemoglobin A1c Calcium Phosphorus Magnesium Iron TIBC Ferritin Direct Bilirubin 0.3 H AST 42 H Total Creatine Kinase Troponin T NT-Pro-B Natriuret Pep Total Protein 6.1 L Albumin 2.2 L Urine Creatinine Urine Total Protein 05/30/19 05/30/19 05/30/19 05:24 12:41 18:04 WBC RBC Hgb Hct RDW Plt Count Lymph % (Auto) [place] % (Auto) Lymph # [place] # Seg Neutrophils % Seg Neutrophils # PT INR APTT ABG pH ABG pO2 ABG Hemoglobin Oxyhemoglobin Sodium Potassium Chloride Carbon Dioxide BUN Creatinine Glucose POC Glucose 203 H 187 H 173 H Hemoglobin A1c Calcium Phosphorus Magnesium Iron TIBC Ferritin Direct Bilirubin AST Total Creatine Kinase Troponin T NT-Pro-B Natriuret Pep Total Protein Albumin Urine Creatinine Urine Total Protein 05/30/19 05/31/19 05/31/19 23:58 05:00 05:00 WBC 12.3 H RBC 2.84 L Hgb 8.1 L Hct 24.6 L RDW 17.4 H Plt Count Lymph % (Auto) [place] % (Auto) Lymph # [place] # Seg Neutrophils % Seg Neutrophils # PT INR APTT ABG pH ABG pO2 ABG Hemoglobin Oxyhemoglobin Sodium Potassium Chloride 94.0 L Carbon Dioxide BUN 33 H Creatinine 3.8 H Glucose 112 H POC Glucose 185 H Hemoglobin A1c Calcium Phosphorus Magnesium Iron TIBC Ferritin Direct Bilirubin AST Total Creatine Kinase Troponin T NT-Pro-B Natriuret Pep Total Protein Albumin Urine Creatinine Urine Total Protein 05/31/19 05/31/19 05/31/19 06:13 13:10 19:27 WBC RBC Hgb Hct RDW Plt Count Lymph % (Auto) [place] % (Auto) Lymph # [place] # Seg Neutrophils % Seg Neutrophils # PT INR APTT ABG pH ABG pO2 ABG Hemoglobin Oxyhemoglobin Sodium Potassium Chloride Carbon Dioxide BUN Creatinine Glucose POC Glucose 115 H 169 H 142 H Hemoglobin A1c Calcium Phosphorus Magnesium Iron TIBC Ferritin Direct Bilirubin AST Total Creatine Kinase Troponin T NT-Pro-B Natriuret Pep Total Protein Albumin Urine Creatinine Urine Total Protein 06/01/19 06/01/19 06/01/19 00:45 04:48 04:48 WBC 13.4 H RBC 2.82 L Hgb 8.0 L Hct 25.3 L RDW 17.4 H Plt Count Lymph % (Auto) [place] % (Auto) Lymph # [place] # Seg Neutrophils % Seg Neutrophils # PT INR APTT ABG pH ABG pO2 ABG Hemoglobin Oxyhemoglobin Sodium Potassium 3.4 L Chloride Carbon Dioxide BUN 25 H Creatinine 3.4 H Glucose 178 H POC Glucose 214 H Hemoglobin A1c Calcium 10.6 H Phosphorus Magnesium Iron TIBC Ferritin Direct Bilirubin AST Total Creatine Kinase Troponin T NT-Pro-B Natriuret Pep Total Protein Albumin Urine Creatinine Urine Total Protein 06/01/19 05:26 WBC RBC Hgb Hct RDW Plt Count Lymph % (Auto) [place] % (Auto) Lymph # [place] # Seg Neutrophils % Seg Neutrophils # PT INR APTT ABG pH ABG pO2 ABG Hemoglobin Oxyhemoglobin Sodium Potassium Chloride Carbon Dioxide BUN Creatinine Glucose POC Glucose 183 H Hemoglobin A1c Calcium Phosphorus Magnesium Iron TIBC Ferritin Direct Bilirubin AST Total Creatine Kinase Troponin T NT-Pro-B Natriuret Pep Total Protein Albumin Urine Creatinine Urine Total Protein
[2019-06-01] MEDS: MIDODRINE 5 MG TAB PO SCH ×2 (11:41→16:30)
[2019-06-01] MEDS: carvediloL 6.25 MG TAB PO SCH ×2 (12:15→21:39)
--- NOTE | 2019-06-01 15:20 | Progress Note ---
Assessment and Plan Cultures: 05/25/2019 blood culture: No growth 05/28/2019 blood culture: In process 313 urine culture: Enterococcus faecalis A/P: 64-year-old male with hypertension, renal transplant, CKD, current im munosuppression is unclear, patient is a poor historian, states he takes prednisone admitted on 05/25/2019 after he was found lying down: #Possible sepsis: Leucocytosis on admission. Etiology unclear. UA benign. Chest x-ray on admission did not reveal pneumonia. CT abdomen pelvis showed moderate hydronephrosis of the transplant graft. Lower lung cuts did not reveal evidence of pneumonia. CT head did show evidence of pansinusitis. #Acute renal failure on CKD: Renally dose antibiotics. creatinine worsening. #Immunocompromised host, renal transplant: Current immunosuppression unclear, it appears patient is only on prednisone. #Acute encephalopathy: Multifactorial. Has evidence of pansinusitis on CT, recommend MRI brain without contrast. Recs: Continue Unasyn renally dosed Follow-up MRI brain Follow-up blood cultures No evidence of pneumonia, droplet and contact isolation and not needed Patient awaiting possible transfer to tertiary care center Niesha Roth MD [facility] M: [phone] O: [phone] F: [phone] Subjective Date of service: 06/01/19 Principal diagnosis: CKD Interval history: Febrile once overnight with a white count of 13. Now on Unasyn. Objective - Exam Narrative Exam: Constitutional: Drowsy, easily awakened, cooperative. No acute distress Head, Ears, Nose: Normocephalic, atraumatic. External ears, nose normal Eyes: Conjunctivae/corneas clear. No icterus. No ptosis. Neck: Supple, no meningeal signs Cardiovascular: S1, S2 normal. Respiratory: Good air entry, clear to auscultation bilaterally GI: Soft, non-tender; bowel sounds normal. No peritoneal signs Musculoskeletal: No pedal edema, no cyanosis. Skin: No rash or abscess Hem/Lymphatic: No palpable cervical or supraclavicular nodes. No lymphangitis Psych: No agitation Neurological: Drowsy, easily awakened but examination limited - Constitutional Vitals: Vital Signs Temp Pulse Resp BP Pulse Ox 98.3 F 103 H 33 H 92/54 95 06/01/19 12:00 06/01/19 15:00 06/01/19 15:00 06/01/19 15:00 06/01/19 15:00 Temperature -Last 24 Hours Temperature 98.3 F Temperature 98.3 F Temperature 99.3 F Temperature 100.6 F Temperature 99.4 F Temperature 98.3 F Temperature 99.4 F - Labs CBC & Chem 7: 06/01/19 04:48 06/01/19 04:48 Labs: Abnormal lab results 05/31/19 06/01/19 06/01/19 Range/Units 19:27 00:45 04:48 WBC 13.4 H (4.5-11.0) K/mm3 RBC 2.82 L (3.65-5.03) M/mm3 Hgb 8.0 L (11.8-15.2) gm/dl Hct 25.3 L (35.5-45.6) % RDW 17.4 H (13.2-15.2) % Potassium (3.6-5.0) mmol/L BUN (9-20) mg/dL Creatinine (0.8-1.5) mg/dL Glucose (75-100) mg/dL POC Glucose 142 H 214 H (70-105) Calcium (8.4-10.2) mg/dL 06/01/19 06/01/19 06/01/19 Range/Units 04:48 05:26 12:38 WBC (4.5-11.0) K/mm3 RBC (3.65-5.03) M/mm3 Hgb (11.8-15.2) gm/dl Hct (35.5-45.6) % RDW (13.2-15.2) % Potassium 3.4 L (3.6-5.0) mmol/L BUN 25 H (9-20) mg/dL Creatinine 3.4 H (0.8-1.5) mg/dL Glucose 178 H (75-100) mg/dL POC Glucose 183 H 153 H (70-105) Calcium 10.6 H (8.4-10.2) mg/dL
[2019-06-02] MEDS: GABAPENTIN 100 MG CAP PO SCH ×2 (06:33→13:57)
[2019-06-02 07:31] LABS: Calcium 10.7 mg/dL (8.4-10.2)
[2019-06-02] MEDS: ALBUTEROL 2.5 MG/3 ML NEBU IH SCH ×2 (08:19→14:55)
[2019-06-02] MEDS: ACETAMINOPHEN 325 MG TAB PO PRN (08:35)
[2019-06-02] MEDS: MIDODRINE 5 MG TAB PO SCH ×3 (08:36→18:18)
[2019-06-02] MEDS: INSULIN LISPRO 100 UNIT/ML SUB-Q SCH ×2 (08:37→12:04)
--- NOTE | 2019-06-02 08:39 | Progress Note ---
Assessment and Plan Assessment and plan: --Septic shock: Continue Levophed , midodrine Closely monitor blood pressures Adjust as needed --Sepsis/UTI/pneumonia/ immunocompromised patient Sinusitis Current Visit: Yes Status: Acute Fever , leukocytosis , tachycardia , worsening renal function pneumonia , s/p cefepime, now on Unasyn per ID Urine cultures Enterococcus faecalis MRI brain; mucosal disease sinuses no other abnormalities noted -- Hyperkalemia Current Visit: Yes Status: Acute . Oral KCl, on hemodialysis --CONSTANTINO (acute kidney injury)/worsening renal function Current Visit: Yes Status: Acute Nephrology initiated hemodialysis HD as needed/per schedule --History of renal transplant; 1983 Current Visit: Yes Status: Chronic Nephrology, IR, urology recommended transfer to [facility] has accepted transfer to ICU 05/29/19 pending availability of [place] ICU beds --Acute hypoxic respiratory failure; requiring BiPAP, symptoms slightly improved Duo nebs, supportive care --Hydronephrosis on CT Urology and IR consulted As patient is immunocompromised, with h/o renal transplant patient Recommend transfer to tertiary care center, [facility] Accepted transfer, pending availability of [place] ICU beds --Pneumonia; on chest x-ray continue current antibiotics, follow cultures. --Acute pansinusitis; on's CT head: Continue current antibiotics, ID following. MRI brain, mucosal disease of the sinuses follow cultures -- Hyperkalemia Current Visit: Yes Status: Acute . Resolved, on hemodialysis --Acute on chronic systolic CHF (congestive heart failure) Current Visit: Yes Status: Chronic EF 15 to 20%, diuretics, beta-blockers, hold JAREK inhibitors due to CONSTANTINO Dobutamine, Cardiology following, --Severe cardiomyopathy; EF 15 to 20%/hypotension s/p dobutamine drip, management per cardiology --Left upper extremity swelling: Resolved Venous Doppler negative for DVT --History of total hip replacement: Physical therapy occupational therapy -- T2DM (type 2 diabetes mellitus) Current Visit: Yes Status: Chronic Accu-Chek sliding scale coverage ADA diet. Insulin as needed, Hb A1c 6.5 --DVT prophylaxis. Current Visit: Yes Status: Acute On Heparin --Severe protein calorie malnutrition Current Visit: Yes Status: Acute And hypoalbuminemia, Nutrition supplement, nutrition consult, supportive care Patient is critically ill, prognosis Monitor closely and adjust management as needed Plan of care reviewed with the patient's nurse Transfer to [place] processed, patient was accepted for [place] ICU admission pending ICU bed availability Critical care time 40 minutes History Interval history: Patient seen and examined by me at the bedside in ICU Patient looks critically ill, cachectic in acute distress On BiPAP Hypotensive on Levophed midodrine Vital signs reviewed Awaiting transfer to [place] when [place] ICU beds are available Hospitalist Physical - Constitutional Vitals: Temp Pulse Resp BP Pulse Ox 100.0 F H 100 H 34 H 94/61 93 06/02/19 08:00 06/02/19 08:28 06/02/19 08:28 06/02/19 08:28 06/02/19 08:28 General appearance: Present: mild distress, well-nourished, other (Critically ill looking) - EENT Eyes: Present: PERRL, EOM intact - Neck Neck: Present: supple, normal ROM - Respiratory Respiratory effort: labored Respiratory: bilateral: diminished, rhonchi, negative: rales, wheezing - Cardiovascular Rhythm: regular Heart Sounds: Present: S1 & S2 - Extremities Extremities: no ischemia, abnormal (Chronic changes) - Abdominal General gastrointestinal: soft, non-tender, non-distended, normal bowel sounds - Integumentary Integumentary: Present: clear (Chronic skin changes) - Psychiatric Psychiatric: cooperative, other (In distress) - Neurologic Neurologic: moves all extremities Results - Labs CBC & Chem 7: 06/01/19 04:48 06/02/19 06:37 Labs: Laboratory Last Values WBC 13.4 K/mm3 (4.5-11.0) H 06/01/19 04:48 RBC 2.82 M/mm3 (3.65-5.03) L 06/01/19 04:48 Hgb 8.0 gm/dl (11.8-15.2) L 06/01/19 04:48 Hct 25.3 % (35.5-45.6) L 06/01/19 04:48 MCV 90 fl (84-94) 06/01/19 04:48 MCH 28 pg (28-32) 06/01/19 04:48 MCHC 32 % (32-34) 06/01/19 04:48 RDW 17.4 % (13.2-15.2) H 06/01/19 04:48 Plt Count 271 K/mm3 (140-440) 06/01/19 04:48 Lymph % (Auto) 8.4 % (13.4-35.0) L 05/30/19 05:24 Baldwin % (Auto) 13.8 % (0.0-7.3) H 05/30/19 05:24 Eos % (Auto) 2.1 % (0.0-4.3) 05/30/19 05:24 Baso % (Auto) 0.2 % (0.0-1.8) 05/30/19 05:24 Lymph # 0.6 K/mm3 (1.2-5.4) L 05/30/19 05:24 Baldwin # 0.9 K/mm3 (0.0-0.8) H 05/30/19 05:24 Eos # 0.1 K/mm3 (0.0-0.4) 05/30/19 05:24 Baso # 0.0 K/mm3 (0.0-0.1) 05/30/19 05:24 Seg Neutrophils % 75.5 % (40.0-70.0) H 05/30/19 05:24 Seg Neutrophils # 5.2 K/mm3 (1.8-7.7) 05/30/19 05:24 PT 15.6 Sec. (12.2-14.9) H 05/25/19 11:59 INR 1.22 (0.87-1.13) H 05/25/19 11:59 APTT 38.9 Sec. (24.2-36.6) H 05/25/19 11:59 ABG pH 7.538 pH Units (7.350-7.450) H 05/29/19 19:14 ABG pCO2 29.6 mm Hg 05/29/19 19:14 ABG pO2 70.1 mm Hg (80.0-90.0) L 05/29/19 19:14 ABG HCO3 24.6 mmol/L (20.0-26.0) 05/29/19 19:14 ABG O2 Saturation 95.1 % (95.0-99.0) 05/29/19 19:14 ABG O2 Content 15.7 (0.0-44) 05/29/19 19:14 ABG Base Excess 2.6 mmol/L (-2.0-3.0) 05/29/19 19:14 ABG Hemoglobin 11.8 gm/dl (14.0-18.0) L 05/29/19 19:14 ABG Carboxyhemoglobin 0.5 % (0.0-5.0) 05/29/19 19:14 ABG Methemoglobin 0.5 % (0.0-1.5) 05/29/19 19:14 VBG pH 7.407 (7.320-7.420) 05/25/19 11:59 Oxyhemoglobin 94.1 % (95.0-99.0) L 05/29/19 19:14 FiO2 60 % 05/29/19 19:14 Sodium 141 mmol/L (137-145) 06/02/19 06:37 Potassium 3.2 mmol/L (3.6-5.0) L 06/02/19 06:37 Chloride 98.4 mmol/L (98-107) 06/02/19 06:37 Carbon Dioxide 26 mmol/L (22-30) 06/02/19 06:37 Anion Gap 20 mmol/L 06/02/19 06:37 BUN 39 mg/dL (9-20) H 06/02/19 06:37 Creatinine 5.4 mg/dL (0.8-1.5) H D 06/02/19 06:37 Estimated GFR 13 ml/min 06/02/19 06:37 BUN/Creatinine Ratio 7 % 06/02/19 06:37 Glucose 132 mg/dL (75-100) H 06/02/19 06:37 POC Glucose 137 (70-105) H 06/02/19 08:02 Hemoglobin A1c 6.5 % (4-6) H 05/25/19 11:59 Lactic Acid 1.90 mmol/L (0.7-2.0) 05/25/19 15:23 Calcium 10.7 mg/dL (8.4-10.2) H 06/02/19 06:37 Phosphorus 4.60 mg/dL (2.5-4.5) H 05/28/19 06:42 Magnesium 1.80 mg/dL (1.7-2.3) 05/30/19 05:24 Iron 12 ug/dL (49-181) L 05/29/19 05:30 TIBC 120 mcg/dL (250-450) L 05/29/19 05:30 Ferritin 1177.0 ng/mL (13.0-400.0) H 05/29/19 05:30 Total Bilirubin 0.50 mg/dL (0.1-1.2) 05/30/19 05:24 Direct Bilirubin 0.3 mg/dL (0-0.2) H 05/30/19 05:24 Indirect Bilirubin 0.2 mg/dL 05/30/19 05:24 AST 42 units/L (5-40) H 05/30/19 05:24 ALT 22 units/L (7-56) 05/30/19 05:24 Alkaline Phosphatase 96 units/L (35-129) 05/30/19 05:24 Ammonia 29.0 umol/L (25-60) 05/25/19 11:59 Total Creatine Kinase 160 units/L (55-170) 05/25/19 15:23 CK-MB (CK-2) 1.3 ng/mL (0.0-4.0) 05/25/19 15:23 CK-MB (CK-2) Rel Index 0.8 (0-4) 05/25/19 15:23 Troponin T 0.047 ng/mL (0.00-0.029) H 05/25/19 11:59 NT-Pro-B Natriuret Pep 5533 pg/mL (0-900) H 05/25/19 11:59 Total Protein 6.1 g/dL (6.3-8.2) L 05/30/19 05:24 Albumin 2.2 g/dL (3.9-5) L 05/30/19 05:24 Albumin/Globulin Ratio 0.6 % 05/30/19 05:24 Triglycerides 96 mg/dL (2-149) 05/25/19 11:59 Cholesterol 166 mg/dL (50-199) 05/25/19 11:59 LDL Cholesterol Direct 106 mg/dL (50-130) 05/25/19 11:59 HDL Cholesterol 51 mg/dL (40-59) 05/25/19 11:59 Cholesterol/HDL Ratio 3.25 % 05/25/19 11:59 Urine Color Yellow (Yellow) 05/25/19 15:07 Urine Turbidity Clear (Clear) 05/25/19 15:07 Urine pH 6.0 (5.0-7.0) 05/25/19 15:07 Ur Specific Butler 1.013 (1.003-1.030) 05/25/19 15:07 Urine Protein 100 mg/dl mg/dL (Negative) 05/25/19 15:07 Urine Glucose (UA) 50 mg/dL (Negative) 05/25/19 15:07 Urine Ketones Neg mg/dL (Negative) 05/25/19 15:07 Urine Blood Sm (Negative) 05/25/19 15:07 Urine Nitrite Neg (Negative) 05/25/19 15:07 Urine Bilirubin Neg (Negative) 05/25/19 15:07 Urine Urobilinogen 2.0 mg/dL (<2.0) 05/25/19 15:07 Ur Leukocyte Esterase Neg (Negative) 05/25/19 15:07 Urine WBC (Auto) < 1.0 /HPF (0.0-6.0) 05/25/19 15:07 Urine RBC (Auto) 5.0 /HPF (0.0-6.0) 05/25/19 15:07 U Epithel Cells (Auto) < 1.0 /HPF (0-13.0) 05/25/19 15:07 Urine Creatinine 103.7 mg/dL (0.1-20.0) H 05/26/19 Unknown Protein/Creatinin Ratio 2.05 05/26/19 Unknown Urine Sodium 73 mmol/L 05/26/19 Unknown Urine Total Protein 213 mg/dL (5-11.8) H 05/26/19 Unknown Hepatitis A IgM Ab Non-reactive (NonReactive) 05/29/19 05:58 Hep Bs Antigen Non-reactive (Negative) 05/29/19 05:58 Hep B Core IgM Ab Non-reactive (NonReactive) 05/29/19 05:58 Hepatitis C Antibody Non-reactive (NonReactive) 05/29/19 05:58 Influenza A (Rapid) Negative (Negative) 05/29/19 18:30 Influenza B (Rapid) Negative (Negative) 05/29/19 18:30 Microbiology: Microbiology 05/31/19 05:30 Peripheral/Arterial Blood Culture - Preliminary NO GROWTH AFTER 48 HOURS 05/31/19 05:30 Peripheral/Venous Blood Culture - Preliminary NO GROWTH AFTER 48 HOURS 05/28/19 Unknown Peripheral/Venous Blood Culture - Preliminary NO GROWTH AFTER 4 DAYS 05/28/19 Unknown Peripheral/Venous Blood Culture - Preliminary NO GROWTH AFTER 4 DAYS 05/28/19 Unknown Urine,Clean Catch Urine Culture - Preliminary Enterococcus Faecalis - Diagnostic Impressions Diagnostic Impressions: Echocardiogram 05/25/19 21:46 Transthoracic Echocardiogram Indication: SOB BP: 108/77 HR: 113 Conclusions *The left ventricular chamber size is moderately dilated. *Mild to moderate concentric left ventricular hypertrophy is observed. *Global left ventricular systolic function is severely decreased. *The estimated ejection fraction is 15-20%. *The right heart chambers are both mildly to moderately dilated. *There is trace of mitral regurgitation. *There is mild aortic regurgitation. *There is mild tricuspid regurgitation. Findings Left Ventricle: The left ventricular chamber size is moderately dilated. Mild to moderate concentric left ventricular hypertrophy is observed. Global left ventricular systolic function is severely decreased. The estimated ejection fraction is 15-20%. Left Atrium: The left atrium is mildly dilated. Right Ventricle: The right ventricle is mild to moderately dilated. The right ventricular global systolic function is mildly reduced. Right Atrium: The right atrium is mildly dilated. Aortic Valve: The aortic valve is trileaflet. There is mild aortic regurgitation. There is no evidence of aortic stenosis. Mitral Valve: The mitral valve leaflets are mildly thickened. There is trace of mitral regurgitation. There is no evidence of mitral stenosis. Tricuspid Valve: There is mild tricuspid regurgitation. The right ventricular systolic pressure is calculated at 26 mmHg. There is evidence of borderline pulmonary hypertension. Pulmonic Valve: There is mild pulmonic regurgitation. Pericardium: There is no pericardial effusion. Aorta: There is no dilatation of the ascending aorta. There is no dilatation of the aortic arch. There is no dilatation of the aortic root. Venous: The inferior vena cava appears normal in size. Measurements Chambers 2D Name Value Normal Range IVSd (2D) 1.34 cm (0.6 - 1.1) LVPWd (2D) 1.31 cm (0.6 - 1.1) LVIDd (2D) 4.36 cm (3.7 - 5.6) LVIDs (2D) 4.1 cm (2 - 3.8) LV FS (2D) 5.95 % - EF Teichholz (2D) 13.5 % - Ao root diameter (2D) 3.86 cm (2 - 3.7) Volumes/Mass Name Value Normal Range LA ESV SP 4CH (A/L) 39.17 ml - LA ESV SP 2CH (A/L) 45.67 ml - LA ESV BP (A/L) 42.54 ml - LA ESV BP (A/L) index 19 ml/m2 - LA ESV SP 4CH (MOD) 37.88 ml - LA ESV SP 2CH (MOD) 45.05 ml - LA ESV BP (MOD) 41.5 ml - LA ESV BP (MOD) index 19.3 ml/m2 - Diastolic/Systolic Function Name Value Normal Range MV E-wave Vmax 0.45 m/sec - MV deceleration time 177.01 msec - MV A-wave Vmax 0.75 m/sec - MV E:A ratio 0.59 ratio - Aortic Valve Name Value Normal Range AV Vmax 1.3 m/sec - AV VTI 17.46 cm - AV peak gradient 6.72 mmHg - AV mean gradient 3.24 mmHg - LVOT diameter 2.09 cm - LVOT Vmax 0.96 m/sec - LVOT VTI 14.5 cm - LVOT peak gradient 3.68 mmHg - LVOT mean gradient 1.89 mmHg - SV LVOT 49.66 ml - ADAM (continuity Vmax) 2.53 cm2 - ADAM (continuity VTI) 2.84 cm2 - AR PHT 778.7 msec - AR peak gradient 48.06 mmHg - Tricuspid Valve Name Value Normal Range TR Vmax 2.42 m/sec - TR peak gradient 23 mmHg - RAP 3 mmHg - RVSP 26 mmHg - Pulmonic Valve/Qp:Qs Name Value Normal Range PV Vmax 1.14 m/sec - PV peak gradient 5.22 mmHg - PV acceleration time 91.34 msec - Esquivel/IV: Voiding Method Condom Catheter IV Catheter Type [Left Wrist] INT / Saline Lock IV Catheter Type [Left Hand] INT / Saline Lock IV Catheter Type [Left Femoral INT / Saline Lock ] IV Catheter Type [Left Forearm INT / Saline Lock ] Active Medications - Current Medications Current Medications: Generic Name Dose Route Start Last Admin Trade Name Freq PRN Reason Stop Dose Admin Acetaminophen 650 mg 05/25/19 21:33 06/01/19 00:49 Tylenol PO 650 mg Q4H PRN Administration Fever >100.5/SKINNER Acetaminophen 650 mg 05/31/19 04:40 05/31/19 04:55 Tylenol TN 650 mg Q4H PRN Administration Pain, Mild (1-3) Albuterol 2.5 mg 05/30/19 10:04 06/02/19 08:19 Proventil IH 2.5 mg TIDRT SHEBA Administration Aspirin 81 mg 05/29/19 10:00 06/01/19 09:24 Halfprin Ec PO 81 mg QDAY SEHBA Administration Atorvastatin Calcium 40 mg 05/25/19 22:00 06/01/19 21:39 Lipitor PO 40 mg QHS SHEBA Administration Carvedilol 6.25 mg 05/31/19 12:00 06/01/19 21:39 Coreg PO 6.25 mg BID SHEBA Administration Gabapentin 100 mg 05/25/19 22:00 06/02/19 06:33 Gabapentin PO 100 mg Q8HR SHEBA Administration Heparin Sodium (Porcine) 5,000 unit 05/25/19 22:00 06/01/19 21:39 Heparin SUB-Q 5,000 unit Q12HR SHEBA Administration Hydralazine HCl 5 mg 05/25/19 22:20 05/25/19 22:58 Apresoline IV 5 mg Q6H PRN Administration Hypertension Hydromorphone HCl 0.5 mg 05/25/19 16:55 05/31/19 03:40 Dilaudid IV 0.5 mg Q3H PRN Administration Pain , Severe (7-10) Norepinephrine 4 mg in 250 mls @ 7.5 mls/hr 05/29/19 20:00 06/02/19 00:00 Levophed Drip 4 Mg/Ns 250 Ml IV 5 mcg/min TITR SHEBA 18.75 mls/hr Titration Protocol 2 MCG/MIN Ampicillin Sodium/Sulbactam Sodium 3 gm in 100 mls @ 200 mls/hr 06/02/19 10:00 Unasyn/Ns 3 Gm/100 Ml IV Q24HR [facility] Protocol Insulin Human Lispro 0 unit 06/01/19 11:30 06/01/19 21:44 Humalog SUB-Q 2 unit ACHS SHEBA Administration Protocol Midodrine 10 mg 06/01/19 12:00 06/01/19 16:30 Proamatine PO 10 mg TID@0800,1200,1600 SHEBA Administration Ondansetron HCl 4 mg 05/25/19 21:33 Zofran IV Q8H PRN Nausea And Vomiting Oxycodone/Acetaminophen 1 tab 05/25/19 21:33 05/26/19 19:31 Percocet 5/325 PO 1 tab Q6H PRN Administration Pain, Moderate (4-6) Pantoprazole Sodium 40 mg 05/29/19 10:00 06/01/19 09:25 Protonix PO 40 mg QDAY SHEBA Administration Sodium Chloride 10 ml 05/25/19 22:00 06/01/19 21:46 Sodium Chloride Flush Syringe 10 Ml IV 10 ml BID SHEBA Administration Sodium Chloride 10 ml 05/25/19 21:33 05/30/19 00:24 Sodium Chloride Flush Syringe 10 Ml IV 10 ml PRN PRN Administration LINE FLUSH Nutrition/Malnutrition Assess - Dietary Evaluation Nutrition/Malnutrition Findings: Nutrition Notes Start: 05/31/19 11:18 Freq: Status: Active Protocol: Document 05/31/19 11:18 LM (Rec: 05/31/19 11:37 LM [email or web address]) Nutrition Notes Need for Assessment generated from: MD Order,MST Initial or Follow up Assessment Current Diagnosis Acute Kidney Injury,Diabetes, Heart Failure Other Pertinent Diagnosis on HD, hydronephrosis, hx renal transplant Current Diet Renal Labs/Tests BUN 33 Cr 3.8 BG 112 Pertinent Medications Levophed Height 6 ft Weight 93 kg [place] Body Weight (kg) 80.90 BMI 27.8 Weight Status Overweight Subjective/Other Information MD consult for malnurition. Unable to obtain hx from pt. Per RN pt ate well this AM. Weak top loader and edema documented in chart. Burn Absent Trauma Absent GI Symptoms None Current % PO Good (75-100%) Minimum of two criteria Yes Fluid Accumulation Mild (non-severe) Reduced [employer]ist Strength Measurably Reduced (severe) #1 Nutrition Diagnosis Malnutrition Etiology Chronic illness As Evidenced by Signs and Symptoms pt with weak top loader strength and fluid accumulation Is patient on ventilator? No Is Patient Ambulatory and/or Out of Bed No REE-([facility]-confined to bed) [phone] Calculation Used for Recommendations [facility] Additional Notes Protein: >112g (>1.2g/kg) Fluid: per MD Nutrition Intervention Change Diet Order: Continue renal Goal #1 Meet at least 80% of energy and protein needs Anticipated Discharge Needs: Renal diet Follow-Up By: 06/02/19 Additional Comments F/U for intakes, ONS needs, full assessment
--- NOTE | 2019-06-02 09:51 | Progress Note ---
Assessment and Plan 64 y/o male with acute respiratory failure secondary to CHF and worsening renal failure. 1. Wean vasopressors for MAPS 55 and greater. Will start stress dose steroids today [id number] 2. Follow up renal recs. 3. Pulm escamilla, will use BIPAP therapy PRN, continue nasal cannula 4. Await transfer to [facility] 5. Guarded prognosis. 6. Abx therapy per ID CCT 31 minutes. Subjective Date of service: 06/02/19 Principal diagnosis: CKD Interval history: Per nursing, patient more lethargic this am. Placed back on bipap secondary to work of breathing. Still on Levophed and now she has had to go up. After reviewing the chart, patient was on chronic steroid therapy at home which has not been continued here. No family present at bedside. Objective Vital Signs - 12hr 06/01/19 06/01/19 06/01/19 22:00 22:16 22:30 Temperature Pulse Rate 105 H 97 H 94 H Pulse Rate [ Anterior Bilateral] Pulse Rate [ From Monitor] Respiratory 24 29 H 19 Rate Respiratory Rate [Anterior Bilateral] Blood Pressure 90/56 90/56 90/56 O2 Sat by Pulse 92 94 93 Oximetry 06/01/19 06/01/19 06/01/19 22:45 23:00 23:15 Temperature Pulse Rate 92 H 93 H 92 H Pulse Rate [ Anterior Bilateral] Pulse Rate [ From Monitor] Respiratory 38 H 26 H 26 H Rate Respiratory Rate [Anterior Bilateral] Blood Pressure 64/46 84/51 83/56 O2 Sat by Pulse 94 94 94 Oximetry 06/01/19 06/01/19 06/01/19 23:26 23:30 23:45 Temperature Pulse Rate 92 H 91 H 91 H Pulse Rate [ Anterior Bilateral] Pulse Rate [ From Monitor] Respiratory 20 29 H 35 H Rate Respiratory Rate [Anterior Bilateral] Blood Pressure 83/56 91/61 93/58 O2 Sat by Pulse 95 95 94 Oximetry 06/02/19 06/02/19 06/02/19 00:00 00:15 00:30 Temperature 99.6 F Pulse Rate 92 H 92 H 93 H Pulse Rate [ Anterior Bilateral] Pulse Rate [ 91 H From Monitor] Respiratory 22 27 H 27 H Rate Respiratory Rate [Anterior Bilateral] Blood Pressure 99/61 90/56 92/65 O2 Sat by Pulse 95 96 96 Oximetry 06/02/19 06/02/19 06/02/19 00:45 01:00 01:15 Temperature Pulse Rate 97 H 97 H 92 H Pulse Rate [ Anterior Bilateral] Pulse Rate [ From Monitor] Respiratory 31 H 27 H 34 H Rate Respiratory Rate [Anterior Bilateral] Blood Pressure 94/67 99/67 95/60 O2 Sat by Pulse 95 96 95 Oximetry 06/02/19 06/02/19 06/02/19 01:30 01:45 02:00 Temperature Pulse Rate 93 H 94 H 91 H Pulse Rate [ Anterior Bilateral] Pulse Rate [ From Monitor] Respiratory 35 H 34 H 32 H Rate Respiratory Rate [Anterior Bilateral] Blood Pressure 92/60 91/57 90/58 O2 Sat by Pulse 96 96 95 Oximetry 06/02/19 06/02/19 06/02/19 02:15 02:30 02:45 Temperature Pulse Rate 92 H 92 H 87 Pulse Rate [ Anterior Bilateral] Pulse Rate [ From Monitor] Respiratory 37 H 35 H 37 H Rate Respiratory Rate [Anterior Bilateral] Blood Pressure 91/59 92/55 86/57 O2 Sat by Pulse 96 96 95 Oximetry 06/02/19 06/02/19 06/02/19 03:00 03:15 03:30 Temperature Pulse Rate 93 H 93 H 91 H Pulse Rate [ Anterior Bilateral] Pulse Rate [ From Monitor] Respiratory 43 H 38 H 40 H Rate Respiratory Rate [Anterior Bilateral] Blood Pressure 91/60 87/59 86/58 O2 Sat by Pulse 96 96 96 Oximetry 06/02/19 06/02/19 06/02/19 03:45 03:50 04:00 Temperature 99.8 F H Pulse Rate 90 91 H Pulse Rate [ Anterior Bilateral] Pulse Rate [ 93 H From Monitor] Respiratory 38 H 39 H Rate Respiratory Rate [Anterior Bilateral] Blood Pressure 82/53 89/57 O2 Sat by Pulse 95 95 Oximetry 06/02/19 06/02/19 06/02/19 04:15 04:30 04:45 Temperature Pulse Rate 93 H 93 H 92 H Pulse Rate [ Anterior Bilateral] Pulse Rate [ From Monitor] Respiratory 38 H 29 H 37 H Rate Respiratory Rate [Anterior Bilateral] Blood Pressure 87/57 94/62 84/58 O2 Sat by Pulse 96 96 96 Oximetry 06/02/19 06/02/19 06/02/19 05:00 05:15 05:30 Temperature Pulse Rate 92 H 92 H 93 H Pulse Rate [ Anterior Bilateral] Pulse Rate [ From Monitor] Respiratory 40 H 43 H 35 H Rate Respiratory Rate [Anterior Bilateral] Blood Pressure 84/58 86/57 93/56 O2 Sat by Pulse 95 95 95 Oximetry 06/02/19 06/02/19 06/02/19 05:45 06:00 06:15 Temperature Pulse Rate 94 H 97 H 95 H Pulse Rate [ Anterior Bilateral] Pulse Rate [ From Monitor] Respiratory 38 H 36 H 42 H Rate Respiratory Rate [Anterior Bilateral] Blood Pressure 88/58 94/61 100/65 O2 Sat by Pulse 95 95 95 Oximetry 06/02/19 06/02/19 06/02/19 06:30 06:45 07:00 Temperature Pulse Rate 96 H 103 H 92 H Pulse Rate [ Anterior Bilateral] Pulse Rate [ From Monitor] Respiratory 43 H 40 H 32 H Rate Respiratory Rate [Anterior Bilateral] Blood Pressure 84/57 82/53 81/54 O2 Sat by Pulse 95 94 96 Oximetry 06/02/19 06/02/19 06/02/19 07:15 07:30 07:45 Temperature Pulse Rate 96 H 98 H 96 H Pulse Rate [ Anterior Bilateral] Pulse Rate [ From Monitor] Respiratory 33 H 37 H 37 H Rate Respiratory Rate [Anterior Bilateral] Blood Pressure 90/51 84/57 91/59 O2 Sat by Pulse 95 96 96 Oximetry 06/02/19 06/02/19 06/02/19 08:00 08:15 08:18 Temperature 100.0 F H Pulse Rate 97 H 103 H Pulse Rate [ Anterior Bilateral] Pulse Rate [ From Monitor] Respiratory 36 H 40 H Rate Respiratory Rate [Anterior Bilateral] Blood Pressure 84/56 94/61 O2 Sat by Pulse 95 91 92 Oximetry 06/02/19 06/02/19 06/02/19 08:19 08:28 08:30 Temperature Pulse Rate 100 H 103 H Pulse Rate [ 106 H Anterior Bilateral] Pulse Rate [ From Monitor] Respiratory 34 H 34 H Rate Respiratory 14 Rate [Anterior Bilateral] Blood Pressure 94/61 84/53 O2 Sat by Pulse 93 92 Oximetry 06/02/19 06/02/19 06/02/19 08:45 09:00 09:15 Temperature Pulse Rate 99 H 97 H 93 H Pulse Rate [ Anterior Bilateral] Pulse Rate [ From Monitor] Respiratory 41 H 35 H 35 H Rate Respiratory Rate [Anterior Bilateral] Blood Pressure 90/60 82/53 78/48 O2 Sat by Pulse 93 92 93 Oximetry 06/02/19 09:31 Temperature Pulse Rate 94 H Pulse Rate [ Anterior Bilateral] Pulse Rate [ From Monitor] Respiratory 37 H Rate Respiratory Rate [Anterior Bilateral] Blood Pressure 79/48 O2 Sat by Pulse 93 Oximetry CBC and BMP: 06/01/19 04:48 06/02/19 06:37 ABG, PT/INR, D-dimer: ABG ABG pH 7.538 pH Units (7.350-7.450) H 05/29/19 19:14 ABG pCO2 29.6 mm Hg 05/29/19 19:14 ABG pO2 70.1 mm Hg (80.0-90.0) L 05/29/19 19:14 ABG O2 Saturation 95.1 % (95.0-99.0) 05/29/19 19:14 PT/INR, D-dimer PT 15.6 Sec. (12.2-14.9) H 05/25/19 11:59 INR 1.22 (0.87-1.13) H 05/25/19 11:59 Abnormal lab findings: Abnormal Labs 05/25/19 05/25/19 05/25/19 11:59 11:59 11:59 WBC 14.0 H RBC 3.59 L Hgb 10.2 L Hct 31.5 L RDW 17.5 H Plt Count 98 L Lymph % (Auto) 8.2 L Brooks % (Auto) 12.4 H Lymph # 1.1 L Brooks # 1.7 H Seg Neutrophils % 79.0 H Seg Neutrophils # 11.1 H PT 15.6 H INR 1.22 H APTT 38.9 H ABG pH ABG pO2 ABG Hemoglobin Oxyhemoglobin Sodium Potassium 5.6 H Chloride Carbon Dioxide 17 L BUN 52 H Creatinine 2.4 H Glucose 226 H POC Glucose Hemoglobin A1c Calcium 10.6 H Phosphorus Magnesium 2.40 H Iron TIBC Ferritin Direct Bilirubin 0.4 H AST Total Creatine Kinase 185 H Troponin T NT-Pro-B Natriuret Pep 5533 H Total Protein Albumin 3.5 L Urine Creatinine Urine Total Protein 05/25/19 05/25/19 05/25/19 11:59 11:59 15:23 WBC RBC Hgb Hct RDW Plt Count Lymph % (Auto) Brooks % (Auto) Lymph # Brooks # Seg Neutrophils % Seg Neutrophils # PT INR APTT ABG pH ABG pO2 ABG Hemoglobin Oxyhemoglobin Sodium Potassium 5.3 H Chloride 107.6 H Carbon Dioxide BUN 50 H Creatinine 2.4 H Glucose 167 H POC Glucose Hemoglobin A1c 6.5 H Calcium Phosphorus Magnesium Iron TIBC Ferritin Direct Bilirubin AST Total Creatine Kinase Troponin T 0.047 H NT-Pro-B Natriuret Pep Total Protein Albumin Urine Creatinine Urine Total Protein 05/26/19 05/26/19 05/26/19 05:34 05:34 Unknown WBC 14.3 H RBC 3.56 L Hgb 10.2 L Hct 31.4 L RDW 17.6 H Plt Count 103 L Lymph % (Auto) 8.3 L Brooks % (Auto) 11.1 H Lymph # Brooks # 1.6 H Seg Neutrophils % 80.3 H Seg Neutrophils # 11.4 H PT INR APTT ABG pH ABG pO2 ABG Hemoglobin Oxyhemoglobin Sodium Potassium 6.0 H Chloride 107.8 H Carbon Dioxide 21 L BUN 49 H Creatinine 2.7 H Glucose 172 H POC Glucose Hemoglobin A1c Calcium 10.3 H Phosphorus Magnesium Iron TIBC Ferritin Direct Bilirubin AST Total Creatine Kinase Troponin T NT-Pro-B Natriuret Pep Total Protein Albumin Urine Creatinine 103.7 H Urine Total Protein 213 H 05/27/19 05/27/19 05/28/19 05:35 05:35 06:42 WBC 12.0 H 11.4 H RBC 3.06 L 2.74 L Hgb 8.6 L 7.8 L Hct 27.0 L 24.0 L RDW 17.8 H 17.2 H Plt Count 95 L 101 L Lymph % (Auto) Brooks % (Auto) Lymph # Brooks # Seg Neutrophils % Seg Neutrophils # PT INR APTT ABG pH ABG pO2 ABG Hemoglobin Oxyhemoglobin Sodium Potassium Chloride Carbon Dioxide BUN 54 H Creatinine 3.4 H Glucose 179 H POC Glucose Hemoglobin A1c Calcium Phosphorus Magnesium Iron TIBC Ferritin Direct Bilirubin AST Total Creatine Kinase Troponin T NT-Pro-B Natriuret Pep Total Protein Albumin Urine Creatinine Urine Total Protein 05/28/19 05/29/19 05/29/19 06:42 05:30 05:30 WBC RBC 2.86 L Hgb 8.2 L Hct 25.3 L RDW 17.1 H Plt Count 133 L Lymph % (Auto) Brooks % (Auto) Lymph # Brooks # Seg Neutrophils % Seg Neutrophils # PT INR APTT ABG pH ABG pO2 ABG Hemoglobin Oxyhemoglobin Sodium 132 L D Potassium Chloride 96.9 L Carbon Dioxide 16 L 15 L BUN 73 H 91 H Creatinine 4.8 H 6.8 H Glucose 153 H 176 H POC Glucose Hemoglobin A1c Calcium Phosphorus 4.60 H Magnesium Iron TIBC Ferritin Direct Bilirubin AST Total Creatine Kinase Troponin T NT-Pro-B Natriuret Pep Total Protein Albumin Urine Creatinine Urine Total Protein 05/29/19 05/29/19 05/29/19 05:30 05:30 17:24 WBC RBC Hgb Hct RDW Plt Count Lymph % (Auto) Brooks % (Auto) Lymph # Brooks # Seg Neutrophils % Seg Neutrophils # PT INR APTT ABG pH ABG pO2 ABG Hemoglobin Oxyhemoglobin Sodium Potassium Chloride Carbon Dioxide BUN Creatinine Glucose POC Glucose 219 H Hemoglobin A1c Calcium Phosphorus Magnesium Iron 12 L TIBC 120 L Ferritin 1177.0 H Direct Bilirubin AST Total Creatine Kinase Troponin T NT-Pro-B Natriuret Pep Total Protein Albumin Urine Creatinine Urine Total Protein 05/29/19 05/29/19 05/30/19 18:56 19:14 00:03 WBC RBC Hgb Hct RDW Plt Count Lymph % (Auto) Brooks % (Auto) Lymph # Brooks # Seg Neutrophils % Seg Neutrophils # PT INR APTT ABG pH 7.538 H ABG pO2 70.1 L ABG Hemoglobin 11.8 L Oxyhemoglobin 94.1 L Sodium Potassium Chloride Carbon Dioxide BUN Creatinine Glucose POC Glucose 176 H 199 H Hemoglobin A1c Calcium Phosphorus Magnesium Iron TIBC Ferritin Direct Bilirubin AST Total Creatine Kinase Troponin T NT-Pro-B Natriuret Pep Total Protein Albumin Urine Creatinine Urine Total Protein 05/30/19 05/30/19 05/30/19 05:24 05:24 05:24 WBC RBC 2.69 L Hgb 7.8 L Hct 23.2 L RDW 17.2 H Plt Count Lymph % (Auto) 8.4 L Brooks % (Auto) 13.8 H Lymph # 0.6 L Brooks # 0.9 H Seg Neutrophils % 75.5 H Seg Neutrophils # PT INR APTT ABG pH ABG pO2 ABG Hemoglobin Oxyhemoglobin Sodium 134 L Potassium Chloride 91.4 L Carbon Dioxide BUN 51 H Creatinine 4.3 H Glucose 180 H POC Glucose Hemoglobin A1c Calcium Phosphorus Magnesium Iron TIBC Ferritin Direct Bilirubin 0.3 H AST 42 H Total Creatine Kinase Troponin T NT-Pro-B Natriuret Pep Total Protein 6.1 L Albumin 2.2 L Urine Creatinine Urine Total Protein 05/30/19 05/30/19 05/30/19 05:24 12:41 18:04 WBC RBC Hgb Hct RDW Plt Count Lymph % (Auto) Brooks % (Auto) Lymph # Brooks # Seg Neutrophils % Seg Neutrophils # PT INR APTT ABG pH ABG pO2 ABG Hemoglobin Oxyhemoglobin Sodium Potassium Chloride Carbon Dioxide BUN Creatinine Glucose POC Glucose 203 H 187 H 173 H Hemoglobin A1c Calcium Phosphorus Magnesium Iron TIBC Ferritin Direct Bilirubin AST Total Creatine Kinase Troponin T NT-Pro-B Natriuret Pep Total Protein Albumin Urine Creatinine Urine Total Protein 05/30/19 05/31/19 05/31/19 23:58 05:00 05:00 WBC 12.3 H RBC 2.84 L Hgb 8.1 L Hct 24.6 L RDW 17.4 H Plt Count Lymph % (Auto) Brooks % (Auto) Lymph # Brooks # Seg Neutrophils % Seg Neutrophils # PT INR APTT ABG pH ABG pO2 ABG Hemoglobin Oxyhemoglobin Sodium Potassium Chloride 94.0 L Carbon Dioxide BUN 33 H Creatinine 3.8 H Glucose 112 H POC Glucose 185 H Hemoglobin A1c Calcium Phosphorus Magnesium Iron TIBC Ferritin Direct Bilirubin AST Total Creatine Kinase Troponin T NT-Pro-B Natriuret Pep Total Protein Albumin Urine Creatinine Urine Total Protein 05/31/19 05/31/19 05/31/19 06:13 13:10 19:27 WBC RBC Hgb Hct RDW Plt Count Lymph % (Auto) Brooks % (Auto) Lymph # Brooks # Seg Neutrophils % Seg Neutrophils # PT INR APTT ABG pH ABG pO2 ABG Hemoglobin Oxyhemoglobin Sodium Potassium Chloride Carbon Dioxide BUN Creatinine Glucose POC Glucose 115 H 169 H 142 H Hemoglobin A1c Calcium Phosphorus Magnesium Iron TIBC Ferritin Direct Bilirubin AST Total Creatine Kinase Troponin T NT-Pro-B Natriuret Pep Total Protein Albumin Urine Creatinine Urine Total Protein 06/01/19 06/01/19 06/01/19 00:45 04:48 04:48 WBC 13.4 H RBC 2.82 L Hgb 8.0 L Hct 25.3 L RDW 17.4 H Plt Count Lymph % (Auto) Brooks % (Auto) Lymph # Brooks # Seg Neutrophils % Seg Neutrophils # PT INR APTT ABG pH ABG pO2 ABG Hemoglobin Oxyhemoglobin Sodium Potassium 3.4 L Chloride Carbon Dioxide BUN 25 H Creatinine 3.4 H Glucose 178 H POC Glucose 214 H Hemoglobin A1c Calcium 10.6 H Phosphorus Magnesium Iron TIBC Ferritin Direct Bilirubin AST Total Creatine Kinase Troponin T NT-Pro-B Natriuret Pep Total Protein Albumin Urine Creatinine Urine Total Protein 06/01/19 06/01/19 06/01/19 05:26 12:38 16:41 WBC RBC Hgb Hct RDW Plt Count Lymph % (Auto) Brooks % (Auto) Lymph # Brooks # Seg Neutrophils % Seg Neutrophils # PT INR APTT ABG pH ABG pO2 ABG Hemoglobin Oxyhemoglobin Sodium Potassium Chloride Carbon Dioxide BUN Creatinine Glucose POC Glucose 183 H 153 H 196 H Hemoglobin A1c Calcium Phosphorus Magnesium Iron TIBC Ferritin Direct Bilirubin AST Total Creatine Kinase Troponin T NT-Pro-B Natriuret Pep Total Protein Albumin Urine Creatinine Urine Total Protein 06/01/19 06/02/19 06/02/19 21:40 06:37 08:02 WBC RBC Hgb Hct RDW Plt Count Lymph % (Auto) Brooks % (Auto) Lymph # Brooks # Seg Neutrophils % Seg Neutrophils # PT INR APTT ABG pH ABG pO2 ABG Hemoglobin Oxyhemoglobin Sodium Potassium 3.2 L Chloride Carbon Dioxide BUN 39 H Creatinine 5.4 H D Glucose 132 H POC Glucose 167 H 137 H Hemoglobin A1c Calcium 10.7 H Phosphorus Magnesium Iron TIBC Ferritin Direct Bilirubin AST Total Creatine Kinase Troponin T NT-Pro-B Natriuret Pep Total Protein Albumin Urine Creatinine Urine Total Protein
[2019-06-02] MEDS: HEPARIN 5,000 UNIT/1 ML VIAL SUB-Q SCH (09:53)
[2019-06-02] MEDS: ASPIRIN EC 81 MG TAB PO SCH (09:53)
[2019-06-02] MEDS: PANTOPRAZOLE 40 MG TAB PO SCH (09:53)
[2019-06-02] MEDS ORDERED: AMPICILLIN/SULBACTA 3GM/100ML 3 GM/100 ML BAG IV SCH (10:00)
[2019-06-02] MEDS ORDERED: POTASSIUM CHLORIDE ER 20 MEQ TAB PO ONE (10:00)
--- NOTE | 2019-06-02 10:01 | Progress Note ---
Assessment and Plan Hx Ischemic cardiomyopathy an echo this admission reveals 4 chamber dilated cardiomyopathy with a decrease systolic function, EF 15-20%. no evidence of decompensation follows with [facility] in [place] Hx of ID/CAD s/p PCI of the first obtuse marginal in 2013 brilinta discontinued no evidence of ischemia by MPI 06/2015 Sepsis Altered mental status RUE pain and inflammation RUE doppler negative for DVT Chronic renal failure s/p remote renal transplant -initiated on dialysis Anemia Thrombocytopenia Hypotension -on midodrine Supportive cardiac management. Continue medical therapy as tolerated for chronic systolic left ventricular failure and coronary artery disease. Subjective Date of service: 06/02/19 Principal diagnosis: CKD Interval history: No cardiac events reported overnight. Objective Vital Signs Temp Pulse Pulse Pulse Resp Resp BP 06/02/19 09:31 94 H 37 H 79/48 06/02/19 09:15 93 H 35 H 78/48 06/02/19 09:00 97 H 35 H 82/53 06/02/19 08:45 99 H 41 H 90/60 06/02/19 08:30 103 H 34 H 84/53 06/02/19 08:28 100 H 34 H 94/61 06/02/19 08:19 106 H 14 06/02/19 08:18 06/02/19 08:15 103 H 40 H 94/61 06/02/19 08:00 100.0 F H 97 H 36 H 84/56 06/02/19 07:45 96 H 37 H 91/59 06/02/19 07:30 98 H 37 H 84/57 06/02/19 07:15 96 H 33 H 90/51 06/02/19 07:00 92 H 32 H 81/54 06/02/19 06:45 103 H 40 H 82/53 06/02/19 06:30 96 H 43 H 84/57 06/02/19 06:15 95 H 42 H 100/65 06/02/19 06:00 97 H 36 H 94/61 06/02/19 05:45 94 H 38 H 88/58 06/02/19 05:30 93 H 35 H 93/56 06/02/19 05:15 92 H 43 H 86/57 06/02/19 05:00 92 H 40 H 84/58 06/02/19 04:45 92 H 37 H 84/58 06/02/19 04:30 93 H 29 H 94/62 1820 04:15 93 H 38 H 87/57 1820 04:00 91 H 93 H 39 H 89/57 1820 03:50 99.8 F H 0318 03:45 90 38 H 82/53 18 03:30 91 H 40 H 86/58 1820 03:15 93 H 38 H 87/59 1820 03:00 93 H 43 H 91/60 18 02:45 87 37 H 86/57 18 02:30 92 H 35 H 92/55 1820 02:15 92 H 37 H 91/59 18 02:00 91 H 32 H 90/58 06/02/19 01:45 94 H 34 H 91/57 06/02/19 01:30 93 H 35 H 92/60 20 01:15 92 H 34 H 95/60 20 01:00 97 H 27 H 99/67 1820 00:45 97 H 31 H 94/67 18 00:30 93 H 27 H 92/65 1820 00:15 92 H 27 H 90/56 1820 00:00 99.6 F 92 H 91 H 22 99/61 1720 23:45 91 H 35 H 93/58 06/01/19 23:30 91 H 29 H 91/61 1720 23:26 92 H 20 83/56 1720 23:15 92 H 26 H 83/56 1720 23:00 93 H 26 H 84/51 1720 22:45 92 H 38 H 64/46 17/20 22:30 94 H 19 90/56 17/20 22:16 97 H 29 H 90/56 1720 22:00 105 H 24 90/56 17/20 21:45 100 H 35 H 105/68 1720 21:30 96 H 33 H 101/68 17/20 21:15 98 H 25 H 94/65 1720 21:00 101 H 38 H 104/64 1720 20:45 99 H 39 H 108/62 1720 20:30 100 H 42 H 115/64 /1720 20:15 100 H 39 H 107/55 1720 20:00 99.8 F H 98 H 98 H 31 H 106/65 17/20 19:59 /20 19:56 96 H 28 H 20 19:45 94 H 37 H 106/61 20 19:30 96 H 22 100/61 06/01/19 19:15 96 H 20 92/66 06/01/19 19:00 94 H 26 H 99/66 20 18:46 95 H 21 85/58 06/01/19 18:30 95 H 14 79/55 06/01/19 18:15 99 H 22 78/54 06/01/19 18:00 91 H 17 95/51 06/01/19 17:45 94 H 18 89/56 06/01/19 17:30 99 H 22 86/55 06/01/19 17:15 99 H 19 86/55 06/01/19 17:00 101 H 21 105/52 06/01/19 16:45 100 H 37 H 105/52 06/01/19 16:30 105 H 28 H 95/59 20 16:15 104 H 38 H 95/55 06/01/19 16:00 98.6 F 106 H 41 H 95/62 06/01/19 15:45 105 H 36 H 87/60 20 15:30 103 H 35 H 84/55 20 15:15 105 H 37 H 95/59 20 15:00 103 H 33 H 92/54 20 14:45 102 H 34 H 90/45 20 14:30 100 H 34 H 82/43 06/01/19 14:15 103 H 33 H 83/44 20 14:00 102 H 12 79/35 20 13:45 126 H 37 H 98/55 06/01/19 13:30 117 H 22 96/60 20 13:15 103 H 18 102/64 06/01/19 13:00 95 H 20 107/61 06/01/19 12:45 94 H 25 H 102/75 06/01/19 12:30 90 19 96/67 06/01/19 12:16 91 H 13 96/67 06/01/19 12:00 98.3 F 109 H 23 100/71 06/01/19 11:45 87 22 95/62 20 11:30 83 28 H 86/59 20 11:15 98 H 32 H 90/57 06/01/19 11:00 97 H 30 H 101/59 06/01/19 10:46 83 31 H 109/51 06/01/19 10:30 96 H 23 101/60 06/01/19 10:15 93 H 28 H 101/60 20 10:00 101 H 29 H 101/58 Pulse Ox 06/02/19 09:31 93 06/02/19 09:15 93 06/02/19 09:00 92 06/02/19 08:45 93 06/02/19 08:30 92 06/02/19 08:28 93 06/02/19 08:19 06/02/19 08:18 92 06/02/19 08:15 91 06/02/19 08:00 95 06/02/19 07:45 96 20 07:30 96 06/02/19 07:15 95 06/02/19 07:00 96 06/02/19 06:45 94 06/02/19 06:30 95 06/02/19 06:15 95 06/02/19 06:00 95 06/02/19 05:45 95 06/02/19 05:30 95 06/02/19 05:15 95 06/02/19 05:00 95 20 04:45 96 20 04:30 96 06/02/19 04:15 96 06/02/19 04:00 95 06/02/19 03:50 20 03:45 95 20 03:30 96 06/02/19 03:15 96 06/02/19 03:00 96 06/02/19 02:45 95 06/02/19 02:30 96 06/02/19 02:15 96 06/02/19 02:00 95 06/02/19 01:45 96 06/02/19 01:30 96 03/18/20 01:15 95 03/18/20 01:00 96 1820 00:45 95 1820 00:30 96 1820 00:15 96 20 00:00 95 20 23:45 94 20 23:30 95 20 23:26 95 20 23:15 94 20 23:00 94 20 22:45 94 20 22:30 93 20 22:16 94 20 22:00 92 20 21:45 96 20 21:30 95 20 21:15 95 06/01/19 21:00 95 20 20:45 95 20 20:30 96 20 20:15 96 06/01/19 20:00 97 06/01/19 19:59 97 06/01/19 19:56 06/01/19 19:45 95 06/01/19 19:30 95 20 19:15 95 20 19:00 95 06/01/19 18:46 95 20 18:30 97 06/01/19 18:15 95 06/01/19 18:00 97 06/01/19 17:45 97 06/01/19 17:30 96 06/01/19 17:15 95 20 17:00 93 06/01/19 16:45 94 06/01/19 16:30 92 06/01/19 16:15 92 06/01/19 16:00 88 20 15:45 92 20 15:30 94 06/01/19 15:15 94 06/01/19 15:00 95 06/01/19 14:45 95 06/01/19 14:30 94 06/01/19 14:15 92 06/01/19 14:00 91 20 13:45 89 20 13:30 89 20 13:15 90 20 13:00 92 06/01/19 12:45 94 20 12:30 95 06/01/19 12:16 94 06/01/19 12:00 83 L 06/01/19 11:45 93 06/01/19 11:30 90 06/01/19 11:15 90 06/01/19 11:00 89 06/01/19 10:46 87 06/01/19 10:30 06/01/19 10:15 92 06/01/19 10:00 89 - Physical Examination General: No Apparent Distress HEENT: Positive: PERRL Neck: Positive: trachea midline Cardiac: Positive: Reg Rate and Rhythm Lungs: Positive: Decreased Breath Sounds Neuro: Positive: Weakness Abdomen: Positive: Soft Skin: Positive: Clear Extremities: Absent: edema - Labs and Meds Comprehensive Metabolic Panel 06/02/19 Range/Units 06:37 Sodium 141 (137-145) mmol/L Potassium 3.2 L (3.6-5.0) mmol/L Chloride 98.4 (98-107) mmol/L Carbon Dioxide 26 (22-30) mmol/L BUN 39 H (9-20) mg/dL Creatinine 5.4 H D (0.8-1.5) mg/dL Glucose 132 H (75-100) mg/dL Calcium 10.7 H (8.4-10.2) mg/dL
[2019-06-02] MEDS: HYDROCORTISONE SOD SUCC 100 MG/2 ML VIAL IV SCH ×2 (10:22→14:28)
[2019-06-02] MEDS: NORepinephrine/NS 4 MG-250 ML 4 MG/250 ML BAG IV SCH ×2 (12:00→15:28)
--- NOTE | 2019-06-02 15:54 | Discharge Summary ---
Providers - Providers Date of Admission: 05/25/19 21:33 Date of discharge: 06/02/19 Attending physician: YUMI GALINDO 05/25/19 14:56 Consult to Physician [CONS] Stat Comment: Consulting Provider: TEODORA CAMPOS Physician Instructions: Reason For Exam: ARF hyperkalemia 05/25/19 21:44 Consult to Physician [CONS] Routine Comment: Consulting Provider: TEODORA CAMPOS Physician Instructions: Reason For Exam: CONSTANTINO 05/25/19 21:46 Consult to Physician [CONS] Routine Comment: Consulting Provider: VERONIQUE GARCIA Physician Instructions: Reason For Exam: chf 05/27/19 13:35 Occupational Therapy Evaluate and Treat [CONS] Routine Comment: Reason For Exam: History of hip surgery/unable to walk 05/28/19 10:17 Consult to Physician [CONS] Routine Comment: Consulting Provider: LAKSHMI BURNETT Physician Instructions: Reason For Exam: Febrile illness/history of renal transplant 05/29/19 08:57 Consult to Physician [CONS] Urgent Comment: Consulting Provider: NEREIDA THOMAS Physician Instructions: Reason For Exam: vascath placement for CONSTANTINO 05/29/19 17:15 Consult to Physician [CONS] Routine Comment: Consulting Provider: MARK MCMANUS Physician Instructions: Reason For Exam: C C consultAc. resp distr/hypotension /dobutamine 05/30/19 16:34 Consult to Dietitian/Nutrition [CONS] Routine Physician Instructions: Reason For Exam: Reason for Consult: Malnutrition 05/31/19 13:44 Consult to Wound/ET Nurse [CONS] Routine Reason For Exam: wound eval Primary care physician: MAKE UP AR[employer]ANGER Hospitalization Reason for admission: Acute renal failure/metabolic encephalopathy/acute on chronic systolic CHF Condition: Critical Pertinent studies: CT head without contrast CT abdomen and pelvis Echocardiogram Renal ultrasound Upper extremity venous Doppler MRI brain Procedures: vascath placement HD per schedule Hospital course: 64-year-old man was found on the floor reportedly down for "4 days". However the patient states he lives with his brother and he has not been immobile. Complains of pain to his back. At present patient can barely speak due to being in pain. Patient reports that he has a kidney doctor name Garcialorena Cortez that is off [facility] and states he has last seen him 2 months ago and has been under his care for 30 plus years. Patient is unable to state what his baseline renal function is as he does not know. Patient's serum creatinine noted to elevated at 2.4. Baseline unknown. Patient has history of renal transplant in 1983 and hypertension, immunocompromised, appropriately managed ,evaluated by nephrology and cardiology, medications were optimized, however patient continued to deteriorate with worsening renal function and nephrology recommended transfer to tertiary care/renal transplant center. [facility] accepted pending availability of ICU beds Meanwhile patient was septic with UTI, pneumonia, sinusitis, ID has evaluated and medications optimized. Had septic shock, and respiratory failure. Patient had severe cardiomyopathy with ejection fraction of 15 to 20%, cardiolog y evaluated and optimized medications received dobutamine drip Patient continued to deteriorate with very poor prognosis ,today is critically ill looking, hypotensive on vasopressors, IV antibiotics [facility] transfer center call and accepted the patient and requested to transfer the patient to their ICU. Patient is critically ill with poor and guarded prognosis Discharge diagnosis and management; --Septic shock: Continue Levophed , midodrine Closely monitor blood pressures Adjust as needed --Sepsis/UTI/pneumonia/ immunocompromised patient Sinusitis Current Visit: Yes Status: Acute Fever , leukocytosis , tachycardia , worsening renal function pneumonia , s/p cefepime, now on Unasyn per ID Urine cultures Enterococcus faecalis MRI brain; mucosal disease sinuses no other abnormalities noted -- Hyperkalemia Current Visit: Yes Status: Acute . Oral KCl, on hemodialysis --CONSTANTINO (acute kidney injury)/worsening renal function Current Visit: Yes Status: Acute Nephrology initiated hemodialysis HD as needed/per schedule --History of renal transplant; 1983 Current Visit: Yes Status: Chronic Nephrology, IR, urology recommended transfer to [facility] has accepted transfer to ICU 05/29/19 pending availability of [facility] ICU beds --Acute hypoxic respiratory failure; requiring BiPAP, symptoms slightly improved Duo nebs, supportive care --Hydronephrosis on CT Urology and IR consulted As patient is immunocompromised, with h/o renal transplant patient Recommend transfer to tertiary care center, [facility] Accepted transfer, pending availability of [facility] ICU beds --Pneumonia; on chest x-ray continue current antibiotics, follow cultures. --Acute pansinusitis; on's CT head: Continue current antibiotics, ID following. MRI brain, mucosal disease of the sinuses follow cultures -- Hyperkalemia Current Visit: Yes Status: Acute . Resolved, on hemodialysis --Acute on chronic systolic CHF (congestive heart failure) Current Visit: Yes Status: Chronic EF 15 to 20%, diuretics, beta-blockers, hold JAREK inhibitors due to CONSTANTINO Dobutamine, Cardiology following, --Severe cardiomyopathy; EF 15 to 20%/hypotension s/p dobutamine drip, management per cardiology --History of total hip replacement: Physical therapy occupational therapy -- T2DM (type 2 diabetes mellitus) Current Visit: Yes Status: Chronic Accu-Chek sliding scale coverage ADA diet. Insulin as needed, Hb A1c 6.5 --DVT prophylaxis. Current Visit: Yes Status: Acute On Heparin --Severe protein calorie malnutrition Current Visit: Yes Status: Acute And hypoalbuminemia, Nutrition supplement, nutrition consult, supportive care Patient is critically ill, poor prognosis Transfer to [facility] ICU for higher level of care , as patient is immunocompromised with history of renal transplant Critical care time 45 minutes Disposition: DC-[id number] TO HOME OR SELFCARE Time spent for discharge: 45 min Core Measure Documentation - Palliative Care Palliative Care/ Comfort Measures: Not Applicable - Core Measures Any of the following diagnoses?: heart failure - Heart Failure Discharge Requirements JAREK/ARB for LVSD if EF <40%: No Reason for no JAREK/ARB: Hypotension Beta josias at discharge: No Reason for no beta josias on DC: Hypotension Exam - Constitutional Vitals: Temp Pulse Resp BP Pulse Ox 98.0 F 82 27 H 113/80 93 06/02/19 12:00 06/02/19 15:30 06/02/19 15:30 06/02/19 15:30 06/02/19 15:30 General appearance: Present: mild distress, well-nourished, other (Critically ill looking) - EENT Eyes: Present: PERRL, scleral icterus - Neck Neck: Present: supple, normal ROM - Respiratory Respiratory effort: labored Respiratory: bilateral: diminished, rhonchi, negative: rales, wheezing - Cardiovascular Rhythm: regular Heart Sounds: Present: S1 & S2 - Extremities Extremities: abnormal (Chronic changes) Extremity abnormal: edema - Abdominal General gastrointestinal: Present: soft, non-tender, non-distended, normal bowel sounds - Integumentary Integumentary: Present: clear, warm (Chronic skin changes) - Musculoskeletal Musculoskeletal: generalized weakness - Psychiatric Psychiatric: cooperative, other (Confused at times) - Neurologic Neurologic: other (Confused at times) Plan Additional Instructions: Patient is being transferred to [facility] ICU, for higher level of care as patient has history of renal transplant[service not available here] Follow up with: PRIMARY CARE, [Primary Care Provider] - 3-5 Days
--- NOTE | 2019-06-02 16:50 | Progress Note ---
Assessment and Plan Acute on Chronic Kidney Disease likely secondary to Hypertensive Nephrosclerosis: Renal transplant: -Initiated HD on 05/29/19 for worsening renal failure -HD today for UF and clearance -Assess need for HD on daily basis -Patient had renal transplant at [place] in 1983. Hasn't followed up with [place] in several years. -Renal ultrasound showed Right renal transplant with mild hydronephrosis- Consulted Urologist Dr. Reynaga -We consulted Urology for their input on this patient's hydronephrosis shown on renal ultrasound, both Urology and IR unable to correct kidney graft hydronephrosis and recommended transfer to [place] transplant center -Patient accepted to be transferred to [place] but no bed is currently available -Transfer to [place] once a bed becomes available -Transplant anti-rejection regimen unknown, will hold off for now due to active sepsis, will defer to [place] transplant team when patient is transferred Hx Hypertension: Now Hypotensive -On midodrine 10 mg po TID -Monitor blood pressures Hypokalemia -Replete gently in setting of advanced CKD Back Pain: -As per primary Anemia: -May need Epogen Heart Failure: -S/p dobutamine drip -Cardiology evaluated pt Subjective Principal diagnosis: CKD Objective - Vital Signs Vital signs: Vital Signs - 12hr 06/02/19 06/02/19 06/02/19 05:00 05:15 05:30 Temperature Pulse Rate 92 H 92 H 93 H Pulse Rate [ Anterior Bilateral] Respiratory 40 H 43 H 35 H Rate Respiratory Rate [Anterior Bilateral] Blood Pressure 84/58 86/57 93/56 O2 Sat by Pulse 95 95 95 Oximetry 06/02/19 06/02/19 06/02/19 05:45 06:00 06:15 Temperature Pulse Rate 94 H 97 H 95 H Pulse Rate [ Anterior Bilateral] Respiratory 38 H 36 H 42 H Rate Respiratory Rate [Anterior Bilateral] Blood Pressure 88/58 94/61 100/65 O2 Sat by Pulse 95 95 95 Oximetry 06/02/19 06/02/19 06/02/19 06:30 06:45 07:00 Temperature Pulse Rate 96 H 103 H 92 H Pulse Rate [ Anterior Bilateral] Respiratory 43 H 40 H 32 H Rate Respiratory Rate [Anterior Bilateral] Blood Pressure 84/57 82/53 81/54 O2 Sat by Pulse 95 94 96 Oximetry 06/02/19 06/02/19 06/02/19 07:15 07:30 07:45 Temperature Pulse Rate 96 H 98 H 96 H Pulse Rate [ Anterior Bilateral] Respiratory 33 H 37 H 37 H Rate Respiratory Rate [Anterior Bilateral] Blood Pressure 90/51 84/57 91/59 O2 Sat by Pulse 95 96 96 Oximetry 06/02/19 06/02/19 06/02/19 08:00 08:15 08:18 Temperature 100.0 F H Pulse Rate 97 H 103 H Pulse Rate [ Anterior Bilateral] Respiratory 36 H 40 H Rate Respiratory Rate [Anterior Bilateral] Blood Pressure 84/56 94/61 O2 Sat by Pulse 95 91 92 Oximetry 06/02/19 06/02/19 06/02/19 08:19 08:28 08:30 Temperature Pulse Rate 100 H 103 H Pulse Rate [ 106 H Anterior Bilateral] Respiratory 34 H 34 H Rate Respiratory 14 Rate [Anterior Bilateral] Blood Pressure 94/61 84/53 O2 Sat by Pulse 93 92 Oximetry 06/02/19 06/02/19 06/02/19 08:45 09:00 09:15 Temperature Pulse Rate 99 H 97 H 93 H Pulse Rate [ Anterior Bilateral] Respiratory 41 H 35 H 35 H Rate Respiratory Rate [Anterior Bilateral] Blood Pressure 90/60 82/53 78/48 O2 Sat by Pulse 93 92 93 Oximetry 06/02/19 06/02/19 06/02/19 09:31 09:45 10:00 Temperature Pulse Rate 94 H 90 91 H Pulse Rate [ Anterior Bilateral] Respiratory 37 H 39 H 38 H Rate Respiratory Rate [Anterior Bilateral] Blood Pressure 79/48 83/49 78/50 O2 Sat by Pulse 93 92 94 Oximetry 06/02/19 06/02/19 06/02/19 10:15 10:30 10:45 Temperature Pulse Rate 90 90 89 Pulse Rate [ Anterior Bilateral] Respiratory 36 H 38 H 36 H Rate Respiratory Rate [Anterior Bilateral] Blood Pressure 80/51 84/53 82/55 O2 Sat by Pulse 94 95 93 Oximetry 06/02/19 06/02/19 06/02/19 10:58 11:00 11:15 Temperature Pulse Rate 93 H 86 89 Pulse Rate [ Anterior Bilateral] Respiratory 36 H 37 H 38 H Rate Respiratory Rate [Anterior Bilateral] Blood Pressure 80/51 75/49 72/47 O2 Sat by Pulse 93 93 92 Oximetry 06/02/19 06/02/19 06/02/19 11:31 11:45 12:00 Temperature 98.0 F Pulse Rate 83 80 81 Pulse Rate [ Anterior Bilateral] Respiratory 31 H 34 H 31 H Rate Respiratory Rate [Anterior Bilateral] Blood Pressure 73/46 85/61 87/54 O2 Sat by Pulse 91 89 94 Oximetry 06/02/19 06/02/19 06/02/19 12:15 12:30 12:45 Temperature Pulse Rate 85 82 80 Pulse Rate [ Anterior Bilateral] Respiratory 40 H 32 H 29 H Rate Respiratory Rate [Anterior Bilateral] Blood Pressure 106/62 109/69 104/71 O2 Sat by Pulse 84 93 94 Oximetry 06/02/19 06/02/19 06/02/19 13:00 13:15 13:30 Temperature Pulse Rate 79 77 79 Pulse Rate [ Anterior Bilateral] Respiratory 30 H 27 H 32 H Rate Respiratory Rate [Anterior Bilateral] Blood Pressure 104/70 108/72 116/74 O2 Sat by Pulse 95 95 96 Oximetry 06/02/19 06/02/19 06/02/19 13:45 14:00 14:15 Temperature Pulse Rate 85 84 85 Pulse Rate [ Anterior Bilateral] Respiratory 29 H 26 H 30 H Rate Respiratory Rate [Anterior Bilateral] Blood Pressure 102/61 101/68 102/75 O2 Sat by Pulse 93 94 93 Oximetry 06/02/19 06/02/19 06/02/19 14:30 14:45 14:53 Temperature Pulse Rate 82 78 78 Pulse Rate [ Anterior Bilateral] Respiratory 27 H 25 H 23 Rate Respiratory Rate [Anterior Bilateral] Blood Pressure 103/76 102/64 102/64 O2 Sat by Pulse 95 93 93 Oximetry 06/02/19 06/02/19 06/02/19 14:55 15:00 15:15 Temperature Pulse Rate 79 82 Pulse Rate [ 81 Anterior Bilateral] Respiratory 25 H 29 H Rate Respiratory 28 H Rate [Anterior Bilateral] Blood Pressure 105/72 108/78 O2 Sat by Pulse 93 92 Oximetry 06/02/19 15:30 Temperature Pulse Rate 82 Pulse Rate [ Anterior Bilateral] Respiratory 27 H Rate Respiratory Rate [Anterior Bilateral] Blood Pressure 113/80 O2 Sat by Pulse 93 Oximetry - Lab 06/01/19 04:48 06/02/19 06:37 Most recent lab results ABG pH 7.538 pH Units (7.350-7.450) H 05/29/19 19:14 ABG pCO2 29.6 mm Hg 05/29/19 19:14 ABG pO2 70.1 mm Hg (80.0-90.0) L 05/29/19 19:14 ABG HCO3 24.6 mmol/L (20.0-26.0) 05/29/19 19:14 ABG O2 Saturation 95.1 % (95.0-99.0) 05/29/19 19:14 Calcium 10.7 mg/dL (8.4-10.2) H 06/02/19 06:37 Phosphorus 4.60 mg/dL (2.5-4.5) H 05/28/19 06:42 Magnesium 1.80 mg/dL (1.7-2.3) 05/30/19 05:24 Urine Creatinine 103.7 mg/dL (0.1-20.0) H 05/26/19 Unknown Urine Sodium 73 mmol/L 05/26/19 Unknown Urine Total Protein 213 mg/dL (5-11.8) H 05/26/19 Unknown Medications & Allergies - Medications Allergies/Adverse Reactions: Allergies codeine [From Tylenol-Codeine #3] Allergy (Verified 05/25/19 11:33) Unknown tramadol Allergy (Verified 05/25/19 11:33) Unknown Home Medications: Home Medications Medication Instructions Recorded Confirmed Last Taken Type Gabapentin 100 mg PO Q8HR 05/25/19 05/25/19 Unknown History Rosuvastatin Calcium 20 mg PO QHS 05/25/19 05/25/19 Unknown History ALBUTEROL NEB's [Proventil 0.083% 2.5 mg IH TIDRT nebu 06/02/19 Unknown Rx NEBS] Acetaminophen [Acetaminophen 650 mg [place] Q4H PRN supp.rect 06/02/19 Unknown Rx SUPPOS] Aspirin EC [Halfprin EC] 81 mg PO QDAY tablet 06/02/19 Unknown Rx Hydrocortisone Sod Succ 100 mg IV Q8HR vial 06/02/19 Unknown Rx [Solu-Cortef] Lispro Insulin [HumaLOG] 0 unit SUB-Q ACHS units 06/02/19 Unknown Rx Midodrine [Proamatine] 10 mg PO TID@0800,1200,1600 tablet 06/02/19 Unknown Rx Pantoprazole [Protonix TAB] 40 mg PO QDAY tablet 06/02/19 Unknown Rx hydrALAZINE [Apresoline INJ] 5 mg IV Q6H PRN vial 06/02/19 Unknown Rx oxyCODONE /ACETAMINOPHEN [Percocet 1 tab PO Q6H PRN tablet 06/02/19 Unknown Rx 5/325 mg] Active Medications: Generic Name Dose Route Start Last Admin Trade Name Freq PRN Reason Stop Dose Admin Acetaminophen 650 mg 05/25/19 21:33 06/02/19 08:35 Tylenol PO 650 mg Q4H PRN Administration Fever >100.5/SKINNER Acetaminophen 650 mg 05/31/19 04:40 05/31/19 04:55 Tylenol [place] 650 mg Q4H PRN Administration Pain, Mild (1-3) Albuterol 2.5 mg 05/30/19 10:04 06/02/19 14:55 Proventil IH 2.5 mg TIDRT SHEBA Administration Aspirin 81 mg 05/29/19 10:00 06/02/19 09:53 Halfprin Ec PO 81 mg QDAY SHEBA Administration Atorvastatin Calcium 40 mg 05/25/19 22:00 06/01/19 21:39 Lipitor PO 40 mg QHS SHEBA Administration Gabapentin 100 mg 05/25/19 22:00 06/02/19 13:57 Gabapentin PO 100 mg Q8HR SHEBA Administration Heparin Sodium (Porcine) 5,000 unit 05/25/19 22:00 06/02/19 09:53 Heparin SUB-Q 5,000 unit Q12HR SHEBA Administration Hydralazine HCl 5 mg 05/25/19 22:20 05/25/19 22:58 Apresoline IV 5 mg Q6H PRN Administration Hypertension Hydrocortisone Sodium Succinate 100 mg 06/02/19 09:00 06/02/19 14:28 Solu-Cortef IV 100 mg Q8HR SHEBA Administration Hydromorphone HCl 0.5 mg 05/25/19 16:55 05/31/19 03:40 Dilaudid IV 0.5 mg Q3H PRN Administration Pain , Severe (7-10) Norepinephrine 4 mg in 250 mls @ 7.5 mls/hr 05/29/19 20:00 06/02/19 15:46 Levophed Drip 4 Mg/Ns 250 Ml IV 3.2 mcg/min TITR SHEBA 12 mls/hr Titration Protocol 2 MCG/MIN Ampicillin Sodium/Sulbactam Sodium 3 gm in 100 mls @ 200 mls/hr 06/02/19 10:00 06/02/19 10:23 Unasyn/Ns 3 Gm/100 Ml IV 200 mls/hr Q24HR SHEBA Administration Protocol Insulin Human Lispro 0 unit 06/01/19 11:30 06/02/19 12:04 Humalog SUB-Q Not Given ACHS SHEBA Protocol Midodrine 10 mg 06/01/19 12:00 06/02/19 13:00 Proamatine PO 10 mg TID@0800,1200,1600 SHEBA Administration Ondansetron HCl 4 mg 05/25/19 21:33 Zofran IV Q8H PRN Nausea And Vomiting Oxycodone/Acetaminophen 1 tab 05/25/19 21:33 05/26/19 19:31 Percocet 5/325 PO 1 tab Q6H PRN Administration Pain, Moderate (4-6) Pantoprazole Sodium 40 mg 05/29/19 10:00 06/02/19 09:53 Protonix PO 40 mg QDAY SHEBA Administration Sodium Chloride 10 ml 05/25/19 22:00 06/02/19 09:54 Sodium Chloride Flush Syringe 10 Ml IV 10 ml BID SHEBA Administration Sodium Chloride 10 ml 05/25/19 21:33 05/30/19 00:24 Sodium Chloride Flush Syringe 10 Ml IV 10 ml PRN PRN Administration LINE FLUSH
--- NOTE | 2019-06-02 17:02 | Event Note ---
Date: 06/02/19 Pt not seen by me today, upon my arrival to ICU pt was being transported via stretcher for transfer to [facility] for further management of care
[2019-06-02 18:09] VITALS: BP 112/75
== END 2019-06-02 17:10 | disposition short-term general hospital (02) | DRG 871 ==
LOC: ED 10:49 → 4A 21:33 → CC1 05-29 17:59
PROVIDERS: ADMIT Internal Medicine; ATTEND Internal Medicine
PROC: 06H033Z Insertion of Infusion Device into Inferior Vena Cava, Percutaneous Approach (ICD-10-PCS; principal; 2019-05-29)
PROC: B549ZZA Ultrasonography of Inferior Vena Cava, Guidance (ICD-10-PCS; 2019-05-29)
PROC: B5191ZA Fluoroscopy of Inferior Vena Cava using Low Osmolar Contrast, Guidance (ICD-10-PCS; 2019-05-29)
PROC: 4A033R1 Measurement of Arterial Saturation, Peripheral, Percutaneous Approach (ICD-10-PCS; 2019-05-29)
PROC: 5A1D70Z Performance of Urinary Filtration, Intermittent, Less than 6 Hours Per Day (ICD-10-PCS; 2019-05-29)
PROC: 5A09357 Assistance with Respiratory Ventilation, Less than 24 Consecutive Hours, Continuous Positive Airway Pressure (ICD-10-PCS; 2019-05-29)
PROC: 5A1D70Z Performance of Urinary Filtration, Intermittent, Less than 6 Hours Per Day (ICD-10-PCS; 2019-05-30)
PROC: 5A09357 Assistance with Respiratory Ventilation, Less than 24 Consecutive Hours, Continuous Positive Airway Pressure (ICD-10-PCS; 2019-05-30)
PROC: 5A1D70Z Performance of Urinary Filtration, Intermittent, Less than 6 Hours Per Day (ICD-10-PCS; 2019-05-31)
PROC: 5A09357 Assistance with Respiratory Ventilation, Less than 24 Consecutive Hours, Continuous Positive Airway Pressure (ICD-10-PCS; 2019-05-31)
PROC: 5A09357 Assistance with Respiratory Ventilation, Less than 24 Consecutive Hours, Continuous Positive Airway Pressure (ICD-10-PCS; 2019-06-01)
PROC: 5A09357 Assistance with Respiratory Ventilation, Less than 24 Consecutive Hours, Continuous Positive Airway Pressure (ICD-10-PCS; 2019-06-02)
DX: A41.9 Sepsis, unspecified organism (principal); I50.23 Acute on chronic systolic (congestive) heart failure; N17.0 Acute kidney failure with tubular necrosis; E43 Unspecified severe protein-calorie malnutrition; R65.21 Severe sepsis with septic shock; J18.9 Pneumonia, unspecified organism; J96.01 Acute respiratory failure with hypoxia; I13.0 Hypertensive heart and chronic kidney disease with heart failure and stage 1 through stage 4 chronic kidney disease, or unspecified chronic kidney disease; N13.6 Pyonephrosis; Z94.0 Kidney transplant status; G93.40 Encephalopathy, unspecified; I48.91 Unspecified atrial fibrillation; E87.5 Hyperkalemia; N18.9 Chronic kidney disease, unspecified; J01.40 Acute pansinusitis, unspecified; D69.6 Thrombocytopenia, unspecified; E11.22 Type 2 diabetes mellitus with diabetic chronic kidney disease; E88.09 Other disorders of plasma-protein metabolism, not elsewhere classified; D64.9 Anemia, unspecified; M54.9 Dorsalgia, unspecified; I25.10 Atherosclerotic heart disease of native coronary artery without angina pectoris; I25.5 Ischemic cardiomyopathy; Z96.641 Presence of right artificial hip joint; M19.90 Unspecified osteoarthritis, unspecified site; Z88.5 Allergy status to narcotic agent; Z79.899 Other long term (current) drug therapy; Z68.27 Body mass index [BMI] 27.0-27.9, adult; I25.2 Old myocardial infarction; Z82.49 Family history of ischemic heart disease and other diseases of the circulatory system
CPT/HCPCS: 36415; 36556; 70450; 70551; 71045; 74176; 76770; 76937; 77001; 80048; 80061; 80074; 80076; 81001; 82140; 82550; 82553; 82570; 82728; 82803; 82805; 82962; 83036; 83550; 83735; 83880; 84100; 84132; 84156; 84300; 84484; 85025; 85027; 85610; 85730; 87040; 87076; 87086; 87186; 87400; 93005; 93010; 93306; 94640; 94660; 94760; 96365; 96375; 99292; G0378; A9270-GY; C1752; J0282; J0295; J0360; J0692; J0696; J1170; J1250; J1644; J1720; J1815; J2250; J2270; J2405; J3010; J3370; J7030; J7040; J7050; J7060; J7070